=== PATIENT | female | born 1940 | race Caucasian/White ===

== ENCOUNTER 2019-03-01 06:26 | Day surgery (SDC) | payer OTHER ==
[2019-02-28 16:42] LABS: Protime INR 0.98
[2019-03-01] MEDS ORDERED: LIDOCAINE 1% MPF 30 ML VIAL ONE (06:53)
[2019-03-01] MEDS ORDERED: HEPA 1000U/500MLS 1,000 UNIT/500 ML BAG IV ONE (06:53)
[2019-03-01] MEDS ORDERED: NA CHLORIDE 0.9% 500 ML ONE (07:01)
[2019-03-01] MEDS ORDERED: NA CHLORIDE 0.9% 0 ML ONE (07:48)
[2019-03-01] MEDS ORDERED: MIDAZOLAM HCL 2 MG/2 ML INJ ONE (07:48)
[2019-03-01] MEDS ORDERED: FENTANYL CITR 100 MCG/2 ML ONE (07:48)
[2019-03-01] MEDS ORDERED: ATROPINE SULF 1 MG/10 ML SYR IV ONE (07:48)
[2019-03-01 10:33] VITALS: BP 127/46; TEMP 97.6; O2SAT 97
--- NOTE | 2019-03-01 18:41 | OP ---
Date of Procedure: 03/01/2019 Surgeon: Phu Webb MD Manager Of Operations: Gorge Salmon. Indication For The Procedure: Unstable angina. Procedures: Left heart catheterization with selective coronary arteriogram. History Of Present Illness: Ms. Tovar is 79, has multiple cardiac risk factors including hypertensi on, diabetes, dyslipidemia, continued to have chest pain, had a negative stress test in the recent [place], but because of her continued symptoms, Dr. Tobin and I decided it may be best to define her coron hazel anatomy for sure. Description Of Procedure: She was brought to the [facility] today as an outpatient on 03/01/2019, prep ped and draped in the routine sterile fashion. Given Versed for sedation. Six-Czech sheath introdu megha in the right common femoral artery. StarClose was used to close the case. Angiography there was normal. Casimiro catheter 6-Czech left and right were used to cannulate the left main and the right main respectively. She had normal coronaries. She was right dominant. Blood vessels were tortuous , but no focal stenosis. There were no complications. Blood Loss: 5 cc. Postoperative Diagnoses: Chest pain. Normal coronaries. Plan: To continue medical therapy. Anesthesia: Total conscious sedation was 30 minutes. The patient will be going home in 2 hours and I will see her in the office in 2 weeks. DALILA/SYDNEY Voice ID: [id number] Report ID: [id number]
== END 2019-03-01 10:32 | disposition home health service (06) ==
LOC: CCL 06:26
PROC: B201YZZ Plain Radiography of Multiple Coronary Arteries using Other Contrast (ICD-10-PCS; principal; 2019-03-01)
DX: I20.0 Unstable angina (principal); E11.9 Type 2 diabetes mellitus without complications; I10 Essential (primary) hypertension; E78.5 Hyperlipidemia, unspecified; I35.1 Nonrheumatic aortic (valve) insufficiency; I65.21 Occlusion and stenosis of right carotid artery; Z82.49 Family history of ischemic heart disease and other diseases of the circulatory system; Z87.891 Personal history of nicotine dependence
CPT/HCPCS: 36415; 85610; 82947 ×2; 85730; 93454; C1893; J2250; J3010; J7040; J0583

== ENCOUNTER 2021-04-04 06:18 | Day surgery (SDC) | payer OTHER ==
[2021-04-04] MEDS ORDERED: NA CHLORIDE 0.9% 1,000 ML ONE (06:44)
[2021-04-04] MEDS ORDERED: propofoL 200 MG/20 ML VIAL IV ONE (06:53)
[2021-04-04] MEDS ORDERED: LIDOCAINE 2% MPF 5 ML VIAL ONE (06:53)
[2021-04-04] MEDS ORDERED: FENTANYL CITR 100 MCG/2 ML ONE (06:53)
--- NOTE | 2021-04-04 06:53 | RAD REPORT ---
EXAM DESCRIPTION: RAD - Chest Pa And Lat (2 Views) - 04/04/2021 6:46 am CLINICAL HISTORY: PRE-OP COMPARISON: Chest Pa And Lat (2 Views) dated 04/01/2021; Chest Pa And Lat (2 Views) dated 02/25/2021; Chest Pa And Lat (2 Views) dated 02/24/2019; CHEST PA AND LAT 2 VIEW dated 10/13/2014 FINDINGS: Lines: None. Lungs: No evidence of edema or pneumonia. Pleural: No significant pleural effusions or pneumothorax. Cardiac: The heart size is within normal limits. Bones: No acute fractures. Other: IMPRESSION: No acute cardiopulmonary disease.
[2021-04-04 06:56] LABS: Absolute Lymphocytes (CBC) 1.3 K/uL (0.7-4.9); Hematocrit 33.3 % (36.0-45.0); Lymphocytes % 18.4 % (15.3-44.8); MPV 6.8 fL (7.6-11.3); RBC Red Blood Cell Count 3.68 M/uL (3.86-4.86)
[2021-04-04 07:10] LABS: Potassium 3.9 mmol/L (3.5-5.1)
[2021-04-04] MEDS ORDERED: ACETAMINOPHEN 500 MG TAB ONE (07:36)
[2021-04-04] MEDS: BUPIVACAINE 0.5% Inj,MDV 50 mL VIAL ONE ×2 (08:27→08:41)
[2021-04-04] MEDS ORDERED: ONDANSETRON 4 MG/2 ML VIAL ONE (08:47)
[2021-04-04] MEDS ORDERED: Mastisol Adhesive Liq ONE (09:13)
[2021-04-04] MEDS: HYDROMORPHONE HCL 1 MG/ML INJ ONE ×2 (09:40→09:58)
[2021-04-04 09:55] VITALS: TEMP 97.5
[2021-04-04] MEDS ORDERED: HYDROCODONE/APAP 7.5/325 MG TAB ONE (10:42)
[2021-04-04 11:52] VITALS: BP 123/47; O2SAT 95
--- NOTE | 2021-04-04 12:10 | OP ---
Date of Procedure: 04/04/2021 Surgeon: Sanjeev Arce MD Mds Manager: Edi Lennon, surgical services asst certified. Preoperative Diagnosis: Right groin lymphadenopathy and history of bladder cancer. Postoperative Diagnosis: Right groin lymphadenopathy and history of bladder cancer. Procedure: Excision of right groin lymph node with frozen section. Estimated Blood Loss: Minimal. Specimen: Right groin lymph node. 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 Anesthesia: General. Complications: None. Disposition: The patient tolerated the procedure in stable condition and taken to Recovery in good g eneral condition. Procedure In Detail: The patient was brought to the OR, placed in supine position. General anesthes ia begun. The patient was prepped and draped in usual sterile fashion. Marcaine 0.5% was infiltrate d locally. A 15-blade was used to make a 2 cm incision in the right groin where a palpable enlarged mass. Subcutaneous tissue was divided. Camacho fascia identified and divided and then deep to the te nsor fascia, a matted area of enlarged lymph nodes was identified and one of the lymph nodes approxim ately 2.5 cm in diameter was excised and 3-0 silk sutures tied and vascular clips were used to contro l the vascular bundle and then the lymph node was removed and sent to Pathology. Frozen section reve aled lymphatic tissue as well as metastatic carcinoma. Wound irrigated. Bleeding controlled with ca utery. A 3-0 chromic used to approximate the subcutaneous tissue and 4-0 Monocryl used to close the skin. Sterile dressing applied. The patient awakened and taken to Recovery in good general conditio n. Discharge Note: The patient will go to Day Surgery and home when stable. Disposition: Home. Condition: Stable. Discharge Instructions: Resume home medications and diet. Activity as tolerated. No heavy lifting. Keep dressing clean and dry. Follow up in my office in a week. Call for appointment. Ultracet 1 tablet p.o. q.4 p.r.n. pain. /MODL Voice ID: [id number] Report ID: [id number]
== END 2021-04-04 11:10 | disposition home or self-care (01) ==
LOC: OR 06:18
PROVIDERS: ATTEND Surgery
PROC: 07BH0ZX Excision of Right Inguinal Lymphatic, Open Approach, Diagnostic (ICD-10-PCS; principal; 2021-04-04 08:30)
DX: C77.4 Secondary and unspecified malignant neoplasm of inguinal and lower limb lymph nodes (principal); Z85.51 Personal history of malignant neoplasm of bladder; Z20.822 Contact with and (suspected) exposure to COVID-19
CPT/HCPCS: 49203; 93005; 85025; 80048; 36415; 82947; 88305; 88333; 71046; U0003; J2704; J3010; J1170; J7030; J2405

== ENCOUNTER 2022-01-01 09:48 | Emergency (ER) | payer OTHER ==
--- OUTSIDE RECORDS SUMMARY | 2022-01-01 10:02 | XMS REPORT | Clinical Summary ---
:1940 Author Organization [facility] MD [facility] Address [address] [place] [address] Care Team Providers Name Role Phone Mayi Gómez MD Unavailable Cheri Mcintyre MD Primary Care Provider Mayi Gómez MD Unavailable Libby Shukla MD Primary Care Provider Allergies Active Allergy Reactions Severity Noted Date Comments Codeine GI Intolerance 04/11/2021 Medications Medication Sig Dispensed Refills Start Date End Date Status gabapentin Take 100 mg by 0 03/05/2021 Act bisi (NEURONTIN) 100 mg mouth 3 (three) capsule times a day. Peripheral Neuropathy. simvastatin (ZOCOR) Take 40 mg by mouth 0 03/12/2021 Active 40 mg tablet at bedtime. Cholesterol. CRANBERRY ORAL Take 2 capsules by 0 01/07/2021 Active mouth twice daily. Supplement. sodium Swish and spit 10 0 05/14/2021 A ctive chloride-sodium mL 4 (four) times a bicarbonate (SALT AND day. Mouth Care. SODA) Use 2 teaspoonfuls mouthwashIndications: and dissolve in 1 Secondary malignant quart (960 mL) of neoplasm of lymph warm water. Take nodes of multiple hospital supply sites, Secondary home with each malignant neoplasm of admission. bone, Neoplasm, malignant of bladder, NOS ondansetron Dissolve 1 tablet 30 tablet 3 05/14/2021 Active (ZOFRAN-ODT) 8 mg (8 mg) on the disintegrating tongue every 8 tabletIndications: (eight) hours as Secondary malignant needed for nausea neoplasm of lymph or vomiting. nodes of multiple sites, Secondary malignant neoplasm of bone, Neoplasm, malignant of bladder, NOS simethicone (MYLICON) Chew 80 mg every 6 0 Active 80 mg chewable tablet (six) hours as needed for flatulence. Bloating/Gas. Available over the counter. polyethylene glycol Take 17 g by mouth 0 05/15/2021 Active (MIRALAX) 17 g daily. packetIndications: Constipation. Transitional cell Available over the carcinoma, NOS of counter. Hold for overlapping lesion of diarrhea/loose bladder, Secondary stools. malignant neoplasm of lymph nodes of multiple sites, Secondary malignant neoplasm of bone pen needle, diabetic 1 each by 120 each 11 05/15/2021 Active 32 gauge x " miscellaneous route ndleIndications: Type 4 (four) times a 2 diabetes mellitus day. with hyperglycemia topiramate (TOPAMAX) Take 50 mg by mouth 0 Active 50 mg tablet twice daily. Peripheral Neuropathy. naloxone (Narcan) 4 Use 1 dose into one 2 each 0 10/11/2021 Active mg/actuation nasal nostril as needed sprayIndications: for opioid Pain due to overdose. Do not neoplastic disease prime or test the inhaler prior to adminstration. Give another dose into the other nostril after 2 to 3 minutes if the patient does not respond or responds and then relapses into respiratory depression. Additional Information Patient not taking. Reason: Not available, Reported on 10/30/2021 metoprolol succinate (TOPROL Take 1 tablet (25 mg) 90 tablet 0 10/17/2021 Active XL) 25 mg 24 hr by mouth daily. Blood tabletIndications: Transitional Pressure. Check blood cell carcinoma, NOS of pressure PRIOR to each overlapping lesion of bladder dose and record in log. Hold for systolic blood pressure (top number) less than 110 or HR less than 60. melatonin 5 mg tab Take 1 tablet (5 mg) 0 11/08/2021 Active tabletIndications: Transitional by mouth nightly as cell carcinoma, NOS of needed (Insomnia). overlapping lesion of bladder, Available over the Papillary transitional cell counter. carcinoma of trigone of bladder Additional Information Patient not taking. Reason: Not available, Reported on 12/04/2021 vit C/E/Zn/coppr/lutein/zeaxan Take 1 tablet by 0 Active (PRESERVISION AREDS-2 ORAL) mouth twice daily. Vitamin Supplement. sulfamethoxazole-trimethoprim Take 1 tablet by 15 tablet 1 10/18 Active (BACTRIM DS) 800 mg-160 mg per mouth 3 (three) 04/17 0 tabletIndications: Transitional times a week 22 cell carcinoma, NOS of Thursday, Thursday overlapping lesion of bladder, and Thursday. PCP Papillary transitional cell prophylaxis. carcinoma of trigone of Ensure 1 glass of bladder, Other spinal cord water with each compression dose. Take for 1 month after completion of steroids (12/29/21). insulin aspart U-100 (NovoLOG Inject 2-20 Units 45 mL 3 Active Flexpen U-100 Insulin) 100 under the skin 3 11/05 unit/mL (3 mL) insulin (three) times a penIndications: Type 2 diabetes day before meals. mellitus with hyperglycemia insulin glargine,hum.rec.anlog Inject 5 Units 15 mL 3 10/18 Active (Lantus Solostar U-100 Insulin) under the skin 10/18 0 100 unit/mL (3 mL) every morning. 22 inpnIndications: Type 2 diabetes mellitus with hyperglycemia NIFEdipine (PROCARDIA XL) 30 mg Take 1 tablet (30 90 tablet 0 10/18 Active 24 hr tabletIndications: mg) by mouth 11/05 Transitional cell carcinoma, daily. For blood 22 NOS of overlapping lesion of pressure. Check bladder, Transitional cell blood pressure carcinoma, NOS of bladder, NOS PRIOR to each dose and record in log. Hold for systolic blood pressure (top number) less than 110. LORazepam (Ativan) 0.5 mg Take 1 tablet 5 tablet 0 11/17 Active tabletIndications: Anxiety, not (0.5 mg) by mouth otherwise specified as needed for 22 anxiety (Take one tablet by mouth once a day. Take it 30 minutes before each daily radiation treatment) for up to 5 doses. pantoprazole (PROTONIX) 40 mg Take 1 tablet (40 30 tablet 3 Active EC tabletIndications: mg) by mouth 06/05 Transitional cell carcinoma, daily. Acid 22 NOS of overlapping lesion of Reflux/GERD. 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 dexamethasone (DECADRON) 2 mg Take 1 tablet (2 11 tablet 0 11/ 0 12/17 Active tabletIndications: Transitional mg) by mouth 11/05 08/05 cell carcinoma, NOS of twice daily for 4 22 22 overlapping lesion of bladder days, THEN 1 tablet (2 mg) daily for 3 days. prochlorperazine (Compazine) 10 Take 1 tablet (10 30 tablet 1 11/0 Active mg tabletIndications: mg) by mouth 11/05 Transitional cell carcinoma, every 8 (eight) 22 NOS of overlapping lesion of hours as needed bladder, Nausea for nausea. lactulose (CHRONULAC) 10 Take 15 mL (10 g) 480 mL 0 11/0 Active gram/15 mL solutionIndications: by mouth every 8 Transitional cell carcinoma, (eight) hours as 22 NOS of overlapping lesion of needed for bladder, Slow transit constipation. constipation HYDROcodone-acetaminophen Take 1 tablet by 120 tablet 0 12/17 Active (NORCO) 10 mg-325 mg per mouth every 04/07 tabletIndications: Neoplasm (six) hours as 22 related pain (acute) (chronic) needed for moderate pain or severe pain. morphine (MS CONTIN) 15 mg ER Take 1 tablet (15 90 tablet 0 01/16 Active tabletIndications: Neoplasm mg) by mouth 04/07 05/05 related pain (acute) (chronic) every 8 (eight) 22 22 hours for 30 days. HYDROcodone-acetaminophen Take 1 tablet by 0 03/19 04/0 Discontinued (XODOL) 5-300 mg per tablet mouth every 6 08/05 03/07 (Stop Taking at (six) hours as 22 Disch arge) needed for severe pain. Take temperature PRIOR to each dose. Maximum daily dose = 4 grams/24 hours. losartan (COZAAR) 50 mg tablet Take 50 mg by 0 02/17 03/2 Discontinued mouth daily. 08/05 11/05 (Stop T aking at Blood Pressure. Disc harge) Check blood pressure PRIOR to each dose and record in log. Hold for systolic blood pressure (top number) less than 110. methocarbamol (ROBAXIN) 500 mg Take 500 mg by 0 02/0 05/1 Discontinued tablet mouth 3 (three) 08/05 04/07 (Reo rder) times a day as 22 22 needed for muscle spasms. metoprolol succinate (TOPROL Take 25 mg by 0 02/2 04/2 Discontinued XL) 25 mg 24 hr tablet mouth daily. 03/07 11/05 (Reorder) Blood Pressure. 22 22 Check blood pressure PRIOR to each dose and record in log. Hold for systolic blood pressure (top number) less than 110 or HR less than 60. docusate sodium (COLACE ORAL) Take 1 tablet by 0 04/0 Discontinued mouth twice 03/07 (Stop Ta sharon at daily. Stool 22 Dischar ge) Softener. Available over the counter. Hold for diarrhea/loose stools. magnesium oxide 400 mg Take 400 mg by 0 09 /2 Discontinued magnesium tab mouth twice 06/05 (Sto p Taking at daily. Magnesium 22 Dis charge) Supplement. Take with meals. Hold for diarrhea/loose stools. Lactobacillus acidophilus Take by mouth 0 03/2 Discontinued (PROBIOTIC ORAL) daily. 11/05 22 insulin NPH human isophane Inject 10 Units 0 04/0 Discontinued (NOVOLIN N NPH U-100 INSULIN under the skin at 03/07 (Stop Taking at SUBCUTANEOUS) bedtime. On Disc harge) sliding scale insulin regular, human (NOVOLIN Inject as 0 04/0 Discontinued R REGULAR U-100 INSULN directed. Inject 03/07 (Stop Taking at INJECTION) 20 units in the 22 Dis charge) AM and 10 units in the PM 30 minutes before meals. traMADol (ULTRAM) 50 mg Take 50 mg by 0 04 /0 Discontinued tabletIndications: pain mouth every 8 20 (eight) hours as 22 needed for moderate pain. acetaminophen (TYLENOL) 500 mg Take 500 mg by 0 04/0 Discontinued tablet mouth every 6 20 (six) hours as 22 needed for mild pain. Take temperature PRIOR to each dose. Maximum ACETAMINOPHEN daily dose = 4 grams from all sources /24 hours. ondansetron (Zofran) 8 mg Take 1 tablet (8 15 tablet 6 03/2 04/0 Discontinued tabletIndications: Transitional mg) by mouth 2 8/2 0 03/07 (Stop Taking at cell carcinoma, NOS of (two) times a day Discharge) overlapping lesion of bladder as needed for nausea or vomiting. senna-docusate (SENOKOT-S) 8.6 Take 2 tablets by 0 0 04/18 10/18 Discontinued mg-50 mg tabletIndications: mouth twice 06/05 (Stop Taking at Secondary malignant neoplasm of daily. Discharge) lymph nodes of multiple sites, Constipation. Secondary malignant neoplasm of Available over bone, Neoplasm, malignant of the counter. Hold bladder, NOS for diarrhea/loose stools. dexamethasone (DECADRON) 4 mg Take 1 tablet (4 6 tablet 4 05/17 Discontinued tabletIndications: Secondary mg) by mouth 11/05 05/05 (Reorder) malignant neoplasm of lymph twice daily. nodes of multiple sites, Delayed Secondary malignant neoplasm of Nausea/Vomiting. bone, Neoplasm, malignant of Take for 3 days bladder, NOS scheduled after EACH cycle of chemotherapy. Take with meals. HYDROcodone-acetaminophen Take 1 tablet by 30 tablet 0 04/17 05/17 Discontinued (NORCO) 5 mg-325 mg per mouth every 6 11/05 (Reorder) tabletIndications: Transitional (six) hours as cell carcinoma, NOS of needed for severe overlapping lesion of bladder pain. Take temperature PRIOR to each dose. Maximum daily dose of 4 grams of Acetaminophen(fro m all sources) per 24 hours. hyoscyamine sulfate (ANASPAZ) Place 1 tablet 30 tablet 1 04/18 04/18 Discontinued 0.125 mg disintegrating (0.125 mg) on the (Stop Taking at tabletIndications: Transitional tongue every 6 Discharge) cell carcinoma, NOS of (six) hours as overlapping lesion of bladder, needed (Bladder Secondary malignant neoplasm of Spasms.). lymph nodes of multiple sites, Secondary malignant neoplasm of bone, Neoplasm, malignant of bladder, NOS insulin glargine (Lantus Inject 8 to 10 15 mL 11 04/18 10/18 Discontinued Solostar U-100 Insulin) 100 Units under the 11/05 (Reorder) unit/mL (3 mL) insulin skin every penIndications: Type 2 diabetes morning. Hold if mellitus with hyperglycemia blood glucose less than 120 mg/dl. Follow directions provided at discharge for different doses on the days that you take steroids versus the days you do not. insulin aspart U-100 (NovoLOG Inject 2 to 20 15 mL 11 /10/18 Discontinued Flexpen U-100 Insulin) 100 Units under the 11/05 (Reorder) unit/mL (3 mL) insulin skin 3 (three) penIndications: Type 2 diabetes times a day mellitus with hyperglycemia before meals. HYDROcodone-acetaminophen Take 1 tablet by 60 tablet 0 /05/17 Discontinued (NORCO) 5 mg-325 mg per mouth every 6 03/07 (Stop Taking at tabletIndications: Transitional (six) hours as Discharge) cell carcinoma, NOS of needed for severe overlapping lesion of bladder pain. dexamethasone (DECADRON) 4 mg Take 1 tablet (4 6 tablet 0 05/18 Discontinued tabletIndications: Secondary mg) by mouth 05/05 11/05 (Reorder) malignant neoplasm of lymph twice daily. 22 22 nodes of multiple sites, Delayed Secondary malignant neoplasm of Nausea/Vomiting. bone, Neoplasm, malignant of Take for 3 days bladder, NOS scheduled after EACH cycle of chemotherapy. Take with meals. oxyCODONE (ROXICODONE) 10 mg Take half a 30 tablet 0 05/17 05/18 Discontinued immediate release tablet (5 mg) by 06/05 11/05 (Stop Taking at tabletIndications: Cancer mouth every 4 Discharge) associated pain (four) hours as needed for severe pain for up to 10 days. HYDROcodone-acetaminophen Take 1 tablet by 0 /2 Discontinued (NORCO) 5 mg-325 mg per tablet mouth every 6 11/05 (Reorder) (six) hours as 22 needed. Mild pain dexamethasone (DECADRON) 4 mg Take 1 tablet (4 4 tablet 2 / 2 06/16 Discontinued tabletIndications: Secondary mg) by mouth 11/05 04/07 (Reorder) malignant neoplasm of lymph twice daily. 22 22 nodes of multiple sites, Delayed Secondary malignant neoplasm of Nausea/Vomiting. bone, Neoplasm, malignant of Take for 3 days bladder, NOS scheduled after EACH cycle of chemotherapy. Take with meals. metoprolol succinate (TOPROL Take 2 tablets 60 tablet 0 /2 09 Discontinued XL) 25 mg 24 hr (50 mg) by mouth 11/05 03/07 tabletIndications: Transitional daily. Blood 22 22 cell carcinoma, NOS of Pressure. Check overlapping lesion of bladder blood pressure PRIOR to each dose and record in log. Hold for systolic blood pressure (top number) less than 110 or HR less than 60. NIFEdipine (PROCARDIA XL) 30 mg Take 1 tablet (30 30 tablet 0 04/3 / Discontinued 24 hr tabletIndications: mg) by mouth (Reorder) Transitional cell carcinoma, daily. Hold for 22 22 NOS of overlapping lesion of SYSTOLIC BLOOD bladder PRESSURE less than 110. HYDROcodone-acetaminophen Take 1 tablet by 30 tablet 0 04/2 05/0 Discontinued (NORCO) 5 mg-325 mg per mouth every 6 11/05 (Reorder) tabletIndications: Transitional (six) hours as 22 22 cell carcinoma, NOS of needed for overlapping lesion of bladder moderate pain or severe pain. furosemide (Lasix) 20 mg Take 0.5 tablets 5 tablet 0 05/0 05/0 Discontinued tabletIndications: Neoplasm, (10 mg) by mouth 06/05 06/05 (Reorder) malignant of overlapping lesion daily as needed 22 22 of bladder for edema. furosemide (Lasix) 20 mg Take 1 tablet (20 10 tablet 0 05/0 /3 Discontinued tabletIndications: Neoplasm, mg) by mouth 06/05 03/07 malignant of overlapping lesion daily as needed 22 22 of bladder for edema for up to 10 doses. HYDROcodone-acetaminophen Take 1 tablet by 60 tablet 0 05/0 06/0 Discontinued (NORCO) 5 mg-325 mg per mouth every 11/05 (Reorder) tabletIndications: Transitional (six) hours as 22 22 cell carcinoma, NOS of needed for overlapping lesion of bladder moderate pain or severe pain. dexamethasone (DECADRON) 4 mg Take 1 tablet (4 4 tablet 2 06/16 06/0 Discontinued tabletIndications: Secondary mg) by mouth 04/07 05/05 (Reorder) malignant neoplasm of lymph twice daily. 22 22 nodes of multiple sites, Delayed Secondary malignant neoplasm of Nausea/Vomiting. bone, Neoplasm, malignant of Take for 3 days bladder, NOS scheduled after EACH cycle of chemotherapy. Take with meals. methocarbamol (ROBAXIN) 500 mg Take 1 tablet 30 tablet 0 05/1 10/17 Discontinued tabletIndications: Transitional (500 mg) by mouth 04/07 11/05 (Reorder) cell carcinoma, NOS of 3 (three) times a 22 22 overlapping lesion of bladder day as needed for muscle spasms. NIFEdipine (PROCARDIA XL) 30 mg Take 1 tablet (30 30 tablet 0 05/1 06/0 Discontinued 24 hr tabletIndications: mg) by mouth 04/07 (Reorder) Transitional cell carcinoma, daily. Hold for 22 NOS of overlapping lesion of SYSTOLIC BLOOD bladder PRESSURE less than 110. ciprofloxacin HCl (Cipro) 500 Take 1 tablet 14 tablet 0 /02 20/2 Discontinued mg tabletIndications: (500 mg) by mouth 04/07 05/05 Transitional cell carcinoma, twice daily. 22 22 NOS of overlapping lesion of bladder dexamethasone (DECADRON) 4 mg Take 1 tablet (4 6 tablet 0 / 0 07/17 Discontinued tabletIndications: Secondary mg) by mouth 05/05 11/05 (Reorder) malignant neoplasm of lymph twice daily. 22 22 nodes of multiple sites, Delayed Secondary malignant neoplasm of Nausea/Vomiting. bone, Neoplasm, malignant of Take for 3 days bladder, NOS scheduled after EACH cycle of chemotherapy. Take with meals. HYDROcodone-acetaminophen Take 1 tablet by 60 tablet 0 /0 07/18 Discontinued (NORCO) 5 mg-325 mg per mouth every 6 05/05 (Reorder) tabletIndications: Transitional (six) hours as cell carcinoma, NOS of needed for overlapping lesion of bladder moderate pain or severe pain. NIFEdipine (PROCARDIA XL) 30 mg Take 1 tablet (30 30 tablet 1 06/0 08/0 Discontinued 24 hr tabletIndications: mg) by mouth 08/05 (Reorder) Transitional cell carcinoma, daily. Hold for NOS of overlapping lesion of SYSTOLIC BLOOD bladder PRESSURE less than 110. traMADol (ULTRAM) 50 mg tablet 0 /2 07/17 Discontinued 05/05 11/05 (Stop Taki ng at Discharge) furosemide (Lasix) 40 mg Take 1 tablet (40 2 tablet 0 07/17 07/18 Discontinued tabletIndications: Localized mg) by mouth 11/05 06/05 edema daily. Take for 2 days after completion of chemotherapy to help remove extra fluids. potassium chloride (KLOR-CON) Take 1 tablet (10 2 tablet 0 /2 10 mEq CR tabletIndications: mEq) by mouth 11/05 03/07 Hypokalemia daily for 2 days. 22 22 Take along with lasix dexamethasone (DECADRON) 4 mg Take 1 tablet (4 6 tablet 0 06/ 1 /2 Discontinued tabletIndications: Secondary mg) by mouth 11/05 (Therapy malignant neoplasm of lymph twice daily. completed) nodes of multiple sites, Delayed Secondary malignant neoplasm of Nausea/Vomiting. bone, Neoplasm, malignant of Take for 3 days bladder, NOS scheduled after EACH cycle of chemotherapy. Take with meals. HYDROcodone-acetaminophen Take 1 tablet by 60 tablet 0 06/2 08/0 Discontinued (NORCO) 5 mg-325 mg per mouth every 6 05/05 (Reorder) tabletIndications: Transitional (six) hours as cell carcinoma, NOS of needed for overlapping lesion of bladder moderate pain or severe pain. traMADol-acetaminophen Take 1 tablet by 0 07/0 09/16 Discontinued (ULTRACET) 37.5-325 mg per mouth as needed. 11/05 05/05 (Stop Taking at tablet Discharge) pantoprazole (Protonix) 20 mg Take 1 tablet (20 90 tablet 3 10/18 Discontinued EC tabletIndications: Upper mg) by mouth 09/04 06/05 (Stop Taking at abdominal pain, unspecified daily. Discharge) NIFEdipine (PROCARDIA XL) 30 mg Take 1 tablet (30 30 tablet 1 /0 10/18 Discontinued 24 hr tabletIndications: mg) by mouth 05/05 (Reorder) Transitional cell carcinoma, daily. Hold for NOS of overlapping lesion of SYSTOLIC BLOOD bladder, Transitional cell PRESSURE less carcinoma, NOS of bladder, NOS than 110. HYDROcodone-acetaminophen Take 1 tablet by 60 tablet 0 08/0 09/16 Discontinued (NORCO) 5 mg-325 mg per mouth every 6 07/05 (Stop Taking at tabletIndications: Transitional (six) hours as Discharge) cell carcinoma, NOS of needed for overlapping lesion of bladder moderate pain or severe pain. HYDROcodone-acetaminophen Take 1 tablet by 60 tablet 0 08/1 2 Discontinued (NORCO) 7.5 mg-325 mg per mouth every 4 05/05 05/05 (Reorder) tabletIndications: Pain due to (four) hours as neoplastic disease needed for moderate pain or severe pain. HYDROcodone-acetaminophen Take 1 tablet by 90 tablet 0 /2 2 Discontinued (NORCO) 7.5 mg-325 mg per mouth every 4 05/05 08/05 tabletIndications: Pain due to (four) hours as neoplastic disease needed for moderate pain or severe pain. HYDROcodone-acetaminophen Take 1.5 tablets 90 tablet 0 / Discontinued (NORCO) 7.5 mg-325 mg per by mouth every 4 08/05 07/05 (Reorder) tabletIndications: Pain due to (four) hours as neoplastic disease needed for moderate pain or severe pain. HYDROcodone-acetaminophen Take 1 to one and 90 tablet 0 10/17 Discontinued (NORCO) 7.5 mg-325 mg per a half tablets by 07/05 06/05 (Reorder) tabletIndications: Pain due to mouth every 4 neoplastic disease (four) hours as needed for moderate pain or severe pain. dexamethasone (DECADRON) 4 mg Take 1 tablet (4 10 tablet 0 10/18 Discontinued tabletIndications: Secondary mg) by mouth 2 09/04 06/05 (Stop Taking at malignant neoplasm of bone (two) times a day Discharge) with meals. HYDROcodone-acetaminophen Take 1 to 1 120 tablet 0 10/17 10/17 Discontinued (NORCO) 7.5 mg-325 mg per tablets by mouth 06/05 11/05 (Reorder) tabletIndications: Pain due to every 4 (four) neoplastic disease hours as needed for moderate pain or severe pain. docusate sodium (COLACE) 100 mg Take 100 mg by 0 10/18 Discontinued capsule mouth. 06/05 (Stop Taki ng at 22 Discharge) morphine (MS CONTIN) 15 mg ER Take 1 tablet (15 60 tablet 0 11/16 Discontinued tabletIndications: Pain due to mg) by mouth 11/05 10/05 neoplastic disease every 12 (twelve) hours for 30 days. senna-docusate (SENOKOT-S) 8.6 Take 3 tablets by 180 tablet 0 10/17 11/17 mg-50 mg tabletIndications: mouth twice daily 11/05 03/07 Slow transit constipation for 30 days. 22 2 2 methocarbamol (ROBAXIN) 500 mg Take 1 tablet 30 tablet 0 10/17 11/16 Discontinued tabletIndications: Transitional (500 mg) by mouth 11/05 10/05 (Therapy cell carcinoma, NOS of 3 (three) times a completed) overlapping lesion of bladder day as needed for muscle spasms. HYDROcodone-acetaminophen Take 1 tablet by 120 tablet 0 10/17 11/16 Discontinued (NORCO) 7.5 mg-325 mg per mouth every 4 11/05 03/07 (Reorder) tabletIndications: Pain due to (four) hours as neoplastic disease needed for moderate pain or severe pain. pantoprazole (PROTONIX) 40 mg Take 1 tablet (40 30 tablet 3 11/17 Discontinued EC tabletIndications: mg) by mouth 05/05 06/05 (Reorder) Transitional cell carcinoma, daily. Acid NOS of overlapping lesion of Reflux/GERD. 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 Papillary transitional cell Hyponatremia. carcinoma of trigone of bladder Hold for serum sodium greater than 150. dexamethasone (DECADRON) 4 mg Take 1 tablet (4 37 tablet 0 11/16 tabletIndications: mg) by mouth 05/05 06/05 Hyponatremia, Transitional cell every 6 (six) carcinoma, NOS of overlapping hours for 1 day, lesion of bladder, Papillary THEN 1 tablet (4 transitional cell carcinoma of mg) 3 (three) trigone of bladder, Other times a day for 5 spinal cord compression days, THEN 1 tablet (4 mg) twice daily for 5 days, THEN HALF a tablet (2 mg) twice daily for 5 days, THEN HALF a tablet (2 mg) daily with breakfast for 5 days. Steroid Taper Plan. Take with meals.. HYDROcodone-acetaminophen Take 1 tablet by 30 tablet 0 11/16 11/16 Discontinued (NORCO) 7.5 mg-325 mg per mouth every 4 03/07 10/05 (Therapy tabletIndications: Pain due to (four) hours as completed) neoplastic disease needed for moderate pain or severe pain. morphine (MS CONTIN) 15 mg ER Take 1 tablet (15 90 tablet 0 12/17 Discontinued tabletIndications: Neoplasm mg) by mouth 10/05 04/07 (Reorder) related pain (acute) (chronic) every 8 (eight) 22 22 hours for 30 days. HYDROcodone-acetaminophen Take 1 tablet by 100 tablet 0 11/16 12/17 Discontinued (NORCO) 10 mg-325 mg per mouth every 6 10/05 (Reorder) tabletIndications: Neoplasm (six) hours as 22 22 related pain (acute) (chronic) needed for moderate pain or severe pain. furosemide (Lasix) 40 mg Take 1 tablet (40 3 tablet 0 tabletIndications: Transitional mg) by mouth 04/07 07/05 cell carcinoma, NOS of daily for 3 days. overlapping lesion of bladder Active Problems Problem Noted Date Hypercalcemia 12/25/2021 Severe protein-calorie malnutrition 11/01/2021 Hyponatremia 10/31/2021 Back pain 09/28/2021 Constipation 09/28/2021 Renal insufficiency 06/10/2021 Dependence on supplemental oxygen 05/28/2021 Secondary malignant neoplasm of bilateral lungs 2021 Pleural effusion 05/17/2021 Current use of insulin 05/14/2021 [facility] current use of systemic steroid 05/14/2021 Adverse effect of glucocorticoids and synthetic analog ues 05/14/2021 Transitional cell carcinoma, NOS of overlapping lesion of bladder 05/06/2021 Type 2 diabetes mellitus with hyperglycemia 04/25/2021 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 04/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 04/11/2021 Neoplasm related pain (acute) (chronic) 04/11/2021 Bladder cancer 12/28/2020 Neuropathy 02/16/2019 Arthritis 02/16/2017 Hyperlipidemia 02/16/2017 Hypertension 02/16/2017 Resolved Problems Problem Noted Date Resolved Date Encounter for antineoplastic chemotherapy 06/24/2021 12/20/2021 Hyperkalemia 06/10/2021 08/01/2021 Encounters Date Type Specialty Care Team Description 12/31/2021 Orders Only Infusion Services Adenike Rosales RN 12/30/2021 Orders Only Genitourinary Venecia Valenzuela Secondary carlota gnant neoplasm of bone (Primary Dx); Oncology MATTI Knox Transitional c ell carcinoma, NOS of overlapping lesion of bladder; Pain in right a rm 12/28/2021 Nurse Lynne Bradford RN 12/25/2021 Infusion Infusion Services Kemp, 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 (Primary Dx); [place]alee, 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 COUNSEL Secondary ma lignant neoplasm of bone; Secondary malig nant neoplasm of bilateral lungs; Transitional ce ll carcinoma, NOS of overlapping lesion of bladder; Hypercalcemia 12/25/2021 Office Visit Genitourinary Libby Shukla MD Transitional cell carcinoma, NOS of over lapping lesion of bladder (Primary Dx); Oncology Adriazola, Bridgette, Nausea; GENERAL ACCOUNTANT Slow transit co nstipation; Secondary malig nant neoplasm of bilateral lungs; Secondary malig nant neoplasm of bone; 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; Neuropathy, not otherwise specified; Neoplasm relate d pain (acute) (chronic); Radiculopathy o f cervicothoracic region; Hypercalcemia; 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; Other fatigue 12/25/2021 Hospital Encounter Lab Justo, Victoriaio nal cell [place]e, 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 COUNSEL carcinoma, N OS of overlapping les ion of bladder 12/25/2021 Orders Only Genitourinary Sarita Mcintyre, Secondary carlota gnant neoplasm of bilateral lungs (Primary Dx); Oncology PharmD Secondary malig nant neoplasm of bone; 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; Transitional ce ll carcinoma, NOS of overlapping lesion of bladder; Hypercalcemia 12/25/2021 Travel 12/23/2021 Orders Only Genitourinary German Drew, Oncology 12/19/2021 Anesthesia Event Radiology Natacha Cano CRNA 12/19/2021 Telephone Orthopaedics Raghavendra Naidu 12/18/2021 Anesthesia Event Anesthesiology Estrella Edge APN 12/18/2021 Anesthesia Event Anesthesiology Linda Vaughan RN 12/18/2021 POEM Appointments Anesthesiology Libby Shukla MD 12/18/2021 Hospital Encounter Infusion Services Adriazola, Bridgette, S econdary malignant neoplasm of lymph nodes of multiple sites; GENERAL ACCOUNTANT Secondary malignant neoplasm of bone; AlimJamiaria Secondary m alignant neoplasm of bilateral lungs; Pooja, script manager ce ll carcinoma, NOS of overlapping lesion of bladder 12/18/2021 Hospital Encounter Lab Adriazola, Bridgette, Papill hazel GENERAL ACCOUNTANT transitional ce ll carcinoma of bl adder, NOS 12/18/2021 Office Visit Genitourinary Libby Shukla MD Transition al cell carcinoma, NOS of overlapping lesion of bladder (Primary Dx); Oncology Secondary malig nant neoplasm of bilateral lungs; Secondary malig nant neoplasm of bone; 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; Neuropathy, not otherwise specified; Neoplasm relate d pain (acute) (chronic); Radiculopathy o f cervicothoracic region; Other fatigue; Serum creatinin e raised; Pressure ulcer of unspecified part of back, stage 1 12/18/2021 Ancillary Procedure Radiology Mehring, Secondar y malignant Christopher neoplasm of bon e 12/18/2021 Hospital Encounter Lab Adriazola, Bridgette, Transi tional cell GENERAL ACCOUNTANT carcinoma, NOS of overlapping les ion of bladder 12/18/2021 Travel 12/18/2021 Orders Only Genitourinary Adriazola, Bridgette, Papillary Oncology GENERAL ACCOUNTANT transitional ce ll carcinoma of bl adder, NOS (Primary Dx ) 12/17/2021 Hospital Encounter Radiation Oncology Libby Shukla MD 12/17/2021 Clinical Support Sarita Boyd, Suspected COVID-19 (Primary Dx); GENERAL ACCOUNTANT Secondary malignant neoplasm of bone Josh Fernandez RN 12/17/2021 Hospital Encounter Radiation Oncology Nargis Oviedo MD Lud[place], Aashish Lopez MD 12/17/2021 Documentation Radiation Oncology Mohit Oviedo MD 12/17/2021 Travel 12/16/2021 Hospital Encounter Radiation Oncology Libby Shukla MD 12/16/2021 Hospital Encounter Lab Leticia Diaz, GENERAL ACCOUNTANT Kartik hernandez malignant neoplasm of bon e 12/16/2021 Travel 12/13/2021 Hospital Encounter Radiation Oncology Libby Shukla MD 12/13/2021 Travel 12/12/2021 POEM Appointments Anesthesiology Libby Shukla MD 12/12/2021 Hospital Encounter Radiation Oncology Libby Shukla MD 12/12/2021 Orders Only Neuro-Oncology Sarita Rodriguez, Secondary m alignant GENERAL ACCOUNTANT neoplasm of bon e (Primary Dx) 12/12/2021 Travel 12/12/2021 Documentation Radiation Oncology Mohit Oviedo MD 12/12/2021 Orders Only Orthopaedics Mehring, Secondary malig nant Christopher neoplasm of bon e (Primary Dx) 12/11/2021 Hospital Encounter Radiation Oncology Libby Shukla MD 12/11/2021 Travel 12/09/2021 Hospital Encounter Radiation Oncology Libby Shukla MD 12/09/2021 Orders Only Genitourinary Adriazola, Bridgette, Transitiona l cell carcinoma, NOS of overlapping lesion of bladder; Oncology GENERAL ACCOUNTANT 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 Orders Only Radiation Oncology Leticia Diaz NP Secon dary malignant neoplasm of bon e (Primary Dx) 12/05/2021 Hospital Encounter Radiation Oncology Mohit Oviedo MD 12/05/2021 Documentation Radiation Oncology Mohit Oviedo MD 12/05/2021 Documentation Radiation Oncology Mohit Oviedo MD 12/05/2021 Orders Only Radiation Oncology Mohit Oviedo MD Secon dary malignant neoplasm of bone (Primary Dx); Anxiety, not ot herwise specified 12/05/2021 Travel 12/04/2021 Hospital Encounter Radiation Oncology Leticia Diaz NP Secondary malignant Mohit Oviedo MD neoplasm of bone 12/04/2021 Hospital Encounter Lab Sarita Rodriguez, Reynaa ry malignant GENERAL ACCOUNTANT neoplasm of bon e 12/04/2021 Office Visit Neuro-Oncology Roslyn Escalante Secondary malignant MD Frank neoplasm of bon e 12/04/2021 Orders Only Radiation Oncology [place], Secondary malignant Jarad Alonso, neoplasm of bone (Primary Dx) 12/04/2021 Orders Only Radiation Oncology Leticia Diaz NP Secon dary malignant neoplasm of bon e (Primary Dx) 12/04/2021 Travel 12/02/2021 Orders Only Neuro-Oncology Sarita Rodriguez, Secondary m alignant GENERAL ACCOUNTANT neoplasm of bon e (Primary Dx) 11/27/2021 Documentation Genitourinary Yadiel Santoro, receptionist telephone operator 11/21/2021 Telemedicine Endocrinology Lisa Field Type 2 diab etes mellitus with hyperglycemia (Primary Dx); J, GENERAL ACCOUNTANT Mixed hyperlipidemia; Donna Espinoza Current use of insulin; M, GENERAL ACCOUNTANT Hypertension; Adverse effect of glucocorticoids and synthetic analogues, subsequent encounter; fringe maker curre nt use of systemic steroid 11/20/2021 Infusion Infusion Services Winter Mcintyre MD Secondary malignant neoplasm of lymph no georges of multiple sites (Primary Dx); Pagara, Helen S, Secondary ma lignant neoplasm of bone; RN Secondary malig nant neoplasm of bilateral lungs; Transitional ce ll carcinoma, NOS of overlapping lesion of bladder 11/20/2021 Office Visit Genitourinary Libby Shukla MD Transition al cell carcinoma, NOS of overlapping lesion of bladder (Primary Dx); Oncology Secondary malig nant neoplasm of bilateral lungs; Secondary malig nant neoplasm of bone; 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 11/20/2021 Hospital Encounter Lab Venecia Valenzuela Secondary malignant neoplasm of bilateral lungs; MATTI Knox Secondary carlota gnant neoplasm of bone; 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; Transitional ce ll carcinoma, NOS of overlapping lesion of bladder 11/20/2021 Telephone Endocrinology Roxie Negron, CARROLL 11/20/2021 Orders Only Genitourinary Sarita Mcintyre, Oncology PharmD 11/20/2021 Orders Only Genitourinary Libby Shukla MD Oncology 11/20/2021 Travel 11/19/2021 Hospital Encounter Radiation Oncology Mohit Oviedo MD Secondary malignant neoplasm of bon e 11/19/2021 Orders Only Genitourinary Adriazola, Bridgette, Secondary m alignant neoplasm of bilateral lungs (Primary Dx); Oncology GENERAL ACCOUNTANT Secondary malig nant neoplasm of bone; 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; Transitional ce ll carcinoma, NOS of overlapping lesion of bladder 11/14/2021 Telemedicine Endocrinology Elina Bueno, Type 2 diabet es mellitus with hyperglycemia (Primary Dx); MEDICARE SALES REPRESENTATIVE Mixed hyperlipidemia; Donna Espinoza Current use of insulin; M, GENERAL ACCOUNTANT Hypertension 11/14/2021 Orders Only Genitourinary Deborah Ham, Transitional cell carcinoma, NOS of overlapping lesion of bladder; bus person AGPCNP Transitional ce ll carcinoma, NOS of bladder, NOS 11/12/2021 Telemedicine Neuro-Oncology Roslyn Escalante Secondary malignant Frank MD neoplasm of bon e 11/12/2021 Orders Only Radiology Ailyn Palmer MD 11/10/2021 Orders Only Genitourinary Valenzuela, Venecia Transitional c ell carcinoma, NOS of overlapping lesion of bladder (Primary Dx); Oncology MATTI Knox Secondary carlota gnant neoplasm of bilateral lungs; Secondary malig nant neoplasm of bone; 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 11/08/2021 Orders Only Genitourinary German Drew Oncology 11/04/2021 Anesthesia Event Radiology Gabriele Tyson MD Potylchansky, Yury, MD 11/01/2021 Anesthesia Event Radiology Lavon Ibanez MD 11/01/2021 Orders Only Genitourinary Kishore Arellano Oncology 11/01/2021 Orders Only Genitourinary Kishore Arellano, Oncology 11/01/2021 Orders Only Radiation Oncology [place], Secondary malignant Jarad Alonso, neoplasm of bone (Primary Dx) 10/31/2021 Travel 10/31/2021 Orders Only Orthopaedics Timmy, Secondary malig shahlat MATTI Piña neoplasm of gamal ne (Primary Dx) 10/30/2021 Hospital Encounter GIM/Phase 1 Ladonna, Transitio nal cell carcinoma, NOS of overlapping lesion of bladder (Primary Dx); - MD Gisele Hyponatremia; 11/09/2021 Kishore Arellano, Chronic abdo hilton pain; Secondary malignant neoplasm of bilatera l lungs; Winter Mcintyre MD Secondary malignant neoplasm of lymph no georges of multiple sites; German Drew, Secondary ma lignant neoplasm of bone; Dependence on s upplemental oxygen; 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; Slow transit co nstipation; Severe protein- calorie malnutrition, not otherwise specified; Radiculopathy o f cervicothoracic region; Encounter for a ntineoplastic chemotherapy; Renal insuffici ency; Pleural effusio n; Adverse effect of glucocorticoids and synthetic analogues, initial encounter; Current use of insulin; Type 2 diabetes mellitus with hyperglycemia; Neoplasm relate d pain (acute) (chronic); Neuropathy, not otherwise specified; Hypertension; Mixed hyperlipi demia; Polyosteoarthri tis, not otherwise specified; 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; Other spinal co rd compression 10/30/2021 Hospital Encounter Radiation Oncology Libby Shukla MD 10/30/2021 Hospital Encounter Lab Valenzuela, Venecia Transitio nal cell carcinoma, NOS of bladder, NOS; MATTI Knox Hyposmolality and/or hyponatremia; Hypochloremia 10/30/2021 Office Visit Genitourinary Libby Shukla MD Hyposmolal ity and/or hyponatremia (Primary Dx); Oncology Transitional ce ll carcinoma, NOS of bladder, NOS; Hypochloremia 10/30/2021 Hospital Encounter Lab Deborah Ham, Victoria ional cell RN AGPCNP carcinoma, NOS of bladder, NOS 10/30/2021 Documentation Radiation Oncology Mohit Oviedo MD 10/30/2021 Travel 10/29/2021 Hospital Encounter Radiation Oncology Libby Shukla MD 10/29/2021 Consult Neuro-Oncology Roslyn Escalante MD neoplasm of bon e 10/29/2021 Hospital Encounter Radiation Oncology Mohit Oviedo MD 10/29/2021 Orders Only Radiation Oncology Leticia Diaz NP Secon dary malignant neoplasm of bon e (Primary Dx) 10/29/2021 Orders Only Radiology Ailyn Palmer MD 10/29/2021 Travel 10/28/2021 Hospital Encounter Radiation Oncology Libby Shukla MD 10/28/2021 Travel 10/25/2021 Hospital Encounter Radiation Oncology Libby Shukla MD 10/25/2021 Travel 10/24/2021 Hospital Encounter Radiation Oncology Libby Shukla MD 10/24/2021 Travel 10/24/2021 Documentation Radiation Oncology Mohit Oviedo MD 10/23/2021 Hospital Encounter Radiation Oncology Mohit Oviedo MD 10/23/2021 Hospital Encounter Radiation Oncology Deborah Ham, T ransitional cell RN AGPCNP carcinoma, NOS of Mohit Ovieod MD bladder, NO S 10/23/2021 Clinical Support Libby Reyes M D Suspected COVID-19 Josh Fernandez, (Primary Dx) CARROLL 10/23/2021 Documentation Radiation Oncology Mohit Oviedo MD 10/23/2021 Documentation Radiation Oncology Mohit Oviedo MD 10/23/2021 Orders Only Radiation Oncology Ashley Boucher malignant R, GENERAL ACCOUNTANT neoplasm of bon e (Primary Dx) 10/23/2021 Orders Only Radiation Oncology Mohit Oviedo MD Secon dary malignant neoplasm of bon e (Primary Dx) 10/23/2021 Orders Only Radiation Oncology Jarad Ibrahim MD 10/23/2021 Travel 10/21/2021 Hospital Encounter Radiation Oncology Libby Shukla MD 10/21/2021 Nurse Triage Kevin Vargas V, CARROLL MSN 10/17/2021 Telephone Radiation Oncology Ashley Boucher R, GENERAL ACCOUNTANT 10/17/2021 Telephone Radiation Oncology Ashley Boucher R, GENERAL ACCOUNTANT 10/17/2021 Refill Genitourinary Chantelle, Transitional c ell Oncology Linda, MEDICARE SALES REPRESENTATIVE carcinoma, NOS of overlapping les ion of bladder 10/16/2021 Infusion Infusion Services Deborah Ham, Transiti onal cell carcinoma, NOS of bladder, NOS (Primary Dx); RN ABRAHAM Radiculopathy of cervicothoracic region Pramod Sol III, CARROLL 10/16/2021 Office Visit Genitourinary Libby Shukla MD Transition al cell Oncology carcinoma, NOS of bladder, NOS (P rimary Dx) 10/16/2021 Hospital Encounter Lab Deborah Ham, Transit ional cell RN ABRAHAM carcinoma, NOS of bladder, NOS 10/16/2021 Orders Only Genitourinary Libby Shukla MD Oncology 10/16/2021 Orders Only Genitourinary Bree, Lilia Oncology K, [facility] 10/16/2021 Travel 10/09/2021 Orders Only Genitourinary Deborah Ham, Secondary ma lignant bus person ABRAHAM neoplasm of bon e (Primary Dx) 10/02/2021 Hospital Encounter Infusion Services Deborah Ham, Tr ansitional cell carcinoma, NOS of bladder, NOS (Primary Dx); RN ABRAHAM Papillary transitional cell carcinoma of bladder, NOS; Minerva De La Garza RN Bladder, NOS ca ncer 10/02/2021 Office Visit Genitourinary Deborah Ham, Transitional cell carcinoma, NOS of bladder, NOS (Primary Dx); bus person ABRAHAM 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; Secondary malig nant neoplasm of bone; Secondary malig nant neoplasm of bilateral lungs 10/02/2021 Hospital Encounter Lab Deborah Ham, Transit ional cell carcinoma, NOS of bladder, NOS; RN ABRAHAM Transitional ce ll carcinoma, NOS of overlapping lesion of bladder 10/02/2021 Travel 10/01/2021 Anesthesia Event Radiology Jessie Muñoz MD Bryant, Samantha, TALENT REP 10/01/2021 Hospital Encounter Radiology Deborah Ham, Transit ional cell carcinoma, NOS of overlapping lesion of bladder; RN ABRAHAM Transitional cell carcinoma, NOS of blad jayson, NOS Jessie Muñoz MD Bryant, Samantha, TALENT REP 10/01/2021 Travel 09/30/2021 Anesthesia Event Anesthesiology Ilya Hartley RN 09/30/2021 POEM Appointments Anesthesiology Libby Shukla MD No S how 09/27/2021 Emergency Clinical Decision Katharina Aparicio, Loretta perez (Primary Dx); - Back pain; 09/28/2021 Sami Lee 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 MD Mayco Berg Maria T, MD 09/27/2021 Travel 09/25/2021 Hospital Encounter Radiology Deborah Ham Cancele d (Physician RN AGPCNP Request) Nesha Rm MD Huynh, Lisa, CRNA 09/24/2021 Anesthesia Event Anesthesiology Brittany Altamirano RN 09/24/2021 POEM Appointments Anesthesiology Libby Shukla MD 09/24/2021 Anesthesia Event Radiology Fuentes Cortez MD 09/24/2021 Hospital Encounter Radiology Libby Shukla MD Transitional cell Ara, Luan, carcinoma, N OS of MD overlapping lesion of Fuentes Cortez MD bladder PelaezJuana, TALENT REP 09/24/2021 Travel 09/23/2021 Anesthesia Event Anesthesiology Meli Sy NP 09/23/2021 POEM Appointments Anesthesiology Cheryl Nava PA 09/23/2021 Hospital Encounter Lab Damari Castro PA 09/23/2021 Hospital Encounter Radiology Libby Shukla MD Encounter for other preprocedural examin ation (Primary Dx); Damari Castro, Right upper q uadrant pain; PA Claustrophobia; Bladder, NOS ca ncer; Secondary malig nant neoplasm of bone; Back pain, not otherwise specified 09/23/2021 Clinical Support Libby Reyes M D Suspected COVID-19 María Washington, (Primary Dx ) RN 09/23/2021 Orders Only Radiology Damari Castro PA 09/23/2021 Travel 09/20/2021 Orders Only Genitourinary Libby Shukla MD Transition al cell Oncology carcinoma, NOS of overlapping les ion of bladder 09/19/2021 Infusion Infusion Services Deborah Ham, Secondar y malignant neoplasm of lymph nodes of multiple sites (Primary Dx); RN ABRAHAM Secondary malig nant neoplasm of bone; Pleural effusio n; Encounter for a ntineoplastic chemotherapy; Neoplasm relate d pain (acute) (chronic); Type 2 diabetes mellitus with hyperglycemia; Current use of insulin; Hypertension; Dependence on s upplemental oxygen; Renal insuffici ency; Secondary malig nant neoplasm of bilateral lungs; Transitional ce ll carcinoma, NOS of overlapping lesion of bladder; Transitional ce ll carcinoma, NOS of bladder, NOS; Bladder, NOS ca ncer 09/19/2021 Travel 09/18/2021 Office Visit Genitourinary Libby Shukla MD Transition al cell carcinoma, NOS of overlapping lesion of bladder (Primary Dx); Oncology Transitional ce ll carcinoma, NOS of bladder, NOS 09/18/2021 Hospital Encounter Lab Libby Shukla MD Trans itional cell carcinoma, NOS of overlapping lesion of bladder; Macrocytic anem ia 09/18/2021 Orders Only Genitourinary Libby Shukla MD Oncology 09/18/2021 Travel 09/16/2021 Orders Only Genitourinary Deborah Ham, Secondary ma lignant neoplasm of bilateral lungs (Primary Dx); bus person ABRAHAM Pleural effusio n; Hypertension; Secondary malig nant neoplasm of bone; 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; Renal insuffici ency; Transitional ce ll carcinoma, NOS of overlapping lesion of bladder; Encounter for a ntineoplastic chemotherapy; Dependence on s upplemental oxygen; Current use of insulin; Type 2 diabetes mellitus with hyperglycemia; Neoplasm relate d pain (acute) (chronic); Transitional ce ll carcinoma, NOS of bladder, NOS 09/12/2021 Ancillary Procedure Radiology Libby Shukla MD Allison sitional cell carcinoma, NOS of overlapping les ion of bladder 09/12/2021 Orders Only Radiology Nava, Cheryl, PA 09/12/2021 Telephone Radiology Julianne Munroe I 09/12/2021 Orders Only Genitourinary Deborah Ham, bus person AGPCELOINA 09/12/2021 Travel 09/11/2021 Office Visit Genitourinary Libby Shukla MD Macrocytic anemia (Primary Dx); Oncology Transitional ce ll carcinoma, NOS of overlapping lesion of bladder; Upper abdominal pain, unspecified; Transitional ce ll carcinoma, NOS of bladder, NOS 09/11/2021 Travel 09/10/2021 Hospital Encounter Radiology Ady Roland Trans itional cell K, PA carcinoma, NOS of overlapping les ion of bladder 09/10/2021 Hospital Encounter Lab Ady Roland Trans itional cell K, PA carcinoma, NOS of overlapping les ion of bladder 09/10/2021 Travel 08/08/2021 Office Visit Oncology Ady Rolanda l cell K, PA carcinoma, NOS of overlapping les ion of bladder 08/08/2021 Office Visit Genitourinary Ady Roland Transition al cell Oncology K, PA carcinoma, NOS of Cheri Mcintyre, overlapping lesion of MD bladder (Primar y Dx) 08/08/2021 Travel 08/07/2021 Orders Only Oncology Yamileth Roland FNP 08/05/2021 Orders Only Genitourinary Ady Roland Oncology Brittni, PA 08/01/2021 Hospital Encounter /GI Med Winter Mcintyre MD Transitional cell carcinoma, NOS of over lapping lesion of bladder (Primary Dx); - Rachel, Localized e ronen; 08/04/2021 MD Travis Hypokalemia; 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; Secondary malig nant neoplasm of bone; Neoplasm, malig nant of bladder, NOS 08/01/2021 Office Visit Genitourinary Ady Roland Transition al cell Oncology K, PA carcinoma, NOS of overlapping les ion of bladder 08/01/2021 Travel 07/30/2021 Office Visit Genitourinary Ady Roland Transition al cell carcinoma, NOS of overlapping lesion of bladder (Primary Dx); Oncology K, PA Secondary malig nant neoplasm of bone; 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 07/30/2021 Travel 07/25/2021 Orders Only Genitourinary Castillo, Maria Eugenia T, GENERAL ACCOUNTANT Transition al cell Oncology carcinoma, NOS of overlapping les ion of bladder (Primar y Dx) 07/23/2021 Office Visit Genitourinary Cheri Mcintyre Transitiona l cell carcinoma, NOS of overlapping lesion of bladder (Primary Dx); Oncology MD Secondary malig nant neoplasm of bone; Other secondary thrombocytopenia; 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 07/23/2021 Travel 07/22/2021 Orders Only Genitourinary Luan, Saneese Transition al cell Oncology K, PA carcinoma, NOS of overlapping les ion of bladder 07/16/2021 Hospital Encounter /GI Med Cheri Mcintyre, Transi tional cell carcinoma, NOS of overlapping lesion of bladder (Primary Dx); - MD Encounter for antineoplastic chemotherap y; 07/19/2021 Sam Tabares MD Secondary malignant neoplasm of bilatera l lungs; Winter Mcintyre MD Secondary m alignant neoplasm of lymph nodes of multiple sites; Secondary malig nant neoplasm of bone; Neoplasm, malig nant of bladder, NOS 07/16/2021 Telemedicine Genitourinary Cheri Mcintyre Transitiona l cell Oncology MD carcinoma, NOS of overlapping les ion of bladder (Primar y Dx) 07/16/2021 Travel 07/16/2021 Orders Only Genitourinary Kaylee Cummins, Oncology H 07/16/2021 Orders Only Genitourinary Luan Saneese Transition al cell Oncology K, PA carcinoma, NOS of overlapping les ion of bladder (Primar y Dx) 07/08/2021 Hospital Encounter Lab Ady Roland Trans itional cell carcinoma, NOS of overlapping lesion of bladder; K, PA Other secondary thrombocytopenia 07/08/2021 Office Visit Genitourinary Cheri Mcintyre, Transitiona l cell carcinoma, NOS of overlapping lesion of bladder (Primary Dx); Oncology MD Other secondary thrombocytopenia 07/08/2021 Hospital Encounter Lab Ady Roland Trans itional cell K, PA carcinoma, NOS of overlapping les ion of bladder 07/08/2021 Travel 07/03/2021 Orders Only Oncology Ady Roland K PA 07/02/2021 Office Visit Genitourinary Cheri Mcintyre, Transitiona l cell carcinoma, NOS of overlapping lesion of bladder (Primary Dx); Oncology MD 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; Secondary malig nant neoplasm of bone; Secondary malig nant neoplasm of bilateral lungs 07/02/2021 Orders Only Genitourinary Ady Roland Transition al cell Oncology K, PA carcinoma, NOS of overlapping les ion of bladder (Primar y Dx) 07/02/2021 Travel 07/01/2021 Orders Only Genitourinary Ady Roland Oncology K, PA 06/27/2021 Orders Only Mixed Onc Chantelle, Neoplasm, malig nant Linda, MEDICARE SALES REPRESENTATIVE of overlapping lesion of bladder (Dolores petra Dx) 06/24/2021 Hospital Encounter Lymphoma Winter Mcintyre MD Transitional cell carcinoma, NOS of over lapping lesion of bladder (Primary Dx); - Cheri Mcintyre, Secondary ma lignant neoplasm of lymph nodes of multiple sites; 06/27/2021 MD Secondary malig nant neoplasm of bone; Neoplasm, malig nant of bladder, NOS 06/24/2021 Hospital Encounter Lab Ady Roland Trans itional cell K, PA carcinoma, NOS of overlapping les ion of bladder 06/24/2021 Office Visit Genitourinary Cheri Mcintyre, Transitiona l cell carcinoma, NOS of overlapping lesion of bladder (Primary Dx); Oncology MD 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; Secondary malig nant neoplasm of bone; Secondary malig nant neoplasm of bilateral lungs; Neoplasm relate d pain (acute) (chronic); Encounter for a ntineoplastic chemotherapy 06/24/2021 Orders Only Genitourinary Ady Roland Transition al cell Oncology K, PA carcinoma, NOS of overlapping les ion of bladder (Primar y Dx) 06/24/2021 Travel 06/24/2021 Telephone Endocrinology Corbin Baxter RN 06/22/2021 Hospital Encounter Lab Ady Roland Neopl asm, malignant K, PA of overlapping lesion of bladder 06/22/2021 Hospital Encounter Radiology Ady Roland Neopl asm, malignant K, PA of overlapping lesion of bladder 06/22/2021 Travel 06/21/2021 Ancillary Procedure Radiology 06/21/2021 Ancillary Procedure Radiology Transiti onal cell carcinoma, NOS of overlapping les ion of bladder 06/21/2021 Travel 06/19/2021 Telephone Genitourinary Ady Roland Oncology Brittni PA 06/19/2021 Orders Only Genitourinary Ady Roland Edema, not otherwise specified (Primary Dx); Oncology K PA Neoplasm, malig nant of overlapping lesion of bladder; Hypertension 06/19/2021 Telephone Genitourinary Ady Roland Oncology Brittni PA 06/18/2021 Office Visit Genitourinary Cheri Mcintyre, Neoplasm, m alignant of overlapping lesion of bladder (Primary Dx); Oncology MD 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; Secondary malig nant neoplasm of bone; Secondary malig nant neoplasm of bilateral lungs 06/18/2021 Travel 06/10/2021 Hospital Encounter /GI Med Cheri Mcintyre, Transi tional cell carcinoma, NOS of overlapping lesion of bladder (Primary Dx); - MD Secondary malignant neoplasm of lymph no [place] of multiple sites; 06/14/2021 Sam Tabares MD Secondary malignant neoplasm of bone; Mares, Bilal Neoplasm, ma lignant of bladder, NOS MD Francisco Javier Colon Jianbo, MD 06/10/2021 Office Visit Genitourinary Cheri Mcintyre Transitiona l cell carcinoma, NOS of overlapping lesion of bladder (Primary Dx); Oncology MD 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; Secondary malig nant neoplasm of bone; Secondary malig nant neoplasm of bilateral lungs 06/10/2021 Hospital Encounter Lab Ady Roland Trans itional cell Brittni, PA carcinoma, NOS of overlapping les ion of bladder 06/10/2021 Travel 06/04/2021 Office Visit Genitourinary Cheri Mcintyre, Neoplasm, m alignant of overlapping lesion of bladder (Primary Dx); Oncology MD Secondary malig nant neoplasm of bone; Secondary malig nant neoplasm of bilateral lungs; 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 06/04/2021 Orders Only Genitourinary Ady Roland Transition al cell Oncology K, PA carcinoma, NOS of overlapping les ion of bladder (Primar y Dx) 06/04/2021 Orders Only Genitourinary Ady Roland Transition al cell Oncology K, PA carcinoma, NOS of overlapping les ion of bladder (Primar y Dx) 06/04/2021 Travel 05/29/2021 Orders Only Genitourinary Ady Roland Oncology K, PA 05/27/2021 Hospital Encounter 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, NOS of overlapping lesion of bladder (Primary Dx); - MD Secondary malignant neoplasm of lymph no [place] of multiple sites; 05/30/2021 Winter Mcintyre MD Secondary malignant neoplasm of bone; Ivett-Damien, Neoplasm, ma lignant of bladder, NOS; MD Nupur Cancer associat ed pain 05/27/2021 Office Visit Genitourinary Cheri Mcintyre Transitiona l cell carcinoma, NOS of overlapping lesion of bladder (Primary Dx); Oncology Neoplasm, [place] of overlapping lesion of bladder 05/27/2021 Hospital Encounter Lab Ady Roland Trans itional cell Brittni, MATTI carcinoma, NOS of overlapping les ion of bladder 05/27/2021 Orders Only Genitourinary Cheri Mcintyre, Neoplasm, m alignant of overlapping lesion of bladder (Primary Dx); Oncology Secondary natalia shahlaaron neoplasm of bone 05/27/2021 Travel 05/22/2021 Telephone Genitourinary Ady Roland Oncology Brittni, PA 05/22/2021 Nurse Triage Jana Menchaca PA 05/21/2021 Hospital Encounter Radiology Cheri Mcintyre Transi tional cell carcinoma, NOS of Klein, overlapping les ion of MATTI Alonzo bladder (Primar y Dx) 05/21/2021 Orders Only Radiology Cheri Klein PA 05/20/2021 Ancillary Procedure Radiology Ady Roland Allison sitional cell carcinoma, NOS of overlapping lesion of bladder; K, PA Edema, not othe rwise specified 05/20/2021 Ancillary Procedure Radiology Ady Roland Allison sitional cell K, MATTI carcinoma, NOS of overlapping les ion of bladder 05/20/2021 Ancillary Procedure Radiology Ady Roland Allison sitional cell carcinoma, NOS of overlapping lesion of bladder; K, PA Neoplasm relate d pain (acute) (chronic) 05/20/2021 Office Visit Genitourinary Cheri Mcintyre Transitiona l cell carcinoma, NOS of overlapping lesion of bladder (Primary Dx); Oncology MD Edema, not otherwise specified; Ady Roland Neoplasm re lated pain (acute) (chronic); K, PA Secondary malig nant neoplasm of bilateral lungs; Secondary malig nant neoplasm of bone; 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 05/20/2021 Hospital Encounter Lab Ady Roland Trans itional cell K, PA carcinoma, NOS of overlapping les ion of bladder 05/20/2021 Documentation Corona Monroe, RN 05/20/2021 Case Management Arlen Moran, RN 05/20/2021 Orders Only Genitourinary Pelaez-Paningbat Physical d econditioning (Primary Dx); Oncology chris, Nupur, 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 COUNSEL Unilateral p rimary osteoarthritis of right knee 05/20/2021 Travel 05/13/2021 Hospital Encounter 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, NOS of overlapping lesion of bladder (Primary Dx); - Secondary malignant neoplasm of lymph no [place] of multiple sites; 05/17/2021 Winter Mcintyre MD Secondary malignant neoplasm of bone; Jd Hodgeit, Neoplasm, ma lignant of bladder, NOS; Type 2 diabetes mellitus with hyperglycemia; Pleural effusio n; Secondary malig nant neoplasm of bilateral lungs; Adverse effect of glucocorticoids and synthetic analogues, subsequent encounter; fringe maker curre nt use of systemic steroid; Current use of insulin; Neoplasm relate d pain (acute) (chronic); Drug-induced po lyneuropathy; Hypertension; Other hyperlipi demia; Polyosteoarthri tis, not otherwise specified 05/13/2021 Office Visit Genitourinary Cheri Mcintyre Transitiona l cell Oncology carcinoma, NOS of overlapping les ion of bladder (Primar y Dx) 05/13/2021 Hospital Encounter Lab Ady Roland Trans itional cell K, PA carcinoma, NOS of overlapping les ion of bladder 05/13/2021 Travel 05/06/2021 Orders Only Genitourinary Ady Roland Transition al cell Oncology K, PA carcinoma, NOS of overlapping les ion of bladder (Primar y Dx) 05/06/2021 Telephone Genitourinary Lamberto, Appointment Oncology Jossie, CARROLL 05/06/2021 Orders Only Genitourinary Cheri Mcintyre, Oncology 05/03/2021 Anesthesia Event Radiology Chris Nuñez MD 05/03/2021 Hospital Encounter Radiology Cheri Mcintyre Transi tional cell carcinoma, NOS of Chris Nuñez overlapping lesion of A, bladder Luan Diaz MD Nguyen, Nina, AINSLEY 05/03/2021 Travel 05/02/2021 Anesthesia Event Anesthesiology Ilya Hartley RN 05/02/2021 POEM Appointments Anesthesiology Leticia Le, PA 05/02/2021 Hospital Encounter Radiology Cheri Mcintyre Bladde r, NOS cancer (Primary Dx); Preprocedural examination done Qing Diaz PA 05/02/2021 Clinical Support Covid Cheri Mcintyre, Henrique d VALERIO-Rae PATIÑO (Primary Dx) Lexi Cameron RN 05/02/2021 Hospital Encounter Lab Jake Barnard PA 05/02/2021 Travel 04/30/2021 Hospital Encounter Miguelito Trevino MD Stephen, Saneese K PA 04/29/2021 Orders Only Radiology Leticia Le PA 04/29/2021 Orders Only Radiology Jake Barnard PA 04/25/2021 Office Visit Genitourinary Cheri Mcintyre Transitiona l cell Oncology carcinoma, NOS of overlapping les ion of bladder 04/25/2021 Lab Requisition Sohail Robertson MD Witson, Anne S., MD 04/25/2021 Travel 04/20/2021 Hospital Encounter Radiology Ady Roland Trans itional cell K, PA carcinoma, NOS of overlapping les ion of bladder 04/20/2021 Travel 04/17/2021 Ancillary Procedure Radiology Ady Roland PA 04/17/2021 Ancillary Procedure Radiology Ady Roland sitional cell carcinoma, NOS of overlapping lesion of bladder; K, PA Secondary malig nant neoplasm of bone 04/17/2021 Travel 04/11/2021 Ancillary Procedure Radiology Ady Roland sitional cell carcinoma, NOS of overlapping lesion of bladder; K, PA Secondary natalia galearon neoplasm of bone 04/11/2021 Ancillary Procedure Radiology Cheri Mcintyre Cance r MD 04/11/2021 Ancillary Procedure Radiology Cheri Mcintyre Cance r MD 04/11/2021 Office Visit Genitourinary Cheri Mcintyre Transitiona l cell carcinoma, NOS of overlapping lesion of bladder (Primary Dx); Oncology MD Secondary natalia galearon neoplasm of lymph nodes of multiple sites; Secondary malmima jann neoplasm of bone; Neoplasm relate d pain (acute) (chronic) 04/11/2021 NPR Patient Access Cheri Mcintyre Services MD 04/11/2021 Lab Requisition Sohail Robertson MD Nart, Armando, MD 04/11/2021 Orders Only Radiology Shani Jones MD 04/11/2021 Travel after 01/01/2021 Surgical History Surgery Date Site/Laterality Comments COLONOSCOPY 02/16/2005 - 02/15/2006 HYSTERECTOMY 02/16/1973 - 02/15/1974 CHOLECYSTECTOMY 1992 guess BLADDER SURGERY KNEE SURGERY Right CARPAL TUNNEL RELEASE Right Medical History Medical History Date Comments Hypertension 2018 Hyperlipidemia 2018 Neuropathy 2019 Hearing loss 2019 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 Dentures 2017 History of recurrent urinary tract infection 2018 Urinary incontinence 2020 Anemia 2020 Arthritis 2018 Bladder cancer 01/2021 Type 2 diabetes mellitus with hyperglycemia 1977 Diabetes mellitus Family History Medical History Relation Name Comments Emphysema Brother Heart failure Brother Emphysema Father Smoked cigarette s Diabetes Son 1 Hypertension Son 1 Stroke Son 1 Diabetes Son 2 Relation Name Status Comments Brother Father (Age 62) Mother (Age 103) Son 1 Alive Son 2 Alive Social History Tobacco Use Types Packs/Day Years Used Date Smoking Tobacco: Former Cigarettes 1 15 08/0 03/1964 - 01/17/1980 Smokeless Tobacco: Never Alcohol Use Standard Drinks/Week Comments Not Currently 2 (1 standard drink = 0.6 oz pure alcoho l) Sex Assigned at Date Recorded Female 04/08/2021 11:04 AM [employer] Job Start Date Occupation Industry Not on file Not on file Not on file COVID-19 Exposure Response Date Recorded In the last 10 days, have you been in contact with No / Unsu re 12/25/2021 8:45 AM [employer] someone who was confirmed or suspected to have Coronavirus/COVID-19? Obstetrics History Last Filed Vital Signs Vital Sign Reading Time Taken Comments Blood Pressure 148/66 12/25/2021 11:25 AM [employer] Pulse 91 12/25/2021 11:25 AM [employer] Temperature 36.7 C (98.1 F) 12/25/2021 11:25 AM [employer] Respiratory Rate 18 12/25/2021 11:25 AM [employer] Oxygen Saturation 95% 12/25/2021 11:25 AM [employer] Inhaled Oxygen Concentration - - Weight 60.9 kg (134 lb 4.2 oz) 12/25/2021 10:10 AM [employer] Height 154.9 cm (5' 0.98") 12/25/2021 8:49 AM [employer] Body Mass Index 25.38 12/25/2021 8:49 AM [employer] Plan of Treatment Date Type Specialty Care Team Description 01/01/2022 Appointment Lab Annalee Kemp APN [address], [place] [address] (Wo rk) 01/01/2022 Ancillary Procedure Radiology Venecia Valenzuela PA [address] [place] [address] (Wo rk) 01/01/2022 Ancillary Procedure Radiology Venecia Valenzuela PA [address] [place] [address] (Wo rk) 01/01/2022 Follow-Up Genitourinary Oncology Charles Shukla MD [address], [place] [address] (Wo rk) 01/01/2022 Infusion Infusion Services Annalee Kemp APN [address], [place] [address] (Wo rk) 01/02/2022 Follow-Up Orthopaedics Romel Redmond Jr., MD [address], [place] [address] (Wo rk) 01/08/2022 Office Visit Neuro-Oncology Roslyn Escalante MD [facility], [place] [address] (Wo rk) 01/08/2022 Appointment Lab Bridgette Pitts NP [facility], [place] [address] (Wo rk) 01/08/2022 Follow-Up Genitourinary Oncology Charles Shukla MD [address] [place] [address] (Wo rk) 01/08/2022 Infusion Infusion Services Bridgette Pitts NP [facility], [place] [address] (Wo rk) 01/14/2022 Appointment Audiology Annalee Kemp APN [address], [place] [address] (Wo rk) 01/15/2022 Infusion Infusion Services Bridgette Pitts NP [facility] [address] (Wo rk) 03/12/2022 Appointment Radiology Sarita Rodriguez, Magaly P [facility], [place] [address] (Wo rk) 03/13/2022 Appointment Lab Donna Espinoza NP [address] [place] [address] (Wo rk) 03/13/2022 Follow-Up Endocrinology Andrez Blankenship MD [facility], [place] [address] (Wo rk) Health Maintenance Due Date Last Done Comments COVID-19 Vaccination (3 - Moderna risk 05/20/2020 1, 03/25/2020 series) Medical Devices Implanted Type Area [employer]visor [employer] Device Shelf Model / Identifier Expiration Date Ser ial / Lot Katarzyna Bridges 6fr - [id number] [place] PERIPHE RAL 05/08/2022 [id number] / Implanted: Qty: 1 on 05/03/2021 at [facility] [id number] / [id number] Procedures Procedure Name Priority Date/Time Associated Diagnosis Comme nts FRACTIONATED BILIRUBIN Routine 12/25/2021 Transitional cell Results for 8:31 AM [employer] carcinoma, NOS of this proce dure overlapping lesion of are in the bladder results section. TOTAL PROTEIN Routine 12/25/2021 Transitional cell Results f or 8:31 AM [employer] carcinoma, NOS of this proce dure overlapping lesion of are in the bladder results section. ASPARTATE Routine 12/25/2021 Transitional cell Results fo r AMINOTRANSFERASE 8:31 AM [employer] carcinoma, NOS of this p rocedure overlapping lesion of are in the bladder results section. ALANINE AMINOTRANSFERASE Routine 12/25/2021 Transitional tyshawn l Results for 8:31 AM [employer] carcinoma, NOS of this proce dure overlapping lesion of are in the bladder results section. ALKALINE PHOSPHATASE Routine 12/25/2021 Transitional cell Re sults for 8:31 AM [employer] carcinoma, NOS of this proce dure overlapping lesion of are in the bladder results section. ALBUMIN LEVEL Routine 12/25/2021 Transitional cell Results f or 8:31 AM [employer] carcinoma, NOS of this proce dure overlapping lesion of are in the bladder results section. CALCIUM LEVEL TOTAL Routine 12/25/2021 Transitional cell Res ults for 8:31 AM [employer] carcinoma, NOS of this proce dure overlapping lesion of are in the bladder results section. .GLOMERULAR FILTRATION Routine 12/25/2021 Transitional cell Results for RATE 8:31 AM [employer] carcinoma, NOS of this proce dure overlapping lesion of are in the bladder results section. SERUM CREATININE Routine 12/25/2021 Transitional cell Result s for 8:31 AM [employer] carcinoma, NOS of this proce dure overlapping lesion of are in the bladder results section. ELECTROLYTE PANEL Routine 12/25/2021 Transitional cell Resul ts for 8:31 AM [employer] carcinoma, NOS of this proce dure overlapping lesion of are in the bladder results section. BLOOD UREA NITROGEN Routine 12/25/2021 Transitional cell Res ults for 8:31 AM [employer] carcinoma, NOS of this proce dure overlapping lesion of are in the bladder results section. GLUCOSE LEVEL Routine 12/25/2021 Transitional cell Results f or 8:31 AM [employer] carcinoma, NOS of this proce dure overlapping lesion of are in the bladder results section. FREE THYROXINE Routine 12/25/2021 Transitional cell Results for 8:31 AM [employer] carcinoma, NOS of this proce dure overlapping lesion of are in the bladder results section. THYROID STIMULATING Routine 12/25/2021 Transitional cell Res ults for HORMONE 8:31 AM [employer] carcinoma, NOS of this proce dure overlapping lesion of are in the bladder results section. PHOSPHORUS LEVEL Routine 12/25/2021 Transitional cell Result s for 8:31 AM [employer] carcinoma, NOS of this proce dure overlapping lesion of are in the bladder results section. MAGNESIUM LEVEL Routine 12/25/2021 Transitional cell Results for 8:31 AM [employer] carcinoma, NOS of this proce dure overlapping lesion of are in the bladder results section. LACTATE DEHYDROGENASE Routine 12/25/2021 Transitional cell R esults for 8:31 AM [employer] carcinoma, NOS of this proce dure overlapping lesion of are in the bladder results section. COMPREHENSIVE METABOLIC Routine 12/25/2021 Transitional cell PANEL 8:31 AM [employer] carcinoma, NOS of overlapping lesion of bladder MANUAL DIFFERENTIAL Routine 12/25/2021 Transitional cell Res ults for 8:28 AM [employer] carcinoma, NOS of this proce dure overlapping lesion of are in the bladder results section. Results CBC Routine 12/25/2021 Transitional cell Results fo r 8:28 AM [employer] carcinoma, NOS of this proce dure overlapping lesion of are in the bladder results section. COMPLETE BLOOD COUNT W/ Routine 12/25/2021 Transitional cell DIFFERENTIAL 8:28 AM [employer] carcinoma, NOS of overlapping lesion of bladder TRANSFUSE RED BLOOD Routine 12/18/2021 Transitional cell CELLS 6:40 PM CDT carcinoma, NOS of overlapping lesion of bladder TMP CROSSMATCH Routine 12/18/2021 Results for INTERPRETATION 11:58 AM CDT this procedur e are in the results section. TMP INTERPRETATION Routine 12/18/2021 Results f or ANTIBODY SCREEN NEGATIVE 11:58 AM CDT thi s procedure are in the results section. CLOT EXPIRATION DATE Routine 12/18/2021 Results for 11:58 AM CDT this procedure are in the results section. ANTIBODY SCREEN Routine 12/18/2021 Papillary Results for 11:58 AM CDT transitional cell this proce dure carcinoma of bladder, are in the NOS results section. ABORH Routine 12/18/2021 Papillary Results for 11:58 AM CDT transitional cell this proce dure carcinoma of bladder, are in the NOS results section. TYPE AND SCREEN Routine 12/18/2021 Papillary 11:58 AM CDT transitional cell carcinoma of bladder, NOS PRBC PRODUCT READY FOR Routine 12/18/2021 Resul ts for QC MANAGER 11:12 AM CDT this procedure are in the results section. PREPARE RBC Routine 12/18/2021 Transitional cell Results fo r 11:12 AM CDT carcinoma, NOS of this proce dure overlapping lesion of are in the bladder results section. XR FEMUR 2 VW BILATERAL Routine 12/18/2021 Secondary maligna nt Results for 10:19 AM CDT neoplasm of bone this proced ure are in the results section. SERUM CREATININE Routine 12/18/2021 Transitional cell Result s for 9:00 AM CDT carcinoma, NOS of this proce dure overlapping lesion of are in the bladder results section. FRACTIONATED BILIRUBIN Routine 12/18/2021 Transitional cell Results for 9:00 AM CDT carcinoma, NOS of this proce dure overlapping lesion of are in the bladder results section. TOTAL PROTEIN Routine 12/18/2021 Transitional cell Results f or 9:00 AM CDT carcinoma, NOS of this proce dure overlapping lesion of are in the bladder results section. ASPARTATE Routine 12/18/2021 Transitional cell Results fo r AMINOTRANSFERASE 9:00 AM CDT carcinoma, NOS of this p rocedure overlapping lesion of are in the bladder results section. ALANINE AMINOTRANSFERASE Routine 12/18/2021 Transitional tyshawn l Results for 9:00 AM CDT carcinoma, NOS of this proce dure overlapping lesion of are in the bladder results section. ALKALINE PHOSPHATASE Routine 12/18/2021 Transitional cell Re sults for 9:00 AM CDT carcinoma, NOS of this proce dure overlapping lesion of are in the bladder results section. ALBUMIN LEVEL Routine 12/18/2021 Transitional cell Results f or 9:00 AM CDT carcinoma, NOS of this proce dure overlapping lesion of are in the bladder results section. CALCIUM LEVEL TOTAL Routine 12/18/2021 Transitional cell Res ults for 9:00 AM CDT carcinoma, NOS of this proce dure overlapping lesion of are in the bladder results section. .GLOMERULAR FILTRATION Routine 12/18/2021 Transitional cell Results for RATE 9:00 AM CDT carcinoma, NOS of this proce dure overlapping lesion of are in the bladder results section. ELECTROLYTE PANEL Routine 12/18/2021 Transitional cell Resul ts for 9:00 AM CDT carcinoma, NOS of this proce dure overlapping lesion of are in the bladder results section. BLOOD UREA NITROGEN Routine 12/18/2021 Transitional cell Res ults for 9:00 AM CDT carcinoma, NOS of this proce dure overlapping lesion of are in the bladder results section. GLUCOSE LEVEL Routine 12/18/2021 Transitional cell Results f or 9:00 AM CDT carcinoma, NOS of this proce dure overlapping lesion of are in the bladder results section. MANUAL DIFFERENTIAL Routine 12/18/2021 Transitional cell Res ults for 9:00 AM CDT carcinoma, NOS of this proce dure overlapping lesion of are in the bladder results section. Results CBC Routine 12/18/2021 Transitional cell Results fo r 9:00 AM CDT carcinoma, NOS of this proce dure overlapping lesion of are in the bladder results section. PHOSPHORUS LEVEL Routine 12/18/2021 Transitional cell Result s for 9:00 AM CDT carcinoma, NOS of this proce dure overlapping lesion of are in the bladder results section. MAGNESIUM LEVEL Routine 12/18/2021 Transitional cell Results for 9:00 AM CDT carcinoma, NOS of this proce dure overlapping lesion of are in the bladder results section. LACTATE DEHYDROGENASE Routine 12/18/2021 Transitional cell R esults for 9:00 AM CDT carcinoma, NOS of this proce dure overlapping lesion of are in the bladder results section. COMPREHENSIVE METABOLIC Routine 12/18/2021 Transitional cell PANEL 9:00 AM CDT carcinoma, NOS of overlapping lesion of bladder COMPLETE BLOOD COUNT W/ Routine 12/18/2021 Transitional cell DIFFERENTIAL 9:00 AM CDT carcinoma, NOS of overlapping lesion of bladder COVID-19 (SARS-COV-2) Routine 12/17/2021 Suspected COVID-19 Results for PCR-ASYMPTOMATIC MC 10:54 AM CDT this pro cedure are in the results section. FRACTIONATED BILIRUBIN Routine 12/16/2021 Secondary malignan t Results for 4:27 PM CDT neoplasm of bone this proced ure are in the results section. TOTAL PROTEIN Routine 12/16/2021 Secondary malignant Results for 4:27 PM CDT neoplasm of bone this proced ure are in the results section. ASPARTATE Routine 12/16/2021 Secondary malignant Results for AMINOTRANSFERASE 4:27 PM CDT neoplasm of bone this pr ocedure are in the results section. ALANINE AMINOTRANSFERASE Routine 12/16/2021 Secondary malign ant Results for 4:27 PM CDT neoplasm of bone this proced ure are in the results section. ALKALINE PHOSPHATASE Routine 12/16/2021 Secondary malignant Results for 4:27 PM CDT neoplasm of bone this proced ure are in the results section. ALBUMIN LEVEL Routine 12/16/2021 Secondary malignant Results for 4:27 PM CDT neoplasm of bone this proced ure are in the results section. CALCIUM LEVEL TOTAL Routine 12/16/2021 Secondary malignant R esults for 4:27 PM CDT neoplasm of bone this proced ure are in the results section. .GLOMERULAR FILTRATION Routine 12/16/2021 Secondary malignan t Results for RATE 4:27 PM CDT neoplasm of bone this proced ure are in the results section. SERUM CREATININE Routine 12/16/2021 Secondary malignant Resu lts for 4:27 PM CDT neoplasm of bone this proced ure are in the results section. ELECTROLYTE PANEL Routine 12/16/2021 Secondary malignant Res ults for 4:27 PM CDT neoplasm of bone this proced ure are in the results section. BLOOD UREA NITROGEN Routine 12/16/2021 Secondary malignant R esults for 4:27 PM CDT neoplasm of bone this proced ure are in the results section. GLUCOSE LEVEL Routine 12/16/2021 Secondary malignant Results for 4:27 PM CDT neoplasm of bone this proced ure are in the results section. MANUAL DIFFERENTIAL Routine 12/16/2021 Secondary malignant R esults for 4:27 PM CDT neoplasm of bone this proced ure are in the results section. Results CBC Routine 12/16/2021 Secondary malignant Results for 4:27 PM CDT neoplasm of bone this proced ure are in the results section. MAGNESIUM LEVEL Routine 12/16/2021 Secondary malignant Resul ts for 4:27 PM CDT neoplasm of bone this proced ure are in the results section. LACTATE DEHYDROGENASE Routine 12/16/2021 Secondary malignant Results for 4:27 PM CDT neoplasm of bone this proced ure are in the results section. COMPREHENSIVE METABOLIC Routine 12/16/2021 Secondary maligna nt PANEL 4:27 PM CDT neoplasm of bone COMPLETE BLOOD COUNT W/ Routine 12/16/2021 Secondary maligna nt DIFFERENTIAL 4:27 PM CDT neoplasm of bone MANUAL DIFFERENTIAL Routine 12/04/2021 Secondary malignant R esults for 10:42 AM CDT neoplasm of bone this proced ure are in the results section. Results CBC Routine 12/04/2021 Secondary malignant Results for 10:42 AM CDT neoplasm of bone this proced ure are in the results section. FRACTIONATED BILIRUBIN Routine 12/04/2021 Secondary malignan t Results for 10:42 AM CDT neoplasm of bone this proced ure are in the results section. TOTAL PROTEIN Routine 12/04/2021 Secondary malignant Results for 10:42 AM CDT neoplasm of bone this proced ure are in the results section. ASPARTATE Routine 12/04/2021 Secondary malignant Results for AMINOTRANSFERASE 10:42 AM CDT neoplasm of bone this pr ocedure are in the results section. ALANINE AMINOTRANSFERASE Routine 12/04/2021 Secondary malign ant Results for 10:42 AM CDT neoplasm of bone this proced ure are in the results section. ALKALINE PHOSPHATASE Routine 12/04/2021 Secondary malignant Results for 10:42 AM CDT neoplasm of bone this proced ure are in the results section. ALBUMIN LEVEL Routine 12/04/2021 Secondary malignant Results for 10:42 AM CDT neoplasm of bone this proced ure are in the results section. CALCIUM LEVEL TOTAL Routine 12/04/2021 Secondary malignant R esults for 10:42 AM CDT neoplasm of bone this proced ure are in the results section. .GLOMERULAR FILTRATION Routine 12/04/2021 Secondary malignan t Results for RATE 10:42 AM CDT neoplasm of bone this proced ure are in the results section. SERUM CREATININE Routine 12/04/2021 Secondary malignant Resu lts for 10:42 AM CDT neoplasm of bone this proced ure are in the results section. ELECTROLYTE PANEL Routine 12/04/2021 Secondary malignant Res ults for 10:42 AM CDT neoplasm of bone this proced ure are in the results section. BLOOD UREA NITROGEN Routine 12/04/2021 Secondary malignant R esults for 10:42 AM CDT neoplasm of bone this proced ure are in the results section. GLUCOSE LEVEL Routine 12/04/2021 Secondary malignant Results for 10:42 AM CDT neoplasm of bone this proced ure are in the results section. COMPREHENSIVE METABOLIC Routine 12/04/2021 Secondary maligna nt PANEL 10:42 AM CDT neoplasm of bone COMPLETE BLOOD COUNT W/ Routine 12/04/2021 Secondary maligna nt DIFFERENTIAL 10:42 AM CDT neoplasm of bone FOLATE LEVEL Routine 12/04/2021 Secondary malignant Results for 10:42 AM CDT neoplasm of bone this proced ure are in the results section. HOMOCYSTEINE TOTAL Routine 12/04/2021 Secondary malignant Re sults for 10:42 AM CDT neoplasm of bone this proced ure are in the results section. METHYLMALONIC ACID Routine 12/04/2021 Secondary malignant Re sults for QUANTATIVE, SERUM 10:42 AM CDT neoplasm of bone this p rocedure are in the results section. VITAMIN D 25 HYDROXY Routine 12/04/2021 Secondary malignant Results for LEVEL 10:42 AM CDT neoplasm of bone this proced ure are in the results section. VITAMIN B12 LEVEL Routine 12/04/2021 Secondary malignant Res ults for 10:42 AM CDT neoplasm of bone this proced ure are in the results section. VITAMIN B6 (PLP AND PA) Routine 12/04/2021 Secondary maligna nt Results for PROFILE 10:42 AM CDT neoplasm of bone this proced ure are in the results section. VITAMIN B1 LEVEL, WHOLE Routine 12/04/2021 Secondary maligna nt Results for BLOOD 10:42 AM CDT neoplasm of bone this proced ure are in the results section. HEMOGLOBIN A1C Routine 12/04/2021 Secondary malignant Result s for 10:42 AM CDT neoplasm of bone this proced ure are in the results section. FREE THYROXINE Routine 12/04/2021 Secondary malignant Result s for 10:42 AM CDT neoplasm of bone this proced ure are in the results section. THYROID STIMULATING Routine 12/04/2021 Secondary malignant R esults for HORMONE 10:42 AM CDT neoplasm of bone this proced ure are in the results section. 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 CALCIUM IONIZED, VENOUS AM 11/09/2021 Resu lts for 4:02 AM CDT this procedure are in the results section. .GLOMERULAR FILTRATION AM 11/09/2021 Resul ts for RATE 4:02 AM CDT this procedure are in the results section. SERUM CREATININE AM 11/09/2021 Results for 4:02 AM CDT this procedure are in the results section. ELECTROLYTE PANEL AM 11/09/2021 Results fo r 4:02 AM CDT this procedure are in the results section. BLOOD UREA NITROGEN AM 11/09/2021 Results for 4:02 AM CDT this procedure are in the results section. GLUCOSE LEVEL AM 11/09/2021 Results for 4:02 AM CDT this procedure are in the results section. CALCIUM LEVEL TOTAL AM 11/09/2021 Results for 4:02 AM CDT this procedure are in the results section. BASIC METABOLIC PANEL, AM 11/09/2021 CALCIUM IONIZED 4:02 AM CDT PHOSPHORUS LEVEL AM 11/09/2021 Results for 4:02 AM CDT this procedure are in the results section. MAGNESIUM LEVEL AM 11/09/2021 Results for 4:02 AM CDT this procedure are in the results section. POC GLUCOSE SCREEN Routine 11/08/2021 Results f or 11:28 PM CDT this procedure are in the results section. POC GLUCOSE SCREEN Routine 11/08/2021 Results f or 8:51 PM CDT this procedure are in the results section. TRANSFUSE RED BLOOD Routine 11/08/2021 CELLS 7:45 PM CDT POC GLUCOSE SCREEN Routine 11/08/2021 Results f or 2:48 PM CDT this procedure are in the results section. POC GLUCOSE SCREEN Routine 11/08/2021 Results f or 1:20 PM CDT this procedure are in the results section. TMP CROSSMATCH STAT 11/08/2021 Results for INTERPRETATION 10:57 AM CDT this procedur e are in the results section. TMP INTERPRETATION STAT 11/08/2021 Results f or ANTIBODY SCREEN NEGATIVE 10:57 AM CDT thi s procedure are in the results section. CLOT EXPIRATION DATE STAT 11/08/2021 Results for 10:57 AM CDT this procedure are in the results section. ANTIBODY SCREEN STAT 11/08/2021 Results for 10:57 AM CDT this procedure are in the results section. ABORH STAT 11/08/2021 Results for 10:57 AM CDT this procedure are in the results section. TYPE AND SCREEN STAT 11/08/2021 10:57 AM CDT PRBC PRODUCT READY FOR Routine 11/08/2021 Resul ts for QC MANAGER 9:59 AM CDT this procedure are in the results section. PREPARE RBC Routine 11/08/2021 Results for 9:59 AM CDT this procedure are in the results section. POC GLUCOSE SCREEN Routine 11/08/2021 Results f or 7:15 AM CDT this procedure are in the results section. POC GLUCOSE SCREEN Routine 11/08/2021 Results f or 6:29 AM CDT this procedure are in the results section. CALCIUM IONIZED, VENOUS AM 11/08/2021 Resu lts for 3:42 AM CDT this procedure are in the results section. MANUAL DIFFERENTIAL AM 11/08/2021 Results for 3:42 AM CDT this procedure are in the results section. Results CBC AM 11/08/2021 Results for 3:42 AM CDT this procedure are in the results section. .GLOMERULAR FILTRATION AM 11/08/2021 Resul ts for RATE 3:42 AM CDT this procedure are in the results section. SERUM CREATININE AM 11/08/2021 Results for 3:42 AM CDT this procedure are in the results section. ELECTROLYTE PANEL AM 11/08/2021 Results fo r 3:42 AM CDT this procedure are in the results section. BLOOD UREA NITROGEN AM 11/08/2021 Results for 3:42 AM CDT this procedure are in the results section. GLUCOSE LEVEL AM 11/08/2021 Results for 3:42 AM CDT this procedure are in the results section. FRACTIONATED BILIRUBIN AM 11/08/2021 Resul ts for 3:42 AM CDT this procedure are in the results section. TOTAL PROTEIN AM 11/08/2021 Results for 3:42 AM CDT this procedure are in the results section. ASPARTATE AM 11/08/2021 Results for AMINOTRANSFERASE 3:42 AM CDT this proced ure are in the results section. ALANINE AMINOTRANSFERASE AM 11/08/2021 Res ults for 3:42 AM CDT this procedure are in the results section. ALKALINE PHOSPHATASE AM 11/08/2021 Results for 3:42 AM CDT this procedure are in the results section. ALBUMIN LEVEL AM 11/08/2021 Results for 3:42 AM CDT this procedure are in the results section. CALCIUM LEVEL TOTAL AM 11/08/2021 Results for 3:42 AM CDT this procedure are in the results section. BASIC METABOLIC PANEL, AM 11/08/2021 CALCIUM IONIZED 3:42 AM CDT COMPLETE BLOOD COUNT W/ AM 11/08/2021 DIFFERENTIAL 3:42 AM CDT HEPATIC FUNCTION PANEL AM 11/08/2021 3:42 AM CDT PHOSPHORUS LEVEL AM 11/08/2021 Results for 3:42 AM CDT this procedure are in the results section. MAGNESIUM LEVEL AM 11/08/2021 Results for 3:42 AM CDT this procedure are in the results section. POC GLUCOSE SCREEN Routine 11/07/2021 Results f or 6:06 PM CDT this procedure are in the results section. POC GLUCOSE SCREEN Routine 11/07/2021 Results f or 2:27 PM CDT this procedure are in the results section. POC GLUCOSE SCREEN Routine 11/07/2021 Results f or 8:23 AM CDT this procedure are in the results section. POC GLUCOSE SCREEN Routine 11/07/2021 Results f or 4:52 AM CDT this procedure are in the results section. CALCIUM IONIZED, VENOUS AM 11/07/2021 Resu lts for 4:25 AM CDT this procedure are in the results section. .GLOMERULAR FILTRATION AM 11/07/2021 Resul ts for RATE 4:25 AM CDT this procedure are in the results section. SERUM CREATININE AM 11/07/2021 Results for 4:25 AM CDT this procedure are in the results section. ELECTROLYTE PANEL AM 11/07/2021 Results fo r 4:25 AM CDT this procedure are in the results section. BLOOD UREA NITROGEN AM 11/07/2021 Results for 4:25 AM CDT this procedure are in the results section. GLUCOSE LEVEL AM 11/07/2021 Results for 4:25 AM CDT this procedure are in the results section. CALCIUM LEVEL TOTAL AM 11/07/2021 Results for 4:25 AM CDT this procedure are in the results section. BASIC METABOLIC PANEL, AM 11/07/2021 CALCIUM IONIZED 4:25 AM CDT PHOSPHORUS LEVEL AM 11/07/2021 Results for 4:25 AM CDT this procedure are in the results section. MAGNESIUM LEVEL AM 11/07/2021 Results for 4:25 AM CDT this procedure are in the results section. POC GLUCOSE SCREEN Routine 11/06/2021 Results f or 7:18 PM CDT this procedure are in the results section. GLUCOSE 6-PHOSPHATE Now 11/06/2021 Results for DEHYDRGENASE ENZYME 4:32 PM CDT this pro cedure ACTIVITY are in the results section. POC GLUCOSE SCREEN Routine 11/06/2021 Results f or 1:47 PM CDT this procedure are in the results section. POC GLUCOSE SCREEN Routine 11/06/2021 Results f or 8:03 AM CDT this procedure are in the results section. CALCIUM IONIZED, VENOUS AM 11/06/2021 Resu lts for 4:49 AM CDT this procedure are in the results section. MANUAL DIFFERENTIAL AM 11/06/2021 Results for 4:49 AM CDT this procedure are in the results section. Results CBC AM 11/06/2021 Results for 4:49 AM CDT this procedure are in the results section. .GLOMERULAR FILTRATION AM 11/06/2021 Resul ts for RATE 4:49 AM CDT this procedure are in the results section. SERUM CREATININE AM 11/06/2021 Results for 4:49 AM CDT this procedure are in the results section. ELECTROLYTE PANEL AM 11/06/2021 Results fo r 4:49 AM CDT this procedure are in the results section. BLOOD UREA NITROGEN AM 11/06/2021 Results for 4:49 AM CDT this procedure are in the results section. GLUCOSE LEVEL AM 11/06/2021 Results for 4:49 AM CDT this procedure are in the results section. FRACTIONATED BILIRUBIN AM 11/06/2021 Resul ts for 4:49 AM CDT this procedure are in the results section. TOTAL PROTEIN AM 11/06/2021 Results for 4:49 AM CDT this procedure are in the results section. ASPARTATE AM 11/06/2021 Results for AMINOTRANSFERASE 4:49 AM CDT this proced ure are in the results section. ALANINE AMINOTRANSFERASE AM 11/06/2021 Res ults for 4:49 AM CDT this procedure are in the results section. ALKALINE PHOSPHATASE AM 11/06/2021 Results for 4:49 AM CDT this procedure are in the results section. ALBUMIN LEVEL AM 11/06/2021 Results for 4:49 AM CDT this procedure are in the results section. PROTHROMBIN TIME Routine 11/06/2021 Results for 4:49 AM CDT this procedure are in the results section. CALCIUM LEVEL TOTAL AM 11/06/2021 Results for 4:49 AM CDT this procedure are in the results section. BASIC METABOLIC PANEL, AM 11/06/2021 CALCIUM IONIZED 4:49 AM CDT COMPLETE BLOOD COUNT W/ AM 11/06/2021 DIFFERENTIAL 4:49 AM CDT HEPATIC FUNCTION PANEL AM 11/06/2021 4:49 AM CDT PHOSPHORUS LEVEL AM 11/06/2021 Results for 4:49 AM CDT this procedure are in the results section. MAGNESIUM LEVEL AM 11/06/2021 Results for 4:49 AM CDT this procedure are in the results section. EKG, 12-LEAD (PORTABLE) STAT 11/06/2021 POC GLUCOSE SCREEN Routine 11/05/2021 Results f or 10:59 PM CDT this procedure are in the results section. POC GLUCOSE SCREEN Routine 11/05/2021 Results f or 7:18 PM CDT this procedure are in the results section. POC GLUCOSE SCREEN Routine 11/05/2021 Results f or 2:35 PM CDT this procedure are in the results section. MANUAL DIFFERENTIAL STAT 11/05/2021 Results for 11:19 AM CDT this procedure are in the results section. Results CBC STAT 11/05/2021 Results for 11:19 AM CDT this procedure are in the results section. COMPLETE BLOOD COUNT W/ STAT 11/05/2021 DIFFERENTIAL 11:19 AM CDT GENERAL LABORATORY ADD Now 11/05/2021 Resul ts for ON TEST 10:02 AM CDT this procedure are in the results section. POC GLUCOSE SCREEN Routine 11/05/2021 Results f or 7:27 AM CDT this procedure are in the results section. CALCIUM LEVEL TOTAL Routine 11/05/2021 Results for 4:27 AM CDT this procedure are in the results section. CALCIUM IONIZED, VENOUS Routine 11/05/2021 Resu lts for 4:27 AM CDT this procedure are in the results section. .GLOMERULAR FILTRATION Routine 11/05/2021 Resul ts for RATE 4:27 AM CDT this procedure are in the results section. SERUM CREATININE Routine 11/05/2021 Results for 4:27 AM CDT this procedure are in the results section. ELECTROLYTE PANEL Routine 11/05/2021 Results fo r 4:27 AM CDT this procedure are in the results section. BLOOD UREA NITROGEN Routine 11/05/2021 Results for 4:27 AM CDT this procedure are in the results section. GLUCOSE LEVEL Routine 11/05/2021 Results for 4:27 AM CDT this procedure are in the results section. SODIUM URINE Routine 11/05/2021 Results for 4:27 AM CDT this procedure are in the results section. OSMOLALITY URINE Routine 11/05/2021 Results for 4:27 AM CDT this procedure are in the results section. BASIC METABOLIC PANEL, Routine 11/05/2021 CALCIUM IONIZED 4:27 AM CDT PHOSPHORUS LEVEL AM 11/05/2021 Results for 4:27 AM CDT this procedure are in the results section. MAGNESIUM LEVEL AM 11/05/2021 Results for 4:27 AM CDT this procedure are in the results section. POC GLUCOSE SCREEN Routine 11/04/2021 Results f or 11:14 PM CDT this procedure are in the results section. POC GLUCOSE SCREEN Routine 11/04/2021 Results f or 7:51 PM CDT this procedure are in the results section. MRI CERVICAL THORACIC Routine 11/04/2021 Result s for LUMBAR SPINE W WO 5:25 PM CDT this proce dure CONTRAST are in the results section. POC GLUCOSE SCREEN Routine 11/04/2021 Results f or 11:59 AM CDT this procedure are in the results section. POC GLUCOSE SCREEN Routine 11/04/2021 Results f or 7:52 AM CDT this procedure are in the results section. CLOT EXPIRATION DATE Routine 11/04/2021 Results for 3:22 AM CDT this procedure are in the results section. TMP INTERPRETATION Routine 11/04/2021 Results f or ANTIBODY SCREEN NEGATIVE 3:22 AM CDT thi s procedure are in the results section. ANTIBODY SCREEN Now 11/04/2021 Results for 3:22 AM CDT this procedure are in the results section. ABORH Now 11/04/2021 Results for 3:22 AM CDT this procedure are in the results section. TYPE AND SCREEN Now 11/04/2021 3:22 AM CDT CALCIUM IONIZED, VENOUS Routine 11/04/2021 Resu lts for 3:22 AM CDT this procedure are in the results section. .GLOMERULAR FILTRATION Routine 11/04/2021 Resul ts for RATE 3:22 AM CDT this procedure are in the results section. SERUM CREATININE Routine 11/04/2021 Results for 3:22 AM CDT this procedure are in the results section. ELECTROLYTE PANEL Routine 11/04/2021 Results fo r 3:22 AM CDT this procedure are in the results section. BLOOD UREA NITROGEN Routine 11/04/2021 Results for 3:22 AM CDT this procedure are in the results section. GLUCOSE LEVEL Routine 11/04/2021 Results for 3:22 AM CDT this procedure are in the results section. MANUAL DIFFERENTIAL AM 11/04/2021 Results for 3:22 AM CDT this procedure are in the results section. Results CBC AM 11/04/2021 Results for 3:22 AM CDT this procedure are in the results section. FRACTIONATED BILIRUBIN AM 11/04/2021 Resul ts for 3:22 AM CDT this procedure are in the results section. TOTAL PROTEIN AM 11/04/2021 Results for 3:22 AM CDT this procedure are in the results section. ASPARTATE AM 11/04/2021 Results for AMINOTRANSFERASE 3:22 AM CDT this proced ure are in the results section. ALANINE AMINOTRANSFERASE AM 11/04/2021 Res ults for 3:22 AM CDT this procedure are in the results section. ALKALINE PHOSPHATASE AM 11/04/2021 Results for 3:22 AM CDT this procedure are in the results section. ALBUMIN LEVEL AM 11/04/2021 Results for 3:22 AM CDT this procedure are in the results section. BASIC METABOLIC PANEL, Routine 11/04/2021 CALCIUM IONIZED 3:22 AM CDT COMPLETE BLOOD COUNT W/ AM 11/04/2021 DIFFERENTIAL 3:22 AM CDT HEPATIC FUNCTION PANEL AM 11/04/2021 3:22 AM CDT PHOSPHORUS LEVEL AM 11/04/2021 Results for 3:22 AM CDT this procedure are in the results section. MAGNESIUM LEVEL AM 11/04/2021 Results for 3:22 AM CDT this procedure are in the results section. POC GLUCOSE SCREEN Routine 11/03/2021 Results f or 10:15 PM CDT this procedure are in the results section. CALCIUM IONIZED, VENOUS Routine 11/03/2021 Resu lts for 8:39 PM CDT this procedure are in the results section. .GLOMERULAR FILTRATION Routine 11/03/2021 Resul ts for RATE 8:39 PM CDT this procedure are in the results section. SERUM CREATININE Routine 11/03/2021 Results for 8:39 PM CDT this procedure are in the results section. ELECTROLYTE PANEL Routine 11/03/2021 Results fo r 8:39 PM CDT this procedure are in the results section. BLOOD UREA NITROGEN Routine 11/03/2021 Results for 8:39 PM CDT this procedure are in the results section. GLUCOSE LEVEL Routine 11/03/2021 Results for 8:39 PM CDT this procedure are in the results section. BASIC METABOLIC PANEL, Routine 11/03/2021 CALCIUM IONIZED 8:39 PM CDT POC GLUCOSE SCREEN Routine 11/03/2021 Results f or 8:01 PM CDT this procedure are in the results section. POC GLUCOSE SCREEN Routine 11/03/2021 Results f or 2:08 PM CDT this procedure are in the results section. CALCIUM IONIZED, VENOUS Routine 11/03/2021 Resu lts for 12:50 PM CDT this procedure are in the results section. .GLOMERULAR FILTRATION Routine 11/03/2021 Resul ts for RATE 12:50 PM CDT this procedure are in the results section. SERUM CREATININE Routine 11/03/2021 Results for 12:50 PM CDT this procedure are in the results section. ELECTROLYTE PANEL Routine 11/03/2021 Results fo r 12:50 PM CDT this procedure are in the results section. BLOOD UREA NITROGEN Routine 11/03/2021 Results for 12:50 PM CDT this procedure are in the results section. GLUCOSE LEVEL Routine 11/03/2021 Results for 12:50 PM CDT this procedure are in the results section. BASIC METABOLIC PANEL, Routine 11/03/2021 CALCIUM IONIZED 12:50 PM CDT SODIUM URINE Routine 11/03/2021 Results for 11:20 AM CDT this procedure are in the results section. OSMOLALITY URINE Routine 11/03/2021 Results for 11:20 AM CDT this procedure are in the results section. POC GLUCOSE SCREEN Routine 11/03/2021 Results f or 10:15 AM CDT this procedure are in the results section. CALCIUM IONIZED, VENOUS Routine 11/03/2021 Resu lts for 6:46 AM CDT this procedure are in the results section. .GLOMERULAR FILTRATION Routine 11/03/2021 Resul ts for RATE 6:46 AM CDT this procedure are in the results section. SERUM CREATININE Routine 11/03/2021 Results for 6:46 AM CDT this procedure are in the results section. ELECTROLYTE PANEL Routine 11/03/2021 Results fo r 6:46 AM CDT this procedure are in the results section. BLOOD UREA NITROGEN Routine 11/03/2021 Results for 6:46 AM CDT this procedure are in the results section. GLUCOSE LEVEL Routine 11/03/2021 Results for 6:46 AM CDT this procedure are in the results section. BASIC METABOLIC PANEL, Routine 11/03/2021 CALCIUM IONIZED 6:46 AM CDT SODIUM URINE Routine 11/03/2021 Results for 6:46 AM CDT this procedure are in the results section. OSMOLALITY URINE Routine 11/03/2021 Results for 6:46 AM CDT this procedure are in the results section. PHOSPHORUS LEVEL Routine 11/03/2021 Results for 1:21 AM CDT this procedure are in the results section. MAGNESIUM LEVEL Routine 11/03/2021 Results for 1:21 AM CDT this procedure are in the results section. MANUAL DIFFERENTIAL AM 11/03/2021 Results for 1:21 AM CDT this procedure are in the results section. Results CBC AM 11/03/2021 Results for 1:21 AM CDT this procedure are in the results section. CALCIUM IONIZED, VENOUS Routine 11/03/2021 Resu lts for 1:21 AM CDT this procedure are in the results section. .GLOMERULAR FILTRATION Routine 11/03/2021 Resul ts for RATE 1:21 AM CDT this procedure are in the results section. SERUM CREATININE Routine 11/03/2021 Results for 1:21 AM CDT this procedure are in the results section. ELECTROLYTE PANEL Routine 11/03/2021 Results fo r 1:21 AM CDT this procedure are in the results section. BLOOD UREA NITROGEN Routine 11/03/2021 Results for 1:21 AM CDT this procedure are in the results section. GLUCOSE LEVEL Routine 11/03/2021 Results for 1:21 AM CDT this procedure are in the results section. COMPLETE BLOOD COUNT W/ AM 11/03/2021 DIFFERENTIAL 1:21 AM CDT BASIC METABOLIC PANEL, Routine 11/03/2021 CALCIUM IONIZED 1:21 AM CDT POC GLUCOSE SCREEN Routine 11/02/2021 Results f or 11:54 PM CDT this procedure are in the results section. SODIUM URINE Routine 11/02/2021 Results for 11:16 PM CDT this procedure are in the results section. OSMOLALITY URINE Routine 11/02/2021 Results for 11:16 PM CDT this procedure are in the results section. CALCIUM IONIZED, VENOUS Routine 11/02/2021 Resu lts for 7:05 PM CDT this procedure are in the results section. .GLOMERULAR FILTRATION Routine 11/02/2021 Resul ts for RATE 7:05 PM CDT this procedure are in the results section. SERUM CREATININE Routine 11/02/2021 Results for 7:05 PM CDT this procedure are in the results section. ELECTROLYTE PANEL Routine 11/02/2021 Results fo r 7:05 PM CDT this procedure are in the results section. BLOOD UREA NITROGEN Routine 11/02/2021 Results for 7:05 PM CDT this procedure are in the results section. GLUCOSE LEVEL Routine 11/02/2021 Results for 7:05 PM CDT this procedure are in the results section. BASIC METABOLIC PANEL, Routine 11/02/2021 CALCIUM IONIZED 7:05 PM CDT POC GLUCOSE SCREEN Routine 11/02/2021 Results f or 6:48 PM CDT this procedure are in the results section. POC GLUCOSE SCREEN Routine 11/02/2021 Results f or 2:49 PM CDT this procedure are in the results section. SODIUM URINE Routine 11/02/2021 Results for 2:08 PM CDT this procedure are in the results section. OSMOLALITY URINE Routine 11/02/2021 Results for 2:08 PM CDT this procedure are in the results section. CALCIUM IONIZED, VENOUS Routine 11/02/2021 Resu lts for 1:25 PM CDT this procedure are in the results section. .GLOMERULAR FILTRATION Routine 11/02/2021 Resul ts for RATE 1:25 PM CDT this procedure are in the results section. SERUM CREATININE Routine 11/02/2021 Results for 1:25 PM CDT this procedure are in the results section. ELECTROLYTE PANEL Routine 11/02/2021 Results fo r 1:25 PM CDT this procedure are in the results section. BLOOD UREA NITROGEN Routine 11/02/2021 Results for 1:25 PM CDT this procedure are in the results section. GLUCOSE LEVEL Routine 11/02/2021 Results for 1:25 PM CDT this procedure are in the results section. BASIC METABOLIC PANEL, Routine 11/02/2021 CALCIUM IONIZED 1:25 PM CDT POC GLUCOSE SCREEN Routine 11/02/2021 Results f or 9:49 AM CDT this procedure are in the results section. PHOSPHORUS LEVEL Routine 11/02/2021 Results for 6:48 AM CDT this procedure are in the results section. MAGNESIUM LEVEL Routine 11/02/2021 Results for 6:48 AM CDT this procedure are in the results section. CALCIUM IONIZED, VENOUS Routine 11/02/2021 Resu lts for 6:48 AM CDT this procedure are in the results section. .GLOMERULAR FILTRATION Routine 11/02/2021 Resul ts for RATE 6:48 AM CDT this procedure are in the results section. SERUM CREATININE Routine 11/02/2021 Results for 6:48 AM CDT this procedure are in the results section. ELECTROLYTE PANEL Routine 11/02/2021 Results fo r 6:48 AM CDT this procedure are in the results section. BLOOD UREA NITROGEN Routine 11/02/2021 Results for 6:48 AM CDT this procedure are in the results section. GLUCOSE LEVEL Routine 11/02/2021 Results for 6:48 AM CDT this procedure are in the results section. MANUAL DIFFERENTIAL AM 11/02/2021 Results for 6:48 AM CDT this procedure are in the results section. Results CBC AM 11/02/2021 Results for 6:48 AM CDT this procedure are in the results section. BASIC METABOLIC PANEL, Routine 11/02/2021 CALCIUM IONIZED 6:48 AM CDT COMPLETE BLOOD COUNT W/ AM 11/02/2021 DIFFERENTIAL 6:48 AM CDT CALCIUM IONIZED, VENOUS Routine 11/02/2021 Resu lts for 12:34 AM CDT this procedure are in the results section. .GLOMERULAR FILTRATION Routine 11/02/2021 Resul ts for RATE 12:34 AM CDT this procedure are in the results section. SERUM CREATININE Routine 11/02/2021 Results for 12:34 AM CDT this procedure are in the results section. ELECTROLYTE PANEL Routine 11/02/2021 Results fo r 12:34 AM CDT this procedure are in the results section. BLOOD UREA NITROGEN Routine 11/02/2021 Results for 12:34 AM CDT this procedure are in the results section. GLUCOSE LEVEL Routine 11/02/2021 Results for 12:34 AM CDT this procedure are in the results section. BASIC METABOLIC PANEL, Routine 11/02/2021 CALCIUM IONIZED 12:34 AM CDT POC GLUCOSE SCREEN Routine 11/01/2021 Results f or 9:35 PM CDT this procedure are in the results section. SODIUM URINE Routine 11/01/2021 Results for 9:24 PM CDT this procedure are in the results section. OSMOLALITY URINE Routine 11/01/2021 Results for 9:24 PM CDT this procedure are in the results section. .GLOMERULAR FILTRATION Routine 11/01/2021 Resul ts for RATE 6:20 PM CDT this procedure are in the results section. SERUM CREATININE Routine 11/01/2021 Results for 6:20 PM CDT this procedure are in the results section. ELECTROLYTE PANEL Routine 11/01/2021 Results fo r 6:20 PM CDT this procedure are in the results section. BLOOD UREA NITROGEN Routine 11/01/2021 Results for 6:20 PM CDT this procedure are in the results section. GLUCOSE LEVEL Routine 11/01/2021 Results for 6:20 PM CDT this procedure are in the results section. BASIC METABOLIC PANEL, Routine 11/01/2021 CALCIUM IONIZED 6:20 PM CDT POC GLUCOSE SCREEN Routine 11/01/2021 Results f or 5:27 PM CDT this procedure are in the results section. CALCIUM IONIZED, VENOUS Routine 11/01/2021 Resu lts for 2:27 PM CDT this procedure are in the results section. BASIC METABOLIC PANEL, Routine 11/01/2021 CALCIUM IONIZED 2:27 PM CDT POC GLUCOSE SCREEN Routine 11/01/2021 Results f or 1:24 PM CDT this procedure are in the results section. BHCG, TUMOR MARKER Routine 11/01/2021 Results f or 12:49 PM CDT this procedure are in the results section. .GLOMERULAR FILTRATION Routine 11/01/2021 Resul ts for RATE 12:49 PM CDT this procedure are in the results section. SERUM CREATININE Routine 11/01/2021 Results for 12:49 PM CDT this procedure are in the results section. ELECTROLYTE PANEL Routine 11/01/2021 Results fo r 12:49 PM CDT this procedure are in the results section. BLOOD UREA NITROGEN Routine 11/01/2021 Results for 12:49 PM CDT this procedure are in the results section. GLUCOSE LEVEL Routine 11/01/2021 Results for 12:49 PM CDT this procedure are in the results section. GENERAL LABORATORY ADD Now 11/01/2021 Resul ts for ON TEST 11:31 AM CDT this procedure are in the results section. GENERAL LABORATORY ADD STAT 11/01/2021 Resul ts for ON TEST 9:45 AM CDT this procedure are in the results section. GENERAL LABORATORY ADD Now 11/01/2021 Resul ts for ON TEST 9:27 AM CDT this procedure are in the results section. POC GLUCOSE SCREEN Routine 11/01/2021 Results f or 8:04 AM CDT this procedure are in the results section. SODIUM URINE Routine 11/01/2021 Results for 3:33 AM CDT this procedure are in the results section. OSMOLALITY URINE Routine 11/01/2021 Results for 3:33 AM CDT this procedure are in the results section. LIPASE LEVEL Routine 11/01/2021 Results for 2:09 AM CDT this procedure are in the results section. AMYLASE LEVEL Routine 11/01/2021 Results for 2:09 AM CDT this procedure are in the results section. FRACTIONATED BILIRUBIN Routine 11/01/2021 Resul ts for 2:09 AM CDT this procedure are in the results section. TOTAL PROTEIN Routine 11/01/2021 Results for 2:09 AM CDT this procedure are in the results section. ASPARTATE Routine 11/01/2021 Results for AMINOTRANSFERASE 2:09 AM CDT this proced ure are in the results section. ALANINE AMINOTRANSFERASE Routine 11/01/2021 Res ults for 2:09 AM CDT this procedure are in the results section. ALKALINE PHOSPHATASE Routine 11/01/2021 Results for 2:09 AM CDT this procedure are in the results section. ALBUMIN LEVEL Routine 11/01/2021 Results for 2:09 AM CDT this procedure are in the results section. BLOOD UREA NITROGEN Routine 11/01/2021 Results for 2:09 AM CDT this procedure are in the results section. CALCIUM IONIZED, VENOUS Routine 11/01/2021 Resu lts for 2:09 AM CDT this procedure are in the results section. .GLOMERULAR FILTRATION Routine 11/01/2021 Resul ts for RATE 2:09 AM CDT this procedure are in the results section. SERUM CREATININE Routine 11/01/2021 Results for 2:09 AM CDT this procedure are in the results section. ELECTROLYTE PANEL Routine 11/01/2021 Results fo r 2:09 AM CDT this procedure are in the results section. GLUCOSE LEVEL Routine 11/01/2021 Results for 2:09 AM CDT this procedure are in the results section. BASIC METABOLIC PANEL, Routine 11/01/2021 CALCIUM IONIZED 2:09 AM CDT HEMOGLOBIN A1C AM 11/01/2021 Results for 1:14 AM CDT this procedure are in the results section. .GLOMERULAR FILTRATION Routine 11/01/2021 Resul ts for RATE 1:14 AM CDT this procedure are in the results section. SERUM CREATININE Routine 11/01/2021 Results for 1:14 AM CDT this procedure are in the results section. ELECTROLYTE PANEL Routine 11/01/2021 Results fo r 1:14 AM CDT this procedure are in the results section. BLOOD UREA NITROGEN Routine 11/01/2021 Results for 1:14 AM CDT this procedure are in the results section. GLUCOSE LEVEL Routine 11/01/2021 Results for 1:14 AM CDT this procedure are in the results section. MANUAL DIFFERENTIAL AM 11/01/2021 Results for 1:14 AM CDT this procedure are in the results section. Results CBC AM 11/01/2021 Results for 1:14 AM CDT this procedure are in the results section. BASIC METABOLIC PANEL, Routine 11/01/2021 CALCIUM IONIZED 1:14 AM CDT PHOSPHORUS LEVEL AM 11/01/2021 Results for 1:14 AM CDT this procedure are in the results section. MAGNESIUM LEVEL AM 11/01/2021 Results for 1:14 AM CDT this procedure are in the results section. COMPLETE BLOOD COUNT W/ AM 11/01/2021 DIFFERENTIAL 1:14 AM CDT POC GLUCOSE SCREEN Routine 10/31/2021 Results f or 10:05 PM CDT this procedure are in the results section. CALCIUM IONIZED, VENOUS Routine 10/31/2021 Resu lts for 8:22 PM CDT this procedure are in the results section. .GLOMERULAR FILTRATION Routine 10/31/2021 Resul ts for RATE 8:22 PM CDT this procedure are in the results section. SERUM CREATININE Routine 10/31/2021 Results for 8:22 PM CDT this procedure are in the results section. ELECTROLYTE PANEL Routine 10/31/2021 Results fo r 8:22 PM CDT this procedure are in the results section. BLOOD UREA NITROGEN Routine 10/31/2021 Results for 8:22 PM CDT this procedure are in the results section. GLUCOSE LEVEL Routine 10/31/2021 Results for 8:22 PM CDT this procedure are in the results section. BASIC METABOLIC PANEL, Routine 10/31/2021 CALCIUM IONIZED 8:22 PM CDT SODIUM URINE Routine 10/31/2021 Results for 8:15 PM CDT this procedure are in the results section. OSMOLALITY URINE Routine 10/31/2021 Results for 8:15 PM CDT this procedure are in the results section. POC GLUCOSE SCREEN Routine 10/31/2021 Results f or 5:05 PM CDT this procedure are in the results section. BLOOD UREA NITROGEN Routine 10/31/2021 Results for 2:41 PM CDT this procedure are in the results section. CALCIUM LEVEL TOTAL Routine 10/31/2021 Results for 2:41 PM CDT this procedure are in the results section. .GLOMERULAR FILTRATION Routine 10/31/2021 Resul ts for RATE 2:41 PM CDT this procedure are in the results section. SERUM CREATININE Routine 10/31/2021 Results for 2:41 PM CDT this procedure are in the results section. ELECTROLYTE PANEL Routine 10/31/2021 Results fo r 2:41 PM CDT this procedure are in the results section. GLUCOSE LEVEL Routine 10/31/2021 Results for 2:41 PM CDT this procedure are in the results section. SODIUM LEVEL Now 10/31/2021 Results for 2:41 PM CDT this procedure are in the results section. CORTISOL STAT 10/31/2021 Results for 2:41 PM CDT this procedure are in the results section. ADRENOCORTICOTROPIC STAT 10/31/2021 Results for HORMONE 2:41 PM CDT this procedure are in the results section. BASIC METABOLIC PANEL, Routine 10/31/2021 CALCIUM TOTAL 2:41 PM CDT XR FEMUR 2 VW BILATERAL STAT 10/31/2021 Resu lts for 2:25 PM CDT this procedure are in the results section. CHLORIDE LEVEL URINE Now 10/31/2021 Results for 1:39 PM CDT this procedure are in the results section. SODIUM URINE Routine 10/31/2021 Results for 1:39 PM CDT this procedure are in the results section. OSMOLALITY URINE Routine 10/31/2021 Results for 1:39 PM CDT this procedure are in the results section. POC GLUCOSE SCREEN Routine 10/31/2021 Results f or 11:30 AM CDT this procedure are in the results section. CT CHEST ABDOMEN PELVIS STAT 10/31/2021 Resu lts for WO CONTRAST 10:44 AM CDT this procedure are in the results section. BLOOD UREA NITROGEN Routine 10/31/2021 Results for 8:50 AM CDT this procedure are in the results section. CALCIUM LEVEL TOTAL Routine 10/31/2021 Results for 8:50 AM CDT this procedure are in the results section. .GLOMERULAR FILTRATION Routine 10/31/2021 Resul ts for RATE 8:50 AM CDT this procedure are in the results section. SERUM CREATININE Routine 10/31/2021 Results for 8:50 AM CDT this procedure are in the results section. ELECTROLYTE PANEL Routine 10/31/2021 Results fo r 8:50 AM CDT this procedure are in the results section. GLUCOSE LEVEL Routine 10/31/2021 Results for 8:50 AM CDT this procedure are in the results section. BASIC METABOLIC PANEL, Routine 10/31/2021 CALCIUM TOTAL 8:50 AM CDT POC GLUCOSE SCREEN Routine 10/31/2021 Results f or 7:42 AM CDT this procedure are in the results section. OSMOLALITY URINE Routine 10/31/2021 Results for 3:48 AM CDT this procedure are in the results section. CALCIUM LEVEL TOTAL Routine 10/31/2021 Results for 2:48 AM CDT this procedure are in the results section. .GLOMERULAR FILTRATION Routine 10/31/2021 Resul ts for RATE 2:48 AM CDT this procedure are in the results section. SERUM CREATININE Routine 10/31/2021 Results for 2:48 AM CDT this procedure are in the results section. ELECTROLYTE PANEL Routine 10/31/2021 Results fo r 2:48 AM CDT this procedure are in the results section. BLOOD UREA NITROGEN Routine 10/31/2021 Results for 2:48 AM CDT this procedure are in the results section. GLUCOSE LEVEL Routine 10/31/2021 Results for 2:48 AM CDT this procedure are in the results section. BASIC METABOLIC PANEL, Routine 10/31/2021 CALCIUM TOTAL 2:48 AM CDT COVID-19 (SARS-COV-2) Now 10/30/2021 Result s for ASYMPTOMATIC-LT 11:06 PM CDT this procedu re are in the results section. BLOOD UREA NITROGEN Routine 10/30/2021 Results for 11:05 PM CDT this procedure are in the results section. CALCIUM LEVEL TOTAL Routine 10/30/2021 Results for 11:05 PM CDT this procedure are in the results section. .GLOMERULAR FILTRATION Routine 10/30/2021 Resul ts for RATE 11:05 PM CDT this procedure are in the results section. SERUM CREATININE Routine 10/30/2021 Results for 11:05 PM CDT this procedure are in the results section. ELECTROLYTE PANEL Routine 10/30/2021 Results fo r 11:05 PM CDT this procedure are in the results section. GLUCOSE LEVEL Routine 10/30/2021 Results for 11:05 PM CDT this procedure are in the results section. BASIC METABOLIC PANEL, Routine 10/30/2021 CALCIUM TOTAL 11:05 PM CDT FREE THYROXINE Now 10/30/2021 Results for 8:15 PM CDT this procedure are in the results section. THYROID STIMULATING Now 10/30/2021 Results for HORMONE 8:15 PM CDT this procedure are in the results section. URIC ACID Routine 10/30/2021 Transitional cell Results fo r 1:38 PM CDT carcinoma, NOS of this proce dure bladder, NOS are in the Hyposmolality and/or results hyponatremia section. Hypochloremia OSMOLALITY Routine 10/30/2021 Transitional cell Results fo r 1:38 PM CDT carcinoma, NOS of this proce dure bladder, NOS are in the Hyposmolality and/or results hyponatremia section. Hypochloremia ELECTROLYTE PANEL Routine 10/30/2021 Transitional cell Resul ts for 1:38 PM CDT carcinoma, NOS of this proce dure bladder, NOS are in the Hyposmolality and/or results hyponatremia section. Hypochloremia SODIUM URINE Routine 10/30/2021 Transitional cell Results fo r 1:32 PM CDT carcinoma, NOS of this proce dure bladder, NOS are in the Hyposmolality and/or results hyponatremia section. Hypochloremia OSMOLALITY URINE Routine 10/30/2021 Transitional cell Result s for 1:32 PM CDT carcinoma, NOS of this proce dure bladder, NOS are in the Hyposmolality and/or results hyponatremia section. Hypochloremia FRACTIONATED BILIRUBIN Routine 10/30/2021 Transitional cell Results for 9:02 AM CDT carcinoma, NOS of this proce dure bladder, NOS are in the results section. TOTAL PROTEIN Routine 10/30/2021 Transitional cell Results f or 9:02 AM CDT carcinoma, NOS of this proce dure bladder, NOS are in the results section. ASPARTATE Routine 10/30/2021 Transitional cell Results fo r AMINOTRANSFERASE 9:02 AM CDT carcinoma, NOS of this p rocedure bladder, NOS are in the results section. ALANINE AMINOTRANSFERASE Routine 10/30/2021 Transitional tyshawn l Results for 9:02 AM CDT carcinoma, NOS of this proce dure bladder, NOS are in the results section. ALKALINE PHOSPHATASE Routine 10/30/2021 Transitional cell Re sults for 9:02 AM CDT carcinoma, NOS of this proce dure bladder, NOS are in the results section. ALBUMIN LEVEL Routine 10/30/2021 Transitional cell Results f or 9:02 AM CDT carcinoma, NOS of this proce dure bladder, NOS are in the results section. CALCIUM LEVEL TOTAL Routine 10/30/2021 Transitional cell Res ults for 9:02 AM CDT carcinoma, NOS of this proce dure bladder, NOS are in the results section. .GLOMERULAR FILTRATION Routine 10/30/2021 Transitional cell Results for RATE 9:02 AM CDT carcinoma, NOS of this proce dure bladder, NOS are in the results section. SERUM CREATININE Routine 10/30/2021 Transitional cell Result s for 9:02 AM CDT carcinoma, NOS of this proce dure bladder, NOS are in the results section. ELECTROLYTE PANEL Routine 10/30/2021 Transitional cell Resul ts for 9:02 AM CDT carcinoma, NOS of this proce dure bladder, NOS are in the results section. BLOOD UREA NITROGEN Routine 10/30/2021 Transitional cell Res ults for 9:02 AM CDT carcinoma, NOS of this proce dure bladder, NOS are in the results section. GLUCOSE LEVEL Routine 10/30/2021 Transitional cell Results f or 9:02 AM CDT carcinoma, NOS of this proce dure bladder, NOS are in the results section. MANUAL DIFFERENTIAL Routine 10/30/2021 Transitional cell Res ults for 9:02 AM CDT carcinoma, NOS of this proce dure bladder, NOS are in the results section. Results CBC Routine 10/30/2021 Transitional cell Results fo r 9:02 AM CDT carcinoma, NOS of this proce dure bladder, NOS are in the results section. COMPREHENSIVE METABOLIC Routine 10/30/2021 Transitional cell PANEL 9:02 AM CDT carcinoma, NOS of bladder, NOS LACTATE DEHYDROGENASE Routine 10/30/2021 Transitional cell R esults for 9:02 AM CDT carcinoma, NOS of this proce dure bladder, NOS are in the results section. COMPLETE BLOOD COUNT W/ Routine 10/30/2021 Transitional cell DIFFERENTIAL 9:02 AM CDT carcinoma, NOS of bladder, NOS COVID-19 (SARS-COV-2) Routine 10/23/2021 Suspected COVID- 19 Results for PCR ASYMPTOMATIC 9:24 AM CDT this proced ure are in the results section. FRACTIONATED BILIRUBIN Routine 10/16/2021 Transitional cell Results for 7:17 AM CDT carcinoma, NOS of this proce dure bladder, NOS are in the results section. TOTAL PROTEIN Routine 10/16/2021 Transitional cell Results f or 7:17 AM CDT carcinoma, NOS of this proce dure bladder, NOS are in the results section. ASPARTATE Routine 10/16/2021 Transitional cell Results fo r AMINOTRANSFERASE 7:17 AM CDT carcinoma, NOS of this p rocedure bladder, NOS are in the results section. ALANINE AMINOTRANSFERASE Routine 10/16/2021 Transitional tyshawn l Results for 7:17 AM CDT carcinoma, NOS of this proce dure bladder, NOS are in the results section. ALKALINE PHOSPHATASE Routine 10/16/2021 Transitional cell Re sults for 7:17 AM CDT carcinoma, NOS of this proce dure bladder, NOS are in the results section. ALBUMIN LEVEL Routine 10/16/2021 Transitional cell Results f or 7:17 AM CDT carcinoma, NOS of this proce dure bladder, NOS are in the results section. CALCIUM LEVEL TOTAL Routine 10/16/2021 Transitional cell Res ults for 7:17 AM CDT carcinoma, NOS of this proce dure bladder, NOS are in the results section. .GLOMERULAR FILTRATION Routine 10/16/2021 Transitional cell Results for RATE 7:17 AM CDT carcinoma, NOS of this proce dure bladder, NOS are in the results section. SERUM CREATININE Routine 10/16/2021 Transitional cell Result s for 7:17 AM CDT carcinoma, NOS of this proce dure bladder, NOS are in the results section. ELECTROLYTE PANEL Routine 10/16/2021 Transitional cell Resul ts for 7:17 AM CDT carcinoma, NOS of this proce dure bladder, NOS are in the results section. BLOOD UREA NITROGEN Routine 10/16/2021 Transitional cell Res ults for 7:17 AM CDT carcinoma, NOS of this proce dure bladder, NOS are in the results section. GLUCOSE LEVEL Routine 10/16/2021 Transitional cell Results f or 7:17 AM CDT carcinoma, NOS of this proce dure bladder, NOS are in the results section. MANUAL DIFFERENTIAL Routine 10/16/2021 Transitional cell Res ults for 7:17 AM CDT carcinoma, NOS of this proce dure bladder, NOS are in the results section. Results CBC Routine 10/16/2021 Transitional cell Results fo r 7:17 AM CDT carcinoma, NOS of this proce dure bladder, NOS are in the results section. COMPREHENSIVE METABOLIC Routine 10/16/2021 Transitional cell PANEL 7:17 AM CDT carcinoma, NOS of bladder, NOS FREE THYROXINE Routine 10/16/2021 Transitional cell Results for 7:17 AM CDT carcinoma, NOS of this proce dure bladder, NOS are in the results section. THYROID STIMULATING Routine 10/16/2021 Transitional cell Res ults for HORMONE 7:17 AM CDT carcinoma, NOS of this proce dure bladder, NOS are in the results section. LACTATE DEHYDROGENASE Routine 10/16/2021 Transitional cell R esults for 7:17 AM CDT carcinoma, NOS of this proce dure bladder, NOS are in the results section. COMPLETE BLOOD COUNT W/ Routine 10/16/2021 Transitional cell DIFFERENTIAL 7:17 AM CDT carcinoma, NOS of bladder, NOS URINALYSIS MICROSCOPIC Routine 10/02/2021 Resul ts for 8:41 AM CDT this procedure are in the results section. FRACTIONATED BILIRUBIN Routine 10/02/2021 Transitional cell Results for 8:41 AM CDT carcinoma, NOS of this proce dure bladder, NOS are in the results section. TOTAL PROTEIN Routine 10/02/2021 Transitional cell Results f or 8:41 AM CDT carcinoma, NOS of this proce dure bladder, NOS are in the results section. ASPARTATE Routine 10/02/2021 Transitional cell Results fo r AMINOTRANSFERASE 8:41 AM CDT carcinoma, NOS of this p rocedure bladder, NOS are in the results section. ALANINE AMINOTRANSFERASE Routine 10/02/2021 Transitional tyshawn l Results for 8:41 AM CDT carcinoma, NOS of this proce dure bladder, NOS are in the results section. ALKALINE PHOSPHATASE Routine 10/02/2021 Transitional cell Re sults for 8:41 AM CDT carcinoma, NOS of this proce dure bladder, NOS are in the results section. ALBUMIN LEVEL Routine 10/02/2021 Transitional cell Results f or 8:41 AM CDT carcinoma, NOS of this proce dure bladder, NOS are in the results section. CALCIUM LEVEL TOTAL Routine 10/02/2021 Transitional cell Res ults for 8:41 AM CDT carcinoma, NOS of this proce dure bladder, NOS are in the results section. .GLOMERULAR FILTRATION Routine 10/02/2021 Transitional cell Results for RATE 8:41 AM CDT carcinoma, NOS of this proce dure bladder, NOS are in the results section. SERUM CREATININE Routine 10/02/2021 Transitional cell Result s for 8:41 AM CDT carcinoma, NOS of this proce dure bladder, NOS are in the results section. ELECTROLYTE PANEL Routine 10/02/2021 Transitional cell Resul ts for 8:41 AM CDT carcinoma, NOS of this proce dure bladder, NOS are in the results section. BLOOD UREA NITROGEN Routine 10/02/2021 Transitional cell Res ults for 8:41 AM CDT carcinoma, NOS of this proce dure bladder, NOS are in the results section. GLUCOSE LEVEL Routine 10/02/2021 Transitional cell Results f or 8:41 AM CDT carcinoma, NOS of this proce dure bladder, NOS are in the results section. MANUAL DIFFERENTIAL Routine 10/02/2021 Transitional cell Res ults for 8:41 AM CDT carcinoma, NOS of this proce dure bladder, NOS are in the results section. Results CBC Routine 10/02/2021 Transitional cell Results fo r 8:41 AM CDT carcinoma, NOS of this proce dure bladder, NOS are in the results section. FREE THYROXINE Routine 10/02/2021 Transitional cell Results for 8:41 AM CDT carcinoma, NOS of this proce dure overlapping lesion of are in the bladder results Transitional cell section. carcinoma, NOS of bladder, NOS THYROID STIMULATING Routine 10/02/2021 Transitional cell Res ults for HORMONE 8:41 AM CDT carcinoma, NOS of this proce dure overlapping lesion of are in the bladder results Transitional cell section. carcinoma, NOS of bladder, NOS URINALYSIS WITH Routine 10/02/2021 Transitional cell Results for MICROSCOPIC IF INDICATED 8:41 AM CDT carcinoma, NOS o f this procedure overlapping lesion of are in the bladder results Transitional cell section. carcinoma, NOS of bladder, NOS LIPASE LEVEL Routine 10/02/2021 Transitional cell Results fo r 8:41 AM CDT carcinoma, NOS of this proce dure overlapping lesion of are in the bladder results Transitional cell section. carcinoma, NOS of bladder, NOS AMYLASE LEVEL Routine 10/02/2021 Transitional cell Results f or 8:41 AM CDT carcinoma, NOS of this proce dure overlapping lesion of are in the bladder results Transitional cell section. carcinoma, NOS of bladder, NOS COMPREHENSIVE METABOLIC Routine 10/02/2021 Transitional cell PANEL 8:41 AM CDT carcinoma, NOS of bladder, NOS LACTATE DEHYDROGENASE Routine 10/02/2021 Transitional cell R esults for 8:41 AM CDT carcinoma, NOS of this proce dure bladder, NOS are in the results section. COMPLETE BLOOD COUNT W/ Routine 10/02/2021 Transitional cell DIFFERENTIAL 8:41 AM CDT carcinoma, NOS of bladder, NOS POC GLUCOSE SCREEN Routine 10/01/2021 Results f or 1:35 PM CDT this procedure are in the results section. 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 carcinoma, NOS of bladder, NOS POC GLUCOSE SCREEN Routine 10/01/2021 Results f or 11:07 AM CDT this procedure are in the results section. COVID-19 (SARS-COV-2) Now 09/28/2021 Result s for ASYMPTOMATIC-LT 5:05 PM CDT this procedu re are in the results section. POC GLUCOSE SCREEN Routine 09/28/2021 Results f or 4:30 PM CDT this procedure are in the results section. POC GLUCOSE SCREEN Routine 09/28/2021 Results f or 1:46 PM CDT this procedure are in the results section. TRANSFUSE RED BLOOD Routine 09/28/2021 CELLS 1:23 PM CDT POC GLUCOSE SCREEN Routine 09/28/2021 Results f or 8:40 AM CDT this procedure are in the results section. TMP CROSSMATCH STAT 09/28/2021 Results for INTERPRETATION 7:44 AM CDT this procedur e are in the results section. TMP INTERPRETATION STAT 09/28/2021 Results f or ANTIBODY SCREEN NEGATIVE 7:44 AM CDT thi s procedure are in the results section. CLOT EXPIRATION DATE STAT 09/28/2021 Results for 7:44 AM CDT this procedure are in the results section. ANTIBODY SCREEN STAT 09/28/2021 Results for 7:44 AM CDT this procedure are in the results section. ABORH STAT 09/28/2021 Results for 7:44 AM CDT this procedure are in the results section. TYPE AND SCREEN STAT 09/28/2021 7:44 AM CDT PRBC PRODUCT READY FOR Routine 09/28/2021 Resul ts for QC MANAGER 6:28 AM CDT this procedure are in the results section. PREPARE RBC Routine 09/28/2021 Results for 6:28 AM CDT this procedure are in the results section. MANUAL DIFFERENTIAL Routine 09/28/2021 Results for 5:20 AM CDT this procedure are in the results section. Results CBC Routine 09/28/2021 Results for 5:20 AM CDT this procedure are in the results section. CALCIUM LEVEL TOTAL Routine 09/28/2021 Results for 5:20 AM CDT this procedure are in the results section. .GLOMERULAR FILTRATION Routine 09/28/2021 Resul ts for RATE 5:20 AM CDT this procedure are in the results section. SERUM CREATININE Routine 09/28/2021 Results for 5:20 AM CDT this procedure are in the results section. ELECTROLYTE PANEL Routine 09/28/2021 Results fo r 5:20 AM CDT this procedure are in the results section. BLOOD UREA NITROGEN Routine 09/28/2021 Results for 5:20 AM CDT this procedure are in the results section. GLUCOSE LEVEL Routine 09/28/2021 Results for 5:20 AM CDT this procedure are in the results section. COMPLETE BLOOD COUNT W/ Routine 09/28/2021 DIFFERENTIAL 5:20 AM CDT BASIC METABOLIC PANEL, Routine 09/28/2021 CALCIUM TOTAL 5:20 AM CDT POC GLUCOSE SCREEN Routine 09/28/2021 Results f or 2:13 AM CDT this procedure are in the results section. POC GLUCOSE SCREEN Routine 09/27/2021 Results f or 9:58 PM CDT this procedure are in the results section. POC GLUCOSE SCREEN Routine 09/27/2021 Results f or 5:09 PM CDT this procedure are in the results section. POC GLUCOSE SCREEN Routine 09/27/2021 Results f or 12:16 PM CDT this procedure are in the results section. URINALYSIS MICROSCOPIC Routine 09/27/2021 Resul ts for 11:40 AM CDT this procedure are in the results section. URINALYSIS WITH Now 09/27/2021 Results for MICROSCOPIC IF INDICATED 11:40 AM CDT thi s procedure are in the results section. URINE CULTURE Now 09/27/2021 Results for 11:40 AM CDT this procedure are in the results section. POC GLUCOSE SCREEN Routine 09/27/2021 Results f or 9:05 AM CDT this procedure are in the results section. XR ABDOMEN 2 VW AP W STAT 09/27/2021 Results for UPRIGHT AND OR DECUBITUS 8:34 AM CDT thi s procedure are in the results section. FRACTIONATED BILIRUBIN Now 09/27/2021 Resul ts for 7:30 AM CDT this procedure are in the results section. TOTAL PROTEIN Now 09/27/2021 Results for 7:30 AM CDT this procedure are in the results section. ASPARTATE Now 09/27/2021 Results for AMINOTRANSFERASE 7:30 AM CDT this proced ure are in the results section. ALANINE AMINOTRANSFERASE Now 09/27/2021 Res ults for 7:30 AM CDT this procedure are in the results section. ALKALINE PHOSPHATASE Now 09/27/2021 Results for 7:30 AM CDT this procedure are in the results section. ALBUMIN LEVEL Now 09/27/2021 Results for 7:30 AM CDT this procedure are in the results section. CALCIUM LEVEL TOTAL Now 09/27/2021 Results for 7:30 AM CDT this procedure are in the results section. .GLOMERULAR FILTRATION Now 09/27/2021 Resul ts for RATE 7:30 AM CDT this procedure are in the results section. SERUM CREATININE Now 09/27/2021 Results for 7:30 AM CDT this procedure are in the results section. ELECTROLYTE PANEL Now 09/27/2021 Results fo r 7:30 AM CDT this procedure are in the results section. BLOOD UREA NITROGEN Now 09/27/2021 Results for 7:30 AM CDT this procedure are in the results section. GLUCOSE LEVEL Now 09/27/2021 Results for 7:30 AM CDT this procedure are in the results section. MANUAL DIFFERENTIAL STAT 09/27/2021 Results for 7:30 AM CDT this procedure are in the results section. Results CBC STAT 09/27/2021 Results for 7:30 AM CDT this procedure are in the results section. LIPASE LEVEL Now 09/27/2021 Results for 7:30 AM CDT this procedure are in the results section. AMYLASE LEVEL Now 09/27/2021 Results for 7:30 AM CDT this procedure are in the results section. LACTATE DEHYDROGENASE Now 09/27/2021 Result s for 7:30 AM CDT this procedure are in the results section. PHOSPHORUS LEVEL Now 09/27/2021 Results for 7:30 AM CDT this procedure are in the results section. MAGNESIUM LEVEL Now 09/27/2021 Results for 7:30 AM CDT this procedure are in the results section. COMPREHENSIVE METABOLIC Now 09/27/2021 PANEL 7:30 AM CDT COMPLETE BLOOD COUNT W/ Now 09/27/2021 DIFFERENTIAL 7:30 AM CDT COVID-19 (SARS-COV-2) Now 09/27/2021 Result s for ASYMPTOMATIC-LT 7:30 AM CDT this procedu re are in the results section. POC GLUCOSE SCREEN Routine 09/24/2021 Results f or 9:03 AM CDT this procedure are in the results section. IR CT GUIDED BIOPSY BONE Routine 09/24/2021 Transitional tyshawn l Results for DEEP PELVIC 8:57 AM CDT carcinoma, NOS of this proce dure overlapping lesion of are in the bladder results section. PATHOLOGY BIOPSY Routine 09/24/2021 Transitional cell Result s for INTERPRETATION 8:28 AM CDT carcinoma, NOS of this pro cedure overlapping lesion of are in the bladder results section. POC GLUCOSE SCREEN Routine 09/24/2021 Results f or 7:38 AM CDT this procedure are in the results section. CLOT EXPIRATION DATE Routine 09/23/2021 Results for 11:45 AM CDT this procedure are in the results section. TMP INTERPRETATION Routine 09/23/2021 Results f or ANTIBODY SCREEN NEGATIVE 11:45 AM CDT thi s procedure are in the results section. ANTIBODY SCREEN Routine 09/23/2021 Results for 11:45 AM CDT this procedure are in the results section. ABORH Routine 09/23/2021 Results for 11:45 AM CDT this procedure are in the results section. TYPE AND SCREEN Routine 09/23/2021 11:45 AM CDT PROTHROMBIN TIME Routine 09/23/2021 Results for 11:37 AM CDT this procedure are in the results section. COVID-19 (SARS-COV-2) Routine 09/23/2021 Result s for PCR-ASYMPTOMATIC MC 9:42 AM CDT this pro cedure are in the results section. TMP INTERPRETATION Routine 09/18/2021 Results f or ANTIBODY SCREEN NEGATIVE 1:06 PM CDT thi s procedure are in the results section. CLOT EXPIRATION DATE Routine 09/18/2021 Results for 1:06 PM CDT this procedure are in the results section. ANTIBODY SCREEN Routine 09/18/2021 Results for 1:06 PM CDT this procedure are in the results section. ABORH Routine 09/18/2021 Results for 1:06 PM CDT this procedure are in the results section. FRACTIONATED BILIRUBIN Routine 09/18/2021 Transitional cell Results for 1:06 PM CDT carcinoma, NOS of this proce dure overlapping lesion of are in the bladder results section. TOTAL PROTEIN Routine 09/18/2021 Transitional cell Results f or 1:06 PM CDT carcinoma, NOS of this proce dure overlapping lesion of are in the bladder results section. ASPARTATE Routine 09/18/2021 Transitional cell Results fo r AMINOTRANSFERASE 1:06 PM CDT carcinoma, NOS of this p rocedure overlapping lesion of are in the bladder results section. ALANINE AMINOTRANSFERASE Routine 09/18/2021 Transitional tyshawn l Results for 1:06 PM CDT carcinoma, NOS of this proce dure overlapping lesion of are in the bladder results section. ALKALINE PHOSPHATASE Routine 09/18/2021 Transitional cell Re sults for 1:06 PM CDT carcinoma, NOS of this proce dure overlapping lesion of are in the bladder results section. ALBUMIN LEVEL Routine 09/18/2021 Transitional cell Results f or 1:06 PM CDT carcinoma, NOS of this proce dure overlapping lesion of are in the bladder results section. CALCIUM LEVEL TOTAL Routine 09/18/2021 Transitional cell Res ults for 1:06 PM CDT carcinoma, NOS of this proce dure overlapping lesion of are in the bladder results section. .GLOMERULAR FILTRATION Routine 09/18/2021 Transitional cell Results for RATE 1:06 PM CDT carcinoma, NOS of this proce dure overlapping lesion of are in the bladder results section. SERUM CREATININE Routine 09/18/2021 Transitional cell Result s for 1:06 PM CDT carcinoma, NOS of this proce dure overlapping lesion of are in the bladder results section. ELECTROLYTE PANEL Routine 09/18/2021 Transitional cell Resul ts for 1:06 PM CDT carcinoma, NOS of this proce dure overlapping lesion of are in the bladder results section. BLOOD UREA NITROGEN Routine 09/18/2021 Transitional cell Res ults for 1:06 PM CDT carcinoma, NOS of this proce dure overlapping lesion of are in the bladder results section. GLUCOSE LEVEL Routine 09/18/2021 Transitional cell Results f or 1:06 PM CDT carcinoma, NOS of this proce dure overlapping lesion of are in the bladder results section. MANUAL DIFFERENTIAL Routine 09/18/2021 Transitional cell Res ults for 1:06 PM CDT carcinoma, NOS of this proce dure overlapping lesion of are in the bladder results section. Results CBC Routine 09/18/2021 Transitional cell Results fo r 1:06 PM CDT carcinoma, NOS of this proce dure overlapping lesion of are in the bladder results section. TYPE AND SCREEN Routine 09/18/2021 1:06 PM CDT RETICULOCYTE COUNT Routine 09/18/2021 Transitional cell Resu lts for AUTOMATED 1:06 PM CDT carcinoma, NOS of this proce dure overlapping lesion of are in the bladder results section. LACTATE DEHYDROGENASE Routine 09/18/2021 Transitional cell R esults for 1:06 PM CDT carcinoma, NOS of this proce dure overlapping lesion of are in the bladder results section. BHCG, TUMOR MARKER Routine 09/18/2021 Transitional cell Resu lts for 1:06 PM CDT carcinoma, NOS of this proce dure overlapping lesion of are in the bladder results section. PHOSPHORUS LEVEL Routine 09/18/2021 Transitional cell Result s for 1:06 PM CDT carcinoma, NOS of this proce dure overlapping lesion of are in the bladder results section. MAGNESIUM LEVEL Routine 09/18/2021 Transitional cell Results for 1:06 PM CDT carcinoma, NOS of this proce dure overlapping lesion of are in the bladder results section. COMPREHENSIVE METABOLIC Routine 09/18/2021 Transitional cell PANEL 1:06 PM CDT carcinoma, NOS of overlapping lesion of bladder COMPLETE BLOOD COUNT W/ Routine 09/18/2021 Transitional cell DIFFERENTIAL 1:06 PM CDT carcinoma, NOS of overlapping lesion of bladder IRON LEVEL Routine 09/18/2021 Transitional cell Results fo r 1:06 PM CDT carcinoma, NOS of this proce dure overlapping lesion of are in the bladder results Macrocytic anemia section. TRANSFERRIN Routine 09/18/2021 Transitional cell Results fo r 1:06 PM CDT carcinoma, NOS of this proce dure overlapping lesion of are in the bladder results Macrocytic anemia section. FOLATE LEVEL Routine 09/18/2021 Transitional cell Results fo r 1:06 PM CDT carcinoma, NOS of this proce dure overlapping lesion of are in the bladder results Macrocytic anemia section. VITAMIN B12 LEVEL Routine 09/18/2021 Transitional cell Resul ts for 1:06 PM CDT carcinoma, NOS of this proce dure overlapping lesion of are in the bladder results Macrocytic anemia section. FERRITIN LVL Routine 09/18/2021 Transitional cell Results fo r 1:06 PM CDT carcinoma, NOS of this proce dure overlapping lesion of are in the bladder results Macrocytic anemia section. MRI BRAIN W WO CONTRAST Routine 09/12/2021 Transitional cell Results for 8:55 AM CDT carcinoma, NOS of this proce dure overlapping lesion of are in the bladder results section. CT CHEST ABDOMEN PELVIS Routine 09/10/2021 Transitional cell Results for W WO CONTRAST UROGRAM 9:08 PM CDT carcinoma, NOS of t his procedure overlapping lesion of are in the bladder results section. FRACTIONATED BILIRUBIN Routine 09/10/2021 Transitional cell Results for 3:58 PM CDT carcinoma, NOS of this proce dure overlapping lesion of are in the bladder results section. TOTAL PROTEIN Routine 09/10/2021 Transitional cell Results f or 3:58 PM CDT carcinoma, NOS of this proce dure overlapping lesion of are in the bladder results section. ASPARTATE Routine 09/10/2021 Transitional cell Results fo r AMINOTRANSFERASE 3:58 PM CDT carcinoma, NOS of this p rocedure overlapping lesion of are in the bladder results section. ALANINE AMINOTRANSFERASE Routine 09/10/2021 Transitional tyshawn l Results for 3:58 PM CDT carcinoma, NOS of this proce dure overlapping lesion of are in the bladder results section. ALKALINE PHOSPHATASE Routine 09/10/2021 Transitional cell Re sults for 3:58 PM CDT carcinoma, NOS of this proce dure overlapping lesion of are in the bladder results section. ALBUMIN LEVEL Routine 09/10/2021 Transitional cell Results f or 3:58 PM CDT carcinoma, NOS of this proce dure overlapping lesion of are in the bladder results section. CALCIUM LEVEL TOTAL Routine 09/10/2021 Transitional cell Res ults for 3:58 PM CDT carcinoma, NOS of this proce dure overlapping lesion of are in the bladder results section. .GLOMERULAR FILTRATION Routine 09/10/2021 Transitional cell Results for RATE 3:58 PM CDT carcinoma, NOS of this proce dure overlapping lesion of are in the bladder results section. SERUM CREATININE Routine 09/10/2021 Transitional cell Result s for 3:58 PM CDT carcinoma, NOS of this proce dure overlapping lesion of are in the bladder results section. ELECTROLYTE PANEL Routine 09/10/2021 Transitional cell Resul ts for 3:58 PM CDT carcinoma, NOS of this proce dure overlapping lesion of are in the bladder results section. BLOOD UREA NITROGEN Routine 09/10/2021 Transitional cell Res ults for 3:58 PM CDT carcinoma, NOS of this proce dure overlapping lesion of are in the bladder results section. GLUCOSE LEVEL Routine 09/10/2021 Transitional cell Results f or 3:58 PM CDT carcinoma, NOS of this proce dure overlapping lesion of are in the bladder results section. MANUAL DIFFERENTIAL Routine 09/10/2021 Transitional cell Res ults for 3:58 PM CDT carcinoma, NOS of this proce dure overlapping lesion of are in the bladder results section. Results CBC Routine 09/10/2021 Transitional cell Results fo r 3:58 PM CDT carcinoma, NOS of this proce dure overlapping lesion of are in the bladder results section. PHOSPHORUS LEVEL Routine 09/10/2021 Transitional cell Result s for 3:58 PM CDT carcinoma, NOS of this proce dure overlapping lesion of are in the bladder results section. MAGNESIUM LEVEL Routine 09/10/2021 Transitional cell Results for 3:58 PM CDT carcinoma, NOS of this proce dure overlapping lesion of are in the bladder results section. LACTATE DEHYDROGENASE Routine 09/10/2021 Transitional cell R esults for 3:58 PM CDT carcinoma, NOS of this proce dure overlapping lesion of are in the bladder results section. COMPREHENSIVE METABOLIC Routine 09/10/2021 Transitional cell PANEL 3:58 PM CDT carcinoma, NOS of overlapping lesion of bladder COMPLETE BLOOD COUNT W/ Routine 09/10/2021 Transitional cell DIFFERENTIAL 3:58 PM CDT carcinoma, NOS of overlapping lesion of bladder BHCG, TUMOR MARKER Routine 09/10/2021 Transitional cell Resu lts for 3:58 PM CDT carcinoma, NOS of this proce dure overlapping lesion of are in the bladder results section. FRACTIONATED BILIRUBIN Routine 08/08/2021 Transitional cell Results for 7:28 AM CDT carcinoma, NOS of this proce dure overlapping lesion of are in the bladder results section. TOTAL PROTEIN Routine 08/08/2021 Transitional cell Results f or 7:28 AM CDT carcinoma, NOS of this proce dure overlapping lesion of are in the bladder results section. ASPARTATE Routine 08/08/2021 Transitional cell Results fo r AMINOTRANSFERASE 7:28 AM CDT carcinoma, NOS of this p rocedure overlapping lesion of are in the bladder results section. ALANINE AMINOTRANSFERASE Routine 08/08/2021 Transitional tyshawn l Results for 7:28 AM CDT carcinoma, NOS of this proce dure overlapping lesion of are in the bladder results section. ALKALINE PHOSPHATASE Routine 08/08/2021 Transitional cell Re sults for 7:28 AM CDT carcinoma, NOS of this proce dure overlapping lesion of are in the bladder results section. ALBUMIN LEVEL Routine 08/08/2021 Transitional cell Results f or 7:28 AM CDT carcinoma, NOS of this proce dure overlapping lesion of are in the bladder results section. CALCIUM LEVEL TOTAL Routine 08/08/2021 Transitional cell Res ults for 7:28 AM CDT carcinoma, NOS of this proce dure overlapping lesion of are in the bladder results section. .GLOMERULAR FILTRATION Routine 08/08/2021 Transitional cell Results for RATE 7:28 AM CDT carcinoma, NOS of this proce dure overlapping lesion of are in the bladder results section. SERUM CREATININE Routine 08/08/2021 Transitional cell Result s for 7:28 AM CDT carcinoma, NOS of this proce dure overlapping lesion of are in the bladder results section. ELECTROLYTE PANEL Routine 08/08/2021 Transitional cell Resul ts for 7:28 AM CDT carcinoma, NOS of this proce dure overlapping lesion of are in the bladder results section. BLOOD UREA NITROGEN Routine 08/08/2021 Transitional cell Res ults for 7:28 AM CDT carcinoma, NOS of this proce dure overlapping lesion of are in the bladder results section. GLUCOSE LEVEL Routine 08/08/2021 Transitional cell Results f or 7:28 AM CDT carcinoma, NOS of this proce dure overlapping lesion of are in the bladder results section. MANUAL DIFFERENTIAL Routine 08/08/2021 Transitional cell Res ults for 7:28 AM CDT carcinoma, NOS of this proce dure overlapping lesion of are in the bladder results section. Results CBC Routine 08/08/2021 Transitional cell Results fo r 7:28 AM CDT carcinoma, NOS of this proce dure overlapping lesion of are in the bladder results section. MAGNESIUM LEVEL Routine 08/08/2021 Transitional cell Results for 7:28 AM CDT carcinoma, NOS of this proce dure overlapping lesion of are in the bladder results section. LACTATE DEHYDROGENASE Routine 08/08/2021 Transitional cell R esults for 7:28 AM CDT carcinoma, NOS of this proce dure overlapping lesion of are in the bladder results section. COMPREHENSIVE METABOLIC Routine 08/08/2021 Transitional cell PANEL 7:28 AM CDT carcinoma, NOS of overlapping lesion of bladder COMPLETE BLOOD COUNT W/ Routine 08/08/2021 Transitional cell DIFFERENTIAL 7:28 AM CDT carcinoma, NOS of overlapping lesion of bladder POC GLUCOSE SCREEN Routine 08/04/2021 Results f or 1:52 PM CDT this procedure are in the results section. GUA MICROSCOPIC Routine 08/04/2021 Results for 10:51 AM CDT this procedure are in the results section. GUA Now 08/04/2021 Results for 10:51 AM CDT this procedure are in the results section. POC GLUCOSE SCREEN Routine 08/04/2021 Results f or 9:51 AM CDT this procedure are in the results section. MANUAL DIFFERENTIAL AM 08/04/2021 Results for 4:31 AM CDT this procedure are in the results section. Results CBC AM 08/04/2021 Results for 4:31 AM CDT this procedure are in the results section. .GLOMERULAR FILTRATION AM 08/04/2021 Resul ts for RATE 4:31 AM CDT this procedure are in the results section. SERUM CREATININE AM 08/04/2021 Results for 4:31 AM CDT this procedure are in the results section. COMPLETE BLOOD COUNT W/ AM 08/04/2021 DIFFERENTIAL 4:31 AM CDT PHOSPHORUS LEVEL AM 08/04/2021 Results for 4:31 AM CDT this procedure are in the results section. MAGNESIUM LEVEL AM 08/04/2021 Results for 4:31 AM CDT this procedure are in the results section. GLUCOSE, RANDOM AM 08/04/2021 Results for 4:31 AM CDT this procedure are in the results section. SERUM CREATININE AM 08/04/2021 4:31 AM CDT BLOOD UREA NITROGEN AM 08/04/2021 Results for 4:31 AM CDT this procedure are in the results section. ELECTROLYTE PANEL AM 08/04/2021 Results fo r 4:31 AM CDT this procedure are in the results section. POC GLUCOSE SCREEN Routine 08/04/2021 Results f or 12:06 AM CDT this procedure are in the results section. POC GLUCOSE SCREEN Routine 08/03/2021 Results f or 5:46 PM CDT this procedure are in the results section. POC GLUCOSE SCREEN Routine 08/03/2021 Results f or 2:13 PM CDT this procedure are in the results section. POC GLUCOSE SCREEN Routine 08/03/2021 Results f or 9:23 AM CDT this procedure are in the results section. MANUAL DIFFERENTIAL AM 08/03/2021 Results for 7:18 AM CDT this procedure are in the results section. Results CBC AM 08/03/2021 Results for 7:18 AM CDT this procedure are in the results section. .GLOMERULAR FILTRATION AM 08/03/2021 Resul ts for RATE 7:18 AM CDT this procedure are in the results section. SERUM CREATININE AM 08/03/2021 Results for 7:18 AM CDT this procedure are in the results section. COMPLETE BLOOD COUNT W/ AM 08/03/2021 DIFFERENTIAL 7:18 AM CDT PHOSPHORUS LEVEL AM 08/03/2021 Results for 7:18 AM CDT this procedure are in the results section. MAGNESIUM LEVEL AM 08/03/2021 Results for 7:18 AM CDT this procedure are in the results section. GLUCOSE, RANDOM AM 08/03/2021 Results for 7:18 AM CDT this procedure are in the results section. SERUM CREATININE AM 08/03/2021 7:18 AM CDT BLOOD UREA NITROGEN AM 08/03/2021 Results for 7:18 AM CDT this procedure are in the results section. ELECTROLYTE PANEL AM 08/03/2021 Results fo r 7:18 AM CDT this procedure are in the results section. POC GLUCOSE SCREEN Routine 08/02/2021 Results f or 6:20 PM CDT this procedure are in the results section. POC GLUCOSE SCREEN Routine 08/02/2021 Results f or 1:25 PM CDT this procedure are in the results section. POC GLUCOSE SCREEN Routine 08/02/2021 Results f or 7:44 AM CDT this procedure are in the results section. MANUAL DIFFERENTIAL AM 08/02/2021 Results for 3:57 AM CDT this procedure are in the results section. Results CBC AM 08/02/2021 Results for 3:57 AM CDT this procedure are in the results section. .GLOMERULAR FILTRATION AM 08/02/2021 Resul ts for RATE 3:57 AM CDT this procedure are in the results section. SERUM CREATININE AM 08/02/2021 Results for 3:57 AM CDT this procedure are in the results section. COMPLETE BLOOD COUNT W/ AM 08/02/2021 DIFFERENTIAL 3:57 AM CDT PHOSPHORUS LEVEL AM 08/02/2021 Results for 3:57 AM CDT this procedure are in the results section. MAGNESIUM LEVEL AM 08/02/2021 Results for 3:57 AM CDT this procedure are in the results section. GLUCOSE, RANDOM AM 08/02/2021 Results for 3:57 AM CDT this procedure are in the results section. SERUM CREATININE AM 08/02/2021 3:57 AM CDT BLOOD UREA NITROGEN AM 08/02/2021 Results for 3:57 AM CDT this procedure are in the results section. ELECTROLYTE PANEL AM 08/02/2021 Results fo r 3:57 AM CDT this procedure are in the results section. POC GLUCOSE SCREEN Routine 08/02/2021 Results f or 12:09 AM CDT this procedure are in the results section. POC GLUCOSE SCREEN Routine 08/01/2021 Results f or 7:35 PM CDT this procedure are in the results section. COVID-19 (SARS-COV-2) Now 08/01/2021 Result s for ASYMPTOMATIC-LT 6:33 PM CDT this procedu re are in the results section. MANUAL DIFFERENTIAL Routine 08/01/2021 Transitional cell Res ults for 12:43 PM CDT carcinoma, NOS of this proce dure overlapping lesion of are in the bladder results section. Results CBC Routine 08/01/2021 Transitional cell Results fo r 12:43 PM CDT carcinoma, NOS of this proce dure overlapping lesion of are in the bladder results section. FRACTIONATED BILIRUBIN Routine 08/01/2021 Transitional cell Results for 12:43 PM CDT carcinoma, NOS of this proce dure overlapping lesion of are in the bladder results section. TOTAL PROTEIN Routine 08/01/2021 Transitional cell Results f or 12:43 PM CDT carcinoma, NOS of this proce dure overlapping lesion of are in the bladder results section. ASPARTATE Routine 08/01/2021 Transitional cell Results fo r AMINOTRANSFERASE 12:43 PM CDT carcinoma, NOS of this p rocedure overlapping lesion of are in the bladder results section. ALANINE AMINOTRANSFERASE Routine 08/01/2021 Transitional tyshawn l Results for 12:43 PM CDT carcinoma, NOS of this proce dure overlapping lesion of are in the bladder results section. ALKALINE PHOSPHATASE Routine 08/01/2021 Transitional cell Re sults for 12:43 PM CDT carcinoma, NOS of this proce dure overlapping lesion of are in the bladder results section. ALBUMIN LEVEL Routine 08/01/2021 Transitional cell Results f or 12:43 PM CDT carcinoma, NOS of this proce dure overlapping lesion of are in the bladder results section. CALCIUM LEVEL TOTAL Routine 08/01/2021 Transitional cell Res ults for 12:43 PM CDT carcinoma, NOS of this proce dure overlapping lesion of are in the bladder results section. .GLOMERULAR FILTRATION Routine 08/01/2021 Transitional cell Results for RATE 12:43 PM CDT carcinoma, NOS of this proce dure overlapping lesion of are in the bladder results section. SERUM CREATININE Routine 08/01/2021 Transitional cell Result s for 12:43 PM CDT carcinoma, NOS of this proce dure overlapping lesion of are in the bladder results section. ELECTROLYTE PANEL Routine 08/01/2021 Transitional cell Resul ts for 12:43 PM CDT carcinoma, NOS of this proce dure overlapping lesion of are in the bladder results section. BLOOD UREA NITROGEN Routine 08/01/2021 Transitional cell Res ults for 12:43 PM CDT carcinoma, NOS of this proce dure overlapping lesion of are in the bladder results section. GLUCOSE LEVEL Routine 08/01/2021 Transitional cell Results f or 12:43 PM CDT carcinoma, NOS of this proce dure overlapping lesion of are in the bladder results section. COMPLETE BLOOD COUNT W/ Routine 08/01/2021 Transitional cell DIFFERENTIAL 12:43 PM CDT carcinoma, NOS of overlapping lesion of bladder MAGNESIUM LEVEL Routine 08/01/2021 Transitional cell Results for 12:43 PM CDT carcinoma, NOS of this proce dure overlapping lesion of are in the bladder results section. 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 FRACTIONATED BILIRUBIN Routine 07/23/2021 Transitional cell Results for 12:26 PM CDT carcinoma, NOS of this proce dure overlapping lesion of are in the bladder results section. TOTAL PROTEIN Routine 07/23/2021 Transitional cell Results f or 12:26 PM CDT carcinoma, NOS of this proce dure overlapping lesion of are in the bladder results section. ASPARTATE Routine 07/23/2021 Transitional cell Results fo r AMINOTRANSFERASE 12:26 PM CDT carcinoma, NOS of this p rocedure overlapping lesion of are in the bladder results section. ALANINE AMINOTRANSFERASE Routine 07/23/2021 Transitional tyshawn l Results for 12:26 PM CDT carcinoma, NOS of this proce dure overlapping lesion of are in the bladder results section. ALKALINE PHOSPHATASE Routine 07/23/2021 Transitional cell Re sults for 12:26 PM CDT carcinoma, NOS of this proce dure overlapping lesion of are in the bladder results section. ALBUMIN LEVEL Routine 07/23/2021 Transitional cell Results f or 12:26 PM CDT carcinoma, NOS of this proce dure overlapping lesion of are in the bladder results section. CALCIUM LEVEL TOTAL Routine 07/23/2021 Transitional cell Res ults for 12:26 PM CDT carcinoma, NOS of this proce dure overlapping lesion of are in the bladder results section. .GLOMERULAR FILTRATION Routine 07/23/2021 Transitional cell Results for RATE 12:26 PM CDT carcinoma, NOS of this proce dure overlapping lesion of are in the bladder results section. SERUM CREATININE Routine 07/23/2021 Transitional cell Result s for 12:26 PM CDT carcinoma, NOS of this proce dure overlapping lesion of are in the bladder results section. ELECTROLYTE PANEL Routine 07/23/2021 Transitional cell Resul ts for 12:26 PM CDT carcinoma, NOS of this proce dure overlapping lesion of are in the bladder results section. BLOOD UREA NITROGEN Routine 07/23/2021 Transitional cell Res ults for 12:26 PM CDT carcinoma, NOS of this proce dure overlapping lesion of are in the bladder results section. GLUCOSE LEVEL Routine 07/23/2021 Transitional cell Results f or 12:26 PM CDT carcinoma, NOS of this proce dure overlapping lesion of are in the bladder results section. MANUAL DIFFERENTIAL Routine 07/23/2021 Transitional cell Res ults for 12:26 PM CDT carcinoma, NOS of this proce dure overlapping lesion of are in the bladder results section. Results CBC Routine 07/23/2021 Transitional cell Results fo r 12:26 PM CDT carcinoma, NOS of this proce dure overlapping lesion of are in the bladder results section. MAGNESIUM LEVEL Routine 07/23/2021 Transitional cell Results for 12:26 PM CDT carcinoma, NOS of this proce dure overlapping lesion of are in the bladder results section. LACTATE DEHYDROGENASE Routine 07/23/2021 Transitional cell R esults for 12:26 PM CDT carcinoma, NOS of this proce dure overlapping lesion of are in the bladder results section. COMPREHENSIVE METABOLIC Routine 07/23/2021 Transitional cell PANEL 12:26 PM CDT carcinoma, NOS of overlapping lesion of bladder COMPLETE BLOOD COUNT W/ Routine 07/23/2021 Transitional cell DIFFERENTIAL 12:26 PM CDT carcinoma, NOS of overlapping lesion of bladder POC GLUCOSE SCREEN Routine 07/19/2021 Results f or 12:26 PM CDT this procedure are in the results section. POC GLUCOSE SCREEN Routine 07/19/2021 Results f or 7:47 AM CDT this procedure are in the results section. MANUAL DIFFERENTIAL AM 07/19/2021 Results for 4:11 AM CDT this procedure are in the results section. Results CBC AM 07/19/2021 Results for 4:11 AM CDT this procedure are in the results section. .GLOMERULAR FILTRATION AM 07/19/2021 Resul ts for RATE 4:11 AM CDT this procedure are in the results section. SERUM CREATININE AM 07/19/2021 Results for 4:11 AM CDT this procedure are in the results section. COMPLETE BLOOD COUNT W/ AM 07/19/2021 DIFFERENTIAL 4:11 AM CDT PHOSPHORUS LEVEL AM 07/19/2021 Results for 4:11 AM CDT this procedure are in the results section. MAGNESIUM LEVEL AM 07/19/2021 Results for 4:11 AM CDT this procedure are in the results section. GLUCOSE, RANDOM AM 07/19/2021 Results for 4:11 AM CDT this procedure are in the results section. SERUM CREATININE AM 07/19/2021 4:11 AM CDT BLOOD UREA NITROGEN AM 07/19/2021 Results for 4:11 AM CDT this procedure are in the results section. ELECTROLYTE PANEL AM 07/19/2021 Results fo r 4:11 AM CDT this procedure are in the results section. POC GLUCOSE SCREEN Routine 07/19/2021 Results f or 12:22 AM CDT this procedure are in the results section. TRANSFUSE RED BLOOD Routine 07/18/2021 CELLS 9:35 PM CDT POC GLUCOSE SCREEN Routine 07/18/2021 Results f or 5:51 PM CDT this procedure are in the results section. POC GLUCOSE SCREEN Routine 07/18/2021 Results f or 1:24 PM CDT this procedure are in the results section. TMP CROSSMATCH Now 07/18/2021 Results for INTERPRETATION 11:55 AM CDT this procedur e are in the results section. CLOT EXPIRATION DATE Routine 07/18/2021 Results for 11:55 AM CDT this procedure are in the results section. TMP INTERPRETATION Routine 07/18/2021 Results f or ANTIBODY SCREEN NEGATIVE 11:55 AM CDT thi s procedure are in the results section. ANTIBODY SCREEN Now 07/18/2021 Results for 11:55 AM CDT this procedure are in the results section. ABORH Now 07/18/2021 Results for 11:55 AM CDT this procedure are in the results section. TYPE AND SCREEN Now 07/18/2021 11:55 AM CDT PRBC PRODUCT READY FOR Routine 07/18/2021 Resul ts for QC MANAGER 11:05 AM CDT this procedure are in the results section. PREPARE RBC Routine 07/18/2021 Results for 11:05 AM CDT this procedure are in the results section. POC GLUCOSE SCREEN Routine 07/18/2021 Results f or 7:50 AM CDT this procedure are in the results section. MANUAL DIFFERENTIAL AM 07/18/2021 Results for 4:08 AM CDT this procedure are in the results section. Results CBC AM 07/18/2021 Results for 4:08 AM CDT this procedure are in the results section. .GLOMERULAR FILTRATION AM 07/18/2021 Resul ts for RATE 4:08 AM CDT this procedure are in the results section. SERUM CREATININE AM 07/18/2021 Results for 4:08 AM CDT this procedure are in the results section. COMPLETE BLOOD COUNT W/ AM 07/18/2021 DIFFERENTIAL 4:08 AM CDT PHOSPHORUS LEVEL AM 07/18/2021 Results for 4:08 AM CDT this procedure are in the results section. MAGNESIUM LEVEL AM 07/18/2021 Results for 4:08 AM CDT this procedure are in the results section. GLUCOSE, RANDOM AM 07/18/2021 Results for 4:08 AM CDT this procedure are in the results section. SERUM CREATININE AM 07/18/2021 4:08 AM CDT BLOOD UREA NITROGEN AM 07/18/2021 Results for 4:08 AM CDT this procedure are in the results section. ELECTROLYTE PANEL AM 07/18/2021 Results fo r 4:08 AM CDT this procedure are in the results section. POC GLUCOSE SCREEN Routine 07/17/2021 Results f or 10:27 PM CDT this procedure are in the results section. POC GLUCOSE SCREEN Routine 07/17/2021 Results f or 6:39 PM CDT this procedure are in the results section. POC GLUCOSE SCREEN Routine 07/17/2021 Results f or 1:21 PM CDT this procedure are in the results section. POC GLUCOSE SCREEN Routine 07/17/2021 Results f or 9:48 AM CDT this procedure are in the results section. MANUAL DIFFERENTIAL AM 07/17/2021 Results for 3:22 AM CDT this procedure are in the results section. Results CBC AM 07/17/2021 Results for 3:22 AM CDT this procedure are in the results section. .GLOMERULAR FILTRATION AM 07/17/2021 Resul ts for RATE 3:22 AM CDT this procedure are in the results section. SERUM CREATININE AM 07/17/2021 Results for 3:22 AM CDT this procedure are in the results section. HEMOGLOBIN A1C Routine 07/17/2021 Results for 3:22 AM CDT this procedure are in the results section. COMPLETE BLOOD COUNT W/ AM 07/17/2021 DIFFERENTIAL 3:22 AM CDT PHOSPHORUS LEVEL AM 07/17/2021 Results for 3:22 AM CDT this procedure are in the results section. MAGNESIUM LEVEL AM 07/17/2021 Results for 3:22 AM CDT this procedure are in the results section. GLUCOSE, RANDOM AM 07/17/2021 Results for 3:22 AM CDT this procedure are in the results section. SERUM CREATININE AM 07/17/2021 3:22 AM CDT BLOOD UREA NITROGEN AM 07/17/2021 Results for 3:22 AM CDT this procedure are in the results section. ELECTROLYTE PANEL AM 07/17/2021 Results fo r 3:22 AM CDT this procedure are in the results section. EKG, 12-LEAD (PORTABLE) Routine 07/17/2021 COVID-19 (SARS-COV-2) Now 07/16/2021 Result s for ASYMPTOMATIC-LT 7:51 PM CDT this procedu re are in the results section. POC GLUCOSE SCREEN Routine 07/16/2021 Results f or 6:08 PM CDT this procedure are in the results section. MANUAL DIFFERENTIAL Routine 07/16/2021 Transitional cell Res ults for 9:44 AM CDT carcinoma, NOS of this proce dure overlapping lesion of are in the bladder results Other secondary section. thrombocytopenia Results CBC Routine 07/16/2021 Transitional cell Results fo r 9:44 AM CDT carcinoma, NOS of this proce dure overlapping lesion of are in the bladder results Other secondary section. thrombocytopenia FRACTIONATED BILIRUBIN Routine 07/16/2021 Transitional cell Results for 9:44 AM CDT carcinoma, NOS of this proce dure overlapping lesion of are in the bladder results section. TOTAL PROTEIN Routine 07/16/2021 Transitional cell Results f or 9:44 AM CDT carcinoma, NOS of this proce dure overlapping lesion of are in the bladder results section. ASPARTATE Routine 07/16/2021 Transitional cell Results fo r AMINOTRANSFERASE 9:44 AM CDT carcinoma, NOS of this p rocedure overlapping lesion of are in the bladder results section. ALANINE AMINOTRANSFERASE Routine 07/16/2021 Transitional tyshawn l Results for 9:44 AM CDT carcinoma, NOS of this proce dure overlapping lesion of are in the bladder results section. ALKALINE PHOSPHATASE Routine 07/16/2021 Transitional cell Re sults for 9:44 AM CDT carcinoma, NOS of this proce dure overlapping lesion of are in the bladder results section. ALBUMIN LEVEL Routine 07/16/2021 Transitional cell Results f or 9:44 AM CDT carcinoma, NOS of this proce dure overlapping lesion of are in the bladder results section. CALCIUM LEVEL TOTAL Routine 07/16/2021 Transitional cell Res ults for 9:44 AM CDT carcinoma, NOS of this proce dure overlapping lesion of are in the bladder results section. .GLOMERULAR FILTRATION Routine 07/16/2021 Transitional cell Results for RATE 9:44 AM CDT carcinoma, NOS of this proce dure overlapping lesion of are in the bladder results section. SERUM CREATININE Routine 07/16/2021 Transitional cell Result s for 9:44 AM CDT carcinoma, NOS of this proce dure overlapping lesion of are in the bladder results section. ELECTROLYTE PANEL Routine 07/16/2021 Transitional cell Resul ts for 9:44 AM CDT carcinoma, NOS of this proce dure overlapping lesion of are in the bladder results section. BLOOD UREA NITROGEN Routine 07/16/2021 Transitional cell Res ults for 9:44 AM CDT carcinoma, NOS of this proce dure overlapping lesion of are in the bladder results section. GLUCOSE LEVEL Routine 07/16/2021 Transitional cell Results f or 9:44 AM CDT carcinoma, NOS of this proce dure overlapping lesion of are in the bladder results section. COMPLETE BLOOD COUNT W/ Routine 07/16/2021 Transitional cell DIFFERENTIAL 9:44 AM CDT carcinoma, NOS of overlapping lesion of bladder Other secondary thrombocytopenia MAGNESIUM LEVEL Routine 07/16/2021 Transitional cell Results for 9:44 AM CDT carcinoma, NOS of this proce dure overlapping lesion of are in the bladder results section. LACTATE DEHYDROGENASE Routine 07/16/2021 Transitional cell R esults for 9:44 AM CDT carcinoma, NOS of this proce dure overlapping lesion of are in the bladder results section. COMPREHENSIVE METABOLIC Routine 07/16/2021 Transitional cell PANEL 9:44 AM CDT carcinoma, NOS of overlapping lesion of bladder PLATELET COUNT Routine 07/08/2021 Transitional cell Results for 11:38 AM CDT carcinoma, NOS of this proce dure overlapping lesion of are in the bladder results Other secondary section. thrombocytopenia FRACTIONATED BILIRUBIN Routine 07/08/2021 Transitional cell Results for 8:37 AM CDT carcinoma, NOS of this proce dure overlapping lesion of are in the bladder results section. TOTAL PROTEIN Routine 07/08/2021 Transitional cell Results f or 8:37 AM CDT carcinoma, NOS of this proce dure overlapping lesion of are in the bladder results section. ASPARTATE Routine 07/08/2021 Transitional cell Results fo r AMINOTRANSFERASE 8:37 AM CDT carcinoma, NOS of this p rocedure overlapping lesion of are in the bladder results section. ALANINE AMINOTRANSFERASE Routine 07/08/2021 Transitional tyshawn l Results for 8:37 AM CDT carcinoma, NOS of this proce dure overlapping lesion of are in the bladder results section. ALKALINE PHOSPHATASE Routine 07/08/2021 Transitional cell Re sults for 8:37 AM CDT carcinoma, NOS of this proce dure overlapping lesion of are in the bladder results section. ALBUMIN LEVEL Routine 07/08/2021 Transitional cell Results f or 8:37 AM CDT carcinoma, NOS of this proce dure overlapping lesion of are in the bladder results section. CALCIUM LEVEL TOTAL Routine 07/08/2021 Transitional cell Res ults for 8:37 AM CDT carcinoma, NOS of this proce dure overlapping lesion of are in the bladder results section. .GLOMERULAR FILTRATION Routine 07/08/2021 Transitional cell Results for RATE 8:37 AM CDT carcinoma, NOS of this proce dure overlapping lesion of are in the bladder results section. SERUM CREATININE Routine 07/08/2021 Transitional cell Result s for 8:37 AM CDT carcinoma, NOS of this proce dure overlapping lesion of are in the bladder results section. ELECTROLYTE PANEL Routine 07/08/2021 Transitional cell Resul ts for 8:37 AM CDT carcinoma, NOS of this proce dure overlapping lesion of are in the bladder results section. BLOOD UREA NITROGEN Routine 07/08/2021 Transitional cell Res ults for 8:37 AM CDT carcinoma, NOS of this proce dure overlapping lesion of are in the bladder results section. GLUCOSE LEVEL Routine 07/08/2021 Transitional cell Results f or 8:37 AM CDT carcinoma, NOS of this proce dure overlapping lesion of are in the bladder results section. MANUAL DIFFERENTIAL Routine 07/08/2021 Transitional cell Res ults for 8:37 AM CDT carcinoma, NOS of this proce dure overlapping lesion of are in the bladder results section. Results CBC Routine 07/08/2021 Transitional cell Results fo r 8:37 AM CDT carcinoma, NOS of this proce dure overlapping lesion of are in the bladder results section. PHOSPHORUS LEVEL Routine 07/08/2021 Transitional cell Result s for 8:37 AM CDT carcinoma, NOS of this proce dure overlapping lesion of are in the bladder results section. MAGNESIUM LEVEL Routine 07/08/2021 Transitional cell Results for 8:37 AM CDT carcinoma, NOS of this proce dure overlapping lesion of are in the bladder results section. LACTATE DEHYDROGENASE Routine 07/08/2021 Transitional cell R esults for 8:37 AM CDT carcinoma, NOS of this proce dure overlapping lesion of are in the bladder results section. COMPREHENSIVE METABOLIC Routine 07/08/2021 Transitional cell PANEL 8:37 AM CDT carcinoma, NOS of overlapping lesion of bladder COMPLETE BLOOD COUNT W/ Routine 07/08/2021 Transitional cell DIFFERENTIAL 8:37 AM CDT carcinoma, NOS of overlapping lesion of bladder BHCG, TUMOR MARKER Routine 07/08/2021 Transitional cell Resu lts for 8:37 AM CDT carcinoma, NOS of this proce dure overlapping lesion of are in the bladder results section. FRACTIONATED BILIRUBIN Routine 07/02/2021 Transitional cell Results for 9:40 AM CDT carcinoma, NOS of this proce dure overlapping lesion of are in the bladder results section. TOTAL PROTEIN Routine 07/02/2021 Transitional cell Results f or 9:40 AM CDT carcinoma, NOS of this proce dure overlapping lesion of are in the bladder results section. ASPARTATE Routine 07/02/2021 Transitional cell Results fo r AMINOTRANSFERASE 9:40 AM CDT carcinoma, NOS of this p rocedure overlapping lesion of are in the bladder results section. ALANINE AMINOTRANSFERASE Routine 07/02/2021 Transitional tyshawn l Results for 9:40 AM CDT carcinoma, NOS of this proce dure overlapping lesion of are in the bladder results section. ALKALINE PHOSPHATASE Routine 07/02/2021 Transitional cell Re sults for 9:40 AM CDT carcinoma, NOS of this proce dure overlapping lesion of are in the bladder results section. ALBUMIN LEVEL Routine 07/02/2021 Transitional cell Results f or 9:40 AM CDT carcinoma, NOS of this proce dure overlapping lesion of are in the bladder results section. CALCIUM LEVEL TOTAL Routine 07/02/2021 Transitional cell Res ults for 9:40 AM CDT carcinoma, NOS of this proce dure overlapping lesion of are in the bladder results section. .GLOMERULAR FILTRATION Routine 07/02/2021 Transitional cell Results for RATE 9:40 AM CDT carcinoma, NOS of this proce dure overlapping lesion of are in the bladder results section. SERUM CREATININE Routine 07/02/2021 Transitional cell Result s for 9:40 AM CDT carcinoma, NOS of this proce dure overlapping lesion of are in the bladder results section. ELECTROLYTE PANEL Routine 07/02/2021 Transitional cell Resul ts for 9:40 AM CDT carcinoma, NOS of this proce dure overlapping lesion of are in the bladder results section. BLOOD UREA NITROGEN Routine 07/02/2021 Transitional cell Res ults for 9:40 AM CDT carcinoma, NOS of this proce dure overlapping lesion of are in the bladder results section. GLUCOSE LEVEL Routine 07/02/2021 Transitional cell Results f or 9:40 AM CDT carcinoma, NOS of this proce dure overlapping lesion of are in the bladder results section. MANUAL DIFFERENTIAL Routine 07/02/2021 Transitional cell Res ults for 9:40 AM CDT carcinoma, NOS of this proce dure overlapping lesion of are in the bladder results section. Results CBC Routine 07/02/2021 Transitional cell Results fo r 9:40 AM CDT carcinoma, NOS of this proce dure overlapping lesion of are in the bladder results section. MAGNESIUM LEVEL Routine 07/02/2021 Transitional cell Results for 9:40 AM CDT carcinoma, NOS of this proce dure overlapping lesion of are in the bladder results section. LACTATE DEHYDROGENASE Routine 07/02/2021 Transitional cell R esults for 9:40 AM CDT carcinoma, NOS of this proce dure overlapping lesion of are in the bladder results section. COMPREHENSIVE METABOLIC Routine 07/02/2021 Transitional cell PANEL 9:40 AM CDT carcinoma, NOS of overlapping lesion of bladder COMPLETE BLOOD COUNT W/ Routine 07/02/2021 Transitional cell DIFFERENTIAL 9:40 AM CDT carcinoma, NOS of overlapping lesion of bladder POC GLUCOSE SCREEN Routine 06/27/2021 Results f or 9:48 AM CDT this procedure are in the results section. MANUAL DIFFERENTIAL AM 06/27/2021 Results for 5:22 AM CDT this procedure are in the results section. Results CBC AM 06/27/2021 Results for 5:22 AM CDT this procedure are in the results section. .GLOMERULAR FILTRATION AM 06/27/2021 Resul ts for RATE 5:22 AM CDT this procedure are in the results section. SERUM CREATININE AM 06/27/2021 Results for 5:22 AM CDT this procedure are in the results section. COMPLETE BLOOD COUNT W/ AM 06/27/2021 DIFFERENTIAL 5:22 AM CDT PHOSPHORUS LEVEL AM 06/27/2021 Results for 5:22 AM CDT this procedure are in the results section. MAGNESIUM LEVEL AM 06/27/2021 Results for 5:22 AM CDT this procedure are in the results section. GLUCOSE, RANDOM AM 06/27/2021 Results for 5:22 AM CDT this procedure are in the results section. SERUM CREATININE AM 06/27/2021 5:22 AM CDT BLOOD UREA NITROGEN AM 06/27/2021 Results for 5:22 AM CDT this procedure are in the results section. ELECTROLYTE PANEL AM 06/27/2021 Results fo r 5:22 AM CDT this procedure are in the results section. TRANSFUSE RED BLOOD Routine 06/26/2021 CELLS 11:16 PM CDT POC GLUCOSE SCREEN Routine 06/26/2021 Results f or 10:19 PM CDT this procedure are in the results section. POC GLUCOSE SCREEN Routine 06/26/2021 Results f or 7:26 PM CDT this procedure are in the results section. CALCIUM LEVEL TOTAL Routine 06/26/2021 Results for 5:36 PM CDT this procedure are in the results section. .GLOMERULAR FILTRATION Routine 06/26/2021 Resul ts for RATE 5:36 PM CDT this procedure are in the results section. SERUM CREATININE Routine 06/26/2021 Results for 5:36 PM CDT this procedure are in the results section. ELECTROLYTE PANEL Routine 06/26/2021 Results fo r 5:36 PM CDT this procedure are in the results section. BLOOD UREA NITROGEN Routine 06/26/2021 Results for 5:36 PM CDT this procedure are in the results section. GLUCOSE LEVEL Routine 06/26/2021 Results for 5:36 PM CDT this procedure are in the results section. BASIC METABOLIC PANEL, Routine 06/26/2021 CALCIUM TOTAL 5:36 PM CDT POC GLUCOSE SCREEN Routine 06/26/2021 Results f or 2:07 PM CDT this procedure are in the results section. POC GLUCOSE SCREEN Routine 06/26/2021 Results f or 9:17 AM CDT this procedure are in the results section. PRBC PRODUCT READY FOR Routine 06/26/2021 Resul ts for QC MANAGER 7:54 AM CDT this procedure are in the results section. PREPARE RBC Routine 06/26/2021 Results for 7:54 AM CDT this procedure are in the results section. TMP CROSSMATCH Now 06/26/2021 Results for INTERPRETATION 5:27 AM CDT this procedur e are in the results section. CLOT EXPIRATION DATE Routine 06/26/2021 Results for 5:27 AM CDT this procedure are in the results section. TMP INTERPRETATION Routine 06/26/2021 Results f or ANTIBODY SCREEN NEGATIVE 5:27 AM CDT thi s procedure are in the results section. ANTIBODY SCREEN Now 06/26/2021 Results for 5:27 AM CDT this procedure are in the results section. ABORH Now 06/26/2021 Results for 5:27 AM CDT this procedure are in the results section. MANUAL DIFFERENTIAL Now 06/26/2021 Results for 5:27 AM CDT this procedure are in the results section. Results CBC Now 06/26/2021 Results for 5:27 AM CDT this procedure are in the results section. TYPE AND SCREEN Now 06/26/2021 5:27 AM CDT COMPLETE BLOOD COUNT W/ Now 06/26/2021 DIFFERENTIAL 5:27 AM CDT MANUAL DIFFERENTIAL AM 06/26/2021 Results for 4:10 AM CDT this procedure are in the results section. Results CBC AM 06/26/2021 Results for 4:10 AM CDT this procedure are in the results section. .GLOMERULAR FILTRATION AM 06/26/2021 Resul ts for RATE 4:10 AM CDT this procedure are in the results section. SERUM CREATININE AM 06/26/2021 Results for 4:10 AM CDT this procedure are in the results section. COMPLETE BLOOD COUNT W/ AM 06/26/2021 DIFFERENTIAL 4:10 AM CDT PHOSPHORUS LEVEL AM 06/26/2021 Results for 4:10 AM CDT this procedure are in the results section. MAGNESIUM LEVEL AM 06/26/2021 Results for 4:10 AM CDT this procedure are in the results section. GLUCOSE, RANDOM AM 06/26/2021 Results for 4:10 AM CDT this procedure are in the results section. SERUM CREATININE AM 06/26/2021 4:10 AM CDT BLOOD UREA NITROGEN AM 06/26/2021 Results for 4:10 AM CDT this procedure are in the results section. ELECTROLYTE PANEL AM 06/26/2021 Results fo r 4:10 AM CDT this procedure are in the results section. POC GLUCOSE SCREEN Routine 06/25/2021 Results f or 9:33 PM CDT this procedure are in the results section. POC GLUCOSE SCREEN Routine 06/25/2021 Results f or 7:23 PM CDT this procedure are in the results section. POC GLUCOSE SCREEN Routine 06/25/2021 Results f or 12:10 PM CDT this procedure are in the results section. URINE CULTURE Now 06/25/2021 Results for 11:54 AM CDT this procedure are in the results section. POTASSIUM LEVEL Routine 06/25/2021 Results for 9:02 AM CDT this procedure are in the results section. POC GLUCOSE SCREEN Routine 06/25/2021 Results f or 8:24 AM CDT this procedure are in the results section. MANUAL DIFFERENTIAL AM 06/25/2021 Results for 3:34 AM CDT this procedure are in the results section. Results CBC AM 06/25/2021 Results for 3:34 AM CDT this procedure are in the results section. .GLOMERULAR FILTRATION AM 06/25/2021 Resul ts for RATE 3:34 AM CDT this procedure are in the results section. SERUM CREATININE AM 06/25/2021 Results for 3:34 AM CDT this procedure are in the results section. COMPLETE BLOOD COUNT W/ AM 06/25/2021 DIFFERENTIAL 3:34 AM CDT PHOSPHORUS LEVEL AM 06/25/2021 Results for 3:34 AM CDT this procedure are in the results section. MAGNESIUM LEVEL AM 06/25/2021 Results for 3:34 AM CDT this procedure are in the results section. GLUCOSE, RANDOM AM 06/25/2021 Results for 3:34 AM CDT this procedure are in the results section. SERUM CREATININE AM 06/25/2021 3:34 AM CDT BLOOD UREA NITROGEN AM 06/25/2021 Results for 3:34 AM CDT this procedure are in the results section. ELECTROLYTE PANEL AM 06/25/2021 Results fo r 3:34 AM CDT this procedure are in the results section. POC GLUCOSE SCREEN Routine 06/24/2021 Results f or 10:57 PM CDT this procedure are in the results section. URINALYSIS MICROSCOPIC Routine 06/24/2021 Resul ts for 6:59 PM CDT this procedure are in the results section. URINALYSIS WITH Now 06/24/2021 Results for MICROSCOPIC IF INDICATED 6:59 PM CDT thi s procedure are in the results section. POC GLUCOSE SCREEN Routine 06/24/2021 Results f or 5:22 PM CDT this procedure are in the results section. COVID-19 (SARS-COV-2) Now 06/24/2021 Result s for ASYMPTOMATIC-LT 3:44 PM CDT this procedu re are in the results section. MANUAL DIFFERENTIAL STAT 06/24/2021 Transitional cell Res ults for 1:26 PM CDT carcinoma, NOS of this proce dure overlapping lesion of are in the bladder results section. Results CBC STAT 06/24/2021 Transitional cell Results fo r 1:26 PM CDT carcinoma, NOS of this proce dure overlapping lesion of are in the bladder results section. COMPLETE BLOOD COUNT W/ STAT 06/24/2021 Transitional cell DIFFERENTIAL 1:26 PM CDT carcinoma, NOS of overlapping lesion of bladder MANUAL DIFFERENTIAL Routine 06/22/2021 Neoplasm, malignant R esults for 10:24 AM CDT of overlapping lesion this p rocedure of bladder are in the results section. Results CBC Routine 06/22/2021 Neoplasm, malignant Results for 10:24 AM CDT of overlapping lesion this p rocedure of bladder are in the results section. FRACTIONATED BILIRUBIN Routine 06/22/2021 Neoplasm, malignan t Results for 10:24 AM CDT of overlapping lesion this p rocedure of bladder are in the results section. TOTAL PROTEIN Routine 06/22/2021 Neoplasm, malignant Results for 10:24 AM CDT of overlapping lesion this p rocedure of bladder are in the results section. ASPARTATE Routine 06/22/2021 Neoplasm, malignant Results for AMINOTRANSFERASE 10:24 AM CDT of overlapping lesion th is procedure of bladder are in the results section. ALANINE AMINOTRANSFERASE Routine 06/22/2021 Neoplasm, malign ant Results for 10:24 AM CDT of overlapping lesion this p rocedure of bladder are in the results section. ALKALINE PHOSPHATASE Routine 06/22/2021 Neoplasm, malignant Results for 10:24 AM CDT of overlapping lesion this p rocedure of bladder are in the results section. ALBUMIN LEVEL Routine 06/22/2021 Neoplasm, malignant Results for 10:24 AM CDT of overlapping lesion this p rocedure of bladder are in the results section. CALCIUM LEVEL TOTAL Routine 06/22/2021 Neoplasm, malignant R esults for 10:24 AM CDT of overlapping lesion this p rocedure of bladder are in the results section. .GLOMERULAR FILTRATION Routine 06/22/2021 Neoplasm, malignan t Results for RATE 10:24 AM CDT of overlapping lesion this p rocedure of bladder are in the results section. SERUM CREATININE Routine 06/22/2021 Neoplasm, malignant Resu lts for 10:24 AM CDT of overlapping lesion this p rocedure of bladder are in the results section. ELECTROLYTE PANEL Routine 06/22/2021 Neoplasm, malignant Res ults for 10:24 AM CDT of overlapping lesion this p rocedure of bladder are in the results section. BLOOD UREA NITROGEN Routine 06/22/2021 Neoplasm, malignant R esults for 10:24 AM CDT of overlapping lesion this p rocedure of bladder are in the results section. GLUCOSE LEVEL Routine 06/22/2021 Neoplasm, malignant Results for 10:24 AM CDT of overlapping lesion this p rocedure of bladder are in the results section. MAGNESIUM LEVEL Routine 06/22/2021 Neoplasm, malignant Resul ts for 10:24 AM CDT of overlapping lesion this p rocedure of bladder are in the results section. PHOSPHORUS LEVEL Routine 06/22/2021 Neoplasm, malignant Resu lts for 10:24 AM CDT of overlapping lesion this p rocedure of bladder are in the results section. LACTATE DEHYDROGENASE Routine 06/22/2021 Neoplasm, malignant Results for 10:24 AM CDT of overlapping lesion this p rocedure of bladder are in the results section. COMPLETE BLOOD COUNT W/ Routine 06/22/2021 Neoplasm, maligna nt DIFFERENTIAL 10:24 AM CDT of overlapping lesion of bladder COMPREHENSIVE METABOLIC Routine 06/22/2021 Neoplasm, maligna nt PANEL 10:24 AM CDT of overlapping lesion of bladder BHCG, TUMOR MARKER Routine 06/22/2021 Neoplasm, malignant Re sults for 10:24 AM CDT of overlapping lesion this p rocedure of bladder are in the results section. CT CHEST ABDOMEN PELVIS Routine 06/22/2021 Neoplasm, maligna nt Results for W WO CONTRAST UROGRAM 9:39 AM CDT of overlapping lesi on this procedure of bladder are in the results section. NM BONE SCAN WHOLE BODY Routine 06/21/2021 Transitional cell Results for 10:14 AM CDT carcinoma, NOS of this proce dure overlapping lesion of are in the bladder results section. FRACTIONATED BILIRUBIN Routine 06/18/2021 Neoplasm, malignan t Results for 7:45 AM CDT of overlapping lesion this p rocedure of bladder are in the results section. TOTAL PROTEIN Routine 06/18/2021 Neoplasm, malignant Results for 7:45 AM CDT of overlapping lesion this p rocedure of bladder are in the results section. ASPARTATE Routine 06/18/2021 Neoplasm, malignant Results for AMINOTRANSFERASE 7:45 AM CDT of overlapping lesion th is procedure of bladder are in the results section. ALANINE AMINOTRANSFERASE Routine 06/18/2021 Neoplasm, malign ant Results for 7:45 AM CDT of overlapping lesion this p rocedure of bladder are in the results section. ALKALINE PHOSPHATASE Routine 06/18/2021 Neoplasm, malignant Results for 7:45 AM CDT of overlapping lesion this p rocedure of bladder are in the results section. ALBUMIN LEVEL Routine 06/18/2021 Neoplasm, malignant Results for 7:45 AM CDT of overlapping lesion this p rocedure of bladder are in the results section. CALCIUM LEVEL TOTAL Routine 06/18/2021 Neoplasm, malignant R esults for 7:45 AM CDT of overlapping lesion this p rocedure of bladder are in the results section. .GLOMERULAR FILTRATION Routine 06/18/2021 Neoplasm, malignan t Results for RATE 7:45 AM CDT of overlapping lesion this p rocedure of bladder are in the results section. SERUM CREATININE Routine 06/18/2021 Neoplasm, malignant Resu lts for 7:45 AM CDT of overlapping lesion this p rocedure of bladder are in the results section. ELECTROLYTE PANEL Routine 06/18/2021 Neoplasm, malignant Res ults for 7:45 AM CDT of overlapping lesion this p rocedure of bladder are in the results section. BLOOD UREA NITROGEN Routine 06/18/2021 Neoplasm, malignant R esults for 7:45 AM CDT of overlapping lesion this p rocedure of bladder are in the results section. GLUCOSE LEVEL Routine 06/18/2021 Neoplasm, malignant Results for 7:45 AM CDT of overlapping lesion this p rocedure of bladder are in the results section. MANUAL DIFFERENTIAL Routine 06/18/2021 Neoplasm, malignant R esults for 7:45 AM CDT of overlapping lesion this p rocedure of bladder are in the results section. Results CBC Routine 06/18/2021 Neoplasm, malignant Results for 7:45 AM CDT of overlapping lesion this p rocedure of bladder are in the results section. MAGNESIUM LEVEL Routine 06/18/2021 Neoplasm, malignant Resul ts for 7:45 AM CDT of overlapping lesion this p rocedure of bladder are in the results section. PHOSPHORUS LEVEL Routine 06/18/2021 Neoplasm, malignant Resu lts for 7:45 AM CDT of overlapping lesion this p rocedure of bladder are in the results section. LACTATE DEHYDROGENASE Routine 06/18/2021 Neoplasm, malignant Results for 7:45 AM CDT of overlapping lesion this p rocedure of bladder are in the results section. COMPREHENSIVE METABOLIC Routine 06/18/2021 Neoplasm, maligna nt PANEL 7:45 AM CDT of overlapping lesion of bladder COMPLETE BLOOD COUNT W/ Routine 06/18/2021 Neoplasm, maligna nt DIFFERENTIAL 7:45 AM CDT of overlapping lesion of bladder POC GLUCOSE SCREEN Routine 06/14/2021 Results f or 12:25 PM CDT this procedure are in the results section. POC GLUCOSE SCREEN Routine 06/14/2021 Results f or 7:26 AM CDT this procedure are in the results section. MANUAL DIFFERENTIAL AM 06/14/2021 Results for 3:20 AM CDT this procedure are in the results section. Results CBC AM 06/14/2021 Results for 3:20 AM CDT this procedure are in the results section. .GLOMERULAR FILTRATION AM 06/14/2021 Resul ts for RATE 3:20 AM CDT this procedure are in the results section. SERUM CREATININE AM 06/14/2021 Results for 3:20 AM CDT this procedure are in the results section. COMPLETE BLOOD COUNT W/ AM 06/14/2021 DIFFERENTIAL 3:20 AM CDT PHOSPHORUS LEVEL AM 06/14/2021 Results for 3:20 AM CDT this procedure are in the results section. MAGNESIUM LEVEL AM 06/14/2021 Results for 3:20 AM CDT this procedure are in the results section. GLUCOSE, RANDOM AM 06/14/2021 Results for 3:20 AM CDT this procedure are in the results section. SERUM CREATININE AM 06/14/2021 3:20 AM CDT BLOOD UREA NITROGEN AM 06/14/2021 Results for 3:20 AM CDT this procedure are in the results section. ELECTROLYTE PANEL AM 06/14/2021 Results fo r 3:20 AM CDT this procedure are in the results section. POC GLUCOSE SCREEN Routine 06/13/2021 Results f or 7:25 PM CDT this procedure are in the results section. POC GLUCOSE SCREEN Routine 06/13/2021 Results f or 1:43 PM CDT this procedure are in the results section. POC GLUCOSE SCREEN Routine 06/13/2021 Results f or 7:15 AM CDT this procedure are in the results section. MANUAL DIFFERENTIAL AM 06/13/2021 Results for 5:40 AM CDT this procedure are in the results section. Results CBC AM 06/13/2021 Results for 5:40 AM CDT this procedure are in the results section. .GLOMERULAR FILTRATION AM 06/13/2021 Resul ts for RATE 5:40 AM CDT this procedure are in the results section. SERUM CREATININE AM 06/13/2021 Results for 5:40 AM CDT this procedure are in the results section. COMPLETE BLOOD COUNT W/ AM 06/13/2021 DIFFERENTIAL 5:40 AM CDT PHOSPHORUS LEVEL AM 06/13/2021 Results for 5:40 AM CDT this procedure are in the results section. MAGNESIUM LEVEL AM 06/13/2021 Results for 5:40 AM CDT this procedure are in the results section. GLUCOSE, RANDOM AM 06/13/2021 Results for 5:40 AM CDT this procedure are in the results section. SERUM CREATININE AM 06/13/2021 5:40 AM CDT BLOOD UREA NITROGEN AM 06/13/2021 Results for 5:40 AM CDT this procedure are in the results section. ELECTROLYTE PANEL AM 06/13/2021 Results fo r 5:40 AM CDT this procedure are in the results section. EKG, 12-LEAD (PORTABLE) STAT 06/13/2021 TRANSFUSE RED BLOOD Routine 06/12/2021 CELLS 11:45 PM CDT POC GLUCOSE SCREEN Routine 06/12/2021 Results f or 9:28 PM CDT this procedure are in the results section. POC GLUCOSE SCREEN Routine 06/12/2021 Results f or 1:58 PM CDT this procedure are in the results section. PREPARE RBC Routine 06/12/2021 Results for 11:27 AM CDT this procedure are in the results section. MANUAL DIFFERENTIAL Routine 06/12/2021 Results for 10:23 AM CDT this procedure are in the results section. Results CBC Routine 06/12/2021 Results for 10:23 AM CDT this procedure are in the results section. COMPLETE BLOOD COUNT W/ Routine 06/12/2021 DIFFERENTIAL 10:23 AM CDT POC GLUCOSE SCREEN Routine 06/12/2021 Results f or 8:39 AM CDT this procedure are in the results section. TMP CROSSMATCH STAT 06/12/2021 Results for INTERPRETATION 8:02 AM CDT this procedur e are in the results section. CLOT EXPIRATION DATE STAT 06/12/2021 Results for 8:02 AM CDT this procedure are in the results section. TMP INTERPRETATION STAT 06/12/2021 Results f or ANTIBODY SCREEN NEGATIVE 8:02 AM CDT thi s procedure are in the results section. ANTIBODY SCREEN STAT 06/12/2021 Results for 8:02 AM CDT this procedure are in the results section. ABORH STAT 06/12/2021 Results for 8:02 AM CDT this procedure are in the results section. TYPE AND SCREEN STAT 06/12/2021 8:02 AM CDT PREPARE RBC Routine 06/12/2021 Results for 7:31 AM CDT this procedure are in the results section. MANUAL DIFFERENTIAL AM 06/12/2021 Results for 3:42 AM CDT this procedure are in the results section. Results CBC AM 06/12/2021 Results for 3:42 AM CDT this procedure are in the results section. .GLOMERULAR FILTRATION AM 06/12/2021 Resul ts for RATE 3:42 AM CDT this procedure are in the results section. SERUM CREATININE AM 06/12/2021 Results for 3:42 AM CDT this procedure are in the results section. COMPLETE BLOOD COUNT W/ AM 06/12/2021 DIFFERENTIAL 3:42 AM CDT PHOSPHORUS LEVEL AM 06/12/2021 Results for 3:42 AM CDT this procedure are in the results section. MAGNESIUM LEVEL AM 06/12/2021 Results for 3:42 AM CDT this procedure are in the results section. GLUCOSE, RANDOM AM 06/12/2021 Results for 3:42 AM CDT this procedure are in the results section. SERUM CREATININE AM 06/12/2021 3:42 AM CDT BLOOD UREA NITROGEN AM 06/12/2021 Results for 3:42 AM CDT this procedure are in the results section. ELECTROLYTE PANEL AM 06/12/2021 Results fo r 3:42 AM CDT this procedure are in the results section. BLOOD UREA NITROGEN Now 06/11/2021 Results for 8:57 PM CDT this procedure are in the results section. CALCIUM LEVEL TOTAL Now 06/11/2021 Results for 8:57 PM CDT this procedure are in the results section. .GLOMERULAR FILTRATION Now 06/11/2021 Resul ts for RATE 8:57 PM CDT this procedure are in the results section. SERUM CREATININE Now 06/11/2021 Results for 8:57 PM CDT this procedure are in the results section. ELECTROLYTE PANEL Now 06/11/2021 Results fo r 8:57 PM CDT this procedure are in the results section. GLUCOSE LEVEL Now 06/11/2021 Results for 8:57 PM CDT this procedure are in the results section. CALCIUM IONIZED, VENOUS Now 06/11/2021 Resu lts for 8:57 PM CDT this procedure are in the results section. PHOSPHORUS LEVEL Now 06/11/2021 Results for 8:57 PM CDT this procedure are in the results section. MAGNESIUM LEVEL Now 06/11/2021 Results for 8:57 PM CDT this procedure are in the results section. BASIC METABOLIC PANEL, Now 06/11/2021 CALCIUM TOTAL 8:57 PM CDT POTASSIUM LEVEL Routine 06/11/2021 Results for 8:57 PM CDT this procedure are in the results section. POC GLUCOSE SCREEN Routine 06/11/2021 Results f or 7:37 PM CDT this procedure are in the results section. POC GLUCOSE SCREEN Routine 06/11/2021 Results f or 1:25 PM CDT this procedure are in the results section. POC GLUCOSE SCREEN Routine 06/11/2021 Results f or 8:19 AM CDT this procedure are in the results section. MANUAL DIFFERENTIAL AM 06/11/2021 Results for 3:28 AM CDT this procedure are in the results section. Results CBC AM 06/11/2021 Results for 3:28 AM CDT this procedure are in the results section. .GLOMERULAR FILTRATION AM 06/11/2021 Resul ts for RATE 3:28 AM CDT this procedure are in the results section. SERUM CREATININE AM 06/11/2021 Results for 3:28 AM CDT this procedure are in the results section. POTASSIUM VENOUS STAT 06/11/2021 Results for 3:28 AM CDT this procedure are in the results section. COMPLETE BLOOD COUNT W/ AM 06/11/2021 DIFFERENTIAL 3:28 AM CDT PHOSPHORUS LEVEL AM 06/11/2021 Results for 3:28 AM CDT this procedure are in the results section. MAGNESIUM LEVEL AM 06/11/2021 Results for 3:28 AM CDT this procedure are in the results section. GLUCOSE, RANDOM AM 06/11/2021 Results for 3:28 AM CDT this procedure are in the results section. SERUM CREATININE AM 06/11/2021 3:28 AM CDT BLOOD UREA NITROGEN AM 06/11/2021 Results for 3:28 AM CDT this procedure are in the results section. ELECTROLYTE PANEL AM 06/11/2021 Results fo r 3:28 AM CDT this procedure are in the results section. POTASSIUM LEVEL Timed Study 06/10/2021 Results for 10:28 PM CDT this procedure are in the results section. COVID-19 (SARS-COV-2) Now 06/10/2021 Result s for ASYMPTOMATIC-LT 8:05 PM CDT this procedu re are in the results section. POC GLUCOSE SCREEN Routine 06/10/2021 Results f or 8:04 PM CDT this procedure are in the results section. 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 FRACTIONATED BILIRUBIN Routine 06/10/2021 Transitional cell Results for 11:50 AM CDT carcinoma, NOS of this proce dure overlapping lesion of are in the bladder results section. TOTAL PROTEIN Routine 06/10/2021 Transitional cell Results f or 11:50 AM CDT carcinoma, NOS of this proce dure overlapping lesion of are in the bladder results section. ASPARTATE Routine 06/10/2021 Transitional cell Results fo r AMINOTRANSFERASE 11:50 AM CDT carcinoma, NOS of this p rocedure overlapping lesion of are in the bladder results section. ALANINE AMINOTRANSFERASE Routine 06/10/2021 Transitional tyshawn l Results for 11:50 AM CDT carcinoma, NOS of this proce dure overlapping lesion of are in the bladder results section. ALKALINE PHOSPHATASE Routine 06/10/2021 Transitional cell Re sults for 11:50 AM CDT carcinoma, NOS of this proce dure overlapping lesion of are in the bladder results section. ALBUMIN LEVEL Routine 06/10/2021 Transitional cell Results f or 11:50 AM CDT carcinoma, NOS of this proce dure overlapping lesion of are in the bladder results section. CALCIUM LEVEL TOTAL Routine 06/10/2021 Transitional cell Res ults for 11:50 AM CDT carcinoma, NOS of this proce dure overlapping lesion of are in the bladder results section. .GLOMERULAR FILTRATION Routine 06/10/2021 Transitional cell Results for RATE 11:50 AM CDT carcinoma, NOS of this proce dure overlapping lesion of are in the bladder results section. SERUM CREATININE Routine 06/10/2021 Transitional cell Result s for 11:50 AM CDT carcinoma, NOS of this proce dure overlapping lesion of are in the bladder results section. ELECTROLYTE PANEL Routine 06/10/2021 Transitional cell Resul ts for 11:50 AM CDT carcinoma, NOS of this proce dure overlapping lesion of are in the bladder results section. BLOOD UREA NITROGEN Routine 06/10/2021 Transitional cell Res ults for 11:50 AM CDT carcinoma, NOS of this proce dure overlapping lesion of are in the bladder results section. GLUCOSE LEVEL Routine 06/10/2021 Transitional cell Results f or 11:50 AM CDT carcinoma, NOS of this proce dure overlapping lesion of are in the bladder results section. MANUAL DIFFERENTIAL Routine 06/10/2021 Transitional cell Res ults for 11:50 AM CDT carcinoma, NOS of this proce dure overlapping lesion of are in the bladder results section. Results CBC Routine 06/10/2021 Transitional cell Results fo r 11:50 AM CDT carcinoma, NOS of this proce dure overlapping lesion of are in the bladder results section. PHOSPHORUS LEVEL Routine 06/10/2021 Transitional cell Result s for 11:50 AM CDT carcinoma, NOS of this proce dure overlapping lesion of are in the bladder results section. MAGNESIUM LEVEL Routine 06/10/2021 Transitional cell Results for 11:50 AM CDT carcinoma, NOS of this proce dure overlapping lesion of are in the bladder results section. LACTATE DEHYDROGENASE Routine 06/10/2021 Transitional cell R esults for 11:50 AM CDT carcinoma, NOS of this proce dure overlapping lesion of are in the bladder results section. COMPREHENSIVE METABOLIC Routine 06/10/2021 Transitional cell PANEL 11:50 AM CDT carcinoma, NOS of overlapping lesion of bladder COMPLETE BLOOD COUNT W/ Routine 06/10/2021 Transitional cell DIFFERENTIAL 11:50 AM CDT carcinoma, NOS of overlapping lesion of bladder BHCG, TUMOR MARKER Routine 06/10/2021 Transitional cell Resu lts for 11:50 AM CDT carcinoma, NOS of this proce dure overlapping lesion of are in the bladder results section. FRACTIONATED BILIRUBIN Routine 06/04/2021 Neoplasm, malignan t Results for 8:12 AM CDT of overlapping lesion this p rocedure of bladder are in the Secondary malignant results neoplasm of bone section. TOTAL PROTEIN Routine 06/04/2021 Neoplasm, malignant Results for 8:12 AM CDT of overlapping lesion this p rocedure of bladder are in the Secondary malignant results neoplasm of bone section. ASPARTATE Routine 06/04/2021 Neoplasm, malignant Results for AMINOTRANSFERASE 8:12 AM CDT of overlapping lesion th is procedure of bladder are in the Secondary malignant results neoplasm of bone section. ALANINE AMINOTRANSFERASE Routine 06/04/2021 Neoplasm, malign ant Results for 8:12 AM CDT of overlapping lesion this p rocedure of bladder are in the Secondary malignant results neoplasm of bone section. ALKALINE PHOSPHATASE Routine 06/04/2021 Neoplasm, malignant Results for 8:12 AM CDT of overlapping lesion this p rocedure of bladder are in the Secondary malignant results neoplasm of bone section. ALBUMIN LEVEL Routine 06/04/2021 Neoplasm, malignant Results for 8:12 AM CDT of overlapping lesion this p rocedure of bladder are in the Secondary malignant results neoplasm of bone section. CALCIUM LEVEL TOTAL Routine 06/04/2021 Neoplasm, malignant R esults for 8:12 AM CDT of overlapping lesion this p rocedure of bladder are in the Secondary malignant results neoplasm of bone section. .GLOMERULAR FILTRATION Routine 06/04/2021 Neoplasm, malignan t Results for RATE 8:12 AM CDT of overlapping lesion this p rocedure of bladder are in the Secondary malignant results neoplasm of bone section. SERUM CREATININE Routine 06/04/2021 Neoplasm, malignant Resu lts for 8:12 AM CDT of overlapping lesion this p rocedure of bladder are in the Secondary malignant results neoplasm of bone section. ELECTROLYTE PANEL Routine 06/04/2021 Neoplasm, malignant Res ults for 8:12 AM CDT of overlapping lesion this p rocedure of bladder are in the Secondary malignant results neoplasm of bone section. BLOOD UREA NITROGEN Routine 06/04/2021 Neoplasm, malignant R esults for 8:12 AM CDT of overlapping lesion this p rocedure of bladder are in the Secondary malignant results neoplasm of bone section. GLUCOSE LEVEL Routine 06/04/2021 Neoplasm, malignant Results for 8:12 AM CDT of overlapping lesion this p rocedure of bladder are in the Secondary malignant results neoplasm of bone section. MANUAL DIFFERENTIAL Routine 06/04/2021 Neoplasm, malignant R esults for 8:12 AM CDT of overlapping lesion this p rocedure of bladder are in the Secondary malignant results neoplasm of bone section. Results CBC Routine 06/04/2021 Neoplasm, malignant Results for 8:12 AM CDT of overlapping lesion this p rocedure of bladder are in the Secondary malignant results neoplasm of bone section. MAGNESIUM LEVEL Routine 06/04/2021 Neoplasm, malignant Resul ts for 8:12 AM CDT of overlapping lesion this p rocedure of bladder are in the Secondary malignant results neoplasm of bone section. COMPREHENSIVE METABOLIC Routine 06/04/2021 Neoplasm, maligna nt PANEL 8:12 AM CDT of overlapping lesion of bladder Secondary malignant neoplasm of bone COMPLETE BLOOD COUNT W/ Routine 06/04/2021 Neoplasm, maligna nt DIFFERENTIAL 8:12 AM CDT of overlapping lesion of bladder Secondary malignant neoplasm of bone POC GLUCOSE SCREEN Routine 05/30/2021 Results f or 3:05 PM CDT this procedure are in the results section. POC GLUCOSE SCREEN Routine 05/30/2021 Results f or 8:50 AM CDT this procedure are in the results section. MANUAL DIFFERENTIAL AM 05/30/2021 Results for 3:43 AM CDT this procedure are in the results section. Results CBC AM 05/30/2021 Results for 3:43 AM CDT this procedure are in the results section. .GLOMERULAR FILTRATION AM 05/30/2021 Resul ts for RATE 3:43 AM CDT this procedure are in the results section. SERUM CREATININE AM 05/30/2021 Results for 3:43 AM CDT this procedure are in the results section. COMPLETE BLOOD COUNT W/ AM 05/30/2021 DIFFERENTIAL 3:43 AM CDT PHOSPHORUS LEVEL AM 05/30/2021 Results for 3:43 AM CDT this procedure are in the results section. MAGNESIUM LEVEL AM 05/30/2021 Results for 3:43 AM CDT this procedure are in the results section. GLUCOSE, RANDOM AM 05/30/2021 Results for 3:43 AM CDT this procedure are in the results section. SERUM CREATININE AM 05/30/2021 3:43 AM CDT BLOOD UREA NITROGEN AM 05/30/2021 Results for 3:43 AM CDT this procedure are in the results section. ELECTROLYTE PANEL AM 05/30/2021 Results fo r 3:43 AM CDT this procedure are in the results section. POC GLUCOSE SCREEN Routine 05/29/2021 Results f or 11:46 PM CDT this procedure are in the results section. POC GLUCOSE SCREEN Routine 05/29/2021 Results f or 3:58 PM CDT this procedure are in the results section. POC GLUCOSE SCREEN Routine 05/29/2021 Results f or 9:40 AM CDT this procedure are in the results section. MANUAL DIFFERENTIAL AM 05/29/2021 Results for 3:52 AM CDT this procedure are in the results section. Results CBC AM 05/29/2021 Results for 3:52 AM CDT this procedure are in the results section. .GLOMERULAR FILTRATION AM 05/29/2021 Resul ts for RATE 3:52 AM CDT this procedure are in the results section. SERUM CREATININE AM 05/29/2021 Results for 3:52 AM CDT this procedure are in the results section. COMPLETE BLOOD COUNT W/ AM 05/29/2021 DIFFERENTIAL 3:52 AM CDT PHOSPHORUS LEVEL AM 05/29/2021 Results for 3:52 AM CDT this procedure are in the results section. MAGNESIUM LEVEL AM 05/29/2021 Results for 3:52 AM CDT this procedure are in the results section. GLUCOSE, RANDOM AM 05/29/2021 Results for 3:52 AM CDT this procedure are in the results section. SERUM CREATININE AM 05/29/2021 3:52 AM CDT BLOOD UREA NITROGEN AM 05/29/2021 Results for 3:52 AM CDT this procedure are in the results section. ELECTROLYTE PANEL AM 05/29/2021 Results fo r 3:52 AM CDT this procedure are in the results section. POC GLUCOSE SCREEN Routine 05/28/2021 Results f or 10:02 PM CDT this procedure are in the results section. TRANSFUSE RED BLOOD Routine 05/28/2021 CELLS 9:48 PM CDT POC GLUCOSE SCREEN Routine 05/28/2021 Results f or 6:37 PM CDT this procedure are in the results section. TMP CROSSMATCH Now 05/28/2021 Results for INTERPRETATION 6:09 PM CDT this procedur e are in the results section. TMP INTERPRETATION Routine 05/28/2021 Results f or ANTIBODY SCREEN NEGATIVE 6:09 PM CDT thi s procedure are in the results section. CLOT EXPIRATION DATE Routine 05/28/2021 Results for 6:09 PM CDT this procedure are in the results section. ANTIBODY SCREEN Now 05/28/2021 Results for 6:09 PM CDT this procedure are in the results section. ABORH Now 05/28/2021 Results for 6:09 PM CDT this procedure are in the results section. TYPE AND SCREEN Now 05/28/2021 6:09 PM CDT PRBC PRODUCT READY FOR Routine 05/28/2021 Resul ts for QC MANAGER 3:45 PM CDT this procedure are in the results section. PREPARE RBC Routine 05/28/2021 Results for 3:45 PM CDT this procedure are in the results section. POC GLUCOSE SCREEN Routine 05/28/2021 Results f or 1:59 PM CDT this procedure are in the results section. POC GLUCOSE SCREEN Routine 05/28/2021 Results f or 8:54 AM CDT this procedure are in the results section. MANUAL DIFFERENTIAL AM 05/28/2021 Results for 3:46 AM CDT this procedure are in the results section. Results CBC AM 05/28/2021 Results for 3:46 AM CDT this procedure are in the results section. .GLOMERULAR FILTRATION AM 05/28/2021 Resul ts for RATE 3:46 AM CDT this procedure are in the results section. SERUM CREATININE AM 05/28/2021 Results for 3:46 AM CDT this procedure are in the results section. COMPLETE BLOOD COUNT W/ AM 05/28/2021 DIFFERENTIAL 3:46 AM CDT PHOSPHORUS LEVEL AM 05/28/2021 Results for 3:46 AM CDT this procedure are in the results section. MAGNESIUM LEVEL AM 05/28/2021 Results for 3:46 AM CDT this procedure are in the results section. GLUCOSE, RANDOM AM 05/28/2021 Results for 3:46 AM CDT this procedure are in the results section. SERUM CREATININE AM 05/28/2021 3:46 AM CDT BLOOD UREA NITROGEN AM 05/28/2021 Results for 3:46 AM CDT this procedure are in the results section. ELECTROLYTE PANEL AM 05/28/2021 Results fo r 3:46 AM CDT this procedure are in the results section. POC GLUCOSE SCREEN Routine 05/27/2021 Results f or 10:54 PM CDT this procedure are in the results section. POC GLUCOSE SCREEN Routine 05/27/2021 Results f or 6:29 PM CDT this procedure are in the results section. COVID-19 (SARS-COV-2) Now 05/27/2021 Result s for ASYMPTOMATIC-LT 4:28 PM CDT this procedu re are in the results section. FRACTIONATED BILIRUBIN Routine 05/27/2021 Transitional cell Results for 8:57 AM CDT carcinoma, NOS of this proce dure overlapping lesion of are in the bladder results section. TOTAL PROTEIN Routine 05/27/2021 Transitional cell Results f or 8:57 AM CDT carcinoma, NOS of this proce dure overlapping lesion of are in the bladder results section. ASPARTATE Routine 05/27/2021 Transitional cell Results fo r AMINOTRANSFERASE 8:57 AM CDT carcinoma, NOS of this p rocedure overlapping lesion of are in the bladder results section. ALANINE AMINOTRANSFERASE Routine 05/27/2021 Transitional tyshawn l Results for 8:57 AM CDT carcinoma, NOS of this proce dure overlapping lesion of are in the bladder results section. ALKALINE PHOSPHATASE Routine 05/27/2021 Transitional cell Re sults for 8:57 AM CDT carcinoma, NOS of this proce dure overlapping lesion of are in the bladder results section. ALBUMIN LEVEL Routine 05/27/2021 Transitional cell Results f or 8:57 AM CDT carcinoma, NOS of this proce dure overlapping lesion of are in the bladder results section. CALCIUM LEVEL TOTAL Routine 05/27/2021 Transitional cell Res ults for 8:57 AM CDT carcinoma, NOS of this proce dure overlapping lesion of are in the bladder results section. .GLOMERULAR FILTRATION Routine 05/27/2021 Transitional cell Results for RATE 8:57 AM CDT carcinoma, NOS of this proce dure overlapping lesion of are in the bladder results section. SERUM CREATININE Routine 05/27/2021 Transitional cell Result s for 8:57 AM CDT carcinoma, NOS of this proce dure overlapping lesion of are in the bladder results section. ELECTROLYTE PANEL Routine 05/27/2021 Transitional cell Resul ts for 8:57 AM CDT carcinoma, NOS of this proce dure overlapping lesion of are in the bladder results section. BLOOD UREA NITROGEN Routine 05/27/2021 Transitional cell Res ults for 8:57 AM CDT carcinoma, NOS of this proce dure overlapping lesion of are in the bladder results section. GLUCOSE LEVEL Routine 05/27/2021 Transitional cell Results f or 8:57 AM CDT carcinoma, NOS of this proce dure overlapping lesion of are in the bladder results section. MANUAL DIFFERENTIAL Routine 05/27/2021 Transitional cell Res ults for 8:57 AM CDT carcinoma, NOS of this proce dure overlapping lesion of are in the bladder results section. Results CBC Routine 05/27/2021 Transitional cell Results fo r 8:57 AM CDT carcinoma, NOS of this proce dure overlapping lesion of are in the bladder results section. THYROID STIMULATING Routine 05/27/2021 Transitional cell Res ults for HORMONE 8:57 AM CDT carcinoma, NOS of this proce dure overlapping lesion of are in the bladder results section. MAGNESIUM LEVEL Routine 05/27/2021 Transitional cell Results for 8:57 AM CDT carcinoma, NOS of this proce dure overlapping lesion of are in the bladder results section. LACTATE DEHYDROGENASE Routine 05/27/2021 Transitional cell R esults for 8:57 AM CDT carcinoma, NOS of this proce dure overlapping lesion of are in the bladder results section. COMPREHENSIVE METABOLIC Routine 05/27/2021 Transitional cell PANEL 8:57 AM CDT carcinoma, NOS of overlapping lesion of bladder COMPLETE BLOOD COUNT W/ Routine 05/27/2021 Transitional cell DIFFERENTIAL 8:57 AM CDT carcinoma, NOS of overlapping lesion of bladder BHCG, TUMOR MARKER Routine 05/27/2021 Transitional cell Resu lts for 8:57 AM CDT carcinoma, NOS of this proce dure overlapping lesion of are in the bladder results section. 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 US LEG VENOUS DOPPLER STAT 05/20/2021 Transitional cell R esults for BILATERAL 3:34 PM CDT carcinoma, NOS of this proce dure overlapping lesion of are in the bladder results Edema, not otherwise section . specified FRACTIONATED BILIRUBIN Routine 05/20/2021 Transitional cell Results for 11:56 AM CDT carcinoma, NOS of this proce dure overlapping lesion of are in the bladder results section. TOTAL PROTEIN Routine 05/20/2021 Transitional cell Results f or 11:56 AM CDT carcinoma, NOS of this proce dure overlapping lesion of are in the bladder results section. ASPARTATE Routine 05/20/2021 Transitional cell Results fo r AMINOTRANSFERASE 11:56 AM CDT carcinoma, NOS of this p rocedure overlapping lesion of are in the bladder results section. ALANINE AMINOTRANSFERASE Routine 05/20/2021 Transitional tyshawn l Results for 11:56 AM CDT carcinoma, NOS of this proce dure overlapping lesion of are in the bladder results section. ALKALINE PHOSPHATASE Routine 05/20/2021 Transitional cell Re sults for 11:56 AM CDT carcinoma, NOS of this proce dure overlapping lesion of are in the bladder results section. ALBUMIN LEVEL Routine 05/20/2021 Transitional cell Results f or 11:56 AM CDT carcinoma, NOS of this proce dure overlapping lesion of are in the bladder results section. CALCIUM LEVEL TOTAL Routine 05/20/2021 Transitional cell Res ults for 11:56 AM CDT carcinoma, NOS of this proce dure overlapping lesion of are in the bladder results section. .GLOMERULAR FILTRATION Routine 05/20/2021 Transitional cell Results for RATE 11:56 AM CDT carcinoma, NOS of this proce dure overlapping lesion of are in the bladder results section. SERUM CREATININE Routine 05/20/2021 Transitional cell Result s for 11:56 AM CDT carcinoma, NOS of this proce dure overlapping lesion of are in the bladder results section. ELECTROLYTE PANEL Routine 05/20/2021 Transitional cell Resul ts for 11:56 AM CDT carcinoma, NOS of this proce dure overlapping lesion of are in the bladder results section. BLOOD UREA NITROGEN Routine 05/20/2021 Transitional cell Res ults for 11:56 AM CDT carcinoma, NOS of this proce dure overlapping lesion of are in the bladder results section. GLUCOSE LEVEL Routine 05/20/2021 Transitional cell Results f or 11:56 AM CDT carcinoma, NOS of this proce dure overlapping lesion of are in the bladder results section. MANUAL DIFFERENTIAL Routine 05/20/2021 Transitional cell Res ults for 11:56 AM CDT carcinoma, NOS of this proce dure overlapping lesion of are in the bladder results section. Results CBC Routine 05/20/2021 Transitional cell Results fo r 11:56 AM CDT carcinoma, NOS of this proce dure overlapping lesion of are in the bladder results section. THYROID STIMULATING Routine 05/20/2021 Transitional cell Res ults for HORMONE 11:56 AM CDT carcinoma, NOS of this proce dure overlapping lesion of are in the bladder results section. MAGNESIUM LEVEL Routine 05/20/2021 Transitional cell Results for 11:56 AM CDT carcinoma, NOS of this proce dure overlapping lesion of are in the bladder results section. LACTATE DEHYDROGENASE Routine 05/20/2021 Transitional cell R esults for 11:56 AM CDT carcinoma, NOS of this proce dure overlapping lesion of are in the bladder results section. COMPREHENSIVE METABOLIC Routine 05/20/2021 Transitional cell PANEL 11:56 AM CDT carcinoma, NOS of overlapping lesion of bladder COMPLETE BLOOD COUNT W/ Routine 05/20/2021 Transitional cell DIFFERENTIAL 11:56 AM CDT carcinoma, NOS of overlapping lesion of bladder BHCG, TUMOR MARKER Routine 05/20/2021 Transitional cell Resu lts for 11:56 AM CDT carcinoma, NOS of this proce dure overlapping lesion of are in the bladder results section. POC GLUCOSE SCREEN Routine 05/17/2021 Results f or 1:38 PM CDT this procedure are in the results section. POC GLUCOSE SCREEN Routine 05/17/2021 Results f or 9:18 AM CDT this procedure are in the results section. .GLOMERULAR FILTRATION AM 05/17/2021 Resul ts for RATE 3:24 AM CDT this procedure are in the results section. SERUM CREATININE AM 05/17/2021 Results for 3:24 AM CDT this procedure are in the results section. PHOSPHORUS LEVEL AM 05/17/2021 Results for 3:24 AM CDT this procedure are in the results section. MAGNESIUM LEVEL AM 05/17/2021 Results for 3:24 AM CDT this procedure are in the results section. GLUCOSE, RANDOM AM 05/17/2021 Results for 3:24 AM CDT this procedure are in the results section. SERUM CREATININE AM 05/17/2021 3:24 AM CDT BLOOD UREA NITROGEN AM 05/17/2021 Results for 3:24 AM CDT this procedure are in the results section. ELECTROLYTE PANEL AM 05/17/2021 Results fo r 3:24 AM CDT this procedure are in the results section. POC GLUCOSE SCREEN Routine 05/16/2021 Results f or 10:02 PM CDT this procedure are in the results section. POC GLUCOSE SCREEN Routine 05/16/2021 Results f or 7:15 PM CDT this procedure are in the results section. POC GLUCOSE SCREEN Routine 05/16/2021 Results f or 1:46 PM CDT this procedure are in the results section. XR KNEE 1 OR 2 VW RIGHT Routine 05/16/2021 Resu lts for 1:43 PM CDT this procedure are in the results section. XR CHEST 2 VW Routine 05/16/2021 Results for 1:42 PM CDT this procedure are in the results section. BLOOD UREA NITROGEN STAT 05/16/2021 Results for 12:23 PM CDT this procedure are in the results section. CALCIUM LEVEL TOTAL STAT 05/16/2021 Results for 12:23 PM CDT this procedure are in the results section. .GLOMERULAR FILTRATION STAT 05/16/2021 Resul ts for RATE 12:23 PM CDT this procedure are in the results section. SERUM CREATININE STAT 05/16/2021 Results for 12:23 PM CDT this procedure are in the results section. ELECTROLYTE PANEL STAT 05/16/2021 Results fo r 12:23 PM CDT this procedure are in the results section. GLUCOSE LEVEL STAT 05/16/2021 Results for 12:23 PM CDT this procedure are in the results section. BASIC METABOLIC PANEL, STAT 05/16/2021 CALCIUM TOTAL 12:23 PM CDT URINE CULTURE Now 05/16/2021 Results for 9:21 AM CDT this procedure are in the results section. POC GLUCOSE SCREEN Routine 05/16/2021 Results f or 9:14 AM CDT this procedure are in the results section. GENERAL LABORATORY ADD STAT 05/16/2021 Resul ts for ON TEST 7:37 AM CDT this procedure are in the results section. GENERAL LABORATORY ADD Now 05/16/2021 Resul ts for ON TEST 6:22 AM CDT this procedure are in the results section. CALCIUM LEVEL TOTAL AM 05/16/2021 Results for 3:01 AM CDT this procedure are in the results section. FRACTIONATED BILIRUBIN AM 05/16/2021 Resul ts for 3:01 AM CDT this procedure are in the results section. TOTAL PROTEIN AM 05/16/2021 Results for 3:01 AM CDT this procedure are in the results section. ASPARTATE AM 05/16/2021 Results for AMINOTRANSFERASE 3:01 AM CDT this proced ure are in the results section. ALANINE AMINOTRANSFERASE AM 05/16/2021 Res ults for 3:01 AM CDT this procedure are in the results section. ALKALINE PHOSPHATASE AM 05/16/2021 Results for 3:01 AM CDT this procedure are in the results section. ALBUMIN LEVEL AM 05/16/2021 Results for 3:01 AM CDT this procedure are in the results section. MANUAL DIFFERENTIAL AM 05/16/2021 Results for 3:01 AM CDT this procedure are in the results section. Results CBC AM 05/16/2021 Results for 3:01 AM CDT this procedure are in the results section. .GLOMERULAR FILTRATION AM 05/16/2021 Resul ts for RATE 3:01 AM CDT this procedure are in the results section. SERUM CREATININE AM 05/16/2021 Results for 3:01 AM CDT this procedure are in the results section. COMPLETE BLOOD COUNT W/ AM 05/16/2021 DIFFERENTIAL 3:01 AM CDT PHOSPHORUS LEVEL AM 05/16/2021 Results for 3:01 AM CDT this procedure are in the results section. MAGNESIUM LEVEL AM 05/16/2021 Results for 3:01 AM CDT this procedure are in the results section. GLUCOSE, RANDOM AM 05/16/2021 Results for 3:01 AM CDT this procedure are in the results section. SERUM CREATININE AM 05/16/2021 3:01 AM CDT BLOOD UREA NITROGEN AM 05/16/2021 Results for 3:01 AM CDT this procedure are in the results section. ELECTROLYTE PANEL AM 05/16/2021 Results fo r 3:01 AM CDT this procedure are in the results section. URINALYSIS WITH Now 05/15/2021 Results for MICROSCOPIC IF INDICATED 10:33 PM CDT thi s procedure are in the results section. POC GLUCOSE SCREEN Routine 05/15/2021 Results f or 9:16 PM CDT this procedure are in the results section. BLOODCULTURE Now 05/15/2021 Results for 9:05 PM CDT this procedure are in the results section. BLOODCULTURE Now 05/15/2021 Results for 9:00 PM CDT this procedure are in the results section. POC GLUCOSE SCREEN Routine 05/15/2021 Results f or 4:59 PM CDT this procedure are in the results section. POC GLUCOSE SCREEN Routine 05/15/2021 Results f or 1:45 PM CDT this procedure are in the results section. POC GLUCOSE SCREEN Routine 05/15/2021 Results f or 9:32 AM CDT this procedure are in the results section. MANUAL DIFFERENTIAL AM 05/15/2021 Results for 3:37 AM CDT this procedure are in the results section. Results CBC AM 05/15/2021 Results for 3:37 AM CDT this procedure are in the results section. .GLOMERULAR FILTRATION AM 05/15/2021 Resul ts for RATE 3:37 AM CDT this procedure are in the results section. SERUM CREATININE AM 05/15/2021 Results for 3:37 AM CDT this procedure are in the results section. COMPLETE BLOOD COUNT W/ AM 05/15/2021 DIFFERENTIAL 3:37 AM CDT PHOSPHORUS LEVEL AM 05/15/2021 Results for 3:37 AM CDT this procedure are in the results section. MAGNESIUM LEVEL AM 05/15/2021 Results for 3:37 AM CDT this procedure are in the results section. GLUCOSE, RANDOM AM 05/15/2021 Results for 3:37 AM CDT this procedure are in the results section. SERUM CREATININE AM 05/15/2021 3:37 AM CDT BLOOD UREA NITROGEN AM 05/15/2021 Results for 3:37 AM CDT this procedure are in the results section. ELECTROLYTE PANEL AM 05/15/2021 Results fo r 3:37 AM CDT this procedure are in the results section. POC GLUCOSE SCREEN Routine 05/14/2021 Results f or 9:02 PM CDT this procedure are in the results section. POC GLUCOSE SCREEN Routine 05/14/2021 Results f or 7:53 PM CDT this procedure are in the results section. POC GLUCOSE SCREEN Routine 05/14/2021 Results f or 2:09 PM CDT this procedure are in the results section. POC GLUCOSE SCREEN Routine 05/14/2021 Results f or 8:55 AM CDT this procedure are in the results section. MANUAL DIFFERENTIAL AM 05/14/2021 Results for 3:41 AM CDT this procedure are in the results section. Results CBC AM 05/14/2021 Results for 3:41 AM CDT this procedure are in the results section. .GLOMERULAR FILTRATION AM 05/14/2021 Resul ts for RATE 3:41 AM CDT this procedure are in the results section. SERUM CREATININE AM 05/14/2021 Results for 3:41 AM CDT this procedure are in the results section. HEMOGLOBIN A1C Now 05/14/2021 Results for 3:41 AM CDT this procedure are in the results section. COMPLETE BLOOD COUNT W/ AM 05/14/2021 DIFFERENTIAL 3:41 AM CDT PHOSPHORUS LEVEL AM 05/14/2021 Results for 3:41 AM CDT this procedure are in the results section. MAGNESIUM LEVEL AM 05/14/2021 Results for 3:41 AM CDT this procedure are in the results section. GLUCOSE, RANDOM AM 05/14/2021 Results for 3:41 AM CDT this procedure are in the results section. SERUM CREATININE AM 05/14/2021 3:41 AM CDT BLOOD UREA NITROGEN AM 05/14/2021 Results for 3:41 AM CDT this procedure are in the results section. ELECTROLYTE PANEL AM 05/14/2021 Results fo r 3:41 AM CDT this procedure are in the results section. POC GLUCOSE SCREEN Routine 05/13/2021 Results f or 10:13 PM CDT this procedure are in the results section. POC GLUCOSE SCREEN Routine 05/13/2021 Results f or 7:45 PM CDT this procedure are in the results section. COVID-19 (SARS-COV-2) Now 05/13/2021 Result s for ASYMPTOMATIC-LT 6:46 PM CDT this procedu re are in the results section. 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 TOTAL PROTEIN Routine 05/13/2021 Transitional cell Results f or 7:44 AM CDT carcinoma, NOS of this proce dure overlapping lesion of are in the bladder results section. ASPARTATE Routine 05/13/2021 Transitional cell Results fo r AMINOTRANSFERASE 7:44 AM CDT carcinoma, NOS of this p rocedure overlapping lesion of are in the bladder results section. ALANINE AMINOTRANSFERASE Routine 05/13/2021 Transitional tyshawn l Results for 7:44 AM CDT carcinoma, NOS of this proce dure overlapping lesion of are in the bladder results section. ALKALINE PHOSPHATASE Routine 05/13/2021 Transitional cell Re sults for 7:44 AM CDT carcinoma, NOS of this proce dure overlapping lesion of are in the bladder results section. ALBUMIN LEVEL Routine 05/13/2021 Transitional cell Results f or 7:44 AM CDT carcinoma, NOS of this proce dure overlapping lesion of are in the bladder results section. CALCIUM LEVEL TOTAL Routine 05/13/2021 Transitional cell Res ults for 7:44 AM CDT carcinoma, NOS of this proce dure overlapping lesion of are in the bladder results section. .GLOMERULAR FILTRATION Routine 05/13/2021 Transitional cell Results for RATE 7:44 AM CDT carcinoma, NOS of this proce dure overlapping lesion of are in the bladder results section. SERUM CREATININE Routine 05/13/2021 Transitional cell Result s for 7:44 AM CDT carcinoma, NOS of this proce dure overlapping lesion of are in the bladder results section. ELECTROLYTE PANEL Routine 05/13/2021 Transitional cell Resul ts for 7:44 AM CDT carcinoma, NOS of this proce dure overlapping lesion of are in the bladder results section. BLOOD UREA NITROGEN Routine 05/13/2021 Transitional cell Res ults for 7:44 AM CDT carcinoma, NOS of this proce dure overlapping lesion of are in the bladder results section. GLUCOSE LEVEL Routine 05/13/2021 Transitional cell Results f or 7:44 AM CDT carcinoma, NOS of this proce dure overlapping lesion of are in the bladder results section. MANUAL DIFFERENTIAL Routine 05/13/2021 Transitional cell Res ults for 7:44 AM CDT carcinoma, NOS of this proce dure overlapping lesion of are in the bladder results section. Results CBC Routine 05/13/2021 Transitional cell Results fo r 7:44 AM CDT carcinoma, NOS of this proce dure overlapping lesion of are in the bladder results section. BHCG, TUMOR MARKER Routine 05/13/2021 Transitional cell Resu lts for 7:44 AM CDT carcinoma, NOS of this proce dure overlapping lesion of are in the bladder results section. MAGNESIUM LEVEL Routine 05/13/2021 Transitional cell Results for 7:44 AM CDT carcinoma, NOS of this proce dure overlapping lesion of are in the bladder results section. LACTATE DEHYDROGENASE Routine 05/13/2021 Transitional cell R esults for 7:44 AM CDT carcinoma, NOS of this proce dure overlapping lesion of are in the bladder results section. COMPREHENSIVE METABOLIC Routine 05/13/2021 Transitional cell PANEL 7:44 AM CDT carcinoma, NOS of overlapping lesion of bladder COMPLETE BLOOD COUNT W/ Routine 05/13/2021 Transitional cell DIFFERENTIAL 7:44 AM CDT carcinoma, NOS of overlapping lesion of bladder POC GLUCOSE SCREEN Routine 05/03/2021 Results f or 1:41 PM CDT this procedure are in the results section. IR FL PORT PLACEMENT Routine 05/03/2021 Transitional cell Re sults for 12:28 PM CDT carcinoma, NOS of this proce dure overlapping lesion of are in the bladder results section. POC GLUCOSE SCREEN Routine 05/03/2021 Results f or 10:55 AM CDT this procedure are in the results section. EKG, 12-LEAD (PORTABLE) Routine 05/03/2021 COVID-19 (SARS-COV-2) Routine 05/02/2021 Suspected COVID-19 Results for PCR-ASYMPTOMATIC MC 10:24 AM CDT this pro cedure are in the results section. CLOT EXPIRATION DATE Routine 05/02/2021 Results for 10:02 AM CDT this procedure are in the results section. TMP INTERPRETATION Routine 05/02/2021 Results f or ANTIBODY SCREEN NEGATIVE 10:02 AM CDT thi s procedure are in the results section. ANION GAP Routine 05/02/2021 Results for 10:02 AM CDT this procedure are in the results section. ANTIBODY SCREEN Routine 05/02/2021 Results for 10:02 AM CDT this procedure are in the results section. ABORH Routine 05/02/2021 Results for 10:02 AM CDT this procedure are in the results section. .GLOMERULAR FILTRATION Routine 05/02/2021 Resul ts for RATE 10:02 AM CDT this procedure are in the results section. SERUM CREATININE Routine 05/02/2021 Results for 10:02 AM CDT this procedure are in the results section. MANUAL DIFFERENTIAL Routine 05/02/2021 Results for 10:02 AM CDT this procedure are in the results section. Results CBC Routine 05/02/2021 Results for 10:02 AM CDT this procedure are in the results section. TYPE AND SCREEN Routine 05/02/2021 10:02 AM CDT GLUCOSE, RANDOM Routine 05/02/2021 Results for 10:02 AM CDT this procedure are in the results section. PROTHROMBIN TIME Routine 05/02/2021 Results for 10:02 AM CDT this procedure are in the results section. BLOOD UREA NITROGEN Routine 05/02/2021 Results for 10:02 AM CDT this procedure are in the results section. SERUM CREATININE Routine 05/02/2021 10:02 AM CDT POTASSIUM LEVEL Routine 05/02/2021 Results for 10:02 AM CDT this procedure are in the results section. SODIUM LEVEL Routine 05/02/2021 Results for 10:02 AM CDT this procedure are in the results section. CHLORIDE LEVEL Routine 05/02/2021 Results for 10:02 AM CDT this procedure are in the results section. CARBON DIOXIDE LEVEL Routine 05/02/2021 Results for 10:02 AM CDT this procedure are in the results section. COMPLETE BLOOD COUNT W/ Routine 05/02/2021 DIFFERENTIAL 10:02 AM CDT CONFIRM ABORH TYPE Routine 05/02/2021 Results f or 9:58 AM CDT this procedure are in the results section. HP SOLID TUMOR Routine 04/30/2021 GENOMIC ASSAY FUSIONS 2:47 PM CDT 2018 INTERPRETATION AND REPORT HP SOLID TUMOR Routine 04/30/2021 GENOMIC ASSAY DNA 2018 2:47 PM CDT INTPRETATION AND REPORT FRACTIONATED BILIRUBIN Routine 04/25/2021 Transitional cell Results for 12:45 PM [employer] carcinoma, NOS of this proce dure overlapping lesion of are in the bladder results section. TOTAL PROTEIN Routine 04/25/2021 Transitional cell Results f or 12:45 PM [employer] carcinoma, NOS of this proce dure overlapping lesion of are in the bladder results section. ASPARTATE Routine 04/25/2021 Transitional cell Results fo r AMINOTRANSFERASE 12:45 PM [employer] carcinoma, NOS of this p rocedure overlapping lesion of are in the bladder results section. ALANINE AMINOTRANSFERASE Routine 04/25/2021 Transitional tyshawn l Results for 12:45 PM [employer] carcinoma, NOS of this proce dure overlapping lesion of are in the bladder results section. ALKALINE PHOSPHATASE Routine 04/25/2021 Transitional cell Re sults for 12:45 PM [employer] carcinoma, NOS of this proce dure overlapping lesion of are in the bladder results section. ALBUMIN LEVEL Routine 04/25/2021 Transitional cell Results f or 12:45 PM [employer] carcinoma, NOS of this proce dure overlapping lesion of are in the bladder results section. CALCIUM LEVEL TOTAL Routine 04/25/2021 Transitional cell Res ults for 12:45 PM [employer] carcinoma, NOS of this proce dure overlapping lesion of are in the bladder results section. .GLOMERULAR FILTRATION Routine 04/25/2021 Transitional cell Results for RATE 12:45 PM [employer] carcinoma, NOS of this proce dure overlapping lesion of are in the bladder results section. SERUM CREATININE Routine 04/25/2021 Transitional cell Result s for 12:45 PM [employer] carcinoma, NOS of this proce dure overlapping lesion of are in the bladder results section. ELECTROLYTE PANEL Routine 04/25/2021 Transitional cell Resul ts for 12:45 PM [employer] carcinoma, NOS of this proce dure overlapping lesion of are in the bladder results section. BLOOD UREA NITROGEN Routine 04/25/2021 Transitional cell Res ults for 12:45 PM [employer] carcinoma, NOS of this proce dure overlapping lesion of are in the bladder results section. GLUCOSE LEVEL Routine 04/25/2021 Transitional cell Results f or 12:45 PM [employer] carcinoma, NOS of this proce dure overlapping lesion of are in the bladder results section. MANUAL DIFFERENTIAL Routine 04/25/2021 Transitional cell Res ults for 12:45 PM [employer] carcinoma, NOS of this proce dure overlapping lesion of are in the bladder results section. Results CBC Routine 04/25/2021 Transitional cell Results fo r 12:45 PM [employer] carcinoma, NOS of this proce dure overlapping lesion of are in the bladder results section. MAGNESIUM LEVEL Routine 04/25/2021 Transitional cell Results for 12:45 PM [employer] carcinoma, NOS of this proce dure overlapping lesion of are in the bladder results section. COMPREHENSIVE METABOLIC Routine 04/25/2021 Transitional cell PANEL 12:45 PM [employer] carcinoma, NOS of overlapping lesion of bladder COMPLETE BLOOD COUNT W/ Routine 04/25/2021 Transitional cell DIFFERENTIAL 12:45 PM [employer] carcinoma, NOS of overlapping lesion of bladder CT CHEST ABDOMEN PELVIS Routine 04/20/2021 Transitional cell Results for W WO CONTRAST UROGRAM 2:31 PM [employer] carcinoma, NOS of t his procedure overlapping lesion of are in the bladder results section. POC CREATININE Routine 04/20/2021 Results for 12:42 PM [employer] this procedure are in the results section. NM BONE SCAN WHOLE BODY Routine 04/17/2021 Transitional cell Results for 10:27 AM [employer] carcinoma, NOS of this proce dure overlapping lesion of are in the bladder results Secondary malignant section. neoplasm of bone TMP HCVAB INTERP Routine 04/11/2021 Results for 10:45 AM [employer] this procedure are in the results section. FRACTIONATED BILIRUBIN Routine 04/11/2021 Transitional cell Results for 10:45 AM [employer] carcinoma, NOS of this proce dure overlapping lesion of are in the bladder results section. TOTAL PROTEIN Routine 04/11/2021 Transitional cell Results f or 10:45 AM [employer] carcinoma, NOS of this proce dure overlapping lesion of are in the bladder results section. ASPARTATE Routine 04/11/2021 Transitional cell Results fo r AMINOTRANSFERASE 10:45 AM [employer] carcinoma, NOS of this p rocedure overlapping lesion of are in the bladder results section. ALANINE AMINOTRANSFERASE Routine 04/11/2021 Transitional tyshawn l Results for 10:45 AM [employer] carcinoma, NOS of this proce dure overlapping lesion of are in the bladder results section. ALKALINE PHOSPHATASE Routine 04/11/2021 Transitional cell Re sults for 10:45 AM [employer] carcinoma, NOS of this proce dure overlapping lesion of are in the bladder results section. ALBUMIN LEVEL Routine 04/11/2021 Transitional cell Results f or 10:45 AM [employer] carcinoma, NOS of this proce dure overlapping lesion of are in the bladder results section. CALCIUM LEVEL TOTAL Routine 04/11/2021 Transitional cell Res ults for 10:45 AM [employer] carcinoma, NOS of this proce dure overlapping lesion of are in the bladder results section. .GLOMERULAR FILTRATION Routine 04/11/2021 Transitional cell Results for RATE 10:45 AM [employer] carcinoma, NOS of this proce dure overlapping lesion of are in the bladder results section. SERUM CREATININE Routine 04/11/2021 Transitional cell Result s for 10:45 AM [employer] carcinoma, NOS of this proce dure overlapping lesion of are in the bladder results section. ELECTROLYTE PANEL Routine 04/11/2021 Transitional cell Resul ts for 10:45 AM [employer] carcinoma, NOS of this proce dure overlapping lesion of are in the bladder results section. BLOOD UREA NITROGEN Routine 04/11/2021 Transitional cell Res ults for 10:45 AM [employer] carcinoma, NOS of this proce dure overlapping lesion of are in the bladder results section. GLUCOSE LEVEL Routine 04/11/2021 Transitional cell Results f or 10:45 AM [employer] carcinoma, NOS of this proce dure overlapping lesion of are in the bladder results section. MANUAL DIFFERENTIAL Routine 04/11/2021 Transitional cell Res ults for 10:45 AM [employer] carcinoma, NOS of this proce dure overlapping lesion of are in the bladder results section. Results CBC Routine 04/11/2021 Transitional cell Results fo r 10:45 AM [employer] carcinoma, NOS of this proce dure overlapping lesion of are in the bladder results section. NGS BLOOD CONTROL Routine 04/11/2021 Transitional cell Re sults for 10:45 AM [employer] carcinoma, NOS of this proce dure overlapping lesion of are in the bladder results section. CARCINOEMBRYONIC ANTIGEN Routine 04/11/2021 Transitional tyshawn l Results for 10:45 AM [employer] carcinoma, NOS of this proce dure overlapping lesion of are in the bladder results section. BHCG, TUMOR MARKER Routine 04/11/2021 Transitional cell Resu lts for 10:45 AM [employer] carcinoma, NOS of this proce dure overlapping lesion of are in the bladder results section. PHOSPHORUS LEVEL Routine 04/11/2021 Transitional cell Result s for 10:45 AM [employer] carcinoma, NOS of this proce dure overlapping lesion of are in the bladder results section. MAGNESIUM LEVEL Routine 04/11/2021 Transitional cell Results for 10:45 AM [employer] carcinoma, NOS of this proce dure overlapping lesion of are in the bladder results section. LACTATE DEHYDROGENASE Routine 04/11/2021 Transitional cell R esults for 10:45 AM [employer] carcinoma, NOS of this proce dure overlapping lesion of are in the bladder results section. COMPREHENSIVE METABOLIC Routine 04/11/2021 Transitional cell PANEL 10:45 AM [employer] carcinoma, NOS of overlapping lesion of bladder COMPLETE BLOOD COUNT W/ Routine 04/11/2021 Transitional cell DIFFERENTIAL 10:45 AM [employer] carcinoma, NOS of overlapping lesion of bladder HEPATITIS C VIRUS Routine 04/11/2021 Transitional cell Resul ts for ANTIBODY 10:45 AM [employer] carcinoma, NOS of this proce dure overlapping lesion of are in the bladder results section. AP IHC PD-L1 MATERIAL Routine 04/11/2021 Transitional cell REQUEST 10:28 AM [employer] carcinoma, NOS of overlapping lesion of bladder AP IHC MSI (MLH1, MSH2, Routine 04/11/2021 Transitional cell MSH6, PMS2) MATERIAL 10:28 AM [employer] carcinoma, NOS of REQUEST overlapping lesion of bladder AP IHC HER2/EDWARD MATERIAL Routine 04/11/2021 Transitional tyshawn l REQUEST 10:19 AM [employer] carcinoma, NOS of overlapping lesion of bladder SALLIE PATIÑO FGFR3 FUSION Routine 04/11/2021 Transitional cell Resu lts for ANALYSIS MATERIAL 10:19 AM [employer] carcinoma, NOS of this procedure REQUEST overlapping lesion of are in the bladder results section. SALLIE PATIÑO FGFR2 FUSION Routine 04/11/2021 Transitional cell Resu lts for ANALYSIS MATERIAL 10:19 AM [employer] carcinoma, NOS of this procedure REQUEST overlapping lesion of are in the bladder results section. SALLIE PATIÑO PIK3CA MATERIAL Routine 04/11/2021 Transitional cell R esults for REQUEST 10:19 AM [employer] carcinoma, NOS of this proce dure overlapping lesion of are in the bladder results section. SALLIE PATIÑO PTEN MUTATION Routine 04/11/2021 Transitional cell Res ults for MATERIAL REQUEST 10:19 AM [employer] carcinoma, NOS of this p rocedure overlapping lesion of are in the bladder results section. SALLIE PATIÑO RB1 MATERIAL Routine 04/11/2021 Transitional cell Resu lts for REQUEST 10:19 AM [employer] carcinoma, NOS of this proce dure overlapping lesion of are in the bladder results section. SALLIE PATIÑO TP53 MUTATION Routine 04/11/2021 Transitional cell Res ults for MATERIAL REQUEST 10:19 AM [employer] carcinoma, NOS of this p rocedure overlapping lesion of are in the bladder results section. AP IHC MTAP MATERIAL Routine 04/11/2021 Transitional cell REQUEST 10:19 AM [employer] carcinoma, NOS of overlapping lesion of bladder PATHOLOGY OUTSIDE Routine 04/04/2021 Results fo r INTERPRETATION this procedur e are in the results section. OSI US PELVIC Routine 04/02/2021 Cancer Results for 8:07 PM [employer] this procedure are in the results section. OSI MRI SPINE THORACIC Routine 03/27/2021 Transitional cell Results for 12:29 PM [employer] carcinoma, NOS of this proce dure overlapping lesion of are in the bladder results Secondary malignant section. neoplasm of bone PATHOLOGY OUTSIDE Routine 01/23/2021 Results fo r INTERPRETATION this procedur e are in the results section. after 01/01/2021 Results .Serum Creatinine (12/25/2021 8:31 AM [employer])Only the most recent of75 results within the time period is included. athologist Signature Creatinine 0.93 0.51 - 0.95 [facility] mg/dL Comment: Testing Performed at [facility], [address], [id number], [place] [address] Specimen Anatomical Collection Method Collection Time Receive d Time (Source) Location / / Volume Laterality Blood 12/25/2021 8:31 AM 8:40 [employer] AM [employer] Annalee Kemp 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 COUNSEL LAB BLOOD ORDERABLES Performing Organization Address City/State/ZIP Code Phon e Number [facility] [facility] [address] [facility] [place] [address] [address] Glomerular Filtration Rate (12/25/2021 8:31 AM CONTRACTS PARALEGAL)Only the most recent of75 resultswithin the time period is included. athologist Signature eGFR 62 >=60 [facility] mL/min/1.73 sq. m Comment: The eGFRcr is calculated with the 2020 KD-EPI creatinine equation using creatinine, patient's age, and sex for adults 18 years of age and older. Other factors, especially muscle mass, may affect accuracy and need to be considered. According to the Kidney Disease: Improvi ng Global Outcomes (KDIGO) CKD Work Group 2012 Clinical Practice Guideline, chronic kidney disease (CKD) is defined as the abnormalities of kidney structure or function, present for more than 3 months, with implications for health. CKD should be c lassified by cause, GFR category, and albuminuria category. KDIGO guidelines provide the following GFR categories Stage Description GFR mL/min/1.73 m2 G1* Normal or high >= 90 G2* Mildly decreased 60-89 G3a Mildly to moderately decreased 45-59 G3b Moderately to severely decreased 30- 44 G4 Severely decreased 15-29 G5 Kidney failure <15 *In the absence of evidence of kidney da mage, neither G1 nor G2 fulfill criteria for CKD. Testing Performed at [facility], [address] [place] [address], [address], [place] [address] Specimen Anatomical Collection Method Collection Time Receive d Time (Source) Location / / Volume Laterality Blood 12/25/2021 8:31 AM 8:40 CONTRACTS PARALEGAL AM CONTRACTS PARALEGAL Annalee Kemp 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 COUNSEL LAB BLOOD ORDERABLES Performing Organization Address City/State/ZIP Code Phon e Number [address] [place] [address] [address] Fractionated Bilirubin (12/25/2021 8:31 AM CONTRACTS PARALEGAL)Only the most recent of32 results within the time period is included. athologist Signature Bili Total 0.4 <=1.2 mg/dL [facility] Comment: Indocyanine Green (ICG) may cause falsel y elevated bilirubin results. Total and direct bilirubin must not be measured from samples containing indocyanine green. False elevation of total bilirubin can b e seen in patients with IgG concentrations above 28 g/L. Testing Performed at [facility], [facility], [address], [place] [address] Bili Direct 0.2 <=0.3 mg/dL [facility] Comment: Indocyanine Green (ICG) may cause falsel y elevated bilirubin results. Total and direct bilirubin must not be measured from samples containing indocyanine green. Testing Performed at [facility], [address] [facility], [address], [place] [address] Bili Indirect 0.2 0.0 - 0.9 mg/dL [facility] Comment: Testing Performed at [facility], [facility], [address], [place] [address] Specimen Anatomical Collection Method Collection Time Receive d Time (Source) Location / / Volume Laterality Blood 12/25/2021 8:31 AM 2 8:40 CONTRACTS PARALEGAL AM CONTRACTS PARALEGAL Annalee Kemp 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 COUNSEL LAB BLOOD ORDERABLES Performing Organization Address City/[facility]/ZIP Code Phon e Number [facility] [address] [place] [address] [address] (ABNORMAL) BUN (12/25/2021 8:31 AM CONTRACTS PARALEGAL)Only the most recent of75 resultswithin the time period is included. P athologist Signature BUN 33 (H) 6 - 23 mg/dL [facility] Comment: Testing Performed at [facility], [address] [facility], [address], [place] [address] Specimen Anatomical Collection Method Collection Time Receive d Time (Source) Location / / Volume Laterality Blood 12/25/2021 8:31 AM 2 8:40 CONTRACTS PARALEGAL AM CONTRACTS PARALEGAL Annalee Kemp 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 COUNSEL LAB BLOOD ORDERABLES Performing Organization Address City/[facility] Code Phon e Number [facility] [address] [place] [address] [address] ALT (12/25/2021 8:31 AM CONTRACTS PARALEGAL)Only the most recent of32 resultswithin the time period is included. P athologist Signature ALT 8 <=33 U/L [facility] Comment: Testing Performed at [facility], [address] [facility], [address], [place] [address] Specimen Anatomical Collection Method Collection Time Receive d Time (Source) Location / / Volume Laterality Blood 12/25/2021 8:31 AM 2 8:40 CONTRACTS PARALEGAL AM CONTRACTS PARALEGAL Annalee Kemp 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 COUNSEL LAB BLOOD ORDERABLES Performing Organization Address City/[facility]/ZIP [facility] Phon e Number [facility] [address] [place] [address] [address] Aspartate Aminotransferase (12/25/2021 8:31 AM CONTRACTS PARALEGAL)Only the most recent of32 resultswithin the time period is included. P athologist Signature AST 21 <=32 U/L [facility] Comment: Testing Performed at [facility] Am [facility]g, [address] [facility], [address], [place] [address] Specimen Anatomical Collection Method Collection Time Receive d Time (Source) Location / / Volume Laterality Blood 12/25/2021 8:31 AM 2 8:40 CONTRACTS PARALEGAL AM CONTRACTS PARALEGAL Annalee Kemp 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 COUNSEL LAB BLOOD ORDERABLES Performing Organization Address City/[facility]/ZIP Code Phon e Number [facility] [address] [place] [address] [address] TSH (12/25/2021 8:31 AM CONTRACTS PARALEGAL)Only the most recent of7 resultswithin the time period is included. P athologist Signature TSH 1.42 0.27 - 4.20 [facility] mcunit/mL Comment: Note: New Methodology and Reference Ra nge change effective 06/04/2017 at 1400 Testing Performed at [facility] Lab Teacher Of The Deaf/Hard Of Hearing [facility], [address] [facility], [address], [place] [address] Specimen Anatomical Collection Method Collection Time Receive d Time (Source) Location / / Volume Laterality Blood 12/25/2021 8:31 AM 2 8:40 CONTRACTS PARALEGAL AM CONTRACTS PARALEGAL Annalee Kepm 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 COUNSEL LAB BLOOD ORDERABLES Performing Organization Address City/[facility]/ZIP Code Phon e Number [facility] [address] [facility] [place] [address] [address] Free T4 (12/25/2021 8:31 AM CONTRACTS PARALEGAL)Only the most recent of5 resultswithin the time period is included. P athologist Signature T4 Free 1.10 0.93 - 1.70 [facility] ng/dL Comment: Testing Performed at [facility] Lab Am [facility]g, [address], [address], [place] [address] Specimen Anatomical Collection Method Collection Time Receive d Time (Source) Location / / Volume Laterality Blood 12/25/2021 8:31 AM 2 8:40 CONTRACTS PARALEGAL AM CONTRACTS PARALEGAL Annalee Kemp 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 COUNSEL LAB BLOOD ORDERABLES Performing Organization Address City/[facility]/ZIP Code Phon e Number [facility] [address] [place] [address] [address] Total Protein (12/25/2021 8:31 AM CONTRACTS PARALEGAL)Only the most recent of32 resultswithin the time period is included. P athologist Signature Total Protein 6.7 6.4 - 8.3 [facility] g/dL Comment: Testing Performed at [facility] Lab Am [facility], [address] [facility], [address], [place] [address] Specimen Anatomical Collection Method Collection Time Receive d Time (Source) Location / / Volume Laterality Blood 12/25/2021 8:31 AM 2 8:40 CONTRACTS PARALEGAL AM CONTRACTS PARALEGAL Annalee Kemp 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 COUNSEL LAB BLOOD ORDERABLES Performing Organization Address City/State/ZIP Code Phon e Number [facility] [address] [place] [address] [address] Phosphorus Level (12/25/2021 8:31 AM CONTRACTS PARALEGAL)Only the most recent of42 resultswithin the time period is included. P athologist Signature Phosphorus 3.4 2.5 - 4.5 [facility] mg/dL Comment: Testing Performed at [facility] Lab [facility], [address] [facility] [address] [facility], [address], [place] [address] Specimen Anatomical Collection Method Collection Time Receive d Time (Source) Location / / Volume Laterality Blood 12/25/2021 8:31 AM 2 8:40 CONTRACTS PARALEGAL AM CONTRACTS PARALEGAL Annalee Kemp 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 COUNSEL LAB BLOOD ORDERABLES Performing Organization Address City/[facility]/ZIP Code Phon e Number [facility] [address] [place] [address] [address] (ABNORMAL) Alkaline Phosphatase (12/25/2021 8:31 AM CONTRACTS PARALEGAL)Only the most recent of 32 resultswithin the time period is included. P athologist Signature Alk Phos 411 (H) 35 - 104 [facility] U/L Comment: Testing Performed at [facility] Lab Am [facility] Care [facility], [address] [facility] [address] [facility], [address], [place] [address] Specimen Anatomical Collection Method Collection Time Receive d Time (Source) Location / / Volume Laterality Blood 12/25/2021 8:31 AM 2 8:40 CONTRACTS PARALEGAL AM CONTRACTS PARALEGAL Annalee Kemp 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 COUNSEL LAB BLOOD ORDERABLES Performing Organization Address City/[facility]/ZIP [facility] Phon e Number [facility] [address] [place] [address] [address] Magnesium Level (12/25/2021 8:31 AM CONTRACTS PARALEGAL)Only the most recent of53 resultswithin the time period is included. athologist Signature Magnesium 1.9 1.6 - 2.6 [facility] mg/dL Comment: Testing Performed at [facility] Lab bulatory Care [facility], [address] [place] [address], [address], [place] [address] Specimen Anatomical Collection Method Collection Time Receive d Time (Source) Location / / Volume Laterality Blood 12/25/2021 8:31 AM 8:40 CONTRACTS PARALEGAL AM CONTRACTS PARALEGAL Annalee Kemp 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 COUNSEL LAB BLOOD ORDERABLES Performing Organization Address [facility] Phon e Number [facility] [address] [place] [address] [address] (ABNORMAL) LDH (12/25/2021 8:31 AM CONTRACTS PARALEGAL)Only the most recent of22 resultswithin the time period is included. athologist Signature LDH 410 (H) 135 - 214 [facility] U/L Comment: Results greater than 1651 U/L may not be reliable due to matrix effect with extended dilution as it exceeds the embedded processor s recommended limit. Caution should be exercised when interpreting such flora ues and done in conjunction with clinica l context. Testing Performed at [facility] Care [facility], [address] [place] [address], [address], [place] [address] Specimen Anatomical Collection Method Collection Time Receive d Time (Source) Location / / Volume Laterality Blood 12/25/2021 8:31 AM 2 8:42 CONTRACTS PARALEGAL AM CONTRACTS PARALEGAL Annalee Kemp 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 COUNSEL LAB BLOOD ORDERABLES Performing Organization Address [facility] Phon e Number [facility] [address] [place] [address]. [place] [address] [address] (ABNORMAL) Glucose Level (12/25/2021 8:31 AM CONTRACTS PARALEGAL)Only the most recent of54 resultswithin the time period is included. P athologist Signature Glucose Level 164 (H) 70 - 99 [facility] mg/dL Comment: Effective 09/12/15, the glucose reference intervals have been updated based on [place] [employer] guidelines (Standards of Medical Care in Diabetes 2016. Diabetes Care 2016; 39: S13-S22). Fasting blood glucose: Normal: 70-99 mg/dL Impaired fasting glucose (increased risk for diabetes or pre-diabetes): 100- 125 mg/dL Diabetes mellitus: >/=126 mg/dL Random blood glucose: Normal: 70-199 mg/dL Note: Random glucose >100 mg/dL is assoc iated with increased risk for diabetes Testing Performed at [facility] Teacher Of The Deaf/Hard Of Hearing [facility], [address] [place] [address], [address], [place] [address] Specimen Anatomical Collection Method Collection Time Receive d Time (Source) Location / / Volume Laterality Blood 12/25/2021 8:31 AM 8:40 CONTRACTS PARALEGAL AM CONTRACTS PARALEGAL Annalee Kemp 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 COUNSEL LAB BLOOD ORDERABLES Performing Organization Address City/[facility] Phon e Number [facility] [address] [place] [address] [address] (ABNORMAL) Calcium Level (12/25/2021 8:31 AM CONTRACTS PARALEGAL)Only the most recent of41 resultswithin the time period is included. P athologist Signature Calcium Lvl 11.6 (H) 8.4 - 10.2 [facility] mg/dL Comment: Testing Performed at [facility] Lab [facility], [address] [facility], [address], [place] [address] Specimen Anatomical Collection Method Collection Time Receive d Time (Source) Location / / Volume Laterality Blood 12/25/2021 8:31 AM 8:40 CONTRACTS PARALEGAL AM CONTRACTS PARALEGAL Annalee Kemp 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 COUNSEL LAB BLOOD ORDERABLES Performing Organization Address City/[facility] Phon e Number [facility] [address] [place] [address] [address] Albumin Level (12/25/2021 8:31 AM CONTRACTS PARALEGAL)Only the most recent of32 resultswithin the time period is included. P athologist Signature Albumin Lvl 3.6 3.5 - 5.2 [facility] gm/dL Comment: Testing Performed at [facility] Lab [facility], [address], [address], [place] [address] Specimen Anatomical Collection Method Collection Time Receive d Time (Source) Location / / Volume Laterality Blood 12/25/2021 8:31 AM 2 8:40 CONTRACTS PARALEGAL AM CONTRACTS PARALEGAL Annalee Kemp APN LAB BLOOD ORDERABLES Performing Organization Address City/[facility] Phon e Number [facility] [address] [place] [address] [address] (ABNORMAL) Electrolyte Panel (12/25/2021 8:31 AM CONTRACTS PARALEGAL)Only the most recent of75 resultswithin the time period is included. P athologist Signature Sodium Lvl 139 136 - 145 [facility] mEq/L Comment: Testing Performed at [facility] Lab Am [facility], [address] [facility], [address], [place] [address] Potassium Lvl 4.5 3.5 - 5.1 mEq/L [facility] Comment: Testing Performed at [facility] Lab Am [facility], [address], [address], [place] [address] Chloride 94 (L) 98 - 107 mEq/L [facility] Comment: Testing Performed at [facility] Lab Am [facility], [address], [address], [place] [address] CO2 34 (H) 22 - 29 mEq/L [facility] Comment: Testing Performed at [facility] Lab Am [facility], [address] [facility], [address], [place] [address] Anion Gap 11 4 - 14 mEq/L [facility] Comment: Testing Performed at [facility] Lab Am [facility], [address] [facility], [address], [place] [address] Specimen Anatomical Collection Method Collection Time Receive d Time (Source) Location / / Volume Laterality Blood 12/25/2021 8:31 AM 2 8:40 CONTRACTS PARALEGAL AM CONTRACTS PARALEGAL Annalee Kemp APN LAB BLOOD ORDERABLES Performing Organization Address City/State/ZIP [facility] Phon e Number [facility] [address] [place] [address] [address] (ABNORMAL) .CBC (12/25/2021 8:28 AM CONTRACTS PARALEGAL)Only the most recent of58 resultswithin the time period is included. P athologist Signature WBC 8.5 4.0 - 11.0 [facility] K/uL RBC 2.92 (L) 4.00 - 5.50 [facility] M/uL Hgb 8.7 (L) 12.0 - 16.0 [facility] gm/dL Comment: As part of CBC or as an individ ual orderable testing performed at [facility], [address] [place] [address] , [address], [place] [id number] Hct 29.3 (L) 37.0 - 47.0 % [facility] Comment: As part of CBC or as an individ ual orderable testing performed at [facility], [address] [place] [address] , [address], [place] [address] MCV 100 (H) 82 - 98 fL [facility] MCH 29.8 27.0 - 31.0 pg [facility] MCHC 29.7 (L) 31.0 - 36.0 gm/dL [facility] RDW-SD 59.8 (H) 35.1 - 46.3 fL [facility] RDW-CV 16.4 (H) 12.0 - 15.5 % [facility] Platelet count 159 140 - 440 K/uL [facility] Comment: As part of CBC or as an individ ual orderable testing performed at [facility], [address] [place] [address] , [address], [place] [address] MPV 8.9 4.0 - 10.4 fL [facility] INRBC 0.0 <=0.0 % [facility] Comment: The INRBC (instrument NRBC) value reflec ts the enumeration of nucleated red blood cells contained i n a 200uL sample of whole blood analyzed by the instrumen t. This value may differ from the NRBC value reported in a manual differential, which is based on a 100 cell differentia l. As part of CBC testing performed at [address], [address], [place] [address] Specimen Anatomical Collection Method Collection Time Receive d Time (Source) Location / / Volume Laterality Blood 12/25/2021 8:28 AM 8:32 CONTRACTS PARALEGAL AM CONTRACTS PARALEGAL Annalee Kemp 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 COUNSEL LAB BLOOD ORDERABLES Performing Organization Address City/State/ZIP Code Phon e Number [facility] [address] [place] [address]. [place] [address] [address] (ABNORMAL) Differential (12/25/2021 8:28 AM CONTRACTS PARALEGAL)Only the most recent of58 resultswithin the time period is included. P athologist Signature Neutrophil % 84.4 (H) 42.0 - [facility] 66.0 % Comment: As part of Differential perform ed at [facility] Teacher Of The Deaf/Hard Of Hearing [facility], [address] [facility], [address], [place] [address] Lymphocyte % 2.8 (L) 24.0 - 44.0 % [facility] Monocyte % 10.6 (H) 2.0 - 7.0 % [facility] Eosinophil % 0.1 (L) 1.0 - 4.0 % [facility] Basophil % 0.1 0.0 - 1.0 % [facility] IGRE % 2.0 (H) 0.0 - 0.4 % [facility] Comment: IGRE % count includes Metamyelocytes, My elocytes, and Promyelocytes. As part of Differential performed at [facility], [facility]0 [facility], [address], [place] [address] Neutrophil Abs 7.15 1.70 - 7.30 K/uL [facility] Lymphocyte Abs 0.24 (L) 1.00 - 4.80 K/uL [facility] Monocyte Abs 0.90 (H) 0.08 - 0.70 K/uL [facility] Eosinophil Abs 0.01 (L) 0.04 - 0.40 K/uL [facility] Basophil Abs 0.01 0.00 - 0.10 K/uL [facility] IG Abs 0.17 (H) 0.00 - 0.04 K/uL [facility] Specimen Anatomical Collection Method Collection Time Receive d Time (Source) Location / / Volume Laterality Blood 12/25/2021 8:28 AM 8:32 CONTRACTS PARALEGAL AM CONTRACTS PARALEGAL Annalee Kemp 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 COUNSEL LAB BLOOD ORDERABLES Performing Organization Address City/[facility]/ZIP Code Phon e Number [address] [place] [address] [address] Transfuse RBC:Transfusion Date: 12/18/2021 (12/18/2021 9:25 PM CDT)Only the most recent of7 resultswithin the time period is included. Bridgette Anisaazola GENERAL ACCOUNTANT BLOOD TRANSFUSION ORDERABLES Clot Expiration Date (12/18/2021 11:58 AM CDT)Only the most recent of11 results within the time period is included. [facility] Signature T & S 12/21/[address] [facility] Specimen Anatomical Collection Method Collection Time Receive d Time (Source) Location / / Volume Laterality Blood 12/18/2021 11:58 12/18/2021 1:20 AM CDT PM CDT Bridgette Maea GENERAL ACCOUNTANT BLOOD BANK TEST ORDERABLES Performing Organization Address City/State/[facility] Phon e Number [facility] CANCER Unless otherwise noted, [place] [address] CENTER all lab tests performed by: Division of Pathology and Laboratory Medicine [address] [place] [address] TMP Interpretation Antibody Screen Negative (12/18/2021 11:58 AM CDT)Only the most recent of11 resultswithin the time period is included. [facility] TMP Auto Neg At [facility] CENTER patient plasma shows no evidence of RBC alloantibodi es. Comment: MD Hernan GUZMAN [id number] Dictated by: MD Hernan GUZMAN 1200 [id number] Dictated Date/Time: 12.18.2021 15:42 PM CDT Transcribed Date/Time: 12.18.2021 15:42 PM CDT Electronically Signed By: MD Hernan COLLINS [id number] on 12.18.2021 15:42 PM Specimen Anatomical Collection Method Collection Time Receive d Time (Source) Location / / Volume Laterality Blood 12/18/2021 11:58 12/18/2021 1:20 AM CDT PM CDT Bridgette Pitts GENERAL ACCOUNTANT BLOOD BANK TEST ORDERABLES Performing Organization Address City/State/ZIP Code Phon e Number [facility]ER Unless otherwise noted, [address] all lab tests performed by: Division of Pathology and Laboratory Medicine [address] [place] [address] TMP Interpretation Crossmatch (12/18/2021 11:58 AM CDT)Only the most recent of7 resultswithin the time period is included. [facility] gist Method Time Signature TMP XM Interp RBC units AL crossmatched for [facility] CANCER [facility] acceptable. Comment: ALIZE GILLIAM MD - [id number] Dictated by: ALIZE GILLIAM MD - 1200 [id number] Dictated Date/Time: 12.19.2021 8:28 AM C DT Transcribed Date/Time: 12.19.2021 8:28 AM CDT Electronically Signed By: MD Hernan COLLINS [id number] on 12.19.2021 8:28 AM C Specimen Anatomical Collection Method Collection Time Receive d Time (Source) Location / / Volume Laterality Blood 12/18/2021 11:58 12/18/2021 1:20 AM CDT PM CDT Bridgette Pitts NP BLOOD BANK TEST ORDERABLES Performing Organization Address City/State/ZIP Code Phon e Number [facility] CANCER Unless otherwise noted, [address] all lab tests performed by: Division of Pathology and Laboratory Medicine [address] [place] [address] ABORh (12/18/2021 11:58 AM CDT)Only the most recent of11 resultswithin the time period is included. P athologist Signature ABORh. A POS [facility] Specimen Anatomical Collection Method Collection Time Receive d Time (Source) Location / / Volume Laterality Blood 12/18/2021 11:58 12/18/2021 1:20 AM CDT PM CDT Bridgette Pitts GENERAL ACCOUNTANT BLOOD BANK TEST ORDERABLES Performing Organization Address City/[facility]/ZIP Code Phon e Number [facility] CANCER Unless otherwise noted, [address] all lab tests performed by: Division of Pathology and Laboratory Medicine [address] [place] [address] Antibody Screen (12/18/2021 11:58 AM CDT)Only the most recent of11 resultswithin the time period is included. P athologist Signature ABSC. Negative ABSC [facility] Specimen Anatomical Collection Method Collection Time Receive d Time (Source) Location / / Volume Laterality Blood 12/18/2021 11:58 12/18/2021 1:20 AM CDT PM CDT Bridgette Pitts NP BLOOD BANK TEST ORDERABLES Performing Organization Address City/State/ZIP [facility] Phon e Number [facility] CANCER Unless otherwise noted, [address] all lab tests performed by: Division of Pathology and Laboratory Medicine [address] [place] [address] RBC Product Ready for Pretzel Twisting Machine Operator (12/18/2021 11:12 AM CDT)Only the most recent of6 resultswithin the time period is included. Analysis Performed At Patho logist [facility] PRBC Product B2 Blood [facility] Ready for Pick Bank [facility] Comment: Product is ready for pickling machine operator on December 18, 2021 15:57:53 CDT. Specimen Anatomical Collection Method Collection Time Receive d Time (Source) Location / / Volume Laterality Blood 12/18/2021 11:12 12/18/2021 AM CDT 11:13 AM CDT Bridgette Pitts NP BLOOD BANK PRODUCT ORDERABLE S Performing Organization Address City/[facility] Phon e Number [facility] Unless otherwise noted, [address] all lab tests performed by: Division of Pathology and Laboratory Medicine [address] [place] [address] Prepare RBC:ATC, 1 Units (12/18/2021 11:12 AM CDT)Only the most recent of8 resultswithin the time period is included. athologist [facility] PRBC Product 1 [facility] Comment: Red Blood Cells Available - Ord er Form 03 when ready for product issue. Unit Number [id number] [facility] Product Code [id number] [facility] Unit Expiration [facility] Unit Blood Type 6200 [facility] Product Code Text RBCIRLR CPD AS1 500mL [facility] Crossmatch Expiration Date [id number] [facility] Unit Irradiated IRRADIATED AL MD [place] Mckenzie [facility] Dispense Status ISSUED [facility] Unit Blood Type A Positive AL MD [place] Mckenzie [facility] Product Pretzel Twisting Machine Operator Location .BPAM [facility] Comment: Specimen Anatomical Collection Method Collection Time Receive d Time (Source) Location / / Volume Laterality Blood 12/18/2021 11:12 12/18/2021 AM CDT 11:13 AM CDT Bridgette Anisaazola GENERAL ACCOUNTANT BLOOD BANK PRODUCT ORDERABLE S Performing Organization Address City/State/ZIP Code Phon e Number [facility] CANCER Unless otherwise noted, [place], [place] [id number] [place] [address] all lab tests performed by: Division of Pathology and Laboratory Medicine [address] [place] [address] XR Femur 2 Views Bilateral (12/18/2021 10:19 AM CDT)Only the most recent of2 resultswithin the time period is included. Anatomical Region Laterality Modality Thigh, Extremity Digital Radiography Specimen (Source) Anatomical Collection Method Collection Time Re ceived Time Location / / Volume Laterality 12/18/2021 10:32 AM CDT Impressions 12/18/2021 10:58 AM CDT 1. Sclerosis has developed at the lesion in the right greater trochanter. 2. Additional sites of sclerosis are pre sent in the proximal right femur and right ischium, possibly indicating a positive response to radiation therapy. 3. Lytic lesion in the left proximal fem oral diaphysis, unchanged. 4. The left proximal femoral diaphyseal lesion places the patient at some elevated risk of fracture. 5. Metastasis adjacent to the left lesse r trochanter is not well seen. 5. A lytic area in the left acetabulum i s better seen than on the prior examination. It may be new. 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 The patient was placed on enfortumab vedotin as of November 01, 2021 Indication: Evaluate disease Comparison: October 31, 2021 Technique: AP and lateral views of the l eft and right femur on four images each Findings: Right femur findings: A lytic metastasis at the lateral margin of the right greater trochanter is again evident, but it now contains areas of sclerosis suggesting healing. There are now also oval areas of sclerosis evident in the intertrochan teric right femur, the right ischium, and the proximal right femoral diaphysis adjacent to the lateral cortex. Particularly if other indications also suggests lew t the patient is responding well to rush tment, I believe these areas of sclerosis may reasonably be considereda indicators of healing. Please note that although there were no evident lytic lesions in th noel additional areas on the prior conven tional radiographs, when correlation is made with CT of October 31, 2021, small lytic lesions are on that examination visible in the ischium, so at least of tho se foci of sclerosis probably due to cor relate with previous lytic disease. According to notes, the patient had radiation to the right pelvis on October 24, 2021. If this included the right hip area, then this apparent treatment r esponse may relate to radiation therapy. Left femur findings: The lytic lesion pr eviously evident in the proximal left femoral diaphysis is again identified. It is more visually obvious on the current examination than on the prior study, but I believe that is due to differences in t echnique and not due to any difference in size. On the CT, a lytic lesion anteriorly at the level of the lesser trochanter was noted. It is barely visible on this examination, and due to differences in technique, I am not certain if it is changed between the current study and the prior study. There is some lucency along the medial w all of the left acetabulum. Please see arrow. This is not seen on the prior examination, and it is not clearly evident on CT. It may be a new lytic lesion. There are mild degenerative changes of b oth knees. Procedure Note Avis Umana MD - 12/18/2021Formatti ng of this note might be different from the original. 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 The patient was placed on enfortumab vedotin as of November 01, 2021 Indication: Evaluate disease Comparison: October 31, 2021 Technique: AP and lateral views of the l eft and right femur on four images each Findings: Right femur findings: A lytic metastasis at the lateral margin of the right greater trochanter is again evident, but it now contains areas of sclerosis suggesting healing. There are now also oval areas of sclerosis evident in the intertrochanteric right f emur, the right ischium, and the proximal right femoral diaphysis adjacent to the lateral cortex. Particularly if other indications also suggests that the patient is responding well to treatment, I believe these areas of sclerosis may reasonably be considereda indicators of healing. Please note that although there were no evident lytic lesions in these additional areas on the prior conventional radiographs, when correlati on is made with CT of October 31, 2021, small lytic lesions are on that examination visible in the ischium, so at least of those foci of sclerosis probably due to correlate with previous lytic disease. According t o notes, the patient had radiation to the right pelvis on October 24, 2021. If this included the right hip area, then this apparent treatment r esponse may relate to radiation therapy. Left femur findings: The lytic lesion pr eviously evident in the proximal left femoral diaphysis is again identified. It is more visually obvious on the current examination than on the prior study, but I believe that is due to differences in technique and not due to any difference in size. On the CT, a lytic lesion anteriorly at the level of the lesser trochanter was noted. It is barely visible on this examination, and due to differences in technique, I am not certain if it is changed between the current study and the prior study. There is some lucency along the medial w all of the left acetabulum. Please see arrow. This is not seen on the prior examination, and it is not clearly evident on CT. It may be a new lytic lesion. There are mild degenerative changes of b oth knees. IMPRESSION: 1. Sclerosis has developed at the lesion in the right greater trochanter. 2. Additional sites of sclerosis are pre sent in the proximal right femur and right ischium, possibly indicating a positive response to radiation therapy. 3. Lytic lesion in the left proximal fem oral diaphysis, unchanged. 4. The left proximal femoral diaphyseal lesion places the patient at some elevated risk of fracture. 5. Metastasis adjacent to the left lesse r trochanter is not well seen. 5. A lytic area in the left acetabulum i s better seen than on the prior examination. It may be new. Raghavendra Naidu [facility] DIAGNOSTIC IMAGING ORDER RICH COVID-19 (SARS-CoV-2) PCR-Asymptomatic (12/17/2021 10:54 AM CDT)Only the most recent of3 resultswithin the time period is included. [facility] Method Time Signature COVID19 (SARS Not Detected Not Detected [facility] CoV-2) [facility] Comment: This test is a qualitative reverse-trans criptase polymerase chain reaction (RT- PCR) developed for the [employer] system and intended for qualitative detection of SARS CoV-2 RNA in nasopharyngeal a nd oropharyngeal swab specimens collecte d from any individuals, including those suspected o f COVID-19 by their healthcare provider, and those without symptoms or other reasons to suspect COVID-19. A fact sheet for patients provided by the embedded processor ( [employer]) can be rev iewed at: https://www.fda.gov/media/553763/downloa d. A fact sheet for Health Care providers is provided by the embedded processor ([employer]) and can be reviewed at: https://www.fda.gov/media/341949/download Results must be interpreted within the c ontext of all relevant clinical and laboratory findings and should not form the sole basis for a diagnosis or treatment decision. Positive results do not rule out bacterial infection or co- infection with other viruses. Negative results do not rule ou t SARS-CoV-2 and must be combined with clinical observations, patient history, and/or epidemiological information. "Presumptive Positive" results are due t o partial amplification of SARS-CoV-2 targets and indicates low amounts of virus present in the specimen at or near the limit of detection. Regardless, individuals with "Presumptive Positive" results should be managed per institutional guidelines as individuals positive for SARS-CoV-2 virus, including use of appropriate infection control protocols. Internal controls are included to assess for possible amplification inhibitors. If inhibition is detected, testing is repeated and if inhibition is confirmed the specimen is resulted as "Invalid". When an "Invalid" result occurs, it is recomm ended to wait 3 days before submitting a new spec imen for testing if clinically indicated. This assay has been approved by the FDA for use only under Emergency Use Authorization (EUA) in laboratories that have been CLIA-certified to perform moderate-complexity and high-complexity tests. The performance characteristics of this assay were verified by the Microbiology Laboratory at [facility], CLIA Accreditation #: [id number] and CAP Accreditation #: [id number]. COVID19 SARS Source GENERAL ACCOUNTANT Swab AL MD [facility] COVID19 SARS Indication Pre-Out of OR Procedure [facility] Specimen (Source) Anatomical Collection Method Collection Time Re ceived Time Location / / Volume Laterality Nasopharyngeal Swab 12/17/2021 10:54 11/0 02/2021 AM CDT 12:14 PM CDT Sarita Rodriguez NP MICROBIOLOGY - GENERAL ORDER RICH Performing Organization Address City/[facility] Phon e Number [facility] CANCER Unless otherwise noted, [place] [address] [place] all lab tests performed by: Division of Pathology and Laboratory Medicine [address] [place] [address] Methylmalonic Acid Quant, Serum (12/04/2021 10:42 AM CDT) athologist Signature MMA Quant-[place] 0.34 <=0.40 [facility] nmol/mL [facility] Comment: ADDITIONAL INFORMATIO N This test was developed and its performa nce characteristics determined by [facility] in a manner co nsistent with CLIA requirements. This test has not been rebecca ared or approved by the U.S. Food and Drug Administration. Test Performed by: [facility] [place] [address] Target Developer: Mark Young M.D. Ph. D.; CLIA# [id number] Specimen Anatomical Collection Method Collection Time Receive d Time (Source) Location / / Volume Laterality Blood 12/04/2021 10:42 12/04/2021 AM CDT 11:59 AM CDT Sarita Rodriguez NP LAB BLOOD ORDERABLES Performing Organization Address City/[facility] Phon e Number [facility] CANCER Unless otherwise noted, [address] all lab tests performed by: Division of Pathology and Laboratory Medicine [facility]5 [place] (ABNORMAL) Vitamin D 25OH (12/04/2021 10:42 AM CDT) athologist Signature Vitamin D 25 24 (L) 30 - 100 [facility] [place] ng/mL [facility]ER [place] Comment: Reference Range: Deficiency: <10 ng/mL Insufficiency: 10-29 ng/mL Sufficiency: 30-100 ng/mL Potential toxicity: >100 ng/mL Specimen Anatomical Collection Method Collection Time Receive d Time (Source) Location / / Volume Laterality Blood 12/04/2021 10:42 12/04/2021 AM CDT 11:22 AM CDT Sarita Rodriguez NP LAB BLOOD ORDERABLES Performing Organization Address City/[facility] Phon e Number [facility] Unless otherwise noted, [address] all lab tests performed by: Division of Pathology and Laboratory Medicine [facility]5 [place] (ABNORMAL) Vitamin B1 (12/04/2021 10:42 AM CDT) athologist Signature Thiamin(Wh 69 (L) 70 - 180 [facility] Bld)-[place] nmol/L [facility] Comment: ADDITIONAL INFORMATIO N This test was developed and its performa nce characteristics determined by [facility] in a manner co nsistent with CLIA requirements. This test has not been rebecca ared or approved by the U.S. Food and Drug Administration. Test Performed by: [place] [id number] Target Developer: Mark Young M.D. Ph. D.; CLIA# [id number] Specimen Anatomical Collection Method Collection Time Receive d Time (Source) Location / / Volume Laterality Blood 12/04/2021 10:42 12/04/2021 AM CDT 12:05 PM CDT Sarita Rodriguez NP LAB BLOOD ORDERABLES Performing Organization Address City/[facility]/ZIP Code Phon e Number [facility] Unless otherwise noted, [address] all lab tests performed by: Division of Pathology and Laboratory Medicine [address] [place] [place] (ABNORMAL) Vitamin B6 Level (12/04/2021 10:42 AM CDT) athologist Signature PALP-[place] <2 (L) 5 - 50 [facility] Comment: ADDITIONAL INFORMATIO N This test was developed and its performa nce characteristics determined by [facility] in a manner co nsistent with CLIA requirements. This test has not been rebecca ared or approved by the U.S. Food and Drug Administration. Pyridoxic Acid (PA)-[place] 17 3 - 30 mcg/L [facility] Comment: ADDITIONAL INFORMATIO N This test was developed and its performa nce characteristics determined by [facility] in a manner co nsistent with CLIA requirements. This test has not been rebecca ared or approved by the U.S. Food and Drug Administration. Test Performed by: [facility] [place] [id number] Target Developer: Mark Young M.D. Ph. D.; CLIA# [id number] Specimen Anatomical Collection Method Collection Time Receive d Time (Source) Location / / Volume Laterality Blood 12/04/2021 10:42 12/04/2021 AM CDT 12:37 PM CDT Sarita Rodriguez NP LAB BLOOD ORDERABLES Performing Organization Address City/State/ZIP Code Phon e Number [facility] CANCER Unless otherwise noted, [address] all lab tests performed by: Division of Pathology and Laboratory Medicine [address] [place] Homocysteine (12/04/2021 10:42 AM CDT) athologist Signature Homocysteine 13.5 <=15.0 [facility] [place] Specimen Anatomical Collection Method Collection Time Receive d Time (Source) Location / / Volume Laterality Blood 12/04/2021 10:42 12/04/2021 AM CDT 11:26 AM CDT Narrative [facility] - 11:26 AM CDT This lab cannot be scheduled at the following locations due to collection/proccessing restrictions: [place] - REGLC DIAG LAB CTR [place] - REGSL DIAG LAB CTR [place] - REGWL DIAG LAB CTR [facility] REG DAIG LAB CTR DI [facility] DI DIAG LAB CTR [place] - CABI DIAG LAB CTR Sarita Michael DUVALL LAB BLOOD ORDERABLES Performing Organization Address City/[facility] Phon e Number [facility] Unless otherwise noted, [address] all lab tests performed by: Division of Pathology and Laboratory Medicine [facility]5 [place] (ABNORMAL) Hemoglobin A1c (12/04/2021 10:42 AM CDT)Only the most recent of4 resultswithin the time period is included. athologist Signature A1C 5.7 (H) 4.3 - 5.6 % [facility] Comment: HbA1c values >=6.5% are diagnostic of di abetes mellitus. Diagnosis should be confirmed by repeat testing. Therapeutic Action suggested: >8.0% HbA1 c; Goal of therapy: <7.0% HbA1c Specimen Anatomical Collection Method Collection Time Receive d Time (Source) Location / / Volume Laterality Blood 12/04/2021 10:42 12/04/2021 AM CDT 11:23 AM CDT Sarita Rodriguez NP LAB BLOOD ORDERABLES Performing Organization Address City/[facility] Phon e Number [facility] CANCER Unless otherwise noted, [address] all lab tests performed by: Division of Pathology and Laboratory Medicine [address] Folate Level (12/04/2021 10:42 AM CDT)Only the most recent of2 resultswithin the time period is included. athologist Signature Folate Lvl 6.0 4.8 - 24.2 [facility] ng/mL [facility] Comment: Hemolyzed specimens with Hemoly sis Index >30.0 (30 mg/dL or visible hemolysis) may cause interference and gi ve falsely high results. Specimen Anatomical Collection Method Collection Time Receive d Time (Source) Location / / Volume Laterality Blood 12/04/2021 10:42 12/04/2021 AM CDT 11:25 AM CDT Narrative [facility] - 11:57 AM CDT This lab cannot be scheduled at the following locations due to collection/proccessing restrictions: [facility] - [facility] DIAG LAB CTR [place] - CAB DIAG LAB CTR Sarita Rodriguez NP LAB BLOOD ORDERABLES Performing Organization Address City/[facility] Phon e Number [facility] Unless otherwise noted, [address] all lab tests performed by: Division of Pathology and Laboratory Medicine [address] [place] [address] Vitamin B12 Level (12/04/2021 10:42 AM CDT)Only the most recent of2 results within the time period is included. athologist Signature Vitamin B12 Lvl 704 211 - 946 [facility] pg/mL [facility] Specimen Anatomical Collection Method Collection Time Receive d Time (Source) Location / / Volume Laterality Blood 12/04/2021 10:42 12/04/2021 AM CDT 11:25 AM CDT Sarita Rodriguez NP LAB BLOOD ORDERABLES Performing Organization Address [facility] Phon e Number [facility] Unless otherwise noted, [address] all lab tests performed by: Division of Pathology and Laboratory Medicine [address] [place] [address] [place] (ABNORMAL) POC Glucose Screen (11/09/2021 7:13 AM CDT)Only the most recent of124 resultswithin the time period is included. athologist Signature POC Glucose 140 (H) 70 - 99 [facility] mg/dL Comment: Capillary blood samples, e.g. obtained b y fingerstick, may have inaccurate results in patients with decreased peripheral blood flow. Method description: All results are salomón ured using Electrochemistry test methodology. The glucose in the sample mixes with the reagents on the test strip. The reaction produces an electric current. The amount of current produced is proportion al to the glucose concentration in the blood. PO Sample Type Capillary POC [facility] Performing Lab [facility] POC [facility] R Comment: [facility] Clinical Lab, [facility]5 [facility], [place] [address]; Lab Direct or: Jessica Peña MD Specimen Anatomical Collection Method Collection Time Receive d Time (Source) Location / / Volume Laterality Blood 11/09/2021 7:13 AM 2 7:13 CDT AM CDT German Drew MD POCT ORDERABLES - DEVICE Performing Organization Address City/State/ZIP Code Phon e Number POC [facility] Calcium Ionized, Venous (11/09/2021 4:02 AM CDT)Only the most recent of18 resultswithin the time period is included. athologist Signature V Ion Ca 1.23 1.15 - 1.29 [facility] mmol/L [facility] Specimen Anatomical Collection Method Collection Time Receive d Time (Source) Location / / Volume Laterality Blood 11/09/2021 4:02 AM 2 4:09 CDT AM CDT Margie Jesus APN LAB BLOOD ORDERABLES Performing Organization Address City/State/ZIP Code Phon e Number [facility] CANCER Unless otherwise noted, [place] [address] CENTER all lab tests performed by: Division of Pathology and Laboratory Medicine [address] [place] [address] Glucose 6-Phosphate Dehydrogenase Enzyme Activity (11/06/2021 4:32 PM CDT) athologist Signature G6PD Enzyme 10.3 8.0 - 11.9 [facility] Activity, B unit/gm Hb [facility] Comment: Phssgwi-8-Olzkgebgj Dehydrogenase (G6PD) deficiency is classified according to WHO criteria bas ed on enzyme activity level but accurate classificati on requires correlation with clinical and possibly g enetic data. Enzyme levels less than 10% of mean norm al (less than 1.0 U/g Hb) are found in WHO class I (ch ronic) and class II (episodic) variants. Levels between 10 a nd 60% (1.0 to 6.0 U/g Hb) can be seen in class III (ep isodic) variants or female carrier states and genotyping can be useful in this range. Levels greater than 60% (gre ater than 6.0 U/g Hb) are considered sufficient an d are seen in normal persons, female carrier states, o r G6PD variants with subclinical effect (WHO class IV). Note: G6PD deficiency can be masked in t he setting of reticulocytosis, markedly elevated WBCs or recent transfusion. If any of these are present in the setting of , chronic or episodic jaundice/a nemia, genotyping is recommended. If desired, please order G6PDB (G6PD Full Gene Sequencing). ADDITIONAL INFORMATIO N This test was developed and its performa nce characteristics determined by [facility] in a manner co nsistent with CLIA requirements. This test has not bee n cleared or approved by the U.S. Food and Drug Admin istration. Test Performed by: [place] [address] Target Developer: Mark Young M.D. Ph. D.; CLIA# [id number] Specimen Anatomical Collection Method Collection Time Receive d Time (Source) Location / / Volume Laterality Blood 11/06/2021 4:32 PM 2 5:49 CDT PM CDT Winter Mcintyre MD LAB BLOOD ORDERABLES Performing Organization Address City/State/[facility] Code Phon e Number [facility] Unless otherwise noted, [address] all lab tests performed by: Division of Pathology and Laboratory Medicine [facility]5 [facility] (ABNORMAL) Prothrombin Time with INR (11/06/2021 4:49 AM CDT)Only the most recent of3 resultswithin the time period is included. P athologist Signature PT 15.1 (H) 11.9 - 14.1 [facility] INR 1.25 (H) 0.89 - 1.10 [facility] Specimen Anatomical Collection Method Collection Time Receive d Time (Source) Location / / Volume Laterality Blood 11/06/2021 4:49 AM 2 4:59 CDT AM CDT Margie Jesus APN LAB BLOOD ORDERABLES Performing Organization Address City/[facility]/ZIP Code Phon e Number [facility] CANCER Unless otherwise noted, [address] all lab tests performed by: Division of Pathology and Laboratory Medicine [address] EKG, 12-Lead (Portable) (11/06/2021)Only the most recent of4 resultswithin the time period is included. Specimen (Source) Anatomical Location Collection Method / Collectio n Time Received Time / Laterality Volume Narrative This result has an attachment that is no t available. Caitlin Valentin 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 COUNSEL ECG ORDERABLES Performing Organization Address City/[facility]/ZIP Code Phon e Number [facility] Add-On Test (11/05/2021 10:02 AM CDT)Only the most recent of7 resultswithin the time period is included. Analysis Performed At Patho logist Time Signature Ordered Test Added [facility] Test Needed [facility] Specimen Anatomical Collection Method Collection Time Receive d Time (Source) Location / / Volume Laterality Existing 11/05/2021 10:02 11/05/2021 AM CDT 10:02 AM CDT Winter Mcintyre MD LAB BLOOD ORDERABLES Performing Organization Address City/[facility]/ZIP [facility] Phon e Number [facility] CANCER Unless otherwise noted, [address] all lab tests performed by: Division of Pathology and Laboratory Medicine [address] Sodium Level, Urine (11/05/2021 4:27 AM CDT)Only the most recent of10 results within the time period is included. P athologist Signature U Sodium 135 mEq/L [facility] Comment: Normal range not available for collections less than 24 hours in duration. Specimen Anatomical Collection Method Collection Time Receive d Time (Source) Location / / Volume Laterality Urine 11/05/2021 4:27 AM 6:27 CDT AM CDT Nupur Daugherty APN URINE ORDERABLES Performing Organization Address City/[facility]/ZIP [facility] Phon e Number [facility] CANCER Unless otherwise noted, [address] all lab tests performed by: Division of Pathology and Laboratory Medicine [address] Osmolality Urine (11/05/2021 4:27 AM CDT)Only the most recent of11 resultswithin the time period is included. P athologist Signature U Osmolality 679 50 - 1,400 [place] [facility] [place] mOsm/kg H2O [facility] Comment: Urinary osmolality may vary widely, depe nding on the state of hydration. Random urine osmolality can range from 50 to 1400 mOsm/kg H2O depending on fluid intake. In individuals on average fluid intake, urine osmolality is typically 300-900 mO sm/kg H2O. Units of measure: mOsm per Kg of water. Specimen Anatomical Collection Method Collection Time Receive d Time (Source) Location / / Volume Laterality Urine 11/05/2021 4:27 AM 5:00 CDT AM CDT Nupur Daugherty APN URINE ORDERABLES Performing Organization Address City/State/ZIP Code Phon e Number [facility] CANCER Unless otherwise noted, [place] [address] [place] all lab tests performed by: Division of Pathology and Laboratory Medicine [address] [place] [address] MRI CERVICAL THORACIC LUMBAR SPINE W WO CONTRAST (11/04/2021 5:25 PM CDT)Only the most recent of2 resultswithin the time period is included. Anatomical Region Laterality Modality Spine, C-spine, T-spine, L-spine Magneti c Resonance Specimen (Source) Anatomical Collection Method Collection Time Re ceived Time Location / / Volume Laterality 11/04/2021 6:08 PM CDT Impressions 11/04/2021 7:30 PM CDT 1. Significant progression of osseous metastasis in the thoracic and lumbar spine, as described above. There is new epidural tumor extending from C6/7 through T12/L1, and these findings are most promi nent from T5 through T9 with cord compre ssion noted at T6-T8 with cord deformity and without cord signal abnormality. These findings are communicated to the clinical service at 1915 hours. 2. Multilevel neural foraminal involve ment is noted at the mid thoracic levels, as described above. 3. There is new epidural tumor also no reyna at S1 and S2, with narrowing of the distal thecal sac. 4. There is questionable subtle enhanc ement along the cauda equina which may be vascular or may represent early leptomeningeal disease, to be correlated with CSF analysis. 5. Progressive involvement at the cran iocervical junction and progressive soft tissue metastases at the right prevertebral soft tissues C1. Narrative 11/04/2021 7:30 PM CDT FULL RESULT: Examination: MRI CERVICAL THORACIC LUMBA R SPINE W WO CONTRAST, 11/04/2021 5:25 PM. Clinical History: Hyponatremia Indication: Evaluate for LMD Comparison: 10/01/2021 Technique: Multiplanar, multisequence magnetic resonance imaging of the cervical, thoracic and lumbosacral spine was performed without and with intravenous contrast. Findings: Cervical spine: Vertebral bodies are nor mal in height and alignment. There are new enhancing metastases noted and C2 and at C6, with progressive metastases at C7. There is new dorsal epidural tumor exte nding inferiorly from C6/7 level. There is moderate to severe spondylosis at C5/6 and C6/7 with cord indentation and without cord signal abnormality that is stable. There is no malignant spinal canal stenosis. There is progressive osseous metastasis at the right clivus and occipital condyle and involving the right anterior arch of C1 with extension to the prevertebral soft tissues and anterior displacement of the right internal carotid artery. Thoracic spine: Metastatic involvement i s noted at all levels of the thoracic spine and has progressed. Most significant osseous metastatic involvement is noted from T6 through T11 also involving the po sterior elements, and there is extensive dorsal epidural tumor that extends from C6/7 through T12/L1 with effacement of the subarachnoid space from T5 through T9. Mass effect from epidural tumor results in cord deformity at T6 and at T8, with out cord signal abnormality. More subtle cord deformity is noted at T7. Extensive right-sided neural foraminal tumor involvement is noted at T7/8 and T8/9, and to a lesser extent at T6/7 and T5/6 and T9/10. There is metastasis to the left posterio r third rib, right posterior sixth rib, right eighth rib head. There is no definite abnormal intrathecal enhancement. Lumbosacral spine: There is new mild com pression deformity of the superior endplate of L1 with progressive metastatic involvement. No epidural tumor. There is 10% vertebral body height loss centrally wi thout retropulsion. Metastatic involveme nt of the anterior and superior aspect of L2 has slightly progressed. Metastatic involvement at L3 and L4 has progressed. There is new metastases to the anterior aspect of L5. Metastatic involvement at S1 and S2 has progressed, and there is new epidural tumor at these levels. The conus terminates at the L2 level and is normal in location and morphology. Procedure Note Aly Colon MD - 11/04/2021Formattin g of this note might be different from the original. FULL RESULT: Examination: MRI CERVICAL THORACIC LUMBA R SPINE W WO CONTRAST, 11/04/2021 5:25 PM. Clinical History: Hyponatremia Indication: Evaluate for LMD Comparison: 10/01/2021 Technique: Multiplanar, multisequence ma gnetic resonance imaging of the cervical, thoracic and lumbosacral spine was performed without and with intravenous contrast. Findings: Cervical spine: Vertebral bodies are nor mal in height and alignment. There are new enhancing metastases noted and C2 and at C6, with progressive metastases at C7. There is new dorsal epidural tumor extending inferiorly from C6/7 level. There is moderate to se ethel spondylosis at C5/6 and C6/7 with cord indentation and without cord signal abnormality that is stable. There is no malignant spinal canal stenosis. There is progressive osseous metastasis at the right clivus and occipital condyle and involving the right anterior arch of C1 with extension to the prevertebral soft tissues and anterior displacement of the right internal carotid artery. Thoracic spine: Metastatic involvement i s noted at all levels of the thoracic spine and has progressed. Most significant osseous metastatic involvement is noted from T6 through T11 also involving the posterior elements, and there is extensive dorsal epidural tumor that extends from C6/7 through T12/L1 with effacement of the subarachnoid space from T5 through T9. Mass effect from epidural tumor results in cord deformity at T6 and at T8, without cord signal abnorm ality. More subtle cord deformity is noted at T7. Extensive right-sided neural foraminal tumor involvement is noted at T7/8 and T8/9, and to a lesser extent at T6/7 and T5/6 and T9/10. There is metastasis to the left posterio r third rib, right posterior sixth rib, right eighth rib head. There is no definite abnormal intrathecal enhancement. Lumbosacral spine: There is new mild com pression deformity of the superior endplate of L1 with progressive metastatic involvement. No epidural tumor. There is 10% vertebral body height loss centrally without retropulsion. Metastatic involvement of the anterior a nd superior aspect of L2 has slightly progressed. Metastatic involvement at L3 and L4 has progressed. There is new metastases to the anterior aspect of L5. Metastatic involvement at S1 and S2 has progressed, and there is new epidural tumor at these levels. The conus terminates at the L2 level and is normal in location and morphology. IMPRESSION: 1. Significant progression of osseous me tastasis in the thoracic and lumbar spine, as described above. There is new epidural tumor extending from C6/7 through T12/L1, and these findings are most prominent from T5 through T9 with cord compression noted a t T6-T8 with cord deformity and without cord signal abnormality. These findings are communicated to the clinical service at 1915 hours. 2. Multilevel neural foraminal involveme nt is noted at the mid thoracic levels, as described above. 3. There is new epidural tumor also note d at S1 and S2, with narrowing of the distal thecal sac. 4. There is questionable subtle enhancem ent along the cauda equina which may be vascular or may represent early leptomeningeal disease, to be correlated with CSF analysis. 5. Progressive involvement at the cranio cervical junction and progressive soft tissue metastases at the right prevertebral soft tissues C1. Nupur Daugherty APN IMG MRI ORDERABLES (ABNORMAL) BHCG, Tumor Marker (11/01/2021 12:49 PM CDT)Only the most recent of11 resultswithin the time period is included. P athologist Signature Beta HCG, 67.6 (H) <=0.9 [place] Tumor Marker mIU/mL [facility] Comment: Tumor Markers [facility] Reference Range: Negative: <1.0 mIU/mL Non- pre-menopausal women: </= 1 .0 mIU/mL Post-menopausal women: </= 7.0 mIU/mL Men: < 2.0 mIU/mL Specimen Anatomical Collection Method Collection Time Receive d Time (Source) Location / / Volume Laterality Blood 11/01/2021 12:49 11/01/2021 1:33 PM CDT PM CDT Narrative [facility] CANCER [place] - 2 2:05 PM CDT Please draw today, can be done with next sodium lab Nupur Daugherty APN LAB BLOOD ORDERABLES Performing Organization Address City/State/ZIP Code Phon e Number [facility] CANCER Unless otherwise noted, [address] all lab tests performed by: Division of Pathology and Laboratory Medicine [address] [place] [address] [place] (ABNORMAL) Lipase Level (11/01/2021 2:09 AM CDT)Only the most recent of3 results within the time period is included. athologist Signature Lipase Lvl 11 (L) 13 - 60 U/L [facility] Specimen Anatomical Collection Method Collection Time Receive d Time (Source) Location / / Volume Laterality Blood 11/01/2021 2:09 AM 2 2:43 CDT AM CDT Willis Serna MD LAB BLOOD ORDERABLES Performing Organization Address City/[facility]/ZIP [facility] Phon e Number [facility] CANCER Unless otherwise noted, [address] all lab tests performed by: Division of Pathology and Laboratory Medicine [address] [place] [address] (ABNORMAL) Amylase Level (11/01/2021 2:09 AM CDT)Only the most recent of3 resultswithin the time period is included. athologist Signature Amylase Lvl 18 (L) 28 - 100 [facility] U/L [facility] Specimen Anatomical Collection Method Collection Time Receive d Time (Source) Location / / Volume Laterality Blood 11/01/2021 2:09 AM 2 2:43 CDT AM CDT Willis Serna MD LAB BLOOD ORDERABLES Performing Organization Address City/[facility] Phon e Number [facility] CANCER Unless otherwise noted, [address] all lab tests performed by: Division of Pathology and Laboratory Medicine [address] [place] [address] ACTH (10/31/2021 2:41 PM CDT) athologist Signature ACTH 11 7 - 63 [facility] pg/mL [facility] C[facility] Comment: Results greater than 1826 pg/mL may not be reliable due to matrix effect with extended dilution as it exceeds the embedded processor's recommended limit. ACTH reference intervals are established for the morni ng hours from 7-10 am. Due to the circad danny rhythm of ACTH levels in plasma, the sample col lection time must be noted. Caution should be exercised when interpreting such values and done in conjunction with clinical context. Specimen Anatomical Collection Method Collection Time Receive d Time (Source) Location / / Volume Laterality Blood 10/31/2021 2:41 PM 2 8:20 CDT PM CDT Narrative [facility] - 2 8:42 PM CDT Please draw before we start steroids Dex amethasone soon! Nupur Daugherty APN LAB BLOOD ORDERABLES Performing Organization Address City/State/ZIP Code Phon e Number [facility] CANCER Unless otherwise noted, [address] all lab tests performed by: Division of Pathology and Laboratory Medicine [address] [place] [address] (ABNORMAL) Sodium (10/31/2021 2:41 PM CDT)Only the most recent of2 resultswithin the time period is included. athologist [facility] Sodium Lvl 127 (L) 136 - 145 [facility] mEq/L [facility] Specimen Anatomical Collection Method Collection Time Receive d Time (Source) Location / / Volume Laterality Blood 10/31/2021 2:41 PM 2 3:07 CDT PM CDT Kishore Arellano MD LAB BLOOD ORDERABLES Performing Organization Address City/[facility]/ZIP [facility] Phon e Number [facility] Unless otherwise noted, [address] all lab tests performed by: Division of Pathology and Laboratory Medicine [address] [place] [address] (ABNORMAL) Cortisol, Total (10/31/2021 2:41 PM CDT) athologist [facility] Cortisol 20.30 (H) 4.80 - [facility] 19.50 [facility] mcg/dL Comment: Cortisol reference intervals are establi shed for the morning hours from 6-10 am and afternoon hours 4-8 pm. Due to circadian rhythm of cortisol levels in serum and plasma, the sample collection time must be noted. Caution should be exercised when interpreting such values and done in con junction with clinical context. Serum Cortisol Reference Ranges: Morning (6-10am) (4.8 - 19.5) Afternoon (4-8pm) (2.5 - 11.9) Specimen Anatomical Collection Method Collection Time Receive d Time (Source) Location / / Volume Laterality Blood 10/31/2021 2:41 PM 2 3:06 CDT PM CDT Narrative [facility] - 2 4:18 PM CDT Please draw before we start steroids Dex amethasone soon! Nupur Daugherty APN LAB BLOOD ORDERABLES Performing Organization Address City/State/ZIP Code Phon e Number [facility] CANCER Unless otherwise noted, [address] all lab tests performed by: Division of Pathology and Laboratory Medicine [facility] Chloride Urine (10/31/2021 1:39 PM CDT) athologist Signature U Chloride <20 mEq/L [facility] Comment: Normal range not available for collections less than 24 hours in duration. Specimen Anatomical Collection Method Collection Time Receive d Time (Source) Location / / Volume Laterality Urine 10/31/2021 1:39 PM 2 2:30 CDT PM CDT Gisele Dougherty MD URINE ORDERABLES Performing Organization Address City/[facility]/ZIP Code Phon e Number [facility] CANCER Unless otherwise noted, [address] all lab tests performed by: Division of Pathology and Laboratory Medicine [address] Chest Abdomen Pelvis without Contrast (10/31/2021 10:44 AM CDT) Anatomical Region Laterality Modality Abdomen, Pelvis, Chest Computed Tomograp hy Specimen (Source) Anatomical Collection Method Collection Time Re ceived Time Location / / Volume Laterality 10/31/2021 11:11 AM CDT Impressions 10/31/2021 12:31 PM CDT 1. Epidural disease is suspected at T8. Epidural disease is not excluded at several other levels in the thoracic and lumbar spine. MR would better evaluate these areas, as clinically appropriate. 2. Both femurs are at fracture risk due to bony metastatic disease. 3. Extensive widespread lytic bone metas tases are worse. 4. Small retroperitoneal lymph node is s lightly increased and is indeterminant. 5. Wall thickening along the bladder bas e is not much changed and could be stable or treated disease. Narrative 10/31/2021 12:31 PM CDT Examination: CT CHEST ABDOMEN PELVIS WO CONTRAST, 10/31/2021 10:44 AM Clinical History: Hyponatremia Indication: Negative COVID-19 Test Resul t, Hyponatremia, abdominal pain, restaging, Metastatic urothelial carcinoma Comparison: 09/10/2021 Technique: CT of the chest, abdomen, and pelvis was performed without intravenous contrast. Findings: Lack of intravenous contrast can lower l esion detection and characterization. EKG leads and wires create artifact degrading some images. There are no enlarged thoracic lymph nod es. Tiny right pleural effusion is noted. Right central venous catheter tip is at the atriocaval junction. Coronary artery calcification is [id number]. Subcentimeter pulmonary and/or pleural n odules and/or nodular densities are not significantly changed. Example in the right lower lobe on image 82 of series 5 measures 0.4 cm. Calcified granulomata are noted. Some linear and patchy opacities could be atelectasis. Bleb is noted on the right. Faint groundglass opacity in the left lower lobe is stable and can be followed. Degenerative bony changes are noted. Han e of the sclerotic bony metastases are not much changed. Other sclerotic lesions are more lytic in appearance with areas of increase and stability. Other widespre ad lytic bony lesions consistent with me tastases are new or increased. Several areas in the thoracic spine erode the posterior cortical margin. Epidural extension of disease is suspected at T8. This is better evaluated by MRI, as clinically a ppropriate. Epidural extension of disease is not excluded at the T7 and L4 levels. Both femurs have lytic involvement of the cortices, placing the femurs at fract ure risk. Large example areas are along the right femoral neck on image 149 of series 11 and along the left anterior intertrochanteric region on image 160 of series 11. Thickening in the subcutaneous fa t lateral to the right femur is not much changed, allowing for partial imaging on the prior study. Several subcentimeter hepatic hypodensit ies are too small to characterize and not much changed, possibly cysts. Extrahepatic biliary ductal dilatation is likely related to cholecystectomy. Spleen is not enlarged. Spleen, pancreas and left kidney show no gross focal lesions. The adrenals are prominent, nonspecific and stable. Hypodense right renal lesion is incompletely evaluated but not m uch changed, likely a cyst. Another subc entimeter right renal hypodensity is too small to characterize. The stomach is underdistended and not we ll evaluated. Subcentimeter interaortocaval lymph node is increased in size at 1 x 0.7 cm, previously 0.8 x 0.5 cm. This could be metastatic or reactive. There ar e no enlarged pelvic lymph nodes. Clips are noted in the right inguinal region. The fluid collection in the right inguinal region is overall decreased at 2.3 x 1.2 cm, previously 4.4 x 2.4 cm. It does n ot contain air and could be any type of postoperative collection, such as seroma. Some prominent right inguinal lymph nodes are not much changed. Slight wall thickening along the inferio r and right aspects of the bladder are not much changed allowing for differences in distention. This could be stable or treated disease. Clips are noted along the cecal tip some minimal haziness in the omentum is nonspecific and could be edema, inflammation or tumor infiltration. It is not much changed. No measurable peritoneal disease is identified. Procedure Note Elva Hardy MD - 10/31/2021Format ting of this note might be different from the original. Examination: CT CHEST ABDOMEN PELVIS WO CONTRAST, 10/31/2021 10:44 AM Clinical History: Hyponatremia Indication: Negative COVID-19 Test Resul t, Hyponatremia, abdominal pain, restaging, Metastatic urothelial carcinoma Comparison: 09/10/2021 Technique: CT of the chest, abdomen, and pelvis was performed without intravenous contrast. Findings: Lack of intravenous contrast can lower l esion detection and characterization. EKG leads and wires create artifact degrading some images. There are no enlarged thoracic lymph nod es. Tiny right pleural effusion is noted. Right central venous catheter tip is at the atriocaval junction. Coronary artery calcification is [id number]. Subcentimeter pulmonary and/or pleural n odules and/or nodular densities are not significantly changed. Example in the right lower lobe on image 82 of series 5 measures 0.4 cm. Calcified granulomata are noted. Some linear and patchy opacities could be atelectasi s. Bleb is noted on the right. Faint groundglass opacity in the left lower lobe is stable and can be followed. Degenerative bony changes are noted. Han e of the sclerotic bony metastases are not much changed. Other sclerotic lesions are more lytic in appearance with areas of increase and stability. Other widespread lytic bony lesions consistent with metastases are new or in creased. Several areas in the thoracic spine erode the posterior cortical margin. Epidural extension of disease is suspected at T8. This is better evaluated by MRI, as clinically appropriate. Epidural extension of disea se is not excluded at the T7 and L4 levels. Both femurs have lytic involvement of the cortices, placing the femurs at fracture risk. Large example areas are along the right femoral neck on image 149 of series 11 and along the left anterior intertrochanteric region on image 160 of series 11. Thickening in the subcutaneous fat lateral to the right femur is not much changed, allowing for partial imaging on the prior study. Several subcentimeter hepatic hypodensit ies are too small to characterize and not much changed, possibly cysts. Extrahepatic biliary ductal dilatation is likely related to cholecystectomy. Spleen is not enlarged. Spleen, pancreas and left kidney show no gross focal lesions. The adrenals are prominent, nonspecific and stable. Hypodense right renal lesion is incompletely evaluated but not much changed, likely a cyst. Another subcenti meter right renal hypodensity is too small to characterize. The stomach is underdistended and not we ll evaluated. Subcentimeter interaortocaval lymph node is increased in size at 1 x 0.7 cm, previously 0.8 x 0.5 cm. This could be metastatic or reactive. There are no enlarged pelvic lymph nodes. Clips are noted in t he right inguinal region. The fluid collection in the right inguinal region is overall decreased at 2.3 x 1.2 cm, previously 4.4 x 2.4 cm. It does not contain air and could be any type of postoperative collection, ibanez ch as seroma. Some prominent right inguinal lymph nodes are not much changed. Slight wall thickening along the inferio r and right aspects of the bladder are not much changed allowing for differences in distention. This could be stable or treated disease. Clips are noted along the cecal tip some minimal haziness in the omentum is nonsp ecific and could be edema, inflammation or tumor infiltration. It is not much changed. No measurable peritoneal disease is identified. IMPRESSION: 1. Epidural disease is suspected at T8. Epidural disease is not excluded at several other levels in the thoracic and lumbar spine. MR would better evaluate these areas, as clinically appropriate. 2. Both femurs are at fracture risk due to bony metastatic disease. 3. Extensive widespread lytic bone metas tases are worse. 4. Small retroperitoneal lymph node is s lightly increased and is indeterminant. 5. Wall thickening along the bladder bas e is not much changed and could be stable or treated disease. Nupur Daugherty 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 COUNSEL IMG CT ORDERABLES COVID-19 (SARS-CoV-2)Asymptomatic-LT (10/30/2021 11:06 PM CDT)Only the most recent of9 resultswithin the time period is included. [facility] Method Time Signature COVID19 Not Detected Not Detected HELDER PATIÑO (SARS-CoV-2) [facility] COVID19 SARS Inpatient AL MD Indication Admission [facility] Covid 19 See Note UT Comment [facility] Comment: The ean SARS-CoV-2 nucleic acid test f or use on the ean Jannette System is a real-time RT-PCR assay intended for the qualitative detection of SARS-CoV-2 (COVID-19) viral RNA in nasopharyngeal swabs from either individuals suspected of COVID-1 9 by their healthcare provider or from any individu al, including individuals without symptoms or other reasons to suspect COVID-19. A fact sheet for patients provided by the embedded processor ([employer]) can be reviewed at: https://www.fda.gov/media/003217/downloa d. A fact sheet for Health Care providers is provided by the embedded processor ([employer]) and can be reviewed at: https://www.fda.gov/media/901917/download Results must be interpreted within the c ontext of all relevant clinical and laboratory findings and should not form the sole basis for a diagnosis or treatment decision. Positive results do not rule out bacterial infection or co- infection with other viruses. Negative results do not preclud e SARS-CoV-2 infection and must be combined with clinical observations, patient history, and/or epidemiological information. This assay has been authorized by the A for use only under Emergency Use Authorization (EUA) in laboratories that have been CLIA-certified to perform moderate-complexity and high-complexity tests. The Microbiology Laboratory at [facility], CLIA Accreditation #[id number] a [facility] Accreditation #[id number], verified the performance characteristics of this assay. Internal controls are used to monitor all stages of the test process. Specimen (Source) Anatomical Collection Method Collection Time Re ceived Time Location / / Volume Laterality Nasopharyngeal Swab 10/30/2021 11:06 0905/2021 PM CDT 11:15 PM CDT Gisele Dougherty MD MICROBIOLOGY - GENERAL ORDER RICH Performing Organization Address City/[facility]/ZIP Code Phon e Number AL [facility] Unless otherwise noted, [address] all lab tests performed by: Division of Pathology and Laboratory Medicine Claire Miller (ABNORMAL) Uric Acid (10/30/2021 1:38 PM CDT) athologist [facility] Uric Acid 6.5 (H) 2.4 - 5.7 [facility] mg/dL Comment: Testing Performed at [facility] [address], [address], [address], [place] [address] Specimen Anatomical Collection Method Collection Time Receive d Time (Source) Location / / Volume Laterality Blood 10/30/2021 1:38 PM 2 1:50 CDT PM CDT Venecia CHINO LAB BLOOD ORDERABLES Performing Organization Address City/[facility]/ZIP Code Phon e Number [facility] [address] [place] [address] [address] Osmolality (10/30/2021 1:38 PM CDT) athologist [facility] Osmolality [phone] [place] mOsm/kg H2O [facility] Comment: Units in mOsm per kg of water. Specimen Anatomical Collection Method Collection Time Receive d Time (Source) Location / / Volume Laterality Blood 10/30/2021 1:38 PM 2 2:48 CDT PM CDT Venecia CHINO LAB BLOOD ORDERABLES Performing Organization Address City/[facility]/ZIP Code Phon e Number [facility] Unless otherwise noted, [address] all lab tests performed by: Division of Pathology and Laboratory Medicine Claire Miller MD COVID-19 (MARVIN-CoV-2) PCR Asymptomatic (10/23/2021 9:24 AM CDT) Component Value Ref Range Test Analysis Performed Pathologis t Method Time At [facility] COVID19 SARS Pre-Radiation HELDER PATIÑO Indication Therapy [facility] COVID19 SARS Not Detected Not AL Result Detected [facility] COVID19 SARS SARS-CoV-2 NOT Detected. AL [facility] Reference Range: Not Detected [facility] [place] Methodology: The Gutierrez Real Time SARS-CoV-2 assay is a qualitative real-time reverse executive secretary polymerase chain reaction (car head liner installer-PCR) test to detect RNA from SARS-CoV-2 in nasal, nasopharyngeal and oropharyngeal swabs from patients with signs and symptoms of infection who ar e suspected of COVID-19 by their health care provider. The Gutierrez RealTime SARS-CoV-2 performed on the [employer] Armor000 System is a dual target assay with primers and probes for the RdRp and N genes. Results must be interpreted within the context of all relevant clinical and laboratory findings, and epidemiological risk factors. Positive results are indicative of the presence of SARS-CoV-2 RNA; clinical correlation with patient history and other diagnostic information is ne cessary to determine patient infection status. Positive results do not rule out bacterial infection or co-infection with other viruses. Negative results do not preclude SARS- CoV-2 infection and should not be used as the sole basis for patient management decisions. The Gutierrez RealTime SARS-CoV -2 assay is for in vitro diagnostic use under FDA Emergency Use Authorization only. Testing is limited to laboratories certified under the Clinical Laboratory Improvement Vani ndments of 1988 (CLIA), 42U.S.C. 263a, to perform high complexity tests. The T est was performed by the CLIA-certified, high- complexity Molecular Diagnostics Laboratory (MDL) at [facility] under the Food and Drug Administration (FDA) s Emergency Use Authorization. Factsheet for patients: https://www.[facility].org/AbbottFac tSheetPatients Factsheet for healthcare pro viders: https://www.[facility].org/AbbottFactSheetHCP Test performed by: [facility] Molecular Diagnostic Lab [address] [place] [address] Specimen (Source) Anatomical Collection Method Collection Time Re ceived Time Location / / Volume Laterality Nasopharyngeal Swab 10/23/2021 9:24 10/23 AM CDT 10:30 AM CDT Mohit Oviedo MD MICROBIOLOGY - GENERAL ORDER RICH Performing Organization Address City/State/ZIP Code Phon e Number [facility]ER Unless otherwise noted, [address] all lab tests performed by: Division of Pathology and Laboratory Medicine [address] Miller (ABNORMAL) Urinalysis with Microscopic (10/02/2021 8:41 AM CDT)Only the most recent of3 resultswithin the time period is included. P athologist Signature UA WBC 55 (H) 0 - 2 /HPF [facility] UA RBC 3 (H) 0 - 2 /HPF [facility] UA Mucous NOT SEEN Not [facility] Seen-Trace [facility] /HPF UA Bacteria NOT SEEN NOT SEEN [facility] /RUST UA Squam Epi OCC None-Occas [facility] ional /[facility] Specimen Anatomical Collection Method Collection Time Receive d Time (Source) Location / / Volume Laterality Urine 10/02/2021 8:41 AM 2 9:12 CDT AM CDT Narrative [facility] - 2 9:33 AM CDT Some reporting parameters within the Urinalysis test have changed due to the implementation of new in strumentation in the [facility], allowi ng greater sensitivity of measurement. Urinalysis results reported by the [facility] using existing instrumentation, as well as Urinalysis t esting performed manually or by backup methodology at the [facility] will remain relatively unchanged. New reporting parameters and units will now be reported for all campuses. Deborah Ham RN AGPCNP URINE ORDERABLES Performing Organization Address City/State/ZIP Code Phon e Number [facility] Unless otherwise noted, [address] all lab tests performed by: Division of Pathology and Laboratory Medicine [address] [place] [address] (ABNORMAL) Urinalysis w/Microscopic if Indicated (10/02/2021 8:41 AM CDT)Only the most recent of4 resultswithin the time period is included. Patholo gist Method Time Signature UA Color Straw Straw-Yel [facility] UA Appear Clear Clear [facility] UA Glucose NEG NEG mg/dL [facility] UA Bili NEG NEG [facility] UA Ketones NEG NEG mg/dL [facility] UA Spec Grav 1.016 1.003 - [facility] 1.035 [facility] UA Blood NEG NEG [facility] UA pH 6.0 5.0 - 9.0 [facility] UA Protein 20 (A) NEG mg/dL [facility] UA Urobilinogen NEG NEG [facility] UA Nitrite NEG NEG [facility] UA Leuk Est Large (A) NEG [facility] Specimen Anatomical Collection Method Collection Time Receive d Time (Source) Location / / Volume Laterality Urine 10/02/2021 8:41 AM 2 9:12 CDT AM CDT Deborah Ham RN AGPCNP URINE ORDERABLES Performing Organization Address City/[facility]/ZIP Code Phon e Number [facility] Unless otherwise noted, [address] all lab tests performed by: Division of Pathology and Laboratory Medicine [facility]5 [place] (ABNORMAL) Urine Culture (09/27/2021 11:40 AM CDT)Only the most recent of3 resultswithin the time period is included. Component Value Ref Test Analysis Performed At [facility] gist Range Method Time Signature Final Report 10 - 50,000 cfu/ml Normal site karl present. HELDER PATIÑO Generally of low significance. LAUREL Correlate with clinical data and culture history. [facility] Path Review - The results have been review ed and electronically signed by Pathologist: AL Urine JACK BOBO MD #[id number] A SHEKHAR (A) [facility] Specimen Anatomical Collection Method Collection Time Receive d Time (Source) Location / / Volume Laterality Urine 09/27/2021 11:40 09/27/2021 AM CDT 12:48 PM CDT Katharina Aparicoi MD MICROBIOLOGY - GENERAL ORDER RICH Performing Organization Address City/[facility]/ZIP Code Phon e Number [facility]ER Unless otherwise noted, [address] all lab tests performed by: Division of Pathology and Laboratory Medicine [facility] Avinash [place] X-ray Abdomen 2 View (09/27/2021 8:34 AM CDT) Anatomical Region Laterality Modality Abdomen Digital Radiography Specimen (Source) Anatomical Collection Method Collection Time Re ceived Time Location / / Volume Laterality 09/27/2021 9:33 AM CDT Impressions 09/27/2021 9:58 AM CDT Nonobstructive bowel gas pattern. Narrative 09/27/2021 9:58 AM CDT Examination: XR Abdomen, 1 View Portable , 09/27/2021 8:34 AM Clinical History: Bladder cancer. Indication: Abdominal pain. Comparison: None. Technique: Portable AP abdomen, 2. Findings: Several nondistended air-filled small an d large bowel loops are scattered in the abdomen. Small amount of stool is seen in the colon. Degenerative changes and levoscoliosis of lumbar spine are seen. Cho lecystectomy clips are present in the ri ght upper abdomen. Surgical clips are also noted in the right groin. Generalized osteoporosis is seen. The visualized lower lungs are clear. Procedure Note Trey Pandey MD - 09/27/2021Formatti ng of this note might be different from the original. Examination: XR Abdomen, 1 View Portable , 09/27/2021 8:34 AM Clinical History: Bladder cancer. Indication: Abdominal pain. Comparison: None. Technique: Portable AP abdomen, 2. Findings: Several nondistended air-filled small an d large bowel loops are scattered in the abdomen. Small amount of stool is seen in the colon. Degenerative changes and levoscoliosis of lumbar spine are seen. Cholecystectomy clips are present in the right upper abdomen. Surgical clips are also noted in the right groin. Generalized osteoporosis is seen. The visualized lower lungs are clear. IMPRESSION: Nonobstructive bowel gas pattern. Katharina Aparicio MD IMG DIAGNOSTIC IMAGING ORDER RICH IR CT GUIDED BIOPSY BONE DEEP PELVIC (09/24/2021 8:57 AM CDT) Anatomical Region Laterality Modality Bone Computed Tomography Specimen (Source) Anatomical Location Collection Method / Collectio n Time Received Time / Laterality Volume Addenda Addendum by Luan Bullock MD on 2021 8:46 AM CDT Addendum: The specific pelvic bone bio psied was the Left Iliac Bone. Narrative 09/24/2021 9:26 AM CDT Date of Procedure: 09/24/21 Attending Physician: Luan Bullock MD System Consultant: Jessie Zhu Pre Procedure Diagnosis: Transitional cell carcinoma, NOS of overlapping lesion of bladder Post Procedure Diagnosis: Unchanged Indication: New mass / nodule for tiss ue diagnosis Protocol Number: N/A Title of Procedure: Percutaneous Computed Tomography-Guided Biopsy Operative Findings: Percutaneous image-guided biopsy of le ft pelvic bone lesion. Consent: The procedure, risks, indicat ions and alternatives were explained. All questions were answered a nd informed consent was obtained. I have reviewed the history and physical dictated by the mid-level practitioner / fellow. Sedation/Anesthesia: Anesthesia provid ed by Anesthesia Department. Procedure in Detail: A time out was performed prior to the st art of the procedure and the correct patient, procedure, presence of consent, site, and side were confirmed with all members of the team. With the patient in the right lateral de cubitus position, the skin overlying the area of interest was prepp ed and draped in the usual sterile fashion. Lidocaine 1% was used for loc al anesthesia. Using a posterior approach under Compute d Tomography image-guidance, a 13 gauge needle was advanced down to the le ft pelvic bone lesion. An image was obtained and placed into the medical record. Samples were obtained for evaluation. Sampling: Core Biopsy: A 14 gauge needle used to obtain samples for surgical pathology evaluation. Total number of samples: 3 Specimens Disposition: Diagnostic Biopsy: The biopsy sampl es were submitted to pathology. Additional Comments: None Estimated Blood Loss: Minimal Immediate Complications: None Disposition: PACU Plan: 1. No follow-up with Interventional Radi ology required. I certify my physical presence at the [facility] of the procedure. I personally reviewed the image(s) and the GALO's inte rpretation and agree with the written report. 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 (SEE COMMENT ) 11:43 AM signed by CDT Raysa Donnelly MD on KS/FVN 09/26/2021 at 11:42 AM Comment Immunohistochemical stains s how that neoplastic cells are immunoreactive for cytokeratin cocktail, RAJESH-3, and Pin Dual (CK903/[id number] cocktail). These results support the above diagnosis. 09/26/2021 [facility] 11:43 AM CDT Gross A: 09/26/2021 [facility] Description Bone, l pelvic bone bx: Cons ists of three reynolds-brown bony cores aggregating to 1.5 x 0.3 x 0.2 cm, entirely submitted in A1 for decalcification. MF 11:43 AM CDT Biomarker Metastatic tumor 09/26/2021 [facility] Block(s) block: A1 (scant 11:43 AM tumor) CDT Disclaimer "Some tests reported 09/26/2021 [facility] here may have been 11:43 AM developed and CDT performance characteristics determined by [facility] Pathology and Laboratory Medicine. These tests have not been specifically cleared or approved by the U.S. Food and Drug Administration. If applicable, controls were reviewed and showed appropriate reactivity." Specimen Anatomical Collection Method Collection Time Receive d Time (Source) Location / / Volume Laterality Tissue (Bone) 09/24/2021 8:28 AM 09/25/19 22 CDT 10:06 AM CDT Libby Shukla MD LAB PATHOLOGY ORDERABLES Performing Organization Address City/[facility]/ZIP Code Phon e Number [facility] [place] [address] [address] [facility] Reticulocyte Count, Auto (09/18/2021 1:06 PM CDT) athologist Signature Retic Cnt Auto 1.3 0.5 - 1.5 % [facility] RETHE 26.5 23.2 - 37.5 [facility] pg IRF 11.2 2.6 - 16.7 [facility] % Specimen Anatomical Collection Method Collection Time Receive d Time (Source) Location / / Volume Laterality Blood 09/18/2021 1:06 PM 2 1:12 CDT PM CDT Libby Shukla MD LAB BLOOD ORDERABLES Performing Organization Address City/[facility]/ZIP Code Phon e Number [facility] [address] [place] [address] [address] (ABNORMAL) Transferrin with TIBC (09/18/2021 1:06 PM CDT) P athologist Signature Transferrin 165 (L) 200 - 360 [facility] mg/dL [facility] TIBC 231 (L) 250 - 450 [facility] mcg/dL [facility] Specimen Anatomical Collection Method Collection Time Receive d Time (Source) Location / / Volume Laterality Blood 09/18/2021 1:06 PM 2 2:02 CDT PM CDT Libby Shukla MD LAB BLOOD ORDERABLES Performing Organization Address City/State/ZIP Code Phon e Number [facility]CER Unless otherwise noted, [address] all lab tests performed by: Division of Pathology and Laboratory Medicine [facility] [place] (ABNORMAL) Iron Level (09/18/2021 1:06 PM CDT) athologist Signature Iron 17 (L) 37 - 145 [facility] mcg/dL [facility] Specimen Anatomical Collection Method Collection Time Receive d Time (Source) Location / / Volume Laterality Blood 09/18/2021 1:06 PM 2 2:02 CDT PM CDT Libby Shukla MD LAB BLOOD ORDERABLES Performing Organization Address City/State/ZIP Code Phon e Number [facility]ER Unless otherwise noted, [address] all lab tests performed by: Division of Pathology and Laboratory Medicine [facility] [place] (ABNORMAL) Ferritin Level (09/18/2021 1:06 PM CDT) athologist Signature Ferritin Lvl 427 (H) 13 - 150 [facility] ng/mL [facility] Specimen Anatomical Collection Method Collection Time Receive d Time (Source) Location / / Volume Laterality Blood 09/18/2021 1:06 PM 2 2:03 CDT PM CDT Libby Shukla MD LAB BLOOD ORDERABLES Performing Organization Address City/State/ZIP Code Phon e Number [facility]ER Unless otherwise noted, [address] all lab tests performed by: Division of Pathology and Laboratory Medicine [address] [place] [address] MRI Brain with and without Contrast (09/12/2021 8:55 AM CDT) Anatomical Region Laterality Modality Head Magnetic Resonance Specimen (Source) Anatomical Collection Method Collection Time Re ceived Time Location / / Volume Laterality 09/13/2021 2:29 PM CDT Impressions 09/13/2021 2:44 PM CDT No evidence of intracranial metastases. Narrative 09/13/2021 2:44 PM CDT FULL RESULT: EXAMINATION: MRI BRAIN W WO CONTRAST on 09/12/2021 8:55 AM HISTORY: Transitional cell carcinoma, NO S of overlapping lesion of bladder INDICATION: Cancer staging or restaging COMPARISON: None TECHNIQUE: Multi-sequence MRI of the bra in with and without intravenous contrast as per standard departmental protocol. FINDINGS: The ventricles are normal in size and wi thin the midline. No restricted diffusion or foci of T2 susceptibility. Intracranial vascular flow voids are maintained. No abnormal leptomeningeal or parenchymal enhancement. A focus of high T1 signal intensity in t he posterior aspect of the left sphenoid sinus may represent inspissated secretions. The remainder of the paranasal sinuses are clear. No suspicious orbital lesions. Motion sensitive sequences were utilized , reducing the sensitivity for detection of osseous metastases. No clear focal osseous metastases are identified within the skull base. A T1 hyperintense lesion i n the left frontal calvarium marked on s eries 11, image 19 may represent a hemangioma. Procedure Note Corina Aiken MD - 09/13/2021 FULL RESULT: EXAMINATION: MRI BRAIN W WO CONTRAST on 09/12/2021 8:55 AM HISTORY: Transitional cell carcinoma, NO S of overlapping lesion of bladder INDICATION: Cancer staging or restaging COMPARISON: None TECHNIQUE: Multi-sequence MRI of the bra in with and without intravenous contrast as per standard departmental protocol. FINDINGS: The ventricles are normal in size and wi thin the midline. No restricted diffusion or foci of T2 susceptibility. Intracranial vascular flow voids are maintained. No abnormal leptomeningeal or parenchymal enhancement. A focus of high T1 signal intensity in t he posterior aspect of the left sphenoid sinus may represent inspissated secretions. The remainder of the paranasal sinuses are clear. No suspicious orbital lesions. Motion sensitive sequences were utilized , reducing the sensitivity for detection of osseous metastases. No clear focal osseous metastases are identified within the skull base. A T1 hyperintense lesion in the left frontal calvarium marked on series 11, i mage 19 may represent a hemangioma. IMPRESSION: No evidence of intracranial metastases. Libby Shukla MD IMG MRI ORDERABLES CT Chest Abdomen Pelvis with and without Contrast Urogram (09/10/2021 9:08 PM CDT)Only the most recent of3 resultswithin the time period is included. Anatomical Region Laterality Modality Chest, Abdomen, Pelvis Computed Tomograp hy Specimen (Source) Anatomical Collection Method Collection Time Re ceived Time Location / / Volume Laterality 09/11/2021 6:44 AM CDT Addenda Addendum by Benita Lambert MD on 10:31 AM CDT Technique: CT of the chest, abdomen and pelvis was performed with intravenous contrast, preceded by CT of the abdomen and pelvis without intravenous contrast. Impressions 09/11/2021 8:47 AM CDT 1. The previously noted urinary bladder wall thickening is less conspicuous in the current examination. 2. Morphologically unchanged osseous met astatic disease. Metabolic activity is better evaluated by bone scan. Narrative 09/11/2021 8:47 AM CDT Examination: CT CHEST ABDOMEN PELVIS W W O CONTRAST UROGRAM, 09/10/2021 9:08 PM Clinical History: Transitional cell carc inoma, NOS of overlapping lesion of bladder Indication: restaging, eval extent of di sease after 6 cycles Comparison: CT dated 06/22/2021. Technique: CT of the abdomen and pelvis was performed with intravenous contrast, preceded by CT of the abdomen and pelvis without intravenous contrast. Findings: Chest: No definite evidence of significantly en larged axillary, hilar, or mediastinal lymph nodes by size criteria. Small axillary and mediastinal lymph nodes are again noted. Coronary and aortic atherosclerotic ossi fications are noted. Bilateral areas of atelectasis/scarring are noted. Stable small bilateral calcified and non calcified pulmonary nodules, likely relate to old granulomas. Abdomen and pelvis: Stable subcentimeter too small to charac terize hypoattenuating liver lesions. The spleen is prominent. No pancreatic m asses noted. Stable bilateral renal cortical simple c ysts and subcentimeter too small to characterize hypoattenuating lesions. Stable bilateral adrenal diffuse nonspec ific thickening, more on the left. No definite evidence of significantly en larged lymph nodes in the abdomen and pelvis. Stable well-circumscribed fluid collecti on noted in the right inguinal region, adjacent to surgical clips, likely relate to seroma. The previously noted right lateral urina ry bladder wall thickening is less conspicuous in the current examination. Bone windows demonstrate morphologically unchanged osseous metastatic disease. Metabolic activity is better evaluated by bone scan. Procedure Note Benita Lambert MD - 09/11/2021Forma tting of this note might be different from the original. Examination: CT CHEST ABDOMEN PELVIS W W O CONTRAST UROGRAM, 09/10/2021 9:08 PM Clinical History: Transitional cell carc inoma, NOS of overlapping lesion of bladder Indication: restaging, eval extent of di sease after 6 cycles Comparison: CT dated 06/22/2021. Technique: CT of the abdomen and pelvis was performed with intravenous contrast, preceded by CT of the abdomen and pelvis without intravenous contrast. Findings: Chest: No definite evidence of significantly en larged axillary, hilar, or mediastinal lymph nodes by size criteria. Small axillary and mediastinal lymph nodes are again noted. Coronary and aortic atherosclerotic ossi fications are noted. Bilateral areas of atelectasis/scarring are noted. Stable small bilateral calcified and non calcified pulmonary nodules, likely relate to old granulomas. Abdomen and pelvis: Stable subcentimeter too small to charac terize hypoattenuating liver lesions. The spleen is prominent. No pancreatic m asses noted. Stable bilateral renal cortical simple c ysts and subcentimeter too small to characterize hypoattenuating lesions. Stable bilateral adrenal diffuse nonspec ific thickening, more on the left. No definite evidence of significantly en larged lymph nodes in the abdomen and pelvis. Stable well-circumscribed fluid collecti on noted in the right inguinal region, adjacent to surgical clips, likely relate to seroma. The previously noted right lateral urina ry bladder wall thickening is less conspicuous in the current examination. Bone windows demonstrate morphologically unchanged osseous metastatic disease. Metabolic activity is better evaluated by bone scan. IMPRESSION: 1. The previously noted urinary bladder wall thickening is less conspicuous in the current examination. 2. Morphologically unchanged osseous met astatic disease. Metabolic activity is better evaluated by bone scan. Ady CHINO IMG CT ORDERABLES GUA Microscopic (08/04/2021 10:51 AM CDT) athologist Signature UA RBC 1 0 - 2 /HPF [facility] UA WBC 2 0 - 2 /HPF [facility] UA Mucous NOT SEEN Not [facility] Seen-Trace [facility] /HPF UA Bacteria NOT SEEN NOT SEEN [facility] UA Squam Epi NOT SEEN None-Occas [facility] ional /[facility] [place] Specimen Anatomical Collection Method Collection Time Receive d Time (Source) Location / / Volume Laterality Urine 08/04/2021 10:51 08/04/2021 AM CDT 11:30 AM CDT Narrative [facility] - 11:39 AM CDT Some reporting parameters within the Urinalysis test have changed due to the implementation of new in strumentation in the [facility], allowi ng greater sensitivity of measurement. Urinalysis results reported by the [facility] using existing instrumentation, as well as Urinalysis t esting performed manually or by backup methodology at the [facility] will remain relatively unchanged. New reporting parameters and units will now be reported for all campuses. Lanre Hutson APN LAB BLOOD ORDERABLES Performing Organization Address City/[facility]/ZIP Code Phon e Number [facility] Unless otherwise noted, [address] all lab tests performed by: Division of Pathology and Laboratory Medicine [address] (ABNORMAL) G Urinalysis (08/04/2021 10:51 AM CDT) Patholo gist Method Time Signature UA Color Colorless (A) Straw-Yel [facility] UA Appear Clear Clear [facility] UA Glucose NEG NEG mg/dL [facility] UA Bili NEG NEG [facility] UA Ketones NEG NEG mg/dL [facility] UA Spec Grav 1.015 1.003 - [facility] 1.035 [facility] UA Blood NEG NEG [facility] UA pH 7.0 5.0 - 9.0 [facility] UA Protein 20 (A) NEG mg/dL [facility] UA Urobilinogen NEG NEG [facility] UA Nitrite NEG NEG [facility] UA Leuk Est NEG NEG [facility] Specimen Anatomical Collection Method Collection Time Receive d Time (Source) Location / / Volume Laterality Urine 08/04/2021 10:51 08/04/2021 AM CDT 11:30 AM CDT Lanre Hutson APN URINE ORDERABLES Performing Organization Address City/State/ZIP Code Phon e Number [facility] Unless otherwise noted, [address] all lab tests performed by: Division of Pathology and Laboratory Medicine [address] Glucose, Random (08/04/2021 4:31 AM CDT)Only the most recent of21 resultswithin the time period is included. P athologist Signature Glucose Random 103 70 - 199 [facility] mg/dL [facility] [place] Comment: Effective 09/12/15, the glucose reference intervals have been updated based on [place] [employer] guidelines (Standards of Medical Care in Diabetes 2016. Diabetes Care 2016; 39: S13-S22). Fasting blood glucose: Normal: 70-99 mg/dL Impaired fasting glucose (increased risk for diabetes or pre-diabetes): 100- 125 mg/dL Diabetes mellitus: >/=126 mg/dL Random blood glucose: Normal: 70-199 mg/dL Note: Random glucose >100 mg/dL is assoc iated with increased risk for diabetes Specimen Anatomical Collection Method Collection Time Receive d Time (Source) Location / / Volume Laterality Blood 08/04/2021 4:31 AM 5:39 CDT AM CDT German Drew MD LAB BLOOD ORDERABLES Performing Organization Address City/State/ZIP [facility] Phon e Number [facility] CANCER Unless otherwise noted, [place] [address] CENTER all lab tests performed by: Division of Pathology and Laboratory Medicine [address] [facility] [address] (ABNORMAL) Platelet count (07/08/2021 11:38 AM CDT) athologist Signature Platelet count 60 (L) 140 - 440 [facility] K/uL Comment: As part of CBC or as an individ ual orderable testing performed at [facility] Lab Teacher Of The Deaf/Hard Of Hearing [facility], [address] , [address], [place] [address] MPV 10.2 4.0 - 10.4 fL [facility] Specimen Anatomical Collection Method Collection Time Receive d Time (Source) Location / / Volume Laterality Blood 07/08/2021 11:38 07/08/2021 AM CDT 12:07 PM CDT Ady CHINO LAB BLOOD ORDERABLES Performing Organization Address City/[facility] Phon e Number [facility] [address] [place] [address] [address] (ABNORMAL) Potassium Level (06/25/2021 9:02 AM CDT)Only the most recent of4 resultswithin the time period is included. athologist Signature Potassium Lvl 5.6 (H) 3.5 - 5.1 [facility] mEq/L [facility] Specimen Anatomical Collection Method Collection Time Receive d Time (Source) Location / / Volume Laterality Blood 06/25/2021 9:02 AM 9:14 CDT AM CDT Linda Lockhart MEDICARE SALES REPRESENTATIVE LAB BLOOD ORDERABLES Performing Organization Address City/State/ZIP Code Phon e Number [facility] CANCER Unless otherwise noted, [place], [place] [id number] [place] [address] all lab tests performed by: Division of Pathology and Laboratory Medicine [address] [facility] Bone Scan Whole Body (06/21/2021 10:14 AM CDT)Only the most recent of2 resultswithin the time period is included. Anatomical Region Laterality Modality Whole Body Nuclear Medicine Specimen (Source) Anatomical Collection Method Collection Time Re ceived Time Location / / Volume Laterality 06/21/2021 10:14 AM CDT Impressions 06/21/2021 11:28 AM CDT Slightly more prominent diffuse osseous metastatic disease of the axial and appendicular skeleton may be related to flare phenomenon. Follow-up is recommended. I personally reviewed these image(s) reha ng with the resident's/fellow's interpretations, certify that if a procedure was performed I was physically present, and agree with the final report. Narrative 06/21/2021 11:28 AM CDT FULL RESULT: Examination: Whole-Body Bone Scan, 10:14 AM Clinical History: 81-year-old female wit h transitional cell carcinoma; last chemotherapy 06/13/2021. Indication: Restaging. Comparison: Bone scan 04/17/2021. Technique: Following the intravenous adm inistration of 22 mCi of technetium-99m MDP, anterior and posterior delayed whole body planar images were acquired. Findings: Redemonstration of multifocal osseous metastatic disease of the axial and appendicular skeleton involving the bilateral ribs, humeri, scapulae, femora, right proximal diaphyseal tibia, bilater al pelvis, multilevel vertebrae, sacrum, and skull base. These lesions are slightly more prominent in terms of their radiotracer uptake since the prior exam. No definite new abnormal radiotracer uptake identified. Physiologic excretion of radiotracer is seen in the kidneys and bladder. Procedure Note Herrera Wells MD - 06/21/2021Format ting of this note might be different from the original. FULL RESULT: Examination: Whole-Body Bone Scan, 10:14 AM Clinical History: 81-year-old female wit h transitional cell carcinoma; last chemotherapy 06/13/2021. Indication: Restaging. Comparison: Bone scan 04/17/2021. Technique: Following the intravenous adm inistration of 22 mCi of technetium-99m MDP, anterior and posterior delayed whole body planar images were acquired. 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 These lesions are slightly more prominent in terms of their radiotracer uptake since the prior exam. No definite new abnormal radiotracer uptake identified. Physiologic excretion of radiotracer is seen in the kidneys and bladder. IMPRESSION: Slightly more prominent diffuse osseous metastatic disease of the axial and appendicular skeleton may be related to flare phenomenon. Follow-up is recommended. I personally reviewed these image(s) rhea ng with the resident's/fellow's interpretations, certify that if a procedure was performed I was physically present, and agree with the final report. Ady CHINO IM NM ORDERABLES (ABNORMAL) Potassium Venous (06/11/2021 3:28 AM CDT) athologist Signature V K 5.1 (H) 3.4 - 4.5 [facility] mEq/L [facility] Specimen Anatomical Collection Method Collection Time Receive d Time (Source) Location / / Volume Laterality Blood 06/11/2021 3:28 AM 3:34 CDT AM CDT Cheri Mcintyre MD LAB BLOOD ORDERABLES Performing Organization Address City/State/ZIP Code Phon e Number [facility] CANCER Unless otherwise noted, [place] [address] CENTER all lab tests performed by: Division of Pathology and Laboratory Medicine [address] (ABNORMAL) GGT (06/10/2021 11:50 AM CDT) athologist Signature GGT 56 (H) 5 - 36 U/L [facility] Specimen Anatomical Collection Method Collection Time Receive d Time (Source) Location / / Volume Laterality Blood 06/10/2021 11:50 06/10/2021 AM CDT 12:32 PM CDT Ady CHINO LAB BLOOD ORDERABLES Performing Organization Address City/State/ZIP Code Phon e Number [facility] CANCER Unless otherwise noted, [place] [address] CENTER all lab tests performed by: Division of Pathology and Laboratory Medicine [address] XR Hip 2 or 3 Views w Pelvis Right (05/20/2021 4:18 PM CDT) Anatomical Region Laterality Modality Hip, Extremity Digital Radiography Specimen (Source) Anatomical Collection Method Collection Time Re ceived Time Location / / Volume Laterality 05/20/2021 4:50 PM CDT Impressions 05/20/2021 4:56 PM CDT 1. Subtle lytic metastatic disease detected in the right iliac anterior superior iliac spine and at the base of the right greater trochanter laterally. These lesions are not considered at immediate risk of fracture. However, orthopedic consul tation for the femoral metastasis is suggested. 2. The radionuclide bone scan indicates more metastatic disease in the right hemipelvis. The radiographs underestimate the number and location of the metastases. 3. Surgical clips in right groin. Narrative 05/20/2021 4:56 PM CDT FULL RESULT: Examination: XR HIP 2 OR 3 VW W PELVIS R IGHT, 05/20/2021 4:18 PM. Clinical History: 81-year-old woman with transitional cell carcinoma, NOS of overlapping lesion of bladder Neoplasm related pain (acute) (chronic) Indication: pain Comparison: Radionuclide bone scan April 17, 2021 Technique: XR HIP 2 OR 3 VW W PELVIS RIG HT Findings: 1. Subtle lytic metastatic disease detec reyna in the right iliac anterior superior iliac spine and at the base of the right greater trochanter laterally. These lesions are not considered at immediate risk of fracture. However, orthopedic consul tation for the femoral metastasis is suggested. 2. The radionuclide bone scan indicates more metastatic disease in the right hemipelvis. The radiographs underestimate the number and location of the metastases. 3. Surgical clips in right groin. Procedure Note Mark Olmedo Jr., MD - 05/20/2021F ormatting of this note might be different from the original. FULL RESULT: Examination: XR HIP 2 OR 3 VW W PELVIS R IGHT, 05/20/2021 4:18 PM. Clinical History: 81-year-old woman with transitional cell carcinoma, NOS of overlapping lesion of bladder Neoplasm related pain (acute) (chronic) Indication: pain Comparison: Radionuclide bone scan April 17, 2021 Technique: XR HIP 2 OR 3 VW W PELVIS RIG HT Findings: 1. Subtle lytic metastatic disease detec reyna in the right iliac anterior superior iliac spine and at the base of the right greater trochanter laterally. These lesions are not considered at immediate risk of fracture. However, orthopedic consultation for the femoral metastasis is suggested. 2. The radionuclide bone scan indicates more metastatic disease in the right hemipelvis. The radiographs underestimate the number and location of the metastases. 3. Surgical clips in right groin. IMPRESSION: 1. Subtle lytic metastatic disease detec ryena in the right iliac anterior superior iliac spine and at the base of the right greater trochanter laterally. These lesions are not considered at immediate risk of fracture. However, orthopedic consultation for the femoral metastasis is suggested. 2. The radionuclide bone scan indicates more metastatic disease in the right hemipelvis. The radiographs underestimate the number and location of the metastases. 3. Surgical clips in right groin. Ady CHINO Nak[facility] DIAGNOSTIC IMAGING ORDER RICH US Abdomen Limited (05/20/2021 3:35 PM CDT) Anatomical Region Laterality Modality Abdomen Ultrasound Specimen (Source) Anatomical Collection Method Collection Time Re ceived Time Location / / Volume Laterality 05/20/2021 3:37 PM CDT Impressions 05/20/2021 3:57 PM CDT Postoperative seroma within the right in guinal region correlating with area of clinical concern on recent CT findings, measures slightly smaller than the prior CT. Narrative 05/20/2021 3:57 PM CDT FULL RESULT: Examination: US ABDOMEN LIMITED, 3:35 PM. Clinical History: Transitional cell carc inoma, NOS of overlapping lesion of bladder. Indication: Other:, Abd pain and swellin g in R lower abdomen, since LN biopsy. . Comparison: CT 04/20/2021. Technique: US ABDOMEN LIMITED. Real-ti me grayscale and color Doppler imaging of the right lower abdominal wall at the site of clinical concern was performed. Findings: A fluid collection with right inguinal r egion measures 3.2 x 2.6 x 6.9 cm and correlates with the recent CT findings of postoperative seroma. Allowing for differences in technique the fluid collection measures slightly smaller. Procedure Note Christian Barragan MD - 05/20/2021For matting of this note might be different from the original. FULL RESULT: Examination: US ABDOMEN LIMITED, 3:35 PM. Clinical History: Transitional cell carc inoma, NOS of overlapping lesion of bladder. Indication: Other:, Abd pain and swellin g in R lower abdomen, since LN biopsy. . Comparison: CT 04/20/2021. Technique: US ABDOMEN LIMITED. Real-time grayscale and color Doppler imaging of the right lower abdominal wall at the site of clinical concern was performed. Findings: A fluid collection with right inguinal r egion measures 3.2 x 2.6 x 6.9 cm and correlates with the recent CT findings of postoperative seroma. Allowing for differences in technique the fluid collection measures slightly smaller. IMPRESSION: Postoperative seroma within the right in guinal region correlating with area of clinical concern on recent CT findings, measures slightly smaller than the prior CT. Ady RUCKER US ORDERABLES US Leg Venous Doppler Bilateral (05/20/2021 3:34 PM CDT) Anatomical Region Laterality Modality Leg, Extremity Ultrasound Specimen (Source) Anatomical Collection Method Collection Time Re ceived Time Location / / Volume Laterality 05/20/2021 3:49 PM CDT Impressions 05/20/2021 3:49 PM CDT Negative for deep venous thrombosis in t he bilateral lower extremities. Narrative 05/20/2021 3:49 PM CDT Examination: US LEG VENOUS DOPPLER BILAT ERAL, 05/20/2021 3:34 PM Clinical History: Transitional cell carc inoma, NOS of overlapping lesion of bladder Edema, not otherwise specified Indication: Edema, BL leg swelling Comparison: None available. Technique: Grayscale and color/spectral Doppler ultrasound of the bilateral lower extremity veins was performed. Findings: The bilateral common femoral, femoral, a nd popliteal veins demonstrate color flow, compressibility, and response to augmentation. The visualized posterior tibial, peroneal and anterior tibial veins are patent and compressible. Procedure Note Christian Barragan MD - 05/20/2021For matting of this note might be different from the original. Examination: US LEG VENOUS DOPPLER BILAT ERAL, 05/20/2021 3:34 PM Clinical History: Transitional cell carc inoma, NOS of overlapping lesion of bladder Edema, not otherwise specified Indication: Edema, BL leg swelling Comparison: None available. Technique: Grayscale and color/spectral Doppler ultrasound of the bilateral lower extremity veins was performed. Findings: The bilateral common femoral, femoral, a nd popliteal veins demonstrate color flow, compressibility, and response to augmentation. The visualized posterior tibial, peroneal and anterior tibial veins are patent and compressible. IMPRESSION: Negative for deep venous thrombosis in t he bilateral lower extremities. Ady CHINO IMG US ORDERABLES X-ray Knee 1 Or 2 Views Right (05/16/2021 1:43 PM CDT) Anatomical Region Laterality Modality Knee, Extremity Digital Radiography Specimen (Source) Anatomical Collection Method Collection Time Re ceived Time Location / / Volume Laterality 05/16/2021 1:44 PM CDT Impressions 05/16/2021 1:45 PM CDT Moderate degenerative change of the medi al joint compartment of the right knee. Narrative 05/16/2021 1:45 PM CDT FULL RESULT: Examination: XR KNEE 1 OR 2 VW RIGHT, 1:43 PM. Clinical History: Bladder cancer Indication: right knee pain Comparison: None Technique: Right knee: 2 views Findings: No lytic or blastic osseous le sions worrisome for metastases are detected. No fractures, joint dislocations or subluxations. Moderate degenerative narrowing of the m edial joint compartment with moderate periarticular osteophyte formation and hypertrophy of the tibial spines. Procedure Note Madison Villatoro MD - 05/16/2021Forma tting of this note might be different from the original. FULL RESULT: Examination: XR KNEE 1 OR 2 VW RIGHT, 1:43 PM. Clinical History: Bladder cancer Indication: right knee pain Comparison: None Technique: Right knee: 2 views Findings: No lytic or blastic osseous le sions worrisome for metastases are detected. No fractures, joint dislocations or subluxations. Moderate degenerative narrowing of the m edial joint compartment with moderate periarticular osteophyte formation and hypertrophy of the tibial spines. IMPRESSION: Moderate degenerative change of the medi al joint compartment of the right knee. Nupur Daugherty APN IMNakia DIAGNOSTIC IMAGING O RDERABLES X-ray Chest 2 Views (05/16/2021 1:42 PM CDT) Anatomical Region Laterality Modality Chest Digital Radiography Specimen (Source) Anatomical Collection Method Collection Time Re ceived Time Location / / Volume Laterality 05/16/2021 1:52 PM CDT Impressions 05/16/2021 1:53 PM CDT Small bilateral pleural effusions but no other suggestion of pneumonia. Narrative 05/16/2021 1:53 PM CDT FULL RESULT: Examination: XR CHEST 2 VW, 05/16/2021 1: 42 PM Clinical History: Bladder cancer Indication: Shortness of Breath, Negativ e COVID-19 Test Result Comparison: None Technique: Posteroanterior, lateral and dual-energy radiographs of the chest. Findings: Mild blunting of both costophrenic sulci . Heart size is normal. No mediastinal adenopathy. No focal pulmonary nodule or consolidation. Right internal jugular port catheter tip is about 3 to 4 cm below t he azygos arch probably in superior vena cava. No pneumothorax. Procedure Note Kashif Solis MD - 05/16/2021Formatt ing of this note might be different from the original. FULL RESULT: Examination: XR CHEST 2 VW, 05/16/2021 1: 42 PM Clinical History: Bladder cancer Indication: Shortness of Breath, Negativ e COVID-19 Test Result Comparison: None Technique: Posteroanterior, lateral and dual-energy radiographs of the chest. Findings: Mild blunting of both costophrenic sulci . Heart size is normal. No mediastinal adenopathy. No focal pulmonary nodule or consolidation. Right internal jugular port catheter tip is about 3 to 4 cm below the azygos arch probably in superior vena cava. No pneumothorax. IMPRESSION: Small bilateral pleural effusions but no other suggestion of pneumonia. Nupur Daugherty 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 COUNSEL IM DIAGNOSTIC IMAGING O RDERABLES Blood Culture (05/15/2021 9:05 PM CDT)Only the most recent of2 resultswithin the time period is included. Component Value Ref Test Analysis Performed At [facility] gist Range Method Time Signature Final Report No growth [facility] Path Review - Culture yield may be affecte d by sample quality, prior treatment, and transportation conditions. HELDER PATIÑO Bottle/Isolat ... LAUREL or The results have been reviewed and electronically signed b y Pathologist: CANCER Kosta De La Torre MD, PhD #[id number] C ENTER Specimen Anatomical Collection Method Collection Time Receive d Time (Source) Location / / Volume Laterality Blood 05/15/2021 9:05 PM 2 (Port-a-Cath) CDT 10:18 PM CDT Cheri Mcintyre MD MICROBIOLOGY - GENERAL ORDER RICH Performing Organization Address City/State/ZIP Code Phon e Number [facility] CANCER Unless otherwise noted, [place] [address] CENTER all lab tests performed by: Division of Pathology and Laboratory Medicine [facility] PORT PLACEMENT (05/03/2021 12:28 PM CDT) Anatomical Region Laterality Modality X-Ray Angiography, U ltrasound Specimen (Source) Anatomical Location Collection Method / Collectio n Time Received Time / Laterality Volume Narrative 05/03/2021 3:10 PM CDT Date of Procedure: 05/03/21 Attending Physician: Luan Diaz MD System Consultant: Roseanna Charles and Cheri hernandez Pre-procedure Diagnosis: Bladder Cancer Post-procedure Diagnosis: Unchanged Indication: Chemotherapy administration Title of Procedure: Right IJ power-injectable chest port chencho cement. Port: Bard PowerPort Clearvue SLIM Implantable Port Catheter size: 6F Operative Findings: Successful percutaneous image-guided pow er-injectable chest port placement in the right internal jugular vein. Consent: The procedure, risks, indicatio ns and alternatives were explained. All questions were answered and informed consent was obtained. I have reviewed the history and physical dictated by the mid-level practitioner / fellow. Sedation/Anesthesia: Moderate sedation for pain control and a nxiety was administered by a dedicated nurse under my supervision. There was continuous monitoring of oxygen saturation, heart rate and interm ittent monitoring of blood pressure during the procedure. Medicat ion given was midazolam and fentanyl. I was present for the admin istration of the medications indicated above. Procedure Events Event Event Time Insertion site prepped with: Chlorhexadi ne gluconate Procedure in Detail: A time out was performed prior to the st art of the procedure and the correct patient, procedure, presence of consent, site, and side were confirmed with all members of the team. Insertion site was prepped and cleaned with aseptic technique. Sterile devices and equipment were used. Doors were closed and traffic kept to a minimum during the procedure. Skin prep agent was allowed to dry prior to p rocedure. Maximum sterile barriers were used including sterile gloves, gown , cap, mask and head to toe sterile cover. Hand hygiene was performe d prior to insertion by all persons performing/assisting with proced ure. Ultrasound evaluation of the access site demonstrated a patent and compressible vein. Lidocaine 1% was us ed for local anesthesia. Under ultrasound imaging guidance, a 21 gauge needle was advanced into the right internal jugular vein and the access sit e was scaled up to accept a micropuncture transitional dilator. An image was obtained and placed into the medical record. A wire was advanced into the inferior ve na cava under fluoroscopic guidance to secure access. An appropri ate site within the upper chest was determined and an incision was created. A subcutaneous pocket below the incision site was created. The subcuta neous tunnel was then created in the upper chest and the port catheter wa s advanced through the tunnel. The venous access site was scaled up to accept a peel-away sheath. The catheter was then advanced through the s kathi, with the tip of the catheter in a satisfactory position at t he SVC/atrial junction on fluoroscopy. The catheter was connected to the hub of the chest port. The chest port hub was placed within the sub cutaneous pocket. Venous access incision closed with Dermabond. The port pocket incision was closed as below. Port pocket closure: The incision was approximated with multi ple subdermal sutures. Dermabond was applied to the incision sites. Additional Comments: None Estimated Blood Loss: Minimal Specimens Removed: No Disposition: PACU Plan: Port Catheter positioning was confirm ed with a fluoroscopic image at the conclusion of the procedure. Tip of th e catheter lies at the SVC/RA junction. The port is now ready for im mediate use. Patient will be contacted in 1-2 week s for a post port placement incision check. I certify my physical presence at the [facility] of the procedure. I personally reviewed the image(s) and the GALO's inte rpretation and agree with the written report. Cheri Mcintyre MD IMG IR ORDERABLES Anion Gap (05/02/2021 10:02 AM CDT) athologist Signature Anion Gap 10 4 - 14 mEq/L [facility] Comment: Testing Performed at [facility] [address], [address], [place] [address] Specimen Anatomical Collection Method Collection Time Receive d Time (Source) Location / / Volume Laterality Blood 05/02/2021 10:02 05/02/2021 AM CDT 10:08 AM CDT Leticia CHINO LAB BLOOD ORDERABLES Performing Organization Address [facility] e Number [facility] [address] [place] [address] [address] Chloride Level (05/02/2021 10:02 AM CDT) P athologist Signature Chloride 99 98 - 107 [facility] mEq/L Comment: Testing Performed at [facility] Lab Am [facility], [address], [address], [place] [address] Specimen Anatomical Collection Method Collection Time Receive d Time (Source) Location / / Volume Laterality Blood 05/02/2021 10:02 05/02/2021 AM CDT 10:08 AM CDT Leticia CHINO LAB BLOOD ORDERABLES Performing Organization Address [facility] [address] [place] [address]. [place] [address] [address] Carbon Dioxide Level (05/02/2021 10:02 AM CDT) P athologist Signature CO2 29 22 - 29 [facility] mEq/L Comment: Testing Performed at [facility], [address] [place] [address], [address], [place] [address] Specimen Anatomical Collection Method Collection Time Receive d Time (Source) Location / / Volume Laterality Blood 05/02/2021 10:02 05/02/2021 AM CDT 10:08 AM CDT Leticia CHINO LAB BLOOD ORDERABLES Performing Organization Address [facility]/ZIP [facility] e Number [facility] [address] [place] [address] [address] Confirm ABORh (05/02/2021 9:58 AM CDT) P athologist Signature ABORh Confirm. A POS [facility] CANCER [place] Specimen Anatomical Collection Method Collection Time Receive d Time (Source) Location / / Volume Laterality Blood 05/02/2021 9:58 AM CDT 10:27 AM CDT Jake CHINO BLOOD BANK TEST ORDERABLES Performing Organization Address City/[facility]/ZIP [facility] e Number [facility] CANCER Unless otherwise noted, [place] [address] CENTER all lab tests performed by: Division of Pathology and Laboratory Medicine [address] Solid Tumor Genomic Assay Fusions 2018 Interpretation and Report (04/30/2021 2:47 PM CDT) Specimen (Source) Anatomical Collection Method Collection Time Re ceived Time Location / / Volume Laterality 04/30/2021 2:47 PM CDT Narrative This result has an attachment that is no t available. Ady [facility] (GINA PATIÑO) Solid Tumor Genomic Assay DNA 2018 Interpretation and Report (04/30/2021 2:47 PM CDT) Specimen (Source) Anatomical Collection Method Collection Time Re ceived Time Location / / Volume Laterality 04/30/2021 2:47 PM CDT Narrative This result has an attachment that is no t available. Ady [facility] (GINA PATIÑO) (ABNORMAL) POC Creatinine (04/20/2021 12:42 PM [employer]) P athologist Signature POC Crea 1.3 0.6 - 1.3 POC [facility] mg/dL Comment: Medications, especially hydroxyurea or s upplements, such as ascorbate, can interfere with test results causing a falsely and significantly higher result than expected. If a problem is suspected with a patient's result, a sample should be sent to the laboratory for confirmatory testing. Method description: The i-STAT is an bridgette lyzer used for in vitro quantification of various analytes in whole blood. The device uses a single disposable cartridge which contains microfabricated sensors, a calibration solution, fluidics system, and a waste chamber. Each test cartridge contains ch emically sensitive biosensors on a silicon chip that are configured to perform specific tests. The microfabricated sensors measure analyte concentration by an electrochemical assay. POC eGFR-AA 45 (L) >=60 mL/min/1.73 m2 POC [facility] OR Comment: Normal eGFR >= 60 mL/min/1.73 m2 The eGFR is calculated using the CKD-EPI equation. The eGFR declines with age. eGFR <60 mL/min/1.73 m2 is considered as "decreased" This equation should only be used for patients 18 and older. According to the National Kidney Found[employer] ion's Kidney Disease Outcome Quality Initiative (KDOQI) classification and 2012 Kidney Disease Improving Global Outcomes (KDIGO) Clinical Practice Guideline, the stage of CKD should be categorized based on estimated GFR. Stage Description GFR mL/min/1.73 m2 1 Kidney damage with normal or high GFR >=90 2 Kidney damage with mild decrease in GF R 60-89 3a Mild to moderate decrease in GFR 45-59 3b Moderate to severe decrease in GFR 30-44 4 Severe decrease in GFR 15-29 5 Kidney failure <15 (or dialysis) POC eGFR-ALONSO 39 (L) >=60 mL/min/1.73 m2 POC [facility] Comment: Normal eGFR >= 60 mL/min/1.73 m2 The eGFR is calculated using the CKD-EPI equation. The eGFR declines with age. eGFR <60 mL/min/1.73 m2 is considered as "decreased" This equation should only be used for patients 18 and older. According to the National Kidney Foundat ion's Kidney Disease Outcome Quality Initiative (KDOQI) classification and 2012 Kidney Disease Improving Global Outcomes (KDIGO) Clinical Practice Guideline, the stage of CKD should be categorized based on estimated GFR. Stage Description GFR mL/min/1.73 m2 1 Kidney damage with normal or high GFR >=90 2 Kidney damage with mild decrease in GF R 60-89 3a Mild to moderate decrease in GFR 45-59 3b Moderate to severe decrease in GFR 30-44 4 Severe decrease in GFR 15-29 5 Kidney failure <15 (or dialysis) POC Clean Dev Yes POC [facility] Performing Lab [facility] POC TELCO R Comment: [facility] Clinical Lab, [address] [place] [id number]; Lab Direct or: Jessica Peña MD Specimen Anatomical Collection Method Collection Time Receive d Time (Source) Location / / Volume Laterality Blood 04/20/2021 12:42 04/20/2021 PM [employer] 12:42 PM [employer] Ady CHINO POCT ORDERABLES - DEVICE Performing Organization Address City/State/ZIP Code Phon e Number POC [facility] NGS Blood Control (04/11/2021 10:45 AM [employer]) athologist Signature Molecular Yes [facility] CANCER [place] ([facility]) Specimen Anatomical Collection Method Collection Time Receive d Time (Source) Location / / Volume Laterality Blood 04/11/2021 10:45 04/11/2021 4:01 AM [employer] PM [employer] Ady CHINO MDA IP HP MOLECULAR DIAG IF ORDERABLES Performing Organization Address City/State/ZIP Code Phon e Number [facility] CANCER Unless otherwise noted, [place] [address] CENTER all lab tests performed by: Division of Pathology and Laboratory Medicine [address] [facility] [address] TMP HCV Ab Path Interp (04/11/2021 10:45 AM [employer]) [facility] Time Signature HCV Ab Path There is NO [facility] serologic DONOR CENTER evidence of Hepatitis C virus antibody. Comment: MD Hernan HDEZ [id number] Dictated by: MD Hernan HDEZ Dictated Date/Time: 04.12.2021 9:[address] Transcribed Date/Time: 04.12.2021 9:36 AM [employer] Electronically Signed By: MD Hernan HDEZ [id number] on 04.12.2021 9:36 AM C Specimen Anatomical Collection Method Collection Time Receive d Time (Source) Location / / Volume Laterality Blood 04/11/2021 10:45 04/11/2021 5:43 AM [employer] PM [employer] Ady CHINO LAB BLOOD ORDERABLES Performing Organization Address City/State/ZIP Code Phon e Number [facility] [address] [address] Hepatitis C Virus Ab (04/11/2021 10:45 AM [employer]) [facility] Signature HCVAb. Non Reactive Non Reactive [facility] Comment: Antibody detection in the immunocompromi sed and immunosuppressed population may be delayed or absent entirely. Therefore serial testing, correlation with other clinical findings, and supplemental testin g (if available) should be taken into co nsideration when interpreting the results. Performed at: [facility] [address] [place] [id number] Specimen Anatomical Collection Method Collection Time Receive d Time (Source) Location / / Volume Laterality Blood 04/11/2021 10:45 04/11/2021 5:43 AM [employer] PM [employer] Ady CHINO LAB BLOOD ORDERABLES Performing Organization Address City/State/ZIP Code Phon e Number [facility] [address] [place] [address] CEA (04/11/2021 10:45 AM [employer]) athologist Signature CEA 1.2 <=3.8 ng/mL [facility] Comment: Reference Ranges: Smoker: 0.0-5.5 Non-Smoker: 0.0-3.8 This test is measured by electrochemilum inescence immunoassay on Angelo Ean immunoassay analyzers. Results obtained in different methods are not interchangeable. Testing performed at [facility], [address] [place] [address] Specimen Anatomical Collection Method Collection Time Receive d Time (Source) Location / / Volume Laterality Blood 04/11/2021 10:45 04/11/2021 AM [employer] 11:01 AM [employer] Ady CHINO LAB BLOOD ORDERABLES Performing Organization Address City/State/ZIP Code Phon e Number [address] IHC PD-L1 Material Request (04/11/2021 10:28 AM [employer]) Specimen Anatomical Collection Method Collection Time Receive d Time (Source) Location / / Volume Laterality Tissue 04/11/2021 10:28 04/11/2021 AM [employer] 10:28 AM [employer] Ady CHINO MDA IP AP BIOMARKERS Performing Organization Address City/State/ZIP Code Phon e Number MDA [facility] LABS [facility] [place] [address] [address] IHC MSI (MLH1, MSH2, MSH6, PMS2) Material Request (04/11/2021 10:28 AM [employer]) Specimen Anatomical Collection Method Collection Time Receive d Time (Source) Location / / Volume Laterality Tissue 04/11/2021 10:28 04/11/2021 AM [employer] 10:28 AM [employer] Ady CHINO MDA IP AP BIOMARKERS Performing Organization Address City/State/ZIP Code [place] [address] [address] MD FGFR3 Fusion Analysis Material Request (04/11/2021 10:19 AM [employer]) [facility] Method Time Signature Archived Previously 04/26/2021 [facility] Material diagnosed 10:52 AM [employer] tissues from [id number] were selected for molecular analysis. Results will be reported separately. Specimen Anatomical Collection Method Collection Time Receive d Time (Source) Location / / Volume Laterality Tissue 04/11/2021 10:19 04/11/2021 AM [employer] 10:19 AM [employer] Ady CHINO MDA IP AP BIOMARKERS Performing Organization Address City/[facility]/ZIP Code [place]on [place] [address] [address] MD FGFR2 Fusion Analysis Material Request (04/11/2021 10:19 AM [employer]) [facility] Method Time [facility] Archived Previously 04/26/2021 [facility] Material diagnosed 10:52 AM [employer] tissues from [id number] were selected for molecular analysis. Results will be reported separately. Specimen Anatomical Collection Method Collection Time Receive d Time (Source) Location / / Volume Laterality Tissue 04/11/2021 10:19 04/11/2021 AM [employer] 10:19 AM [employer] Ady CHINO MDA IP AP BIOMARKERS Performing Organization Address City/[facility]/ZIP Code Phon [place] [address] [address] IHC MTAP Material Request (04/11/2021 10:19 AM [employer]) Specimen Anatomical Collection Method Collection Time Receive d Time (Source) Location / / Volume Laterality Tissue 04/11/2021 10:19 04/11/2021 AM [employer] 10:19 AM [employer] Ady CHINO MDA IP AP BIOMARKERS Performing Organization Address City/State/ZIP Code [place] [address] [address] MD TP53 Mutation Material Request (04/11/2021 10:19 AM [employer]) Patholo gist Method Time Signature Archived Previously 04/26/2021 [facility] Material diagnosed 10:52 AM [employer] tissues from [id number] were selected for molecular analysis. Results will be reported separately. Specimen Anatomical Collection Method Collection Time Receive d Time (Source) Location / / Volume Laterality Tissue 04/11/2021 10:19 04/11/2021 AM [employer] 10:19 AM [employer] Ady CHINO MDA IP AP BIOMARKERS Performing Organization Address City/State/ZIP Code [place] [address] [address] MD RB1 Mutation Material Request (04/11/2021 10:19 AM [employer]) [facility] gist Method Time Signature Archived Previously 04/26/2021 [facility] Material diagnosed 10:52 AM [employer] tissues from [place] [address] were selected for molecular analysis. Results will be reported separately. Specimen Anatomical Collection Method Collection Time Receive d Time (Source) Location / / Volume Laterality Tissue 04/11/2021 10:19 04/11/2021 AM [employer] 10:19 AM [employer] Ady CHINO MDA IP AP BIOMARKERS Performing Organization Address City/[facility]/ZIP Code [place] [address] [address] MD PTEN Mutation Material Request (04/11/2021 10:19 AM [employer]) [facility] gist Method Time Signature Archived Previously 04/26/2021 [facility] Material diagnosed 10:52 AM [employer] tissues from [place] [address] were selected for molecular analysis. Results will be reported separately. Specimen Anatomical Collection Method Collection Time Receive d Time (Source) Location / / Volume Laterality Tissue 04/11/2021 10:19 04/11/2021 AM [employer] 10:19 AM [employer] Ady CHINO MDA IP AP BIOMARKERS Performing Organization Address City/State/ZIP Code [place] [address] Claire Miller MD [id number] Mutation Analysis Material Request (04/11/2021 10:19 AM [employer]) [facility] gist Method Time Signature Archived Previously 04/26/2021 [facility] Material diagnosed 10:52 AM [employer] tissues from [id number] were selected for molecular analysis. Results will be reported separately. Specimen Anatomical Collection Method Collection Time Receive d Time (Source) Location / / Volume Laterality Tissue 04/11/2021 10:19 04/11/2021 AM [employer] 10:19 AM [employer] Ady CHINO [facility] IP AP BIOMARKERS Performing Organization Address [facility]/ZIP Code Phon e Number [facility] [address] [address] [facility] [address] IHC HER2/edward Material Request (04/11/2021 10:19 AM [employer]) Specimen Anatomical Collection Method Collection Time Receive d Time (Source) Location / / Volume Laterality Tissue 04/11/2021 10:19 04/11/2021 AM [employer] 10:19 AM [employer] Ady CHINO MDA IP AP BIOMARKERS Performing Organization Address City/[facility]/ZIP Code Phon e Number [facility] [place] [address] [address] [facility] [address] Pathology Outside Interpretation (04/04/2021)Only the most recent of2 results within the time period is included. Component Value Ref Test Analysis Performed Pathologis t Range Method Time At [facility] Materials Accession#, Stained, Block, Unstained Collected Received 04/26/2021 [facility] Received A. 22:IS234, 15 SS, 2 BLOCKS, 0 USS 04/04/2021 04/25/2021 12:17 PM [employer] Diagnosis Outside (22:IS234, 15 SS, 2 BLOCKS, 0 USS, collected on 04/04/2021), designated as follows: 04/26/2021 [facility] Elect ronically 12:17 PM signed by Right thigh mass/lymph node, excision (TP x2, L1-2, L2 1-2, FX 8, IHC x9): [employer] Raysa Donnelly MD on 04/26 METASTATIC UROTHELIAL CARCINOMA IN ONE OF ONE LY MPH NODE (02/16). (SEE COMMENT) at 12:17 PM LARGEST METASTATIC FOCUS: 1 CM. No extranodal extension present. KS/FVN Comment Submitted 04/26/2021 [facility] immunohistochemical 12:17 PM stains show that the [employer] tumor cells are positive for CK7, CK20, p63, GATA3, uroplakin 3 (patchy) and high molecular weight cytokeratin (patchy) and negative for p16, SOX10 and S100. Biomarker Metastatic tumor: 04/26/2021 [facility] Block(s) [id number], FX8 12:17 PM [employer] Disclaimer "Some tests reported 04/26/2021 [facility] here may have been 12:17 PM developed and [employer] performance characteristics determined by [facility] Pathology and Laboratory Medicine. These tests have not been specifically cleared or approved by the U.S. Food and Drug Administration. If applicable, controls were reviewed and showed appropriate reactivity." Specimen (Source) Anatomical Collection Method Collection Time Re ceived Time Location / / Volume Laterality Tissue 04/04/2021 04/25/2021 3:02 PM [employer] Geena Cuello MD LAB PATHOLOGY ORDERABLES Performing Organization Address City/State/ZIP Code Phon e Number [facility] [place] [address] [address] [facility] US Pelvic (04/02/2021 8:07 PM [employer]) Specimen (Source) Anatomical Location Collection Method / Collectio n Time Received Time / Laterality Volume Narrative Systemgenerated, Documentation - 022 8:08 PM [employer] Study acquired at another institution. For comparison only. No [facility] originated interpretation requested or a vailable. Burt Tobin MD IMG OUTSIDE IMAGE ORDERAB LES OSI MRI SPINE THORACIC (03/27/2021 12:29 PM [employer]) Anatomical Region Laterality Modality Spine, T-spine Other Specimen (Source) Anatomical Collection Method Collection Time Re ceived Time Location / / Volume Laterality 04/11/2021 3:23 PM [employer] Impressions 04/11/2021 4:40 PM [employer] 1. The submitted imaging is suboptimal for interpretation for the reasons listed above. 2. Multiple T1 hypointense lesions wit h T2 hyperintense peripherally visualized including, but not limited to, T6, T7, T10, T11, L1 and L3 vertebral bodies. These foci are indeterminate given the mult iple limitations of the examination. How ever, they're suspicious for osseous metastases. Recommend obtaining magnetic resonance imaging examination using our standard protocols. 3. No evidence of compression fracture. I personally reviewed these image(s) rhea ng with the resident's/fellow's interpretations, certify that if a procedure was performed I was physically present, and agree with the final report. Narrative 04/11/2021 4:40 PM [employer] FULL RESULT: Examination: OSI MRI SPINE THORACIC, 03/27 12:29 PM. Clinical History: 81-year-old female wit h pathology proven high-grade urothelial carcinoma diagnosed in 12/2020 status post TURBT. 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 Comparison: None. Technique: OSI MRI SPINE THORACIC withou t intravenous contrast were submitted for interpretation. Findings: The submitted imaging is suboptimal due to low Jeanette 0.3 Jeanette scan parameters, large [id number]-[id number], motion artifact and lack of intravenous contrast. Alignment: 1. Maintained thoracic alignment. Intradural findings: 1. Spinal cord: Limited evaluation of cord involvement due to lack of IV contrast. 2. Leptomeningeal disease: See above. Extradural findings: 1. There are multiple T1 hypointense l esions with T2 hyperintense peripherally visualized including, but not limited to, T6, T7, T10, T11 and L1 vertebral bodies (series 7 images 16, 23, 25, 32). Dread tional T1 hypointense focus may also be present within L3 vertebral bodies seen on sagittal imaging (series 4 image 6). These foci are indeterminate given the lack of IV contrast. However, they're suspicious for osseous metastases. 2. No vertebral compression fracture. Spondylosis: Multilevel degenerative dis c disease with decrease disc height and signal and associated disc bulging at T6-T7, T7-T8, and T11-12 levels. These are associated with multilevel mild spinal ca nal narrowing, most severe at T7-T8 (ser ies 6 image 8). Paraspinal soft tissues: 1. Unremarkable visualized portions of the posterior cranial fossa. 2. No cervical adenopathy visualized a lthough the quality significantly degraded by motion artifact. 3. Unremarkable visualized portions of the solid organs. 4. No suspicious subcutaneous or intra muscular lesion. Procedure Note Mark Olmedo Jr., MD - 04/11/2021F ormatting of this note might be different from the original. FULL RESULT: Examination: OSI MRI SPINE THORACIC, 03/27 12:29 PM. Clinical History: 81-year-old female wit h pathology proven high-grade urothelial carcinoma diagnosed in 12/2020 status post TURBT. 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 Comparison: None. Technique: OSI MRI SPINE THORACIC withou t intravenous contrast were submitted for interpretation. Findings: The submitted imaging is suboptimal due to low Jeanette 0.3 Jeanette scan parameters, large [id number]-qw-[id number], motion artifact and lack of intravenous contrast. Alignment: 1. Maintained thoracic alignment. Intradural findings: 1. Spinal cord: Limited evaluation of co rd involvement due to lack of IV contrast. 2. Leptomeningeal disease: See above. Extradural findings: 1. There are multiple T1 hypointense les ions with T2 hyperintense peripherally visualized including, but not limited to, T6, T7, T10, T11 and L1 vertebral bodies (series 7 images 16, 23, 25, 32). Additional T1 hypointense focus may also be present wi thin L3 vertebral bodies seen on sagittal imaging (series 4 image 6). These foci are indeterminate given the lack of IV contrast. However, they're suspicious for osseous metastases. 2. No vertebral compression fracture. Spondylosis: Multilevel degenerative dis c disease with decrease disc height and signal and associated disc bulging at T6-T7, T7-T8, and T11-12 levels. These are associated with multilevel mild spinal canal narrowing, most severe at T7-T8 (series 6 image 8). Paraspinal soft tissues: 1. Unremarkable visualized portions of t he posterior cranial fossa. 2. No cervical adenopathy visualized alt maddy the quality significantly degraded by motion artifact. 3. Unremarkable visualized portions of t he solid organs. 4. No suspicious subcutaneous or intramu scular lesion. IMPRESSION: 1. The submitted imaging is suboptimal f or interpretation for the reasons listed above. 2. Multiple T1 hypointense lesions with T2 hyperintense peripherally visualized including, but not limited to, T6, T7, T10, T11, L1 and L3 vertebral bodies. These foci are indeterminate given the multiple limitations of the examination. However, they're suspicious for osseous metastases. Recommend obtaining magnetic resonance imaging examination using our standard protocols. 3. No evidence of compression fracture. I personally reviewed these image(s) rhea ng with the resident's/fellow's interpretations, certify that if a procedure was performed I was physically present, and agree with the final report. Saneese K Luan PA IMG OUTSIDE IMAGE ORDERABLES after 01/01/2021 Insurance Payer Benefit Plan / Subscriber ID Effective Dates Phone Addre ss Type Group MEDICARE MEDICARE PART [id number] 2006-Brennan [phone] [facility] Medicare A AND B nt [address] SOLUTIONS [address] [place] [phone] [facility] [id number] 2021-Presen [id number] [place] [address] Advance Directives Type Date Recorded Patient Dispatcher Motor Vehicle Explanati on Advance Directives: 06/24/2021 Advance Dire ctives Medical Power of Education - Eng [facility] Keyboarding Clerk Advance Directives: 06/24/2021 Medical Power of Keyboarding Clerk Code Status Date Activated Date Inactivated Comments Full Code 10/30/2021 11:00 PM 11/09/2021 3:06 PM Code Status Date Activated Date Inactivated Comments Full Code 09/27/2021 3:33 PM 09/28/2021 7:31 PM Full Code 08/01/2021 5:57 PM 08/04/2021 4:55 PM Full Code 07/16/2021 4:10 PM 07/19/2021 5:35 PM Full Code 06/24/2021 3:13 PM 06/27/2021 2:37 PM Care Teams Print Manager Relationship Specialty Start Date End Date Mayi Gómez PCP - External Follow Urology 04/04/2104/10 MD Maikol Valderrama A Cheri Mcintyre MD PCP - General Genitourinary Oncology 04/04/21 08/11/21 [facility] [place] [address] Mayi Gómez PCP - External Follow Urology 04/11/21 [place] A [id number] [address] Libby Shukla MD PCP - General Genitourinary Oncology 08/12/21 [facility] [place] [address]
--- OUTSIDE RECORDS SUMMARY | 2022-01-01 10:04 | XMS REPORT | Continuity of Care Document ---
:1940 Author Organization [facility] t Address [address] [place] [address] Care Team Providers Name Role Phone Unavailable Unavailable Unavailable Problems Condition Condition Condition Status Onset Resolution Last Treating Co mments Source Name Details Category Date Date Treatment Clinician Date DX: GROSS DX: GROSS Diagnosis Active 2020-022021-02-20 Memoria HEMATURIA HEMATURIA 09:03:00 l Active 00:00: Bobby 02/15/2021 00 [facility] UNK UNK Diagnosis Active 2020-022021-02-27 Mem oria Active 04-15 10:14:00 l 02/12/2021 00:00: Jefferson n [address] CYSTOSCOPY CYSTOSCOP Diagnosis Active 2020-022021-03-01 Memoria 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 00:00: Jennings RESECTION RESECTION 00 Active 02/12/2021 [facility] Diabetes Diabetes Problem Resolve 2021-03-18 Memoria mellitus mellitus d 01:39:24 l (disorder) (disorder) He rmann Resolved [facility] Hyperchole Hyperchol Problem Resolve 2021-03-18 Memoria sterolemia esterolemi d 01:39:24 l (disorder) a Jefferson n (disorder) Resolved Problem 03/18/20[facility] Hypertensi Hypertens Problem Resolve 2021-03-18 Memoria ve bisi d 01:39:24 l disorder, disorder, Herm polly systemic systemic arterial arterial (disorder) (disorder) Resolved Problem [facility]/20[facility] 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 01:39:24 l (disorder) (disorder) He rmann Active Problem 03/18/2021 [facility] 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 (disorder) Active Problem 03/18/2021 [facility] GROSS GROSS Diagnosis Active 2021-02-20 Mem oria HEMATURIA HEMATURIA 09:03:00 l Active Bobby [facility] History of Past Illness Condition Condition Condition Status Onset Resolution Last Treating Co mments Source Name Details Category Date Date Treatment Clinician Date Neoplasm Neoplasm Problem 2021-03-04 2021-03-04 Memoria of of 12 09:15:10 09:15:10 l unspecifie unspecifie 20:44: He rmann d behavior d behavior 00 of bladder of bladder 02/27/2021 03/04/2021 [place] Allergies, Adverse Reactions, Alerts Allergy Allergy Status Severity Reaction(s) Onset Inactive Treating Comm ents Source Name Type Date Date Clinician codeine codeine Active Mariajose Rosales Social History Social Habit Start Date Stop Date Quantity Comments Source Social History 2021-02-20 2021-02-20 [facility] lester 21:29:11 21:29:11 Medications Ordered Filled Start Stop Current Ordering Indication Dosage Frequency Signature Comments Components Source Medication Medication Date Date Medication? Clinician (SIG) Name Name Ondansetron Yes 4 mg = 1 Me moria 4 MG Oral 1-12 tab, PO, l Tablet 20:47: BID, X 5 Jennings [Zofran] 00 day, # 10 tab, 0 Refill(s), Pharmacy: [facility] [id number], 154.94, cm, 02/27/21 10:48:00 [facility], Height, 76.545, kg, 02/27/21 10:48:00 [facility], Weight Ondansetron Yes 4 mg = 1 Me moria 4 MG Oral 1-12 tab, PO, l Tablet 20:47: BID, X 5 Jennings [Zofran] 00 day, # 10 tab, 0 Refill(s), Pharmacy: [facility] [id number], 154.94, cm, 02/27/21 10:48:00 [facility], Height, 76.545, kg, 02/27/21 10:48:00 [facility], Weight Ondansetron 2022-0 Yes 4 mg = 1 Me moria 4 MG Oral 1-12 tab, PO, l Tablet 20:47: BID, X 5 Bobby [Zofran] day, # 10 tab, 0 Refill(s), Pharmacy: [facility] [id number], 154.94, cm, 02/27/21 10:48:00 [facility], Height, 76.545, kg, 02/27/21 10:48:00 [facility], Weight Ondansetron 2-0 Yes 4 mg = 1 Me moria 4 MG Oral 1-12 tab, PO, l Tablet 20:47: BID, X 5 Jennings [Zofran] day, # 10 tab, 0 Refill(s), Pharmacy: [facility] [id number], 154.94, cm, 02/27/21 10:48:00 [facility], Height, 76.545, kg, 02/27/21 10:48:00 [facility], Weight Ondansetron 2-0 Yes 4 mg = 1 Me moria 4 MG Oral 1-12 tab, PO, l Tablet 20:47: BID, X 5 Jennings [Zofran] day, # 10 tab, 0 Refill(s), Pharmacy: [facility] [id number], 154.94, cm, 02/27/21 10:48:00 [facility], Height, 76.545, kg, 02/27/21 10:48:00 [facility], Weight Phenazopyri 2-0 Yes 200 mg = 1 Memoria dine 1-12 tab, PO, l hydrochlori 20:46: ONCE, # 1 H ermann de 200 MG 00 tab, 0 Oral Tablet Refill(s), [Pyridium] Pharmacy: [facility] [id number], 154.94, cm, 02/27/21 10:48:00 [facility], Height, 76.545, kg, 02/27/21 10:48:00 [facility], Weight Phenazopyri 2-0 Yes 200 mg = 1 Memoria dine 1-12 tab, PO, l hydrochlori 20:46: ONCE, # 1 H ermann de 200 MG 00 tab, 0 Oral Tablet Refill(s), [Pyridium] Pharmacy: [facility] [id number], 154.94, cm, 02/27/21 10:48:00 [facility], Height, 76.545, kg, 02/27/21 10:48:00 [facility], Weight Phenazopyri 0 Yes 200 mg = 1 Memoria dine 1-12 tab, PO, l hydrochlori 20:46: ONCE, # 1 H ermann de 200 MG 00 tab, 0 Oral Tablet Refill(s), [Pyridium] Pharmacy: [facility] [id number], 154.94, cm, 02/27/21 10:48:00 [facility], Height, 76.545, kg, 02/27/21 10:48:00 [facility], Weight Phenazopyri 0 Yes 200 mg = 1 Memoria dine 1-12 tab, PO, l hydrochlori 20:46: ONCE, # 1 H ermann de 200 MG 00 tab, 0 Oral Tablet Refill(s), [Pyridium] Pharmacy: [facility] [id number], 154.94, cm, 02/27/21 10:48:00 [facility], Height, 76.545, kg, 02/27/21 10:48:00 [facility], Weight Phenazopyri 0 Yes 200 mg = 1 Memoria dine 1-12 tab, PO, l hydrochlori 20:46: ONCE, # 1 H ermann de 200 MG 00 tab, 0 Oral Tablet Refill(s), [Pyridium] Pharmacy: [facility] [id number], 154.94, cm, 02/27/21 10:48:00 [facility], Height, 76.545, kg, 02/27/21 10:48:00 [facility], Weight tramadol 0 No See Memoria hydrochlori 1-12 Instructio l de 50 MG 20:45: ns, PRN Jefferson n Oral Tablet 00 Pain, 1-2 tab PO Q8H as needed for severe pain. not to exceed 400 mg/day, # 30 tab, 0 Refill(s), Pharmacy: [facility] [id number], 154.94, cm, 02/27/21 10:48:00 [facility], Height, 76.545, kg, 02/27/21 10:48:00 [facility], Weight tramadol 0 No See Memoria hydrochlori 1-12 Instructio l de 50 MG 20:45: ns, PRN Jefferson n Oral Tablet 00 Pain, 1-2 tab PO Q8H as needed for severe pain. not to exceed 400 mg/day, # 30 tab, 0 Refill(s), Pharmacy: [facility] [id number], 154.94, cm, 02/27/21 10:48:00 [facility], Height, 76.545, kg, 02/27/21 10:48:00 [facility], Weight tramadol 0 No See Memoria hydrochlori -12 Instructio l de 50 MG 20:45: ns, PRN Jefferson n Oral Tablet 00 Pain, 1-2 tab PO Q8H as needed for severe pain. not to exceed 400 mg/day, # 30 tab, 0 Refill(s), Pharmacy: [facility] [id number], 154.94, cm, 02/27/21 10:48:00 [facility], Height, 76.545, kg, 02/27/21 10:48:00 [facility], Weight tramadol No See Memoria hydrochlori 12 Instructio l de 50 MG 20:45: ns, PRN Jefferson n Oral Tablet 00 Pain, 1-2 tab PO Q8H as needed for severe pain. not to exceed 400 mg/day, # 30 tab, 0 Refill(s), Pharmacy: [facility] [id number], 154.94, cm, 02/27/21 10:48:00 [facility], Height, 76.545, kg, 02/27/21 10:48:00 [facility], Weight tramadol 0 No See Memoria hydrochlori -12 Instructio l de 50 MG 20:45: ns, PRN Jefferson n Oral Tablet 00 Pain, 1-2 tab PO Q8H as needed for severe pain. not to exceed 400 mg/day, # 30 tab, 0 Refill(s), Pharmacy: [facility] [id number], 154.94, cm, 02/27/21 10:48:00 [facility], Height, 76.545, kg, 02/27/21 10:48:00 [facility], Weight Acetaminoph 0 No 1,000 mg, M emoria en 02-27 Route: PO, l 20:40: Drug form: Jennings 00 TAB, ONCE, Dosing Weight 76.545, kg, PRN Pain Score 1-3, Start date: 02/27/21 14:40:00 [facility] Oxycodone 2-0 No 5 mg, Memoria Hydrochlori 1-12 Route: PO, l de 5 MG 20:40: Drug form: Herm polly Oral Tablet 00 TAB, Q4H, Dosing Weight 76.545, kg, PRN Pain Score 4-6, Start date: 02/27/21 14:40:00 [facility], Duration: 30 day, Stop date: 03/29/21 14:39:00 [facility] Fentanyl 2021-0 No 25 Memoria 1-12 microgram, l 20:40: Route: Bobby 00 IVP, Q5Min, Dosing Weight 76.545, kg, PRN Pain Score 4-6, Priority: Routine, Start date: 02/27/21 14:40:00 [facility], Duration: 4 doses or times, Stop date: Limited # of times Hydromorpho 2021-0 No 0.5 mg, Mem oria ne 02-27 Route: l 20:40: IVP, Jennings 00 Q5Min, Dosing Weight 76.545, kg, PRN Pain Score 7-10, Start date: 02/27/21 14:40:00 [facility], Duration: 4 doses or times, Stop date: Limited # of times Flumazenil 2021-0 No 0.2 mg, Yuriy gena 02-27 Route: l 20:40: IVP, PRN, Jennings Dosing Weight 76.545, kg, PRN Benzodiaze pine Reversal, Initial dose, Start date: 02/27/21 14:40:00 [facility], Duration: 30 day, Stop date: 03/29/21 14:39:00 [facility] Naloxone 2-0 No 0.4 mg, Memori a 02-27 Route: l 20:40: IVP, Jennings 00 Q2MIN, Dosing Weight 76.545, kg, PRN Narcotic Reversal, Start date: 02/27/21 14:40:00 [facility], Duration: 8 doses or times, Stop date: Limited # of times Ondansetron 2-0 No 4 mg, Memor ia 02-27 Route: l 20:40: IVP, ONCE, Jennings Dosing Weight 76.545, kg, PRN Nausea & Vomiting, Start date: 02/27/21 14:40:00 [facility] Acetaminoph 2021-0 No 1,000 mg, M emoria en 02-27 Route: PO, l 20:40: Drug form: Bobby 00 TAB, ONCE, Dosing Weight 76.545, kg, PRN Pain Score 1-3, Start date: 02/27/21 14:40:00 [facility] Oxycodone 2021-0 No 5 mg, Memoria Hydrochlori 12 Route: PO, l de 5 MG 20:40: Drug form: Herm polly Oral Tablet 00 TAB, Q4H, Dosing Weight 76.545, kg, PRN Pain Score 4-6, Start date: 02/27/21 14:40:00 [facility], Duration: 30 day, Stop date: 03/29/21 14:39:00 [facility] Fentanyl 2021-0 No 25 Memoria 12 microgram, l 20:40: Route: Bobby 00 IVP, Q5Min, Dosing Weight 76.545, kg, PRN Pain Score 4-6, Priority: Routine, Start date: 02/27/21 14:40:00 [facility], Duration: 4 doses or times, Stop date: Limited # of times Hydromorpho 2021-0 No 0.5 mg, Mem oria ne 02-27 Route: l 20:40: IVP, Bobby 00 Q5Min, Dosing Weight 76.545, kg, PRN Pain Score 7-10, Start date: 02/27/21 14:40:00 [facility], Duration: 4 doses or times, Stop date: Limited # of times Flumazenil 2021-0 No 0.2 mg, Yuriy gena 02-27 Route: l 20:40: IVP, PRN, Bobby 00 Dosing Weight 76.545, kg, PRN Benzodiaze pine Reversal, Initial dose, Start date: 02/27/21 14:40:00 [facility], Duration: 30 day, Stop date: 03/29/21 14:39:00 [facility] Naloxone 2021-0 No 0.4 mg, Memori a 02-27 Route: l 20:40: IVP, Jennings 00 Q2MIN, Dosing Weight 76.545, kg, PRN Narcotic Reversal, Start date: 02/27/21 14:40:00 [facility], Duration: 8 doses or times, Stop date: Limited # of times Ondansetron 2-0 No 4 mg, Memor ia -12 Route: l 20:40: IVP, ONCE, Jennings Dosing Weight 76.545, kg, PRN Nausea & Vomiting, Start date: 02/27/21 14:40:00 [facility] Acetaminoph 2-0 No 1,000 mg, M emoria en 12 Route: PO, l 20:40: Drug form: Bobby 00 TAB, ONCE, Dosing Weight 76.545, kg, PRN Pain Score 1-3, Start date: 02/27/21 14:40:00 [facility] Oxycodone 2-0 No 5 mg, Memoria Hydrochlori 12 Route: PO, l de 5 MG 20:40: Drug form: Herm polly Oral Tablet 00 TAB, Q4H, Dosing Weight 76.545, kg, PRN Pain Score 4-6, Start date: 02/27/21 14:40:00 [facility], Duration: 30 day, Stop date: 03/29/21 14:39:00 [facility] Fentanyl 2021-0 No 25 Memoria 1-12 microgram, l 20:40: Route: Bobby IVP, Q5Min, Dosing Weight 76.545, kg, PRN Pain Score 4-6, Priority: Routine, Start date: 02/27/21 14:40:00 [facility], Duration: 4 doses or times, Stop date: Limited # of times Hydromorpho 2021-0 No 0.5 mg, Mem oria ne 02-27 Route: l 20:40: IVP, Q5Min, Dosing Weight 76.545, kg, PRN Pain Score 7-10, Start date: 02/27/21 14:40:00 [facility], Duration: 4 doses or times, Stop date: Limited # of times Flumazenil 2021-0 No 0.2 mg, Yuriy gena 12 Route: l 20:40: IVP, PRN, Dosing Weight 76.545, kg, PRN Benzodiaze pine Reversal, Initial dose, Start date: 02/27/21 14:40:00 [facility], Duration: 30 day, Stop date: 03/29/21 14:39:00 [facility] Naloxone 2-0 No 0.4 mg, Memori a 02-27 Route: l 20:40: IVP, Jennings 00 Q2MIN, Dosing Weight 76.545, kg, PRN Narcotic Reversal, Start date: 02/27/21 14:40:00 [facility], Duration: 8 doses or times, Stop date: Limited # of times Ondansetron 2-0 No 4 mg, Memor ia 02-27 Route: l 20:40: IVP, ONCE, Bobby 00 Dosing Weight 76.545, kg, PRN Nausea & Vomiting, Start date: 02/27/21 14:40:00 [facility] Acetaminoph 2-0 No 1,000 mg, M emoria en 02-27 Route: PO, l 20:40: Drug form: Jennings 00 TAB, ONCE, Dosing Weight 76.545, kg, PRN Pain Score 1-3, Start date: 02/27/21 14:40:00 [facility] Oxycodone 2-0 No 5 mg, Memoria Hydrochlori 02-27 Route: PO, l de 5 MG 20:40: Drug form: Herm polly Oral Tablet 00 TAB, Q4H, Dosing Weight 76.545, kg, PRN Pain Score 4-6, Start date: 02/27/21 14:40:00 [facility], Duration: 30 day, Stop date: 03/29/21 14:39:00 [facility] Fentanyl 2021-0 No 25 Memoria 1-12 microgram, l 20:40: Route: Bobby 00 IVP, Q5Min, Dosing Weight 76.545, kg, PRN Pain Score 4-6, Priority: Routine, Start date: 02/27/21 14:40:00 [facility], Duration: 4 doses or times, Stop date: Limited # of times Hydromorpho 2021-0 No 0.5 mg, Mem oria ne 02-27 Route: l 20:40: IVP, Jennings 00 Q5Min, Dosing Weight 76.545, kg, PRN Pain Score 7-10, Start date: 02/27/21 14:40:00 [facility], Duration: 4 doses or times, Stop date: Limited # of times Flumazenil 2021-0 No 0.2 mg, Yuriy gena 02-27 Route: l 20:40: IVP, PRN, Bobby 00 Dosing Weight 76.545, kg, PRN Benzodiaze pine Reversal, Initial dose, Start date: 02/27/21 14:40:00 [facility], Duration: 30 day, Stop date: 03/29/21 14:39:00 [facility] Naloxone 2-0 No 0.4 mg, Memori a 02-27 Route: l 20:40: IVP, Bobby 00 Q2MIN, Dosing Weight 76.545, kg, PRN Narcotic Reversal, Start date: 02/27/21 14:40:00 [facility], Duration: 8 doses or times, Stop date: Limited # of times Ondansetron 2-0 No 4 mg, Memor ia 02-27 Route: l 20:40: IVP, ONCE, Jennings Dosing Weight 76.545, kg, PRN Nausea & Vomiting, Start date: 02/27/21 14:40:00 [facility] Acetaminoph 2-0 No 1,000 mg, M emoria en 02-27 Route: PO, l 20:40: Drug form: Bobby 00 TAB, ONCE, Dosing Weight 76.545, kg, PRN Pain Score 1-3, Start date: 02/27/21 14:40:00 [facility] Oxycodone 2-0 No 5 mg, Memoria Hydrochlori 12 Route: PO, l de 5 MG 20:40: Drug form: Herm polly Oral Tablet 00 TAB, Q4H, Dosing Weight 76.545, kg, PRN Pain Score 4-6, Start date: 02/27/21 14:40:00 [facility], Duration: 30 day, Stop date: 03/29/21 14:39:00 [facility] Fentanyl 2-0 No 25 Memoria 1-12 microgram, l 20:40: Route: Bobby 00 IVP, Q5Min, Dosing Weight 76.545, kg, PRN Pain Score 4-6, Priority: Routine, Start date: 02/27/21 14:40:00 [facility], Duration: 4 doses or times, Stop date: Limited # of times Hydromorpho 2-0 No 0.5 mg, Mem oria ne -12 Route: l 20:40: IVP, Jennings 00 Q5Min, Dosing Weight 76.545, kg, PRN Pain Score 7-10, Start date: 02/27/21 14:40:00 [facility], Duration: 4 doses or times, Stop date: Limited # of times Flumazenil 2021-0 No 0.2 mg, Yuriy gena 1-12 Route: l 20:40: IVP, PRN, Dosing Weight 76.545, kg, PRN Benzodiaze pine Reversal, Initial dose, Start date: 02/27/21 14:40:00 [facility], Duration: 30 day, Stop date: 03/29/21 14:39:00 [facility] Naloxone 2021-0 No 0.4 mg, Memori a 112 Route: l 20:40: IVP, Q2MIN, Dosing Weight 76.545, kg, PRN Narcotic Reversal, Start date: 02/27/21 14:40:00 [facility], Duration: 8 doses or times, Stop date: Limited # of times Ondansetron 2021-0 No 4 mg, Memor ia 1-12 Route: l 20:40: IVP, ONCE, Dosing Weight 76.545, kg, PRN Nausea & Vomiting, Start date: 02/27/21 14:40:00 [facility] Pyridium 2021- No Notes: Memoria 1-12 Give with l 20:31: meals. (Same as: Pyridium) oxybutynin 2021-0 No Notes: Memor ia 1-12 Same as: l 20:31: Ditropan) Pyridium 0 No Notes: Memoria 1-12 Give with l 20:31: meals. Bobby 00 (Same as: Pyridium) oxybutynin 2021-0 No Notes: Memor ia 1-12 Same as: l 20:31: Ditropan) Pyridium 2021-0 No Notes: Memoria 1-12 Give with l 20:31: meals. (Same as: Pyridium) oxybutynin 2021-0 No Notes: Memor ia 1-12 Same as: l 20:31: Ditropan) Pyridium 2021-0 No Notes: Memoria 1-12 Give with l 20:31: meals. (Same as: Pyridium) oxybutynin 2021-0 No Notes: Memor ia 1-12 Same as: l 20:31: Ditropan) Pyridium No Notes: Memoria 1-12 Give with l 20:31: meals. (Same as: Pyridium) oxybutynin No Notes: Memor ia 02-27 Same as: l 20:31: Ditropan) lidocaine No Route: IV, Me moria (ANES) 02-27 Drug form: l 19:53: INJ, ONCE, Stop date: 02/27/21 13:53:00 [facility] propofol 2021-0 No Route: IV, Mem oria (ANES) 02-27 Drug form: l 19:53: INJ, ONCE, Stop date: 02/27/21 13:53:00 [facility] dexamethaso 2021-0 No Route: IV, Memoria ne (ANES) 02-27 Drug form: l 19:53: INJ, ONCE, Stop date: 02/27/21 13:53:00 [facility] lidocaine 2021-0 No Route: IV, Me moria (ANES) 02-27 Drug form: l 19:53: INJ, ONCE, Stop date: 02/27/21 13:53:00 [facility] propofol 2021-0 No Route: IV, Mem oria (ANES) 02-27 Drug form: l 19:53: INJ, ONCE, Stop date: 02/27/21 13:53:00 [facility] dexamethaso 2021-0 No Route: IV, Memoria ne (ANES) 02-27 Drug form: l 19:53: INJ, ONCE, Stop date: 02/27/21 13:53:00 [facility] lidocaine 2021-0 No Route: IV, Me moria (ANES) 02-27 Drug form: l 19:53: INJ, ONCE, Stop date: 02/27/21 13:53:00 [facility] propofol 2021-0 No Route: IV, Mem oria (ANES) 02-27 Drug form: l 19:53: INJ, ONCE, Stop date: 02/27/21 13:53:00 [facility] dexamethaso 2021-0 No Route: IV, Memoria ne (ANES) 02-27 Drug form: l 19:53: INJ, ONCE, Stop date: 02/27/21 13:53:00 [facility] lidocaine 2021-0 No Route: IV, Me moria (ANES) 02-27 Drug form: l 19:53: INJ, ONCE, Stop date: 02/27/21 13:53:00 [facility] propofol 2021-0 No Route: IV, Mem oria (ANES) 02-27 Drug form: l 19:53: INJ, ONCE, Stop date: 02/27/21 13:53:00 [facility] dexamethaso 2021-0 No Route: IV, Memoria ne (ANES) 02-27 Drug form: l 19:53: INJ, ONCE, Stop date: 02/27/21 13:53:00 [facility] lidocaine 2021-0 No Route: IV, Me moria (ANES) 02-27 Drug form: l 19:53: INJ, ONCE, Stop date: 02/27/21 13:53:00 [facility] propofol 2021-0 No Route: IV, Mem oria (ANES) 02-27 Drug form: l 19:53: INJ, ONCE, Stop date: 02/27/21 13:53:00 [facility] dexamethaso 2021-0 No Route: IV, Memoria ne (ANES) 02-27 Drug form: l 19:53: INJ, ONCE, Stop date: 02/27/21 13:53:00 [facility] fentaNYL 2021-0 No Route: IV, Mem oria (ANES) 02-27 Drug form: l 19:48: INJ, ONCE, Stop date: 02/27/21 13:48:00 [facility] famotidine 2021-0 No Route: IV, M emoria (ANES) 02-27 Drug form: l 19:48: INJ, ONCE, Stop date: 02/27/21 13:48:00 [facility] ondansetron 2021-0 No Route: IV, Memoria (ANES) 02-27 Drug form: l 19:48: INJ, ONCE, Stop date: 02/27/21 13:48:00 [facility] fentaNYL 2021-0 No Route: IV, Mem oria (ANES) 1- Drug form: l 19:48: INJ, ONCE, Stop date: 02/27/21 13:48:00 [facility] famotidine 2021-0 No Route: IV, M emoria (ANES) - Drug form: l 19:48: INJ, ONCE, Stop date: 02/27/21 13:48:00 [facility] ondansetron 2021-0 No Route: IV, Memoria (ANES) 02-27 Drug form: l 19:48: INJ, ONCE, Stop date: 02/27/21 13:48:00 [facility] fentaNYL 2021-0 No Route: IV, Mem oria (ANES) 02-27 Drug form: l 19:48: INJ, ONCE, Stop date: 02/27/21 13:48:00 [facility] famotidine 2021-0 No Route: IV, M emoria (ANES) 02-27 Drug form: l 19:48: INJ, ONCE, Stop date: 02/27/21 13:48:00 [facility] ondansetron 2021-0 No Route: IV, Memoria (ANES) 02-27 Drug form: l 19:48: INJ, ONCE, Stop date: 02/27/21 13:48:00 [facility] fentaNYL 2021-0 No Route: IV, Mem oria (ANES) 02-27 Drug form: l 19:48: INJ, ONCE, Stop date: 02/27/21 13:48:00 [facility] famotidine 2021-0 No Route: IV, M emoria (ANES) - Drug form: l 19:48: INJ, ONCE, Stop date: 02/27/21 13:48:00 [facility] ondansetron 2021-0 No Route: IV, Memoria (ANES) 02-27 Drug form: l 19:48: INJ, ONCE, Stop date: 02/27/21 13:48:00 [facility] fentaNYL 2-0 No Route: IV, Mem oria (ANES) 02-27 Drug form: l 19:48: INJ, ONCE, Stop date: 02/27/21 13:48:00 [facility] famotidine 2022-0 No Route: IV, M emoria (ANES) 02-27 Drug form: l 19:48: INJ, ONCE, Stop date: 02/27/21 13:48:00 [facility] ondansetron No Route: IV, Memoria (ANES) 02-27 Drug form: l 19:48: INJ, ONCE, Stop date: 02/27/21 13:48:00 [facility] ciprofloxac No Route: IV, Memoria in (ANES) 2 02-27 Drug form: l mg 18:52: INJ, Start date: 02/27/21 12:52:00 [facility], Stop date: 02/27/21 13:52:00 [facility] Lactated No Route: IV, Mem oria Ringers - Total l Injection 18:52: Volume: Joyce nn IV (ANES) 00 1,000, 1000 mL Start date: 02/27/21 12:52:00 [facility], Stop date: 02/27/21 13:52:00 [facility] ciprofloxac No Route: IV, Memoria in (ANES) 2 02-27 Drug form: l mg 18:52: INJ, Start date: 02/27/21 12:52:00 [facility], Stop date: 02/27/21 13:52:00 [facility] Lactated No Route: IV, Mem oria Ringers - Total l Injection 18:52: Volume: Joyce nn IV (ANES) 00 1,000, 1000 mL Start date: 02/27/21 12:52:00 [facility], Stop date: 02/27/21 13:52:00 [facility] ciprofloxac No Route: IV, Memoria in (ANES) 2 02-27 Drug form: l mg 18:52: INJ, Start date: 02/27/21 12:52:00 [facility], Stop date: 02/27/21 13:52:00 [facility] Lactated No Route: IV, Mem oria Ringers -12 Total l Injection 18:52: Volume: Joyce nn IV (ANES) 00 1,000, 1000 mL Start date: 02/27/21 12:52:00 [facility], Stop date: 02/27/21 13:52:00 [facility] ciprofloxac 2021-0 No Route: IV, Memoria in (ANES) 2 02-27 Drug form: l mg 18:52: INJ, Start Bobby 00 date: 02/27/21 12:52:00 [facility], Stop date: 02/27/21 13:52:00 [facility] Lactated 2021-0 No Route: IV, Mem oria Ringers -12 Total l Injection 18:52: Volume: Joyce nn IV (ANES) 00 1,000, 1000 mL Start date: 02/27/21 12:52:00 [facility], Stop date: 02/27/21 13:52:00 [facility] ciprofloxac 2021-0 No Route: IV, Memoria in (ANES) 2 02-27 Drug form: l mg 18:52: INJ, Start Jennings 00 date: 02/27/21 12:52:00 [facility], Stop date: 02/27/21 13:52:00 [facility] Lactated 0 No Route: IV, Mem oria Ringers -12 Total l Injection 18:52: Volume: Joyce nn IV (ANES) 00 1,000, 1000 mL Start date: 02/27/21 12:52:00 [facility], Stop date: 02/27/21 13:52:00 [facility] Calcium 2021-0 No 1,000 mL, Memor ia Chloride 02-27 Rate: 75 l 0.0014 17:30: ml/hr, Jennings MEQ/ML / 00 Infuse Potassium over: 13.3 Chloride hr, Route: 0.004 IV, Dosing MEQ/ML / Weight Sodium 76.545 kg, Chloride Total 0.103 Volume: MEQ/ML / 1,000, Sodium Start Lactate date: 0.028 02/27/21 MEQ/ML 11:30:00 Injectable [facility], Solution Duration: 30 day, Stop date: 03/29/21 11:29:00 [facility], BSA: 1.84 m2, 0 Calcium 2021-0 No 1,000 mL, Memor ia Chloride 02-27 Rate: 75 l 0.0014 17:30: ml/hr, Bobby MEQ/ML / 00 Infuse Potassium over: 13.3 Chloride hr, Route: 0.004 IV, Dosing MEQ/ML / Weight Sodium 76.545 kg, Chloride Total 0.103 Volume: MEQ/ML / 1,000, Sodium Start Lactate date: 0.028 02/27/21 MEQ/ML 11:30:00 Injectable G[facility]ING [facility]MENT [facility], Solution Duration: 30 day, Stop date: 03/29/21 11:29:00 G[facility]ING [facility]MENT [facility], BSA: 1.84 m2, 0 Calcium 2022-0 No 1,000 mL, Memor ia Chloride 1-12 Rate: 75 l 0.0014 17:30: ml/hr, Jennings MEQ/ML / 00 Infuse Potassium over: 13.3 Chloride hr, Route: 0.004 IV, Dosing MEQ/ML / Weight Sodium 76.545 kg, Chloride Total 0.103 Volume: MEQ/ML / 1,000, Sodium Start Lactate date: 0.028 02/27/21 MEQ/ML 11:30:00 Injectable G[facility]ING [facility]PARTMENT HEAD, Solution Duration: 30 day, Stop date: 03/29/21 11:29:00 GAMING [facility]PARTMENT HEAD, BSA: 1.84 m2, 0 Calcium 2022-0 No 1,000 mL, Memor ia Chloride 1-12 Rate: 75 l 0.0014 17:30: ml/hr, Bobby MEQ/ML / 00 Infuse Potassium over: 13.3 Chloride hr, Route: 0.004 IV, Dosing MEQ/ML / Weight Sodium 76.545 kg, Chloride Total 0.103 Volume: MEQ/ML / 1,000, Sodium Start Lactate date: 0.028 02/27/21 MEQ/ML 11:30:00 Injectable G[facility]ING [facility]PARTMENT HEAD, Solution Duration: 30 day, Stop date: 03/29/21 11:29:00 GAMING DEPARTMENT HEAD, BSA: 1.84 m2, 0 Calcium 2022-0 No 1,000 mL, Memor ia Chloride 1-12 Rate: 75 l 0.0014 17:30: ml/hr, Bobby MEQ/ML / 00 Infuse Potassium over: 13.3 Chloride hr, Route: 0.004 IV, Dosing MEQ/ML / Weight Sodium 76.545 kg, Chloride Total 0.103 Volume: MEQ/ML / 1,000, Sodium Start Lactate date: 0.028 02/27/21 MEQ/ML 11:30:00 Injectable G[facility]ING [facility]PARTMENT HEAD, Solution Duration: 30 day, Stop date: 03/29/21 11:29:00 G[facility]ING [facility]MENT [facility], BSA: 1.84 m2, 0 gemcitabine 2022-0 No Notes: Yuriy gena 02-26 Same as: l 21:00: Hazardous Drug Group 1:Antineop lastic Hazardous Drug -- Refer to safe handling procedure PPE Matrix WASTE: F/P - Black; E Yellow MEDICATION WASTE Product Size: 1000 mg Product Wasted: ___ mg gemcitabine 2021-0 No Notes: Yuriy gena 02-26 Same as: l 21:00: Hazardous Drug Group 1:Antineop lastic Hazardous Drug -- Refer to safe handling procedure PPE Matrix WASTE: F/P - Black; E Yellow MEDICATION WASTE Product Size: 1000 mg Product Wasted: ___ mg gemcitabine 2021-0 No Notes: Yuriy gena 02-26 Same as: l 21:00: Hazardous Drug Group 1:Antineop lastic Hazardous Drug -- Refer to safe handling procedure PPE Matrix WASTE: F/P - Black; E Yellow MEDICATION WASTE Product Size: 1000 mg Product Wasted: ___ mg gemcitabine 2021-0 No Notes: Yuriy gena 02-26 Same as: l 21:00: Hazardous Drug Group 1:Antineop lastic Hazardous Drug -- Refer to safe handling procedure PPE Matrix WASTE: F/P - Black; E Yellow MEDICATION WASTE Product Size: 1000 mg Product Wasted: ___ mg gemcitabine 2021-0 No Notes: Yuriy gena 02-26 Same as: l 21:00: Hazardous Drug Group 1:Antineop lastic Hazardous Drug -- Refer to safe handling procedure PPE Matrix WASTE: F/P - Black; E Yellow MEDICATION WASTE Product Size: 1000 mg Product Wasted: ___ mg Ciprofloxac 2021-0 Yes 500 mg = 1 Memoria in 500 MG 1-08 tab, PO, l Oral Tablet 03:25: Q12H, X 7 H ermann [Cipro] 00 day, # 14 tab, 0 Refill(s), Pharmacy: [facility] #[id number], 154.94, cm, 02/20/21 14:11:00 [facility]ING [facility], Height, 77.273, kg, 02/20/21 14:11:00 GAMING DEPARTMENT [facility], Weight Ciprofloxac 2021-0 Yes 500 mg = 1 Memoria in 500 MG 1-08 tab, PO, l Oral Tablet 03:25: Q12H, X 7 H ermann [Cipro] 00 day, # 14 tab, 0 Refill(s), [id number], 154.94, cm, 02/20/21 14:11:00 GAMING DEPARTMENT HEAD, Height, 77.273, kg, 02/20/21 14:11:00 GAMING DEPARTMENT HEAD, Weight Ciprofloxac 2021-0 Yes 500 mg = 1 Memoria in 500 MG 1-08 tab, PO, l Oral Tablet 03:25: Q12H, X 7 H ermann [Cipro] 00 day, # 14 tab, 0 Refill(s), [id number], 154.94, cm, 02/20/21 14:11:00 GAMING DEPARTMENT HEAD, Height, 77.273, kg, 02/20/21 14:11:00 GAMING DEPARTMENT HEAD, Weight Ciprofloxac 2021-0 Yes 500 mg = 1 Memoria in 500 MG 1-08 tab, PO, l Oral Tablet 03:25: Q12H, X 7 H ermann [Cipro] 00 day, # 14 tab, 0 Refill(s), [id number], 154.94, cm, 02/20/21 14:11:00 GAMING DEPARTMENT HEAD, Height, 77.273, kg, 02/20/21 14:11:00 GAMING DEPARTMENT HEAD, Weight Ciprofloxac 2021-0 Yes 500 mg = 1 Memoria in 500 MG 1-08 tab, PO, l Oral Tablet 03:25: Q12H, X 7 H ermann [Cipro] day, # 14 tab, 0 Refill(s), Pharmacy: [facility] #[id number], 154.94, cm, 02/20/21 14:11:00 GAMING DEPARTMENT HEAD, Height, 77.273, kg, 02/20/21 14:11:00 GAMING DEPARTMENT HEAD, Weight Docusate 2021-0 Yes 100 mg = 1 Mem oria Sodium 100 1-07 cap, PO, l MG Oral 20:30: BID, # 60 Joyce nn Capsule 00 cap, 11 [Colace] Refill(s), Pharmacy: [facility] [id number], 154.94, cm, 02/20/21 14:11:00 GAMING DEPARTMENT HEAD, Height, 77.273, kg, 02/20/21 14:11:00 GAMING DEPARTMENT HEAD, Weight Docusate 0 Yes 100 mg = 1 Mem oria Sodium 100 1-07 cap, PO, l MG Oral 20:30: BID, # 60 Joyce nn Capsule 00 cap, 11 [Colace] Refill(s), Pharmacy: [facility] [id number], 154.94, cm, 02/20/21 14:11:00 GAMING DEPARTMENT HEAD, Height, 77.273, kg, 02/20/21 14:11:00 GAMING DEPARTMENT HEAD, Weight Docusate 0 Yes 100 mg = 1 Mem oria Sodium 100 1-07 cap, PO, l MG Oral 20:30: BID, # 60 Joyce nn Capsule 00 cap, 11 [Colace] Refill(s), Pharmacy: [facility] [id number], 154.94, cm, 02/20/21 14:11:00 GAMING DEPARTMENT HEAD, Height, 77.273, kg, 02/20/21 14:11:00 GAMING DEPARTMENT HEAD, Weight Docusate 0 Yes 100 mg = 1 Mem oria Sodium 100 1-07 cap, PO, l MG Oral 20:30: BID, # 60 Joyce nn Capsule 00 cap, 11 [Colace] Refill(s), Pharmacy: [facility] [id number], 154.94, cm, 02/20/21 14:11:00 GAMING DEPARTMENT HEAD, Height, 77.273, kg, 02/20/21 14:11:00 GAMING DEPARTMENT HEAD, Weight Docusate 0 Yes 100 mg = 1 Mem oria Sodium 100 1-07 cap, PO, l MG Oral 20:30: BID, # 60 Joyce nn Capsule 00 cap, 11 [Colace] Refill(s), Pharmacy: [facility] [id number], 154.94, cm, 02/20/21 14:11:00 GAMING DEPARTMENT HEAD, Height, 77.273, kg, 02/20/21 14:11:00 GAMING DEPARTMENT HEAD, Weight Ciprofloxac 2021-0 No 500 mg = 1 Memoria in 500 MG 1-07 tab, PO, l Oral Tablet 20:27: Q12H, X 7 H ermann [Cipro] 00 day, # 14 tab, 0 Refill(s), Pharmacy: [facility] [id number], 154.94, cm, 02/20/21 14:11:00 GAMING DEPARTMENT HEAD, Height, 77.273, kg, 02/20/21 14:11:00 GAMING DEPARTMENT HEAD, Weight Ciprofloxac 2021-0 No 500 mg = 1 Memoria in 500 MG 1-07 tab, PO, l Oral Tablet 20:27: Q12H, X 7 H ermann [Cipro] day, # 14 tab, 0 Refill(s), Pharmacy: [facility] [id number], 154.94, cm, 02/20/21 14:11:00 GAMING DEPARTMENT HEAD, Height, 77.273, kg, 02/20/21 14:11:00 GAMING DEPARTMENT HEAD, Weight Ciprofloxac 2021-0 No 500 mg = 1 Memoria in 500 MG 1-07 tab, PO, l Oral Tablet 20:27: Q12H, X 7 H ermann [Cipro] day, # 14 tab, 0 Refill(s), Pharmacy: [facility] [id number], 154.94, cm, 02/20/21 14:11:00 GAMING DEPARTMENT HEAD, Height, 77.273, kg, 02/20/21 14:11:00 GAMING DEPARTMENT HEAD, Weight Ciprofloxac 2021-0 No 500 mg = 1 Memoria in 500 MG 1-07 tab, PO, l Oral Tablet 20:27: Q12H, X 7 H ermann [Cipro] day, # 14 tab, 0 Refill(s), Pharmacy: [facility] [id number], 154.94, cm, 02/20/21 14:11:00 GAMING DEPARTMENT HEAD, Height, 77.273, kg, 02/20/21 14:11:00 GAMING DEPARTMENT HEAD, Weight Ciprofloxac 2021-0 No 500 mg = 1 Memoria in 500 MG 1-07 tab, PO, l Oral Tablet 20:27: Q12H, X 7 H ermann [Cipro] day, # 14 tab, 0 Refill(s), Pharmacy: [facility] [id number], 154.94, cm, 02/20/21 14:11:00 GAMING DEPARTMENT HEAD, Height, 77.273, kg, 02/20/21 14:11:00 GAMING DEPARTMENT HEAD, Weight Docusate 2021-1 Yes 100 mg = 1 Mem oria Sodium 100 2-08 cap, PO, l MG Oral 22:44: BID, # 60 Joyce nn Capsule 00 cap, 0 [Colace] Refill(s), Pharmacy: [facility] [id number], 154.94, cm, 01/21/21 10:57:00 GAMING DEPARTMENT HEAD, Height, 77.364, kg, 01/21/21 10:57:00 GAMING DEPARTMENT HEAD, Weight tramadol 2020-02 Yes See Memoria hydrochlori 2-08 Instructio l de 50 MG 22:44: ns, PRN Jefferson n Oral Tablet 00 Pain, 1-2 tab PO Q8H as needed for severe pain. not to exceed 400 mg/day, # 30 tab, 0 Refill(s), Pharmacy: [facility] [id number], 154.94, cm, 01/21/21 10:57:00 GAMING DEPARTMENT HEAD, Height, 77.364, kg, 01/21/21 10:57:00 GAMING DEPARTMENT HEAD, Weight Phenazopyri 2020-02 Yes See Memori a dine 2-08 Instructio l hydrochlori 22:44: ns, PRN Her street de 200 MG 00 Dysuria, 1 Oral Tablet tab PO TID [Pyridium] PRN bladder cramps with food, # 12 tab, 0 Refill(s), Pharmacy: [facility] [id number], 154.94, cm, 01/21/21 10:57:00 GAMING DEPARTMENT HEAD, Height, 77.364, kg, 01/21/21 10:57:00 GAMING DEPARTMENT HEAD, Weight Docusate 2020-02 Yes 100 mg = 1 Mem oria Sodium 100 2-08 cap, PO, l MG Oral 22:44: BID, # 60 Joyce nn Capsule 00 cap, 0 [Colace] Refill(s), Pharmacy: [facility] [id number], 154.94, cm, 01/21/21 10:57:00 GAMING DEPARTMENT HEAD, Height, 77.364, kg, 01/21/21 10:57:00 GAMING DEPARTMENT HEAD, Weight tramadol 2020-02 Yes See Memoria hydrochlori 2-08 Instructio l de 50 MG 22:44: ns, PRN Jefferson n Oral Tablet 00 Pain, 1-2 tab PO Q8H as needed for severe pain. not to exceed 400 mg/day, # 30 tab, 0 Refill(s), Pharmacy: [facility] [id number], 154.94, cm, 01/21/21 10:57:00 GAMING DEPARTMENT HEAD, Height, 77.364, kg, 01/21/21 10:57:00 GAMING DEPARTMENT HEAD, Weight Phenazopyri 2020-02 Yes See Memori a dine 2-08 Instructio l hydrochlori 22:44: ns, PRN Her street de 200 MG 00 Dysuria, 1 Oral Tablet tab PO TID [Pyridium] PRN bladder cramps with food, # 12 tab, 0 Refill(s), Pharmacy: [facility] [id number], 154.94, cm, 01/21/21 10:57:00 GAMING DEPARTMENT HEAD, Height, 77.364, kg, 01/21/21 10:57:00 GAMING DEPARTMENT HEAD, Weight Docusate 2020-02 Yes 100 mg = 1 Mem oria Sodium 100 2-08 cap, PO, l MG Oral 22:44: BID, # 60 Joyce nn Capsule 00 cap, 0 [Colace] Refill(s), Pharmacy: [facility] [id number], 154.94, cm, 01/21/21 10:57:00 GAMING DEPARTMENT HEAD, Height, 77.364, kg, 01/21/21 10:57:00 GAMING DEPARTMENT HEAD, Weight tramadol 2020-02 Yes See Memoria hydrochlori 2-08 Instructio l de 50 MG 22:44: ns, PRN Jefferson n Oral Tablet 00 Pain, 1-2 tab PO Q8H as needed for severe pain. not to exceed 400 mg/day, # 30 tab, 0 Refill(s), Pharmacy: [facility] [id number], 154.94, cm, 01/21/21 10:57:00 GAMING DEPARTMENT HEAD, Height, 77.364, kg, 01/21/21 10:57:00 GAMING DEPARTMENT HEAD, Weight Phenazopyri 2020-02 Yes See Memori a dine 2-08 Instructio l hydrochlori 22:44: ns, PRN Her street de 200 MG 00 Dysuria, 1 Oral Tablet tab PO TID [Pyridium] PRN bladder cramps with food, # 12 tab, 0 Refill(s), Pharmacy: [facility] [id number], 154.94, cm, 01/21/21 10:57:00 GAMING DEPARTMENT HEAD, Height, 77.364, kg, 01/21/21 10:57:00 GAMING DEPARTMENT HEAD, Weight Docusate 2020-02 Yes 100 mg = 1 Mem oria Sodium 100 2-08 cap, PO, l MG Oral 22:44: BID, # 60 Joyce nn Capsule 00 cap, 0 [Colace] Refill(s), Pharmacy: [facility] [id number], 154.94, cm, 01/21/21 10:57:00 GAMING DEPARTMENT HEAD, Height, 77.364, kg, 01/21/21 10:57:00 GAMING DEPARTMENT HEAD, Weight tramadol 2020-02 Yes See Memoria hydrochlori 2-08 Instructio l de 50 MG 22:44: ns, PRN Jefferson n Oral Tablet 00 Pain, 1-2 tab PO Q8H as needed for severe pain. not to exceed 400 mg/day, # 30 tab, 0 Refill(s), Pharmacy: [facility] [id number], 154.94, cm, 01/21/21 10:57:00 GAMING DEPARTMENT HEAD, Height, 77.364, kg, 01/21/21 10:57:00 GAMING DEPARTMENT HEAD, Weight Phenazopyri 2020-02 Yes See Memori a dine 2-08 Instructio l hydrochlori 22:44: ns, PRN Her street de 200 MG 00 Dysuria, 1 Oral Tablet tab PO TID [Pyridium] PRN bladder cramps with food, # 12 tab, 0 Refill(s), Pharmacy: [facility] [id number], 154.94, cm, 01/21/21 10:57:00 GAMING DEPARTMENT HEAD, Height, 77.364, kg, 01/21/21 10:57:00 GAMING DEPARTMENT HEAD, Weight Docusate 2020-02 Yes 100 mg = 1 Mem oria Sodium 100 2-08 cap, PO, l MG Oral 22:44: BID, # 60 Joyce nn Capsule 00 cap, 0 [Colace] Refill(s), Pharmacy: [facility] [id number], 154.94, cm, 01/21/21 10:57:00 GAMING DEPARTMENT HEAD, Height, 77.364, kg, 01/21/21 10:57:00 GAMING DEPARTMENT HEAD, Weight tramadol 2020-02 Yes See Memoria hydrochlori 2-08 Instructio l de 50 MG 22:44: ns, PRN Jefferson n Oral Tablet 00 Pain, 1-2 tab PO Q8H as needed for severe pain. not to exceed 400 mg/day, # 30 tab, 0 Refill(s), Pharmacy: [facility] [id number], 154.94, cm, 01/21/21 10:57:00 GAMING DEPARTMENT HEAD, Height, 77.364, kg, 01/21/21 10:57:00 GAMING DEPARTMENT HEAD, Weight Phenazopyri 2020-02 Yes See [place]ay[place]i a dine 2-08 Instructio l hydrochlori 22:44: ns, PRN Her street de 200 MG 00 Dysuria, 1 Oral Tablet tab PO TID [Pyridium] PRN bladder cramps with food, # 12 tab, 0 Refill(s), Pharmacy: [facility] [id number], 154.94, cm, 01/21/21 10:57:00 GAMING DEPARTMENT HEAD, Height, 77.364, kg, 01/21/21 10:57:00 GAMING DEPARTMENT [facility], Weight Probiotic 2020-02 Yes 1 cap, PO, Me moria Formula 2-08 Daily, # l oral 22:43: 30 cap, 0 Bobby capsule 00 Refill(s), Pharmacy: [facility] [id number], 154.94, cm, 01/21/21 10:57:00 GAMING DEPARTMENT HEAD, Height, 77.364, kg, 01/21/21 10:57:00 GAMING DEPARTMENT HEAD, Weight acetaminoph 2020-02 No 1,000 mg = Memoria en 500 mg 208 2 tab, PO, l oral 22:43: TID, not Jennings tablet. 00 to exceed 3000 mg/day Take 3 times a day for 3 days, then take three times a day as needed for pain., X 3 day, # 18 tab, 0 Refill(s), Pharmacy: [facility] [id number], 154.94, cm, 01/21/21 10:57:00 GAMING DEPARTMENT HEAD, Height, 77.364... Probiotic 2020-02 Yes 1 cap, PO, Me moria Formula 2-08 Daily, # l oral 22:43: 30 cap, 0 Jennings capsule 00 Refill(s), Pharmacy: [facility] [id number], 154.94, cm, 01/21/21 10:57:00 GAMING DEPARTMENT HEAD, Height, 77.364, kg, 01/21/21 10:57:00 GAMING DEPARTMENT HEAD, Weight acetaminoph 2020-02 No 1,000 mg = Memoria en 500 mg 2-08 2 tab, PO, l oral 22:43: TID, not Jennings tablet. 00 to exceed 3000 mg/day Take 3 times a day for 3 days, then take three times a day as needed for pain., X 3 day, # 18 tab, 0 Refill(s), Pharmacy: [facility] [id number], 154.94, cm, 01/21/21 10:57:00 GAMING DEPARTMENT HEAD, Height, 77.364... Probiotic 2020-02 Yes 1 cap, PO, Me moria Formula 2-08 Daily, # l oral 22:43: 30 cap, 0 Bobby capsule 00 Refill(s), Pharmacy: [facility] [id number], 154.94, cm, 01/21/21 10:57:00 GAMING DEPARTMENT HEAD, Height, 77.364, kg, 01/21/21 10:57:00 GAMING DEPARTMENT HEAD, Weight acetaminoph 2020-02 No 1,000 mg = Memoria en 500 mg 2-08 2 tab, PO, l oral 22:43: TID, not Bobby tablet. 00 to exceed 3000 mg/day Take 3 times a day for 3 days, then take three times a day as needed for pain., X 3 day, # 18 tab, 0 Refill(s), Pharmacy: [facility] [id number], 154.94, cm, 01/21/21 10:57:00 GAMING DEPARTMENT HEAD, Height, 77.364... Probiotic 2020-02 Yes 1 cap, PO, Me moria Formula 2-08 Daily, # l oral 22:43: 30 cap, 0 Jennings capsule 00 Refill(s), Pharmacy: [facility] [id number], 154.94, cm, 01/21/21 10:57:00 GAMING DEPARTMENT HEAD, Height, 77.364, kg, 01/21/21 10:57:00 GAMING DEPARTMENT HEAD, Weight acetaminoph 2020-02 No 1,000 mg = Memoria en 500 mg 2-08 2 tab, PO, l oral 22:43: TID, not Jennings tablet. 00 to exceed 3000 mg/day Take 3 times a day for 3 days, then take three times a day as needed for pain., X 3 day, # 18 tab, 0 Refill(s), Pharmacy: [facility] [id number], 154.94, cm, 01/21/21 10:57:00 GAMING DEPARTMENT HEAD, Height, 77.364... Probiotic 2020-02 Yes 1 cap, PO, Me moria Formula 2-08 Daily, # l oral 22:43: 30 cap, 0 Jennings capsule 00 Refill(s), Pharmacy: [facility] [id number], 154.94, cm, 01/21/21 10:57:00 GAMING DEPARTMENT HEAD, Height, 77.364, kg, 01/21/21 10:57:00 GAMING DEPARTMENT HEAD, Weight acetaminoph 2020-02 No 1,000 mg = Memoria en 500 mg 2-08 2 tab, PO, l oral 22:43: TID, not Jennings tablet. 00 to exceed 3000 mg/day Take 3 times a day for 3 days, then take three times a day as needed for pain., X 3 day, # 18 tab, 0 Refill(s), Pharmacy: [facility] [id number], 154.94, cm, 01/21/21 10:57:00 GAMING DEPARTMENT HEAD, Height, 77.364... 24 HR 2020-02 Yes 50 mg = 1 Memoria mirabegron 2-08 tab, PO, l 50 MG 22:42: Daily, # Bobby Extended 00 30 tab, 0 Release Refill(s), Tablet Pharmacy: [facility] [id number], 154.94, cm, 01/21/21 10:57:00 GAMING DEPARTMENT HEAD, Height, 77.364, kg, 01/21/21 10:57:00 GAMING DEPARTMENT HEAD, Weight 24 HR 2020-02 Yes 50 mg = 1 Memoria mirabegron 2-08 tab, PO, l 50 MG 22:42: Daily, # Bobby Extended 00 30 tab, 0 Release Refill(s), Tablet Pharmacy: [facility] [id number], 154.94, cm, 01/21/21 10:57:00 GAMING DEPARTMENT HEAD, Height, 77.364, kg, 01/21/21 10:57:00 GAMING DEPARTMENT HEAD, Weight 24 HR 2020-02 Yes 50 mg = 1 Memoria mirabegron 2-08 tab, PO, l 50 MG 22:42: Daily, # Bobby Extended 00 30 tab, 0 Release Refill(s), Tablet Pharmacy: [facility] [id number], 154.94, cm, 01/21/21 10:57:00 GAMING DEPARTMENT HEAD, Height, 77.364, kg, 01/21/21 10:57:00 GAMING DEPARTMENT HEAD, Weight 24 HR 2020-02 Yes 50 mg = 1 Memoria mirabegron 2-08 tab, PO, l 50 MG 22:42: Daily, # Bobby Extended 00 30 tab, 0 Release Refill(s), Tablet Pharmacy: [facility] [id number], 154.94, cm, 01/21/21 10:57:00 GAMING DEPARTMENT HEAD, Height, 77.364, kg, 01/21/21 10:57:00 GAMING DEPARTMENT HEAD, Weight 24 HR 2020-02 Yes 50 mg = 1 Memoria mirabegron 2-08 tab, PO, l 50 MG 22:42: Daily, # Bobby Extended 00 30 tab, 0 Release Refill(s), Tablet Pharmacy: [facility] [id number], 154.94, cm, 01/21/21 10:57:00 GAMING DEPARTMENT HEAD, Height, 77.364, kg, 01/21/21 10:57:00 GAMING DEPARTMENT HEAD, Weight Ketorolac 2020-02 Yes 4 days Memor ia 2-08 l 22:32: MEDICATION WASTE Product Size: 30 mg Product Wasted: ___ mg Acetaminoph 2020-02 No Notes: Max Memoria en 2-08 acetaminop l 22:32: hen 4000 Jennings 00 mg/day (4 gm/day). (Same as: Tylenol Extra Strength) Morphine 2020-02 No Notes: Memoria 2-08 (Same l 22:32: as:MORPhin Jennings 00 e Sulfate) Flumazenil 2020-02 No Notes: Memor ia 2-08 (Same as: l 22:32: Romazicon) Bobby 00 Naloxone 2020-02 No Notes: Memoria 2-08 Same as l 22:32: Narcan Bobby 00 Diphenhydra 2020-02 No Notes: Yuriy gena mine 2-08 (Same as: l 22:32: Benadryl) Meperidine 2020-02 No Notes: Memor ia 2-08 (Same as: l 22:32: Demerol) Bobby 00 "Use Precaution in Elderly, Seizure disorders, and Renal impairment " Ondansetron 2020-02 No Notes: Yuriy gena 2-08 (Same as: l 22:32: Zofran) MEDICATION WASTE Product Size: 4 mg Product Wasted: ___ mg Dexamethaso 2020-02 No 4 mg, 1 Mem oria ne 2-08 mL, Route: l 22:32: IVP, Drug Jennings 00 form: INJ, ONCE, Dosing Weight 77.364, kg, PRN Nausea & Vomiting, Start date: 01/23/21 16:32:00 GAMING DEPARTMENT HEAD, 0 Promethazin 2020-02 No 6.25 mg, Me moria e 2-08 12.5 mL, l 22:32: Route: 00 IVPB, Drug form: SOLN, ONCE, Dosing Weight 77.364, kg, PRN Nausea & Vomiting, Start date: 01/23/21 16:32:00 GAMING DEPARTMENT HEAD, Infuse over: 15, 0 Midazolam 2020-02 No Notes: Memori a 2-08 (Same as: l 22:32: Versed) MEDICATION WASTE Product Size: 2 mg Product Wasted: ___ mg Ketorolac 2020-02 Yes 4 days Memor ia 2-08 l 22:32: MEDICATION WASTE Product Size: 30 mg Product Wasted: ___ mg Acetaminoph 2020-02 No Notes: Max Memoria en 2-08 acetaminop l 22:32: hen 4000 Bobby 00 mg/day (4 gm/day). (Same as: Tylenol Extra Strength) Morphine 2020-02 No Notes: Memoria 2-08 (Same l 22:32: as:MORPhin Bobby 00 e Sulfate) Flumazenil 2020-02 No Notes: Memor ia 2-08 (Same as: l 22:32: Romazicon) Naloxone 2020-02 No Notes: Memoria 2-08 Same as l 22:32: Narcan Diphenhydra 2020-02 No Notes: Yuriy gena mine 2-08 (Same as: l 22:32: Benadryl) Meperidine 2020-02 No Notes: Memor ia 2-08 (Same as: l 22:32: Demerol) "Use Precaution in Elderly, Seizure disorders, and Renal impairment " Ondansetron 2020-02 No Notes: Yuriy gena 2-08 (Same as: l 22:32: Zofran) MEDICATION WASTE Product Size: 4 mg Product Wasted: ___ mg Dexamethaso 2020-02 No 4 mg, 1 Mem oria ne 2-08 mL, Route: l 22:32: IVP, Drug form: INJ, ONCE, Dosing Weight 77.364, kg, PRN Nausea & Vomiting, Start date: 01/23/21 16:32:00 GAMING DEPARTMENT HEAD, 0 Promethazin 2020-02 No 6.25 mg, Me moria e 2-08 12.5 mL, l 22:32: Route: IVPB, Drug form: SOLN, ONCE, Dosing Weight 77.364, kg, PRN Nausea & Vomiting, Start date: 01/23/21 16:32:00 GAMING DEPARTMENT HEAD, Infuse over: 15, 0 Midazolam 2020-02 No Notes: Memori a 2-08 (Same as: l 22:32: Versed) MEDICATION WASTE Product Size: 2 mg Product Wasted: ___ mg Ketorolac 2020-02 Yes 4 days Memor ia 2-08 l 22:32: MEDICATION WASTE Product Size: 30 mg Product Wasted: ___ mg Acetaminoph 2020-02 No Notes: Max Memoria en 2-08 acetaminop l 22:32: hen 4000 Jennings 00 mg/day (4 gm/day). (Same as: Tylenol Extra Strength) Morphine 2020-02 No Notes: Memoria 2-08 (Same l 22:32: as:MORPhin e Sulfate) Flumazenil 2020-02 No Notes: Memor ia 2-08 (Same as: l 22:32: Romazicon) Naloxone 2020-02 No Notes: Memoria 2-08 Same as l 22:32: Narcan Diphenhydra 2020-02 No Notes: Yuriy gena mine 2-08 (Same as: l 22:32: Benadryl) Meperidine 2020-02 No Notes: Memor ia 2-08 (Same as: l 22:32: Demerol) "Use Precaution in Elderly, Seizure disorders, and Renal impairment " Ondansetron 2020-02 No Notes: Yuriy gena 2-08 (Same as: l 22:32: Zofran) MEDICATION WASTE Product Size: 4 mg Product Wasted: ___ mg Dexamethaso 2020-02 No 4 mg, 1 Mem oria ne 2-08 mL, Route: l 22:32: IVP, Drug form: INJ, ONCE, Dosing Weight 77.364, kg, PRN Nausea & Vomiting, Start date: 01/23/21 16:32:00 GAMING DEPARTMENT HEAD, 0 Promethazin 2020-02 No 6.25 mg, Me moria e 2-08 12.5 mL, l 22:32: Route: IVPB, Drug form: SOLN, ONCE, Dosing Weight 77.364, kg, PRN Nausea & Vomiting, Start date: 01/23/21 16:32:00 GAMING DEPARTMENT HEAD, Infuse over: 15, 0 Midazolam 2020-02 No Notes: Memori a 2-08 (Same as: l 22:32: Versed) MEDICATION WASTE Product Size: 2 mg Product Wasted: ___ mg Ketorolac 2020-02 Yes 4 days Memor ia 2-08 l 22:32: MEDICATION WASTE Product Size: 30 mg Product Wasted: ___ mg Acetaminoph 2020-02 No Notes: Max Memoria en 2-08 acetaminop l 22:32: hen 4000 mg/day (4 gm/day). (Same as: Tylenol Extra Strength) Morphine 2020-02 No Notes: Memoria 2-08 (Same l 22:32: as:MORPhin e Sulfate) Flumazenil 2020-02 No Notes: Memor ia 2-08 (Same as: l 22:32: Romazicon) Naloxone 2020-02 No Notes: Memoria 2-08 Same as l 22:32: Narcan Diphenhydra 2021-1 No Notes: Yuriy gena mine 2-08 (Same as: l 22:32: Benadryl) Meperidine 2020-02 No Notes: Memor ia 2-08 (Same as: l 22:32: Demerol) "Use Precaution in Elderly, Seizure disorders, and Renal impairment " Ondansetron 2020-02 No Notes: Yuriy gena 2-08 (Same as: l 22:32: Zofran) MEDICATION WASTE Product Size: 4 mg Product Wasted: ___ mg Dexamethaso 2020-02 No 4 mg, 1 Mem oria ne 2-08 mL, Route: l 22:32: IVP, Drug form: INJ, ONCE, Dosing Weight 77.364, kg, PRN Nausea & Vomiting, Start date: 01/23/21 16:32:00 GAMING DEPARTMENT HEAD, 0 Promethazin 2020-02 No 6.25 mg, Me moria e 2-08 12.5 mL, l 22:32: Route: IVPB, Drug form: SOLN, ONCE, Dosing Weight 77.364, kg, PRN Nausea & Vomiting, Start date: 01/23/21 16:32:00 GAMING DEPARTMENT HEAD, Infuse over: 15, 0 Midazolam 2020-02 No Notes: Memori a 2-08 (Same as: l 22:32: Versed) MEDICATION WASTE Product Size: 2 mg Product Wasted: ___ mg Ketorolac 2020-02 Yes 4 days Memor ia 2-08 l 22:32: MEDICATION WASTE Product Size: 30 mg Product Wasted: ___ mg Acetaminoph 2020-02 No Notes: Max Memoria en 2-08 acetaminop l 22:32: hen 4000 mg/day (4 gm/day). (Same as: Tylenol Extra Strength) Morphine 2020-02 No Notes: Memoria 2-08 (Same l 22:32: as:MORPhin e Sulfate) Flumazenil 2020-02 No Notes: Memor ia 2-08 (Same as: l 22:32: Romazicon) Naloxone 2020-02 No Notes: Memoria 2-08 Same as l 22:32: Narcan Diphenhydra 2020-02 No Notes: Yuriy gena mine 2-08 (Same as: l 22:32: Benadryl) Meperidine 2020-02 No Notes: Memor ia 2-08 (Same as: l 22:32: Demerol) "Use Precaution in Elderly, Seizure disorders, and Renal impairment " Ondansetron 2020-02 No Notes: Yuriy gena 2-08 (Same as: l 22:32: Zofran) MEDICATION WASTE Product Size: 4 mg Product Wasted: ___ mg Dexamethaso 2020-02 No 4 mg, 1 Mem oria ne 2-08 mL, Route: l 22:32: IVP, Drug form: INJ, ONCE, Dosing Weight 77.364, kg, PRN Nausea & Vomiting, Start date: 01/23/21 16:32:00 [facility], 0 Promethazin 2020-02 No 6.25 mg, Me moria e 2-08 12.5 mL, l 22:32: Route: IVPB, Drug form: SOLN, ONCE, Dosing Weight 77.364, kg, PRN Nausea & Vomiting, Start date: 01/23/21 16:32:00 [facility], Infuse over: 15, 0 Midazolam 2020-02 No Notes: Memori a 2-08 (Same as: l 22:32: Versed) MEDICATION WASTE Product Size: 2 mg Product Wasted: ___ mg glycopyrrol 2020-02 No Route: IV, Memoria ate (ANES) 2-08 Drug form: l 22:23: INJ, ONCE, Stop date: 01/23/21 16:23:00 [facility] neostigmine 2020-02 No Route: IV, Memoria (ANES) 2-08 Drug form: l 22:23: INJ, ONCE, Stop date: 01/23/21 16:23:00 [facility] glycopyrrol 2020-02 No Route: IV, Memoria ate (ANES) 2 Drug form: l 22:23: INJ, ONCE, Stop date: 01/23/21 16:23:00 [facility] neostigmine 2020-02 No Route: IV, Memoria (ANES) 2- Drug form: l 22:23: INJ, ONCE, Stop date: 01/23/21 16:23:00 [facility] glycopyrrol 2020-02 No Route: IV, Memoria ate (ANES) 2- Drug form: l 22:23: INJ, ONCE, Stop date: 01/23/21 16:23:00 [facility] HEAD neostigmine 2020-02 No Route: IV, Memoria (ANES) 2- Drug form: l 22:23: INJ, ONCE, Stop date: 01/23/21 16:23:00 [facility] HEAD glycopyrrol 2020-02 No Route: IV, Memoria ate (ANES) 2- Drug form: l 22:23: INJ, ONCE, Stop date: 01/23/21 16:23:00 [facility] HEAD neostigmine 2020-02 No Route: IV, Memoria (ANES) 2- Drug form: l 22:23: INJ, ONCE, Stop date: 01/23/21 16:23:00 [facility] HEAD glycopyrrol 2020-02 No Route: IV, Memoria ate (ANES) 2- Drug form: l 22:23: INJ, ONCE, Stop date: 01/23/21 16:23:00 [facility] HEAD neostigmine 2020-02 No Route: IV, Memoria (ANES) 2- Drug form: l 22:23: INJ, ONCE, Stop date: 01/23/21 16:23:00 [facility] HEAD esmolol 2020-02 No Route: IV, Yuriy gena (ANES) 2-08 Drug form: l 21:20: INJ, ONCE, Stop date: 01/23/21 15:20:00 [facility] HEAD esmolol 2020-02 No Route: IV, Yuriy gena (ANES) 2-08 Drug form: l 21:20: INJ, ONCE, Stop date: 01/23/21 15:20:00 GAMING [facility]PART[facility] HEAD esmolol 2020-02 No Route: IV, Yuriy gena (ANES) 2- Drug form: l 21:20: INJ, ONCE, Stop date: 01/23/21 15:20:00 G[facility]ING [facility] HEAD esmolol 2020-02 No Route: IV, Yuriy gena (ANES) 2- Drug form: l 21:20: INJ, ONCE, Stop date: 01/23/21 15:20:00 GAMING DEPARTMENT HEAD esmolol 2020-02 No Route: IV, Yuriy gena (ANES) 2- Drug form: l 21:20: INJ, ONCE, Stop date: 01/23/21 15:20:00 [facility] HEAD rocuronium 2020-02 No Route: IV, M emoria (ANES) 2- Drug form: l 21:04: INJ, ONCE, Stop date: 01/23/21 15:04:00 G[facility]ING [facility]PART[facility] HEAD rocuronium 2020-02 No Route: IV, M emoria (ANES) 2- Drug form: l 21:04: INJ, ONCE, Stop date: 01/23/21 15:04:00 GAMING DEPARTMENT HEAD rocuronium 2020-02 No Route: IV, M emoria (ANES) 2- Drug form: l 21:04: INJ, ONCE, Stop date: 01/23/21 15:04:00 GAMING DEPARTMENT HEAD rocuronium 2020-02 No Route: IV, M emoria (ANES) 2- Drug form: l 21:04: INJ, ONCE, Stop date: 01/23/21 15:04:00 GAMING DEPARTMENT HEAD rocuronium 2020-02 No Route: IV, M emoria (ANES) 2- Drug form: l 21:04: INJ, ONCE, Stop date: 01/23/21 15:04:00 [facility] HEAD metoclopram 2020-02 No Route: IV, Memoria rosette (ANES) 2- Drug form: l 20:39: INJ, ONCE, Stop date: 01/23/21 14:39:00 [facility]ING [facility] HEAD ondansetron 2020-02 No Route: IV, Memoria (ANES) 2- Drug form: l 20:39: INJ, ONCE, Stop date: 01/23/21 14:39:00 [facility] lidocaine 2020-02 No Route: IV, Me moria (ANES) 2- Drug form: l 20:39: INJ, ONCE, Stop date: 01/23/21 14:39:00 [facility]ING [facility] HEAD propofol 2020-02 No Route: IV, Mem oria (ANES) 2-08 Drug form: l 20:39: INJ, ONCE, Stop date: 01/23/21 14:39:00 [facility] HEAD metoclopram 2020-02 No Route: IV, Memoria rosette (ANES) 2- Drug form: l 20:39: INJ, ONCE, Stop date: 01/23/21 14:39:00 [facility]ING [facility]PART[facility] HEAD ondansetron 2020-02 No Route: IV, Memoria (ANES) 2- Drug form: l 20:39: INJ, ONCE, Stop date: 01/23/21 14:39:00 [facility]ING [facility] HEAD lidocaine 2020-02 No Route: IV, Me moria (ANES) 2- Drug form: l 20:39: INJ, ONCE, Stop date: 01/23/21 14:39:00 [facility] HEAD propofol 2020-02 No Route: IV, Mem oria (ANES) 2- Drug form: l 20:39: INJ, ONCE, Stop date: 01/23/21 14:39:00 [facility]ING [facility]PART[facility] HEAD metoclopram 2020-02 No Route: IV, Memoria rosette (ANES) 2-08 Drug form: l 20:39: INJ, ONCE, Stop date: 01/23/21 14:39:00 [facility]ING [facility]PART[facility] HEAD ondansetron 2020-02 No Route: IV, Memoria (ANES) 2-08 Drug form: l 20:39: INJ, ONCE, Stop date: 01/23/21 14:39:00 [facility] HEAD lidocaine 2020-02 No Route: IV, Me moria (ANES) 2-08 Drug form: l 20:39: INJ, ONCE, Stop date: 01/23/21 14:39:00 [facility]ING [facility]PART[facility] HEAD propofol 2020-02 No Route: IV, Mem oria (ANES) 2-08 Drug form: l 20:39: INJ, ONCE, Stop date: 01/23/21 14:39:00 [facility]ING [facility] HEAD metoclopram 2020-02 No Route: IV, Memoria rosette (ANES) 2-08 Drug form: l 20:39: INJ, ONCE, Stop date: 01/23/21 14:39:00 G[facility]ING [facility]PART[facility] HEAD ondansetron 2020-02 No Route: IV, Memoria (ANES) 2-08 Drug form: l 20:39: INJ, ONCE, Stop date: 01/23/21 14:39:00 [facility]ING [facility] HEAD lidocaine 2020-02 No Route: IV, Me moria (ANES) 2-08 Drug form: l 20:39: INJ, ONCE, Stop date: 01/23/21 14:39:00 [facility]ING [facility] HEAD propofol 2020-02 No Route: IV, Mem oria (ANES) 2-08 Drug form: l 20:39: INJ, ONCE, Stop date: 01/23/21 14:39:00 [facility]ING [facility] HEAD metoclopram 2020-02 No Route: IV, Memoria rosette (ANES) 2- Drug form: l 20:39: INJ, ONCE, Stop date: 01/23/21 14:39:00 [facility]ING [facility] HEAD ondansetron 2020-02 No Route: IV, Memoria (ANES) 2-08 Drug form: l 20:39: INJ, ONCE, Stop date: 01/23/21 14:39:00 [facility]ING [facility] HEAD lidocaine 2020-02 No Route: IV, Me moria (ANES) 2-08 Drug form: l 20:39: INJ, ONCE, Stop date: 01/23/21 14:39:00 [facility]ING [facility]PART[facility] HEAD propofol 2020-02 No Route: IV, Mem oria (ANES) 2-08 Drug form: l 20:39: INJ, ONCE, Stop date: 01/23/21 14:39:00 [facility]ING [facility] HEAD fentaNYL 2020-02 No Route: IV, Mem oria (ANES) 2-08 Drug form: l 20:33: INJ, ONCE, Stop date: 01/23/21 14:33:00 GAMING DEPARTMENT HEAD fentaNYL 2020-02 No Route: IV, Mem oria (ANES) 2-08 Drug form: l 20:33: INJ, ONCE, Stop date: 01/23/21 14:33:00 GAMING DEPARTMENT HEAD fentaNYL 2020-02 No Route: IV, Mem oria (ANES) 2-08 Drug form: l 20:33: INJ, ONCE, Stop date: 01/23/21 14:33:00 GAMING DEPARTMENT HEAD fentaNYL 2020-02 No Route: IV, Mem oria (ANES) 2 Drug form: l 20:33: INJ, ONCE, Stop date: 01/23/21 14:33:00 GAMING DEPARTMENT HEAD fentaNYL 2020-02 No Route: IV, Mem oria (ANES) 2 Drug form: l 20:33: INJ, ONCE, Stop date: 01/23/21 14:33:00 [facility] ciprofloxac 2020-02 No Route: IV, Memoria in (ANES) 2 03-26 Drug form: l mg 19:50: INJ, Start date: 01/23/21 13:50:00 [facility]ING [facility] HEAD, Stop date: 01/23/21 14:50:00 [facility] HEAD ciprofloxac 2020-02 No Route: IV, Memoria in (ANES) 2 03-26 Drug form: l mg 19:50: INJ, Start date: 01/23/21 13:50:00 [facility]ING [facility] HEAD, Stop date: 01/23/21 14:50:00 [facility]ING [facility]PART[facility] HEAD ciprofloxac 2020-02 No Route: IV, Memoria in (ANES) 2 03-26 Drug form: l mg 19:50: INJ, Start date: 01/23/21 13:50:00 [facility]AMING DEPARTMENT HEAD, Stop date: 01/23/21 14:50:00 G[facility]ING [facility]PART[facility] HEAD ciprofloxac 2020-02 No Route: IV, Memoria in (ANES) 2 03-26 Drug form: l mg 19:50: INJ, Start date: 01/23/21 13:50:00 [facility]ING [facility] HEAD, Stop date: 01/23/21 14:50:00 GAMING [facility]PART[facility] HEAD ciprofloxac 2020-02 No Route: IV, Memoria in (ANES) 2 03-26 Drug form: l mg 19:50: INJ, Start date: 01/23/21 13:50:00 [facility]ING [facility] HEAD, Stop date: 01/23/21 14:50:00 [facility] HEAD Lactated 2020-02 No Route: IV, Mem oria Ringers 2- Total l Injection 18:44: Volume: Joyce nn IV (ANES) 00 1,000, 1000 mL Start date: 01/23/21 12:44:00 [facility]ING [facility] HEAD, Stop date: 01/23/21 13:44:00 [facility]ING [facility] HEAD Lactated 2020-02 No Route: IV, Mem oria Ringers 2-08 Total l Injection 18:44: Volume: Joyce nn IV (ANES) 00 1,000, 1000 mL Start date: 01/23/21 12:44:00 [facility]ING [facility]PART[facility] HEAD, Stop date: 01/23/21 13:44:00 GAMING [facility] HEAD Lactated 2020-02 No Route: IV, Mem oria Ringers 2-08 Total l Injection 18:44: Volume: Joyce nn IV (ANES) 00 1,000, 1000 mL Start date: 01/23/21 12:44:00 GAMING DEPARTMENT HEAD, Stop date: 01/23/21 13:44:00 GAMING [facility]PARTMENT HEAD Lactated 2020-02 No Route: IV, Mem oria Ringers 2-08 Total l Injection 18:44: Volume: Joyce nn IV (ANES) 00 1,000, 1000 mL Start date: 01/23/21 12:44:00 GAMING DEPARTMENT HEAD, Stop date: 01/23/21 13:44:00 GAMING [facility]PARTMENT HEAD Lactated 2020-02 No Route: IV, Mem oria Ringers 2-08 Total l Injection 18:44: Volume: Joyce nn IV (ANES) 00 1,000, 1000 mL Start date: 01/23/21 12:44:00 G[facility]ING [facility]PARTMENT HEAD, Stop date: 01/23/21 13:44:00 [facility]ING [facility] HEAD Lactated 2020-02 No 1,000 mL, Yuriy gena Ringers IV 2-08 Rate: 75 l 1,000 mL 18:42: ml/hr, Bobby 00 Infuse over: 13.3 hr, Route: IV, Dosing Weight 77.364 kg, Total Volume: 1,000, Start date: 01/23/21 12:42:00 [facility] HEAD, Duration: 30 day, Stop date: 02/22/21 12:41:00 GAMING [facility]PARTMENT HEAD, BSA: 1.85 m2, 0 Lactated 2020-02 No 1,000 mL, Yuriy gena Ringers IV 2-08 Rate: 75 l 1,000 mL 18:42: ml/hr, Jennings 00 Infuse over: 13.3 hr, Route: IV, Dosing Weight 77.364 kg, Total Volume: 1,000, Start date: 01/23/21 12:42:00 GAMING DEPARTMENT HEAD, Duration: 30 day, Stop date: 02/22/21 12:41:00 GAMING DEPARTMENT HEAD, BSA: 1.85 m2, 0 Lactated 2020-02 No 1,000 mL, Yuriy gena Ringers IV 2-08 Rate: 75 l 1,000 mL 18:42: ml/hr, Jennings 00 Infuse over: 13.3 hr, Route: IV, Dosing Weight 77.364 kg, Total Volume: 1,000, Start date: 01/23/21 12:42:00 GAMING DEPARTMENT HEAD, Duration: 30 day, Stop date: 02/22/21 12:41:00 GAMING DEPARTMENT HEAD, BSA: 1.85 m2, 0 Lactated 2020-02 No 1,000 mL, Yuriy gena Ringers IV 2-08 Rate: 75 l 1,000 mL 18:42: ml/hr, Jennings 00 Infuse over: 13.3 hr, Route: IV, Dosing Weight 77.364 kg, Total Volume: 1,000, Start date: 01/23/21 12:42:00 GAMING DEPARTMENT HEAD, Duration: 30 day, Stop date: 02/22/21 12:41:00 GAMING DEPARTMENT HEAD, BSA: 1.85 m2, 0 Lactated 2020-02 No 1,000 mL, Yuriy gena Ringers IV 2-08 Rate: 75 l 1,000 mL 18:42: ml/hr, Bobby 00 Infuse over: 13.3 hr, Route: IV, Dosing Weight 77.364 kg, Total Volume: 1,000, Start date: 01/23/21 12:42:00 GAMING DEPARTMENT HEAD, Duration: 30 day, Stop date: 02/22/21 12:41:00 GAMING DEPARTMENT HEAD, BSA: 1.85 m2, 0 multivitami 2020-02 Yes PO, Daily, Memoria n 1-22 0 l 21:40: Refill(s) Jennings multivitami 2020-02 Yes PO, Daily, Memoria n 1-22 0 l 21:40: Refill(s) Bobby multivitami 2020-02 Yes PO, Daily, Memoria n 1-22 0 l 21:40: Refill(s) [place] multivitami 2020-02 Yes PO, Daily, Memoria n 1-22 0 l 21:40: Refill(s) Bobby multivitami 2021-1 Yes PO, Daily, Memoria n 1-22 0 l 21:40: Refill(s) Bobby 00 cranberry 2020-02 Yes PO, Daily, Me moria oral 1-22 0 l capsule 21:39: Refill(s) Joyce nn 00 cranberry 2020-02 Yes PO, Daily, Me moria oral 1-22 0 l capsule 21:39: Refill(s) Joyce nn 00 cranberry 2020-02 Yes PO, Daily, Me moria oral 1-22 0 l capsule 21:39: Refill(s) Joyce nn 00 cranberry 2020-02 Yes PO, Daily, Me moria oral 1-22 0 l capsule 21:39: Refill(s) Joyce nn 00 cranberry 2020-02 Yes PO, Daily, Me moria oral 1-22 0 l capsule 21:39: Refill(s) Joyce nn 00 Vital Signs Vital Name Observation Time Observation Value Comments Source Height 2021-03-15 20:20:00 154.94 cm [facility] Weight 2021-03-15 20:20:00 [facility] BMI Calculated 2021-03-15 20:20:00 Memori al [place] Respitory Rate 2021-02-27 22:00:00 Memori al [place] Systolic (mm Hg) 2021-02-27 22:00:00 Yuriy rial Bobby Diastolic (mm Hg) 2021-02-27 22:00:00 Mem orial Bobby Respitory Rate 2021-02-27 21:30:00 Memori al [place] Systolic (mm Hg) 2021-02-27 21:30:00 Yuriy rial Jennings Diastolic (mm Hg) 2021-02-27 21:30:00 Mem orial Bobby Respitory Rate 2021-02-27 21:15:00 Memori al Bobby Systolic (mm Hg) 2021-02-27 21:15:00 Yuriy rial Bobby Diastolic (mm Hg) 2021-02-27 21:15:00 Mem orial Bobby Heart Rate 2021-02-27 18:13:00 [facility] Height 2021-02-27 16:48:00 [facility] 2021-02-27 16:48:00 [facility] BMI Calculated 2021-02-27 16:48:00 Memori al Bobby Height 2021-02-20 20:11:00 154.94 cm [facility] Weight 2021-02-20 20:11:00 [facility] BMI Calculated 2021-02-20 20:11:00 Memori al [place] Height 2021-02-12 20:09:00 154.94 cm [facility] Weight 2021-02-12 20:09:00 [facility] BMI Calculated 2021-02-12 20:09:00 Memori al [place] Respitory Rate 2021-01-23 23:45:00 Memori al Bobby Systolic (mm Hg) 2021-01-23 23:45:00 Yuriy rial Jennings Diastolic (mm Hg) 2021-01-23 23:45:00 Mem orial Bobby Respitory Rate 2021-01-23 23:15:00 Memori al [place] Systolic (mm Hg) 2021-01-23 23:15:00 Yuriy rial Bobby Diastolic (mm Hg) 2021-01-23 23:15:00 Mem orial [place] Respitory Rate 2021-01-23 23:00:00 Memori al [place] Systolic (mm Hg) 2021-01-23 23:00:00 Yuriy rial Bobby Diastolic (mm Hg) 2021-01-23 23:00:00 Mem orial Bobby Height 2021-01-21 16:57:00 154.94 cm [facility] Weight 2021-01-21 16:57:00 [facility] BMI Calculated 2021-01-21 16:57:00 Memori al [place] Height 2021-01-07 21:33:00 154.94 cm [facility] Weight 2021-01-07 21:33:00 [facility] BMI Calculated 2021-01-07 21:33:00 Memori al Bobby Height 2020-12-28 19:18:00 152.4 [facility] Procedures Procedure Date / Time Performing Clinician Source Performed Cystourethroscopy, with 2021-03-15 23:36:00 Yuriy rial Bobby removal of foreign body, calculus, or ureteral stent from urethra or bladder (separate procedure); simple Cystourethroscopy (separate 2020-12-28 20:38:00 [facility] procedure) Knee joint operation [facility] Cystoscopy [facility] Hysterectomy<sup>1</sup> Memoria l Bobby Carpal tunnel release [facility] ermann Cholecystectomy [facility] Encounters Start End Encounter Admission Attending Care Care Encounter Source Date/Time Date/Time Type Type Clinicians Facility Department ID 2021-03-15 2021-03-16 [place] [id number] Memoria 20:15:00 05:59:59 r [facility] Time Share 2021-03-15 2021-03-16 [place] [id number] Memoria 20:15:00 05:59:59 r Urology 08 [facility] Joyce nn Time Share 2021-02-27 2021-02-27 Day [facility]Flavo [facility] [id number] Memoria 16:16:00 22:38:00 Surgery r Jennings 02 [facility] 2021-02-22 2021-02-23 Between nullFlavo [facility] [id number] Memoria 19:59:25 19:59:25 Visit r Specialty 05 [facility] 2021-02-22 2021-02-23 Between nullFlavo [facility] [id number] Memoria 19:59:03 19:59:03 Visit r Urology 04 [facility] aundrea [place] 2021-02-12 2021-02-13 [place] [id number] Memoria 20:00:00 05:59:59 r Urology 06 l [facility] Joyce nn Time Share 2021-01-28 2021-01-28 Outpatient MHIE [facility] [id number] Memoria 08:30:00 08:30:00 05 namita Jennings 2021-01-23 2021-01-23 Day nullFlavo [facility] [id number] Memoria 17:51:00 23:55:00 Surgery r Jennings [facility] 2021-01-07 2021-01-08 [place] [id number] Memoria 20:30:00 05:59:59 r Urology 04 l [facility] Joyce nn Time Share 2020-12-28 2020-12-29 [place] [id number] Memoria 21:00:00 05:59:59 r Urology 03 l [facility] Joyce nn Time Share 2020-12-28 2020-12-29 Outpatient nullFlavo [facility] [id number] Memoria 21:00:00 05:59:59 r Urology 02 l [facility] Joyce aundrea Time Share 2020-12-24 2020-12-25 Outpatient nullFlavo [facility] Multi 55 [id number] Memoria 16:20:00 05:59:59 r Specialty 01 l Clinic [facility] 2020-12-06 2020-12-07 Between nullFlavo [facility] [id number] Memoria 18:10:47 18:10:47 Visit r Urology 00 l [facility] [place] Results Test Description Test Time Test Comments Results Result Comments Source IMMUNOLOGY 2021-02-27 16:48:00 Test Item Value Reference Range Interpretation Comme nts Coronavirus (COVID-19) ALONSO (test code = Not Detected (02/27/21 10:48 AM) Coronavirus (COVID-19) ALONSO) [id number] 16:48:00 Test Item Value Reference Range Interpretation Comments Coronavirus (COVID-19) Not Detected (02/27/21 ALONSO (test code = 10:48 AM) Coronavirus (COVID-19) ALONSO) [id number] 16:48:00 Test Item Value Reference Range Interpretation Comments Coronavirus (COVID-19) Not Detected (02/27/21 ALONSO (test code = 10:48 AM) Coronavirus (COVID-19) ALONSO) [id number] 16:48:00 Test Item Value Reference Range Interpretation Comments Coronavirus (COVID-19) Not Detected (02/27/21 ALONSO (test code = 10:48 AM) Coronavirus (COVID-19) ALONSO) [id number] 16:48:00 Test Item Value Reference Range Interpretation Comments Coronavirus (COVID-19) Not Detected (02/27/21 ALONSO (test code = 10:48 AM) Coronavirus (COVID-19) ALONSO) [id number] 16:44:00 Test Item Value Reference Range Interpretation Comments Coronavirus (COVID-19) Not Detected ALONSO (test code = *NA*(01/21/21 10:44 Coronavirus (COVID-19) AM) ALONSO) [facility]2021-12-06 16:44:00 Test Item Value Reference Range Interpretation Comments Hgb A1C (test code = Hgb A1C) 5.8 [id number] 16:44:00 Test Item Value Reference Range Interpretation Comments Coronavirus (COVID-19) Not Detected ALONSO (test code = *NA*(01/21/21 10:44 Coronavirus (COVID-19) AM) ALONSO) [facility]2021-12-06 16:44:00 Test Item Value Reference Range Interpretation Comments Hgb A1C (test code = Hgb A1C) 5.8 [facility] [id number] 16:44:00 Test Item Value Reference Range Interpretation Comments Coronavirus (COVID-19) Not Detected ALONSO (test code = *NA*(01/21/21 10:44 Coronavirus (COVID-19) AM) ALONSO) [facility]2021-12-06 16:44:00 Test Item Value Reference Range Interpretation Comments Hgb A1C (test code = Hgb A1C) 5.8 [facility] [id number] 16:44:00 Test Item Value Reference Range Interpretation Comments Coronavirus (COVID-19) Not Detected ALONSO (test code = *NA*(01/21/21 10:44 Coronavirus (COVID-19) AM) ALONSO) [facility]2021-12-06 16:44:00 Test Item Value Reference Range Interpretation Comments Hgb A1C (test code = Hgb A1C) 5.8 [facility] [id number] 16:44:00 Test Item Value Reference Range Interpretation Comments Coronavirus (COVID-19) Not Detected ALONSO (test code = *NA*(01/21/21 10:44 Coronavirus (COVID-19) AM) ALONSO) [facility]2021-12-06 16:44:00 Test Item Value Reference Range Interpretation Comments Hgb A1C (test code = Hgb A1C) 5.8 [facility] [id number] 20:31:00 Test Item Value Reference Range Interpretation Comments B/C Ratio (test code = B/C Ratio) 08-07 [facility] [id number] 20:31:00 Test Item Value Reference Range Interpretation Comments Sodium Lvl (test code = Sodium Lvl) 147 135-146 [place] [id number] 20:31:00 Test Item Value Reference Range Interpretation Comments Potassium Lvl (test code = Potassium 4.6 3.5-5.3 Lvl) [place] [id number] 20:31:00 Test Item Value Reference Range Interpretation Comments Chloride Lvl (test code = Chloride Lvl) 110 98-110 [place] [id number] 20:31:00 Test Item Value Reference Range Interpretation Comments CO2 (test code = CO2) 27 20-32 [place] [id number] 20:31:00 Test Item Value Reference Range Interpretation Comments Calcium Lvl (test code = Calcium Lvl) 9.2 8.6-10.4 [place] [id number] 20:31:00 Test Item Value Reference Range Interpretation Comments WBC X 10x3 (test code = WBC X 10x3) 8.5 3.8-10.8 [place] [id number] 20:31:00 Test Item Value Reference Range Interpretation Comments RBC X 10x6 (test code = RBC X 10x6) 3.68 3.80-5.10 [place] [id number] 20:31:00 Test Item Value Reference Range Interpretation Comments Hgb (test code = Hgb) 10.6 11.7-15.5 [place] [id number] 20:31:00 Test Item Value Reference Range Interpretation Comments Hct (test code = Hct) 33.4 35.0-45.0 [place] [id number] 20:31:00 Test Item Value Reference Range Interpretation Comments MCV (test code = MCV) 90.8 80.0-100.0 [place] [id number] 20:31:00 Test Item Value Reference Range Interpretation Comments MCH (test code = MCH) 28.8 pg 27.0-33.0 [place] [id number] 20:31:00 Test Item Value Reference Range Interpretation Comments MCHC (test code = MCHC) 31.7 32.0-36.0 [place] [id number] 20:31:00 Test Item Value Reference Range Interpretation Comments RDW (test code = RDW) 12.8 11.0-15.0 [id number] 20:31:00 Test Item Value Reference Range Interpretation Comments Platelet (test code = Platelet) 232 140-400 [id number] 20:31:00 Test Item Value Reference Range Interpretation Comments MPV (test code = MPV) 10.0 7.5-12.5 [facility] H[id number] 20:31:00 Test Item Value Reference Range Interpretation Comments Neutrophils # (test code = Neutrophils 6596 3399-8864 #) [facility] H[id number] 20:31:00 Test Item Value Reference Range Interpretation Comments Lymphocytes # (test code = Lymphocytes [phone] #) [facility] HospitalYludfsbVJVNNSGRNX7728-03-90 20:31:00 Test Item Value Reference Range Interpretation Comments Monocytes # (test code = Monocytes #) 612 200-950 [facility] H[id number] 20:31:00 Test Item Value Reference Range Interpretation Comments Eosinophils # (test code = Eosinophils 94 15-500 #) [facility] H[id number] 20:31:00 Test Item Value Reference Range Interpretation Comments Basophils # (test code 17 See_Comment [Aut omated message] The = Basophils #) system which generated this result tra nsmitted reference range : <=200. The reference r ewelina was not used to int erpret this result as normal/abnormal . [facility]UCK[facility]ZZO6882-[facility] 20:31:00 Test Item Value Reference Range Interpretation Comments Segs (test code = Segs) 77.6 [facility] HospitalLnjrwfhNYYUWQRMVD9961-81-03 20:31:00 Test Item Value Reference Range Interpretation Comments Lymphocytes (test code = Lymphocytes) 13.9 [facility] HospitalCdummycFFTDHLTUSX6023-03-98 20:31:00 Test Item Value Reference Range Interpretation Comments Monocytes (test code = Monocytes) 7.2 [facility] HospitalTicbbqjRQWVEJJNIH5708-32-60 20:31:00 Test Item Value Reference Range Interpretation Comments Eosinophils (test code = Eosinophils) 1.1 [facility] HospitalOedxoxaJCMWSFUZTU2277-86-21 20:31:00 Test Item Value Reference Range Interpretation Comments Basophils (test code = Basophils) 0.2 [facility] [id number] 20:31:00 Test Item Value Reference Range Interpretation Comments Result 2 (Urine Culture) See Result Comment (test code = Result 2 (Urine Culture)) [place]17421-11-22 20:31:00 Test Item Value Reference Range Interpretation Comments Glucose Lvl (test code = Glucose Lvl) 100 65-139 [place] 917421-11-22 20:31:00 Test Item Value Reference Range Interpretation Comments BUN (test code = BUN) 27 7- [place] 917421-11-22 20:31:00 Test Item Value Reference Range Interpretation Comments Creatinine Lvl (test code = Creatinine 1.39 0.60-0.93 Lvl) [place] 917421-11-22 20:31:00 Test Item Value Reference Range Interpretation Comments eGFR NON-AFR. FRENCH (test code = 36 eGFR NON-AFR. FRENCH) [facility]2021-11-22 20:31:00 Test Item Value Reference Range Interpretation Comments eGFR (test code = eGFR 42 ) [place] 917421-11-22 20:31:00 Test Item Value Reference Range Interpretation Comments B/C Ratio (test code = B/C Ratio) 19 6-22 [place] 917421-11-22 20:31:00 Test Item Value Reference Range Interpretation Comments Sodium Lvl (test code = Sodium Lvl) 147 135-146 [facility]2021-11-22 20:31:00 Test Item Value Reference Range Interpretation Comments Potassium Lvl (test code = Potassium 4.6 3.5-5.3 Lvl) [facility]2021-11-22 20:31:00 Test Item Value Reference Range Interpretation Comments Chloride Lvl (test code = Chloride Lvl) 110 98-110 [place] 917421-11-22 20:31:00 Test Item Value Reference Range Interpretation Comments CO2 (test code = CO2) 27 -32 [facility]2021-11-22 20:31:00 Test Item Value Reference Range Interpretation Comments Calcium Lvl (test code = Calcium Lvl) 9.2 8.6-10.4 [facility]mv[facility]oAJIQZPRURZ9614-53-04 20:31:00 Test Item Value Reference Range Interpretation Comments WBC X 10x3 (test code = WBC X 10x3) 8.5 3.8-10.8 [facility] HospitalHbwzysaIOQNUXGNWS8217-32-19 20:31:00 Test Item Value Reference Range Interpretation Comments RBC X 10x6 (test code = RBC X 10x6) 3.68 3.80-5.10 [facility] HospitalFxyrwyzMFGZUEUAIE4900-57-92 20:31:00 Test Item Value Reference Range Interpretation Comments Hgb (test code = Hgb) 10.6 11.7-15.5 [facility] HospitalOcbldzfEXQBETWQCG9092-21-74 20:31:00 Test Item Value Reference Range Interpretation Comments Hct (test code = Hct) 33.4 35.0-45.0 [facility] HospitalWukoxcpARZGOSZKPL5513-03-01 20:31:00 Test Item Value Reference Range Interpretation Comments MCV (test code = MCV) 90.8 80.0-100.0 [facility] HospitalAairrpgIZSJYCGQHA1739-86-14 20:31:00 Test Item Value Reference Range Interpretation Comments MCH (test code = MCH) 28.8 pg 27.0-33.0 [facility] HospitalKesmwjhMJJKDHTRMH4176-62-19 20:31:00 Test Item Value Reference Range Interpretation Comments MCHC (test code = MCHC) 31.7 32.0-36.0 [facility] HospitalPxyxajpGMRFSPBWTL7060-86-79 20:31:00 Test Item Value Reference Range Interpretation Comments RDW (test code = RDW) 12.8 11.0-15.0 [facility] HospitalXwcdbbePMRVSGIKYO8155-77-96 20:31:00 Test Item Value Reference Range Interpretation Comments Platelet (test code = Platelet) 232 140-400 [facility] HospitalOtdncilXKOVSHTBLE1104-61-32 20:31:00 Test Item Value Reference Range Interpretation Comments MPV (test code = MPV) 10.0 7.5-12.5 [facility] HospitalGgzufgoURKNBLQPMP1103-91-99 20:31:00 Test Item Value Reference Range Interpretation Comments Neutrophils # (test code = Neutrophils 6596 4466-8855 #) [facility] HospitalFwbhkjcXYUBCZQUYN6650-40-00 20:31:00 Test Item Value Reference Range Interpretation Comments Lymphocytes # (test code = Lymphocytes 9204 269-1015 #) [facility] HospitalWxpkdiqMBXMPWCLFG7870-28-81 20:31:00 Test Item Value Reference Range Interpretation Comments Monocytes # (test code = Monocytes #) 612 200-950 [facility] HospitalNujabgpGTKXNXFEGG0979-31-61 20:31:00 Test Item Value Reference Range Interpretation Comments Eosinophils # (test code = Eosinophils 94 15-500 #) [facility] HospitalXgfvtfyODHJDMVQBA2391-85-81 20:31:00 Test Item Value Reference Range Interpretation Comments Basophils # (test code 17 See_Comment [Aut omated message] The = Basophils #) system which generated this result tra nsmitted reference range : <=200. The reference r ewelina was not used to int erpret this result as normal/abnormal . [facility] HospitalHjcwmbqNASXZQIOAW8758-30-96 20:31:00 Test Item Value Reference Range Interpretation Comments Segs (test code = Segs) 77.6 [facility] HospitalQeptzqpBUWHXQUEKM0708-82-25 20:31:00 Test Item Value Reference Range Interpretation Comments Lymphocytes (test code = Lymphocytes) 13.9 [facility] HospitalCbzraqqRITAXUKRFP3852-52-34 20:31:00 Test Item Value Reference Range Interpretation Comments Monocytes (test code = Monocytes) 7.2 [facility] HospitalAlcynrhECLEGYIUEB0257-32-09 20:31:00 Test Item Value Reference Range Interpretation Comments Eosinophils (test code = Eosinophils) 1.1 [facility] HospitalFgyofydANNRVFSHMT7504-64-88 20:31:00 Test Item Value Reference Range Interpretation Comments Basophils (test code = Basophils) 0.2 [facility] HTJTZGY1091-24-81 20:31:00 Test Item Value Reference Range Interpretation Comments Result 2 (Urine Culture) See Result Comment (test code = Result 2 (Urine Culture)) [facility] [id number] 20:31:00 Test Item Value Reference Range Interpretation Comments Glucose Lvl (test code = Glucose Lvl) 100 65-139 [facility] WABJS5761-52-09 20:31:00 Test Item Value Reference Range Interpretation Comments BUN (test code = BUN) 27 7-25 [facility] [id number] 20:31:00 Test Item Value Reference Range Interpretation Comments Creatinine Lvl (test code = Creatinine 1.39 0.60-0.93 Lvl) [facility] BCOHJ5271-42-04 20:31:00 Test Item Value Reference Range Interpretation Comments eGFR NON-AFR. FRENCH (test code = 36 eGFR NON-AFR. FRENCH) [facility] [id number] 20:31:00 Test Item Value Reference Range Interpretation Comments eGFR (test code = eGFR 42 ) [facility]2021-11-22 20:31:00 Test Item Value Reference Range Interpretation Comments B/C Ratio (test code = B/C Ratio) 19 08-07 [place] 917421-11-22 20:31:00 Test Item Value Reference Range Interpretation Comments Sodium Lvl (test code = Sodium Lvl) 147 135-146 [place] 917421-11-22 20:31:00 Test Item Value Reference Range Interpretation Comments Potassium Lvl (test code = Potassium 4.6 3.5-5.3 Lvl) [facility]2021-11-22 20:31:00 Test Item Value Reference Range Interpretation Comments Chloride Lvl (test code = Chloride Lvl) 110 98-110 [place] 917421-11-22 20:31:00 Test Item Value Reference Range Interpretation Comments CO2 (test code = CO2) 27 [place] 917421-11-22 20:31:00 Test Item Value Reference Range Interpretation Comments Calcium Lvl (test code = Calcium Lvl) 9.2 8.6-10.4 [place] 894731-11-22 20:31:00 Test Item Value Reference Range Interpretation Comments WBC X 10x3 (test code = WBC X 10x3) 8.5 3.8-10.8 [place] 894731-11-22 20:31:00 Test Item Value Reference Range Interpretation Comments RBC X 10x6 (test code = RBC X 10x6) 3.68 3.80-5.10 [place] 894731-11-22 20:31:00 Test Item Value Reference Range Interpretation Comments Hgb (test code = Hgb) 10.6 11.7-15.5 [place] 894731-11-22 20:31:00 Test Item Value Reference Range Interpretation Comments Hct (test code = Hct) 33.4 35.0-45.0 [place] 894731-11-22 20:31:00 Test Item Value Reference Range Interpretation Comments MCV (test code = MCV) 90.8 80.0-100.0 [place] 894731-11-22 20:31:00 Test Item Value Reference Range Interpretation Comments MCH (test code = MCH) 28.8 pg 27.0-33.0 [facility] HospitalWmerqseUDOMEEOLIO3716-55-57 20:31:00 Test Item Value Reference Range Interpretation Comments MCHC (test code = MCHC) 31.7 32.0-36.0 [facility] HospitalGpnxzsxEHTPYSXLEM5475-05-21 20:31:00 Test Item Value Reference Range Interpretation Comments RDW (test code = RDW) 12.8 11.0-15.0 [place] 894731-11-22 20:31:00 Test Item Value Reference Range Interpretation Comments Platelet (test code = Platelet) 232 140-400 [facility] HospitalKbsicgsQDQNTGURIX5846-02-55 20:31:00 Test Item Value Reference Range Interpretation Comments MPV (test code = MPV) 10.0 7.5-12.5 [facility] HospitalEfevxwmGJBOESTSGU2739-37-21 20:31:00 Test Item Value Reference Range Interpretation Comments Neutrophils # (test code = Neutrophils 6596 4733-7256 #) [facility] HospitalWluytxkGEIJZCSTBE2305-46-82 20:31:00 Test Item Value Reference Range Interpretation Comments Lymphocytes # (test code = Lymphocytes 3269 549-6075 #) [facility] HospitalQnvbjjxTXRKATBOZA7106-26-39 20:31:00 Test Item Value Reference Range Interpretation Comments Monocytes # (test code = Monocytes #) 612 200-950 [facility] HospitalHcmdvctUMAPKZTYWA5611-08-82 20:31:00 Test Item Value Reference Range Interpretation Comments Eosinophils # (test code = Eosinophils 94 15-500 #) [facility] HospitalOlgxpgkWOVQCUFIIN5142-63-28 20:31:00 Test Item Value Reference Range Interpretation Comments Basophils # (test code 17 See_Comment [Aut omated message] The = Basophils #) system which generated this result tra nsmitted reference range : <=200. The reference r ewelina was not used to int erpret this result as normal/abnormal . [facility] HospitalHctgissBITIQELGJQ0256-51-28 20:31:00 Test Item Value Reference Range Interpretation Comments Segs (test code = Segs) 77.6 [place] 894731-11-22 20:31:00 Test Item Value Reference Range Interpretation Comments Lymphocytes (test code = Lymphocytes) 13.9 [place] 894731-11-22 20:31:00 Test Item Value Reference Range Interpretation Comments Monocytes (test code = Monocytes) 7.2 [place] 894731-11-22 20:31:00 Test Item Value Reference Range Interpretation Comments Eosinophils (test code = Eosinophils) 1.1 [facility] HospitalPtgsmmlFRMKUEVCFN9973-41-02 20:31:00 Test Item Value Reference Range Interpretation Comments Basophils (test code = Basophils) 0.2 [facility] [id number] 20:31:00 Test Item Value Reference Range Interpretation Comments Result 2 (Urine Culture) See Result Comment (test code = Result 2 (Urine Culture)) [facility]2021-11-22 20:31:00 Test Item Value Reference Range Interpretation Comments Glucose Lvl (test code = Glucose Lvl) 100 65-139 [facility]2021-11-22 20:31:00 Test Item Value Reference Range Interpretation Comments BUN (test code = BUN) 27 7- [facility]2021-11-22 20:31:00 Test Item Value Reference Range Interpretation Comments Creatinine Lvl (test code = Creatinine 1.39 0.60-0.93 Lvl) [facility]2021-11-22 20:31:00 Test Item Value Reference Range Interpretation Comments eGFR NON-AFR. FRENCH (test code = 36 eGFR NON-AFR. FRENCH) [facility]2021-11-22 20:31:00 Test Item Value Reference Range Interpretation Comments eGFR (test code = eGFR 42 ) [facility]2021-11-22 20:31:00 Test Item Value Reference Range Interpretation Comments B/C Ratio (test code = B/C Ratio) 19 6-22 [facility]2021-11-22 20:31:00 Test Item Value Reference Range Interpretation Comments Sodium Lvl (test code = Sodium Lvl) 147 135-146 [facility]2021-11-22 20:31:00 Test Item Value Reference Range Interpretation Comments Potassium Lvl (test code = Potassium 4.6 3.5-5.3 Lvl) [facility]2021-11-22 20:31:00 Test Item Value Reference Range Interpretation Comments Chloride Lvl (test code = Chloride Lvl) 110 98-110 [facility]2021-11-22 20:31:00 Test Item Value Reference Range Interpretation Comments CO2 (test code = CO2) 27 20-32 [place]17421-11-22 20:31:00 Test Item Value Reference Range Interpretation Comments Calcium Lvl (test code = Calcium Lvl) 9.2 8.6-10.4 [facility] HospitalThbivriQBCTKRBTML6569-65-87 20:31:00 Test Item Value Reference Range Interpretation Comments WBC X 10x3 (test code = WBC X 10x3) 8.5 3.8-10.8 [facility] HospitalIbagkapTQCGUQHDHL4962-20-58 20:31:00 Test Item Value Reference Range Interpretation Comments RBC X 10x6 (test code = RBC X 10x6) 3.68 3.80-5.10 [facility] HospitalSqlcbjlAURUEZEBKS0366-49-62 20:31:00 Test Item Value Reference Range Interpretation Comments Hgb (test code = Hgb) 10.6 11.7-15.5 [facility] HospitalGiqzfnuMUMYEWWZMH0790-19-58 20:31:00 Test Item Value Reference Range Interpretation Comments Hct (test code = Hct) 33.4 35.0-45.0 [facility] HospitalKdtgygdVCMTIDZRLG4092-62-43 20:31:00 Test Item Value Reference Range Interpretation Comments MCV (test code = MCV) 90.8 80.0-100.0 [facility] HospitalHienjrwNCRXBAMESG9492-03-21 20:31:00 Test Item Value Reference Range Interpretation Comments MCH (test code = MCH) 28.8 pg 27.0-33.0 [facility] HospitalTcehcnqCKQSDUKERQ8866-34-00 20:31:00 Test Item Value Reference Range Interpretation Comments MCHC (test code = MCHC) 31.7 32.0-36.0 [facility] HospitalDxnqhbhSTIDFSNXVA2015-32-46 20:31:00 Test Item Value Reference Range Interpretation Comments RDW (test code = RDW) 12.8 11.0-15.0 [facility] HospitalXlzqliuFVCFSGWROR7539-99-60 20:31:00 Test Item Value Reference Range Interpretation Comments Platelet (test code = Platelet) 232 140-400 [facility] HospitalDxhmzciNFKJRBBNTP5352-05-28 20:31:00 Test Item Value Reference Range Interpretation Comments MPV (test code = MPV) 10.0 7.5-12.5 [facility] HospitalInjxbowKHONIDUNLI2821-09-96 20:31:00 Test Item Value Reference Range Interpretation Comments Neutrophils # (test code = Neutrophils 6596 5164-3836 #) [facility] HospitalOnxdpxbVCXABHMVEK1159-93-12 20:31:00 Test Item Value Reference Range Interpretation Comments Lymphocytes # (test code = Lymphocytes 2440 877-5518 #) [facility] HospitalSvtbeobWAZRTAKYVK5042-24-66 20:31:00 Test Item Value Reference Range Interpretation Comments Monocytes # (test code = Monocytes #) 612 200-950 [facility] HospitalBasdcaeNGIZGNRRWZ8678-07-76 20:31:00 Test Item Value Reference Range Interpretation Comments Eosinophils # (test code = Eosinophils 94 15-500 #) [facility] HospitalBbgwlmnPKZZGLNKKV1848-26-30 20:31:00 Test Item Value Reference Range Interpretation Comments Basophils # (test code 17 See_Comment [Aut omated message] The = Basophils #) system which generated this result tra nsmitted reference range : <=200. The reference r ewelina was not used to int erpret this result as normal/abnormal . [facility] HospitalAvrxdehSMDBGTJPKN5645-88-94 20:31:00 Test Item Value Reference Range Interpretation Comments Segs (test code = Segs) 77.6 [facility] HospitalZiekbalAMROXMUPJF4498-84-78 20:31:00 Test Item Value Reference Range Interpretation Comments Lymphocytes (test code = Lymphocytes) 13.9 [facility] HospitalIkvfcvfFXVXQROYQY2243-48-52 20:31:00 Test Item Value Reference Range Interpretation Comments Monocytes (test code = Monocytes) 7.2 [facility] HospitalJarclzoJFTTWLTDAV0877-33-31 20:31:00 Test Item Value Reference Range Interpretation Comments Eosinophils (test code = Eosinophils) 1.1 [facility] HospitalMqwreoiLUAMFYUOEB7971-51-61 20:31:00 Test Item Value Reference Range Interpretation Comments Basophils (test code = Basophils) 0.2 [facility] FXGRKZH4737-56-80 20:31:00 Test Item Value Reference Range Interpretation Comments Result 2 (Urine Culture) See Result Comment (test code = Result 2 (Urine Culture)) [facility] [id number] 20:31:00 Test Item Value Reference Range Interpretation Comments Glucose Lvl (test code = Glucose Lvl) 100 65-139 [facility]2021-11-22 20:31:00 Test Item Value Reference Range Interpretation Comments BUN (test code = BUN) 27 7-25 [facility]2021-11-22 20:31:00 Test Item Value Reference Range Interpretation Comments Creatinine Lvl (test code = Creatinine 1.39 0.60-0.93 Lvl) [facility]2021-11-22 20:31:00 Test Item Value Reference Range Interpretation Comments eGFR NON-AFR. FRENCH (test code = 36 eGFR NON-AFR. FRENCH) [facility]2021-11-22 20:31:00 Test Item Value Reference Range Interpretation Comments eGFR (test code = eGFR 42 ) [place] 917421-11-22 20:31:00 Test Item Value Reference Range Interpretation Comments B/C Ratio (test code = B/C Ratio) 19 6-22 [place] 917421-11-22 20:31:00 Test Item Value Reference Range Interpretation Comments Sodium Lvl (test code = Sodium Lvl) 147 135-146 [place] 917421-11-22 20:31:00 Test Item Value Reference Range Interpretation Comments Potassium Lvl (test code = Potassium 4.6 3.5-5.3 Lvl) [place] 917421-11-22 20:31:00 Test Item Value Reference Range Interpretation Comments Chloride Lvl (test code = Chloride Lvl) 110 98-110 [place] 917421-11-22 20:31:00 Test Item Value Reference Range Interpretation Comments CO2 (test code = CO2) 27 -32 [place] 917421-11-22 20:31:00 Test Item Value Reference Range Interpretation Comments Calcium Lvl (test code = Calcium Lvl) 9.2 8.6-10.4 [place] 894731-11-22 20:31:00 Test Item Value Reference Range Interpretation Comments WBC X 10x3 (test code = WBC X 10x3) 8.5 3.8-10.8 [place] 894731-11-22 20:31:00 Test Item Value Reference Range Interpretation Comments RBC X 10x6 (test code = RBC X 10x6) 3.68 3.80-5.10 [place] 894731-11-22 20:31:00 Test Item Value Reference Range Interpretation Comments Hgb (test code = Hgb) 10.6 11.7-15.5 [place] 894731-11-22 20:31:00 Test Item Value Reference Range Interpretation Comments Hct (test code = Hct) 33.4 35.0-45.0 [place] [address]-11-22 20:31:00 Test Item Value Reference Range Interpretation Comments MCV (test code = MCV) 90.8 80.0-100.0 [facility] HospitalPltiknhEUGCRSUGZC1513-73-68 20:31:00 Test Item Value Reference Range Interpretation Comments MCH (test code = MCH) 28.8 pg 27.0-33.0 [facility] HospitalMsrxyvpRIYXDXRJCW4748-11-91 20:31:00 Test Item Value Reference Range Interpretation Comments MCHC (test code = MCHC) 31.7 32.0-36.0 [facility] HospitalOeaivlhCLUJYCXYGA1248-77-79 20:31:00 Test Item Value Reference Range Interpretation Comments RDW (test code = RDW) 12.8 11.0-15.0 [facility] HospitalTfbcwfdMKXHCFEMXA6419-84-47 20:31:00 Test Item Value Reference Range Interpretation Comments Platelet (test code = Platelet) 232 140-400 [facility] HospitalXstvccmRTHHWXZNHU2128-35-32 20:31:00 Test Item Value Reference Range Interpretation Comments MPV (test code = MPV) 10.0 7.5-12.5 [facility] HospitalQulmuxyNXSBNANYBU8334-63-66 20:31:00 Test Item Value Reference Range Interpretation Comments Neutrophils # (test code = Neutrophils 6596 8467-8632 #) [facility] HospitalXfnqhtwNURBZUDJYA8821-62-03 20:31:00 Test Item Value Reference Range Interpretation Comments Lymphocytes # (test code = Lymphocytes 4189 161-8499 #) [facility] HospitalEygnxlzRIATDANCWP5746-33-05 20:31:00 Test Item Value Reference Range Interpretation Comments Monocytes # (test code = Monocytes #) 612 200-950 [facility] HospitalUdmswgzUGKLPNXLIA6314-25-76 20:31:00 Test Item Value Reference Range Interpretation Comments Eosinophils # (test code = Eosinophils 94 15-500 #) [facility] HospitalJulgjpzKVJZCUKEJF2612-59-59 20:31:00 Test Item Value Reference Range Interpretation Comments Basophils # (test code 17 See_Comment [Aut omated message] The = Basophils #) system which generated this result tra nsmitted reference range : <=200. The reference r ewelina was not used to int erpret this result as normal/abnormal . [facility] HospitalTawaldmPQPCWHHETP7585-28-81 20:31:00 Test Item Value Reference Range Interpretation Comments Segs (test code = Segs) 77.6 [facility] HospitalXpjzuflFUMSFBMKZR3118-92-13 20:31:00 Test Item Value Reference Range Interpretation Comments Lymphocytes (test code = Lymphocytes) 13.9 [facility] HospitalBamzonhMZYRKQJHGA9223-40-25 20:31:00 Test Item Value Reference Range Interpretation Comments Monocytes (test code = Monocytes) 7.2 [facility] HospitalGhcemqzUHZGZDWEYC3934-14-34 20:31:00 Test Item Value Reference Range Interpretation Comments Eosinophils (test code = Eosinophils) 1.1 [facility]qnqilJPDMSJQURU2081-54-82 20:31:00 Test Item Value Reference Range Interpretation Comments Basophils (test code = Basophils) 0.2 [facility] CenterBrick[facility] BiotechM[facility] [id number] 20:31:00 Test Item Value Reference Range Interpretation Comments Result 2 (Urine Culture) See Result Comment (test code = Result 2 (Urine Culture)) [facility] [id number] 20:31:00 Test Item Value Reference Range Interpretation Comments Glucose Lvl (test code = Glucose Lvl) 100 65-139 [facility] CenterFervent PharmaceuticalsE[facility] IRQCQ2440-49-31 20:31:00 Test Item Value Reference Range Interpretation Comments BUN (test code = BUN) 27 7-25 [facility]2021-11-22 20:31:00 Test Item Value Reference Range Interpretation Comments Creatinine Lvl (test code = Creatinine 1.39 0.60-0.93 Lvl) [facility]2021-11-22 20:31:00 Test Item Value Reference Range Interpretation Comments eGFR NON-AFR. FRENCH (test code = 36 eGFR NON-AFR. FRENCH) [facility] CenterTeliApp [id number] 20:31:00 Test Item Value Reference Range Interpretation Comments eGFR (test code = eGFR 42 ) [facility] CenterBit Stew SystemsUNC [facility] [id number] 23:16:00 Test Item Value Reference Range Interpretation Comments Result 2 (Urine Culture) See Result Comment (test code = Result 2 (Urine Culture)) [facility] CenterBit Stew SystemsUNC [facility]ALTH [facility] [id number] 23:16:00 Test Item Value Reference Range Interpretation Comments Result 2 (Urine Culture) See Result Comment (test code = Result 2 (Urine Culture)) [facility] CenterBit Stew SystemsUNC [facility]ALTH [facility] [id number] 23:16:00 Test Item Value Reference Range Interpretation Comments Result 2 (Urine Culture) See Result Comment (test code = Result 2 (Urine Culture)) [facility] CenterannREFERENCE LAB [id number] 23:16:00 Test Item Value Reference Range Interpretation Comments Result 2 (Urine Culture) See Result Comment (test code = Result 2 (Urine Culture)) [facility]annREFER[facility] LAB [id number] 23:16:00 Test Item Value Reference Range Interpretation Comments Result 2 (Urine Culture) See Result Comment (test code = Result 2 (Urine Culture)) [facility] [id number] 19:29:00 Test Item Value Reference Range Interpretation Comments POC UA Color (test code Denisse *ABN*(12/28/20 = POC UA Color) 1:29 PM) [facility] [id number] 19:29:00 Test Item Value Reference Range Interpretation Comments POC UA Turbidity (test Clear *NA*(12/28/20 code = POC UA Turbidity) 1:29 PM) [facility] [id number] 19:29:00 Test Item Value Reference Range Interpretation Comments POC UA SG (test code = POC UA SG) 1.020 1 [facility] [id number] 19:29:00 Test Item Value Reference Range Interpretation Comments POC UA pH (test code = POC UA pH) 6.5 1 5.0-8.0 [facility] [id number] 19:29:00 Test Item Value Reference Range Interpretation Comments POC UA Prot (test code = POC UA 100 mg/dL Prot) [facility] [id number] 19:29:00 Test Item Value Reference Range Interpretation Comments POC UA Glu (test code = POC UA Negative mg/dL Glu) [facility] [id number] 19:29:00 Test Item Value Reference Range Interpretation Comments POC UA Ket (test code = POC UA Negative mg/dL Ket) [facility] [id number] 19:29:00 Test Item Value Reference Range Interpretation Comments POC UA Bili (test Negative *NA*(12/28/20 code = POC UA Bili) 1:29 PM) [facility] [id number] 19:29:00 Test Item Value Reference Range Interpretation Comments POC UA Bld (test code Large *ABN*(12/28/20 = POC UA Bld) 1:29 PM) [id number] 19:29:00 Test Item Value Reference Range Interpretation Comments POC UA Uro (test code = POC UA Uro) 0.2 0.1-1.0 [facility] [id number] 19:29:00 Test Item Value Reference Range Interpretation Comments POC UA Nit (test code Negative *NA*(12/28/20 = POC UA Nit) 1:29 PM) [facility] [id number] 19:29:00 Test Item Value Reference Range Interpretation Comments POC UA LeukEst (test Trace *ABN*(12/28/20 code = POC UA LeukEst) 1:29 PM) [facility] [id number] 19:29:00 Test Item Value Reference Range Interpretation Comments POC UA Color (test code Denisse *ABN*(12/28/20 = POC UA Color) 1:29 PM) [facility] [id number] 19:29:00 Test Item Value Reference Range Interpretation Comments POC UA Turbidity (test Clear *NA*(12/28/20 code = POC UA Turbidity) 1:29 PM) [facility] [id number] 19:29:00 Test Item Value Reference Range Interpretation Comments POC UA SG (test code = POC UA SG) 1.020 1 [facility] [id number] 19:29:00 Test Item Value Reference Range Interpretation Comments POC UA pH (test code = POC UA pH) 6.5 1 5.0-8.0 [facility] [id number] 19:29:00 Test Item Value Reference Range Interpretation Comments POC UA Prot (test code = POC UA 100 mg/dL Prot) [facility] [id number] 19:29:00 Test Item Value Reference Range Interpretation Comments POC UA Glu (test code = POC UA Negative mg/dL Glu) [facility] [id number] 19:29:00 Test Item Value Reference Range Interpretation Comments POC UA Ket (test code = POC UA Negative mg/dL Ket) [facility] [id number] 19:29:00 Test Item Value Reference Range Interpretation Comments POC UA Bili (test Negative *NA*(12/28/20 code = POC UA Bili) 1:29 PM) [facility] [id number] 19:29:00 Test Item Value Reference Range Interpretation Comments POC UA Bld (test code Large *ABN*(12/28/20 = POC UA Bld) 1:29 PM) [facility] [id number] 19:29:00 Test Item Value Reference Range Interpretation Comments POC UA Uro (test code = POC UA Uro) 0.2 0.1-1.0 [facility] [id number] 19:29:00 Test Item Value Reference Range Interpretation Comments POC UA Nit (test code Negative *NA*(12/28/20 = POC UA Nit) 1:29 PM) [facility] [id number] 19:29:00 Test Item Value Reference Range Interpretation Comments POC UA LeukEst (test Trace *ABN*(12/28/20 code = POC UA LeukEst) 1:29 PM) [facility] [id number] 19:29:00 Test Item Value Reference Range Interpretation Comments POC UA Color (test code Denisse *ABN*(12/28/20 = POC UA Color) 1:29 PM) [facility] [id number] 19:29:00 Test Item Value Reference Range Interpretation Comments POC UA Turbidity (test Clear *NA*(12/28/20 code = POC UA Turbidity) 1:29 PM) [facility] [id number] 19:29:00 Test Item Value Reference Range Interpretation Comments POC UA SG (test code = POC UA SG) 1.020 1 [facility] [id number] 19:29:00 Test Item Value Reference Range Interpretation Comments POC UA pH (test code = POC UA pH) 6.5 1 5.0-8.0 [facility] [id number] 19:29:00 Test Item Value Reference Range Interpretation Comments POC UA Prot (test code = POC UA 100 mg/dL Prot) [facility] [id number] 19:29:00 Test Item Value Reference Range Interpretation Comments POC UA Glu (test code = POC UA Negative mg/dL Glu) [facility] [id number] 19:29:00 Test Item Value Reference Range Interpretation Comments POC UA Ket (test code = POC UA Negative mg/dL Ket) [facility] [id number] 19:29:00 Test Item Value Reference Range Interpretation Comments POC UA Bili (test Negative *NA*(12/28/20 code = POC UA Bili) 1:29 PM) [facility] [id number] 19:29:00 Test Item Value Reference Range Interpretation Comments POC UA Bld (test code Large *ABN*(12/28/20 = POC UA Bld) 1:29 PM) [facility] [id number] 19:29:00 Test Item Value Reference Range Interpretation Comments POC UA Uro (test code = POC UA Uro) 0.2 0.1-1.0 [facility] [id number] 19:29:00 Test Item Value Reference Range Interpretation Comments POC UA Nit (test code Negative *NA*(12/28/20 = POC UA Nit) 1:29 PM) [facility] [id number] 19:29:00 Test Item Value Reference Range Interpretation Comments POC UA LeukEst (test Trace *ABN*(12/28/20 code = POC UA LeukEst) 1:29 PM) [facility] [id number] 19:29:00 Test Item Value Reference Range Interpretation Comments POC UA Color (test code Denisse *ABN*(12/28/20 = POC UA Color) 1:29 PM) [facility] [id number] 19:29:00 Test Item Value Reference Range Interpretation Comments POC UA Turbidity (test Clear *NA*(12/28/20 code = POC UA Turbidity) 1:29 PM) [facility] [id number] 19:29:00 Test Item Value Reference Range Interpretation Comments POC UA SG (test code = POC UA SG) 1.020 1 [facility] [id number] 19:29:00 Test Item Value Reference Range Interpretation Comments POC UA pH (test code = POC UA pH) 6.5 1 5.0-8.0 [facility] [id number] 19:29:00 Test Item Value Reference Range Interpretation Comments POC UA Prot (test code = POC UA 100 mg/dL Prot) [facility] [id number] 19:29:00 Test Item Value Reference Range Interpretation Comments POC UA Glu (test code = POC UA Negative mg/dL Glu) [facility] [id number] 19:29:00 Test Item Value Reference Range Interpretation Comments POC UA Ket (test code = POC UA Negative mg/dL Ket) [facility] [id number] 19:29:00 Test Item Value Reference Range Interpretation Comments POC UA Bili (test Negative *NA*(12/28/20 code = POC UA Bili) 1:29 PM) [facility] [id number] 19:29:00 Test Item Value Reference Range Interpretation Comments POC UA Bld (test code Large *ABN*(12/28/20 = POC UA Bld) 1:29 PM) [facility] [id number] 19:29:00 Test Item Value Reference Range Interpretation Comments POC UA Uro (test code = POC UA Uro) 0.2 0.1-1.0 [facility] [id number] 19:29:00 Test Item Value Reference Range Interpretation Comments POC UA Nit (test code Negative *NA*(12/28/20 = POC UA Nit) 1:29 PM) [facility] [id number] 19:29:00 Test Item Value Reference Range Interpretation Comments POC UA LeukEst (test Trace *ABN*(12/28/20 code = POC UA LeukEst) 1:29 PM) [facility] [id number] 19:29:00 Test Item Value Reference Range Interpretation Comments POC UA Color (test code Denisse *ABN*(12/28/20 = POC UA Color) 1:29 PM) [facility] [id number] 19:29:00 Test Item Value Reference Range Interpretation Comments POC UA Turbidity (test Clear *NA*(12/28/20 code = POC UA Turbidity) 1:29 PM) [facility] [id number] 19:29:00 Test Item Value Reference Range Interpretation Comments POC UA SG (test code = POC UA SG) 1.020 1 [facility] [id number] 19:29:00 Test Item Value Reference Range Interpretation Comments POC UA pH (test code = POC UA pH) 6.5 1 5.0-8.0 [facility] [id number] 19:29:00 Test Item Value Reference Range Interpretation Comments POC UA Prot (test code = POC UA 100 mg/dL Prot) [facility] [id number] 19:29:00 Test Item Value Reference Range Interpretation Comments POC UA Glu (test code = POC UA Negative mg/dL Glu) [facility] [id number] 19:29:00 Test Item Value Reference Range Interpretation Comments POC UA Ket (test code = POC UA Negative mg/dL Ket) [facility] [id number] 19:29:00 Test Item Value Reference Range Interpretation Comments POC UA Bili (test Negative *NA*(12/28/20 code = POC UA Bili) 1:29 PM) [facility] [id number] 19:29:00 Test Item Value Reference Range Interpretation Comments POC UA Bld (test code Large *ABN*(12/28/20 = POC UA Bld) 1:29 PM) [facility] [id number] 19:29:00 Test Item Value Reference Range Interpretation Comments POC UA Uro (test code = POC UA Uro) 0.2 0.1-1.0 [facility] [id number] 19:29:00 Test Item Value Reference Range Interpretation Comments POC UA Nit (test code Negative *NA*(12/28/20 = POC UA Nit) 1:29 PM) [facility] [id number] 19:29:00 Test Item Value Reference Range Interpretation Comments POC UA LeukEst (test Trace *ABN*(12/28/20 code = POC UA LeukEst) 1:29 PM) [facility]
[2022-01-01] MEDS ORDERED: FENTANYL CITR 100 MCG/2 ML ONE (10:50)
[2022-01-01] MEDS ORDERED: ASPIRIN EC 81 MG TAB PO ONE (10:51)
[2022-01-01] MEDS ORDERED: NA CHLORIDE 0.9% 1,000 ML ONE (10:52)
--- NOTE | 2022-01-01 10:59 | RAD REPORT ---
EXAM DESCRIPTION: Buddy Single View01/01/2022 10:48 am CLINICAL HISTORY: Shortness of breath COMPARISON: March 2021 FINDINGS: The lungs appear clear of acute infiltrate. The heart is normal size Central venous catheter has its tip in the superior vena cava 4 centimeter lucency mid right humerus contains a curvilinear lucency. This represents a pathologic m etastatic fracture. Small sclerotic densities within the humeri may represent metastases.
[2022-01-01 11:25] LABS: Absolute Lymphocytes (CBC) 0.2 K/uL (0.7-4.9); Hematocrit 26.6 % (36.0-45.0); Lymphocytes % 1.5 % (15.3-44.8); MCV 93.8 fL (80-100); Protime INR 1.17; RBC Red Blood Cell Count 2.84 M/uL (3.86-4.86)
[2022-01-01 11:42] LABS: Albumin 2.3 g/dL (3.4-5.0); Bilirubin Direct 0.2 mg/dL (0-0.2); Bilirubin Total 0.5 mg/dL (0.2-1.0); Magnesium 2.6 mg/dL (1.8-2.4); Potassium 4.3 mmol/L (3.5-5.1); Protein, Total 6.6 g/dL (6.4-8.2); Troponin High Sensitivity 31.9 pg/mL (<58.9)
[2022-01-01] MEDS ORDERED: METOPROLOL TARTRATE 5 MG/5 ML INJ IV ONE (11:59)
[2022-01-01] MEDS ORDERED: METOPROLOL TAR 50 MG TAB ONE (11:59)
[2022-01-01 12:00] LABS: SARS-COV-2 RT PCR NEGATIVE (NEGATIVE)
--- NOTE | 2022-01-01 13:56 | ER ---
Nurse's Notes [facility] Name: Roslyn Tovar Age: 81 yrs Sex: Female : 1940 Arrival Date: 01/01/2022 Time: 10:09 Bed 26 Private MD: Diagnosis: Unspecified atrial fibrillation Presentation: 01/01 10:11 Chief complaint: EMS states: they were called to the patients house for increased ap3 shortness of breath. Patient states her symptoms have since improved. 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 patient is concerned about appointments she has today at [facility] regarding her cancer treatment. Coronavirus screen: At this time, the client does not indicate any symptoms associated with coronavirus-19. Ebola Screen: No symptoms or risks identified at this time. Initial Sepsis Screen: Does the patient meet any 2 criteria? HR > 90 bpm. Does the patient have a suspected source of infection? No. Patient's initial sepsis screen is negative. 10:11 Method Of Arrival: EMS: [facility] ap3 10:14 Risk Assessment: Do you want to hurt yourself or someone else? Patient reports no ap3 desire to harm self or others. Onset of symptoms was January 01, 2022. Care prior to arrival: IV initiated. 20 GA, in the left antecubital area. 10:14 Acuity: DAVID 3 ap3 Triage Assessment: 10:15 General: Appears uncomfortable, Behavior is anxious. Pain: Complains of pain in right ap3 arm Pain began over the last few weeks. Neuro: Level of Consciousness is awake, alert, obeys commands, Oriented to person, place, time, situation, Speech is normal. Cardiovascular: Patient's skin is warm and dry. Respiratory: Airway is patent Respiratory effort is even, unlabored, Respiratory pattern is regular, symmetrical. Historical: - Allergies: 10:15 Codeine; ap3 - PMHx: 10:15 bladder cancer; ap3 - Immunization history:: Client reports receiving the 2nd dose of the Covid vaccine, Flu vaccine is up to date. - Social history:: Smoking status: Patient/guardian denies using tobacco, the patient reports quitting approximately 30 years ago. Screenin:16 Abuse screen: Denies threats or abuse. Nutritional screening: Tuberculosis screening: ap3 No symptoms or risk factors identified. 12:00 Fall Risk Fall in past 12 months (25 points). Secondary diagnosis (15 points) impaired kb3 mobility, IV access (20 points). Ambulatory Aid- None/Bed Rest/Nurse Assist (0 pts). Gait- Normal/Bed Rest/Wheelchair (0 pts) Mental Status- Oriented to own ability (0 pts). Total Reynolds Fall Scale indicates High Risk Score (45 or more points). Fall prevention measures have been instituted. Side Rails Up X 2 Placed Close to Nursing Station Frequent Obs/Assessments Occuring Family Present and informed to notify staff if the need to leave the bedside As available patient and family educated on Fall Prevention Program and Strategies. Assessment: 11:55 Reassessment: patients brief and bedding changed. patient had wet brief which soaked ap3 into bedding. after bedding change, patients HR was noted to be in the 150's. nurse did repeat EKG, which showed AFIB RVR, provider at bedside. 12:00 General: Received care of pt from off-going RN. Pt noted to be in atrial fibrillation, kb3 HR 140's on monitor with no history of afib. MD aware. Medications to be administered. Pt reports she frequently feels palpitations but has never been tod she has afib. Son is at bedside and confirms. Pt denies CP, SOB. Pt reporting pain in right arm x1 month. Reports she is supposed to restart chemo for bladder CA and that it has been on hold due to arm pain. 12:00 Cardiovascular: Rhythm is atrial fibrillation with rapid ventricular response. kb3 Respiratory: Breath sounds are clear bilaterally. 15:30 General: Pt incontinent of urine. Cleaned, linens changed. PureWick placed. 4x4 kb3 dressing applied to macerated skin tear on coccyx. . 15:55 General: Pt noted to be in SR. MD notified. EKG completed. kb3 Vital Signs: 10:11 BP 140 / 65; Pulse 107; Resp 19; Temp 98.8; Pulse Ox 100% on 2 lpm NC; Weight 65.77 kg; ap3 Height 5 ft. 1 in. (154.94 cm); 12:01 BP 155 / 58; Pulse 160; ap3 12:06 BP 130 / 66; Pulse 137; ap3 12:11 BP 129 / 68; Pulse 120; ap3 12:30 BP 130 / 61; Pulse 90; Pulse Ox 100% on 2 lpm NC; ap3 14:00 BP 136 / 57; Pulse 87; Resp 20; Pulse Ox 100% ; kb3 16:00 BP 141 / 57; Pulse 89; Resp 20; Pulse Ox 95% ; kb3 10:11 Body Mass Index 27.40 (65.77 kg, 154.94 cm) ap3 10:11 patient wears 2liters nasal canula at home ap3 ED Course: 10:09 Patient arrived in ED. ap3 10:10 Peggy Goldstein, CARROLL is Primary Nurse. ap3 10:10 Rodrigo Mejia MD is Attending Physician. jayshree 10:15 Triage completed. ap3 10:17 Rodrigo Hicks PA is PHCP. cp 10:17 Arm band placed on left wrist. ap3 10:17 Patient has correct armband on for positive identification. Bed in low position. Call ap3 light in reach. Side rails up X2. Adult w/ patient. case monitor on. Pulse ox on. NIBP on. Door closed. Noise minimized. 10:49 XRAY Chest (1 view) In Process Unspecified. EDMS 11:03 Initial lab(s) drawn, by ED staff, sent to lab. COVID swab sent to lab. em1 12:00 No provider procedures requiring assistance completed. Inserted saline lock: 20 gauge kb3 in left antecubital area, using aseptic technique. 13:[address] kb3 13:47 CT Chest For PE Angio In Process Unspecified. EDMS 16:47 Patient transferred, IV remains in place. kb3 Administered Medications: 10:52 Not Given (pt c/o abd painn): Aspirin 81 mg PO once ap3 11:11 Drug: fentaNYL (PF) 25 mcg Route: IVP; Site: left antecubital; ap3 12:00 Follow up: Response: No adverse reaction; Pain is decreased kb3 11:12 Drug: NS 0.9% 1000 ml Route: IV; Rate: 125 ml/hr; Site: left antecubital; ap3 15:56 Follow up: Response: No adverse reaction; IV Status: Infusion continued upon transfer; kb3 IV Intake: 500ml 12:00 Drug: Metoprolol 50 mg Route: PO; ap3 13:00 Follow up: Response: No adverse reaction kb3 12:01 Drug: Metoprolol 5 mg Route: IVP; Site: left antecubital; ap3 12:06 Drug: Metoprolol 5 mg Route: IVP; Site: left antecubital; ap3 12:11 Drug: Metoprolol 5 mg Route: IVP; Site: left antecubital; ap3 13:00 Follow up: Response: No adverse reaction kb3 14:50 Drug: Lovenox (enoxaparin) 1 mg/kg Route: Sub-Q; Site: abdomen; kb3 15:30 Follow up: Response: No adverse reaction kb3 14:50 Drug: morphine 4 mg Route: IVP; Infused Over: 4 mins; Site: left antecubital; kb3 15:30 Follow up: Response: No adverse reaction; Pain is decreased kb3 Medication: 11:01 VIS not applicable for this client. ap3 Intake: 15:56 IV: 500ml; Total: 500ml. kb3 Outcome: 13:55 ER care complete, transfer ordered by MD. bond 16:47 Transferred by ground EMS to [facility], Transfer form completed. X-rays sent kb3 w/ patient. 16:47 Condition: stable 16:47 Instructed on the need for transfer. 16:47 Patient left the ED. kb3 Signatures: Dispatcher [employer] EDRodrigo Velasco MD MD cha Martinez, Eric em1 Rodrigo Hicks PA PA cp Prokisch, Amanda, RN RN ap3 Katharina Fung RN RN kb3
--- NOTE | 2022-01-01 13:56 | EDPHYS ---
Physician Documentation [facility] Name: Roslyn Tovar Age: 81 yrs Sex: Female : 1940 Arrival Date: 01/01/2022 Time: 10:09 Bed 26 Private MD: ED Physician Rodrigo Mejia HPI: 01/01 10:20 This 81 yrs old Female presents to ER via EMS with complaints of Shortness of Breath. cp 10:20 The patient has shortness of breath at rest. Onset: The symptoms/episode began/occurred cp this morning. Duration: The symptoms are continuous, but are steadily getting better. 10:20 Associated signs and symptoms: Pertinent positives: chest pain, Pertinent negatives: cp productive cough, diaphoresis, dizziness, fever, vomiting. Historical: - Allergies: 10:15 Codeine; ap3 - PMHx: 10:15 bladder cancer; ap3 - Immunization history:: Client reports receiving the 2nd dose of the Covid vaccine, Flu vaccine is up to date. - Social history:: Smoking status: Patient/guardian denies using tobacco, the patient reports quitting approximately 30 years ago. ROS: 10:30 Constitutional: Negative for body aches, chills, fever, poor PO intake. cp 10:30 Eyes: Negative for injury, pain, redness, and discharge. cp 10:30 ENT: Negative for drainage from ear(s), ear pain, sore throat, difficulty swallowing, difficulty handling secretions. 10:30 Cardiovascular: Positive for chest pain, Negative for edema, palpitations. 10:30 Respiratory: Positive for shortness of breath, at rest. Negative for cough, wheezing. 10:30 Abdomen/GI: Negative for nausea, vomiting, and diarrhea, constipation, anorexia. 10:30 Back: Negative for pain at rest, pain with movement. 10:30 : Negative for urinary symptoms. 10:30 Neuro: Negative for altered mental status, dizziness, headache, syncope, weakness. 10:30 All other systems are negative. Exam: 10:33 Constitutional: The patient appears in no acute distress, alert, awake, cp non-diaphoretic, non-toxic, well developed, well nourished, anxious. 10:33 Head/Face: Normocephalic, atraumatic. cp 10:33 Eyes: Periorbital structures: appear normal, Conjunctiva: normal, no exudate, no injection, Sclera: no appreciated abnormality, Lids and lashes: appear normal, bilaterally. 10:33 ENT: External ear(s): are unremarkable, Nose: is normal, Mouth: Lips: moist, Oral mucosa: pink and intact, moist, Posterior pharynx: Airway: no evidence of obstruction, patent. 10:33 Neck: ROM/movement: is normal, is supple, without pain, no range of motions limitations. 10:33 Chest/axilla: Inspection: normal, Palpation: is normal, no crepitus, no tenderness. 10:33 Cardiovascular: Rate: tachycardic, Rhythm: regular, Edema: is not appreciated, JVD: is not appreciated. 10:33 Respiratory: the patient does not display signs of respiratory distress, Respirations: normal, no use of accessory muscles, no retractions, labored breathing, is not present, Breath sounds: are clear throughout, no decreased breath sounds, no stridor, no wheezing. 10:33 Abdomen/GI: Inspection: abdomen appears normal, Bowel sounds: active, all quadrants, Palpation: soft, in all quadrants, mild abdominal tenderness, in all quadrants. 10:33 Skin: no rash present. 10:33 Neuro: Orientation: to person, place \T\ time. Mentation: is normal, Motor: moves all fours, strength is normal, Sensation: no obvious gross deficits. Vital Signs: 10:11 BP 140 / 65; Pulse 107; Resp 19; Temp 98.8; Pulse Ox 100% on 2 lpm NC; Weight 65.77 kg; ap3 Height 5 ft. 1 in. (154.94 cm); 12:01 BP 155 / 58; Pulse 160; ap3 12:06 BP 130 / 66; Pulse 137; ap3 12:11 BP 129 / 68; Pulse 120; ap3 12:30 BP 130 / 61; Pulse 90; Pulse Ox 100% on 2 lpm NC; ap3 14:00 BP 136 / 57; Pulse 87; Resp 20; Pulse Ox 100% ; kb3 16:00 BP 141 / 57; Pulse 89; Resp 20; Pulse Ox 95% ; kb3 10:11 Body Mass Index 27.40 (65.77 kg, 154.94 cm) ap3 10:11 patient wears 2liters nasal canula at home ap3 MDM: 10:10 Patient medically screened. [facility] 14:20 Data reviewed: vital signs, nurses notes, lab test result(s), EKG, radiologic studies, cp CT scan, plain films. 14:20 Test interpretation: by ED physician or midlevel provider: ECG, plain radiologic cp studies. 14:25 Counseling: I had a detailed discussion with the patient and/or guardian regarding: the cp historical points, exam findings, and any diagnostic results supporting the discharge/admit diagnosis, lab results, radiology results. 15:15 Response to treatment: the patient's symptoms have markedly improved after treatment. ED course: Patient accepted to [facility] with no doc to doc consult after initiation of transfer as requested by patient and family. 01/01 10:14 Order name: Basic Metabolic Panel; Complete Time: 11:50 [facility] 01/01 11:51 Interpretation: Normal except: GLUC 174; BUN 42; GFR 45; CA 7.5. 01/01 10:14 Order name: CBC with Diff; Complete Time: 11:50 [facility] 01/01 11:51 Interpretation: Normal except: RBC 2.84; HGB 8.6; HCT 26.6; RDW 19.1; MPV 7.0; BIRD% cp 88.4; LYM% 1.5; NEUT A 9.1; LYMA 0.2. 01/01 10:14 Order name: LFT's; Complete Time: 11:50 [facility] 01/01 12:12 Interpretation: Normal except: ALK 288; ALB 2.3; GLOB 4.3; A/G 0.5. 01/01 10:14 Order name: Magnesium; Complete Time: 11:50 [facility] 01/01 12:13 Interpretation: Abnormal: MG 2.6. 01/01 10:14 Order name: NT PRO-BNP; Complete Time: 11:50 [facility] 01/01 11:51 Interpretation: Abnormal: NT PRO-BNP 1532. 01/01 10:14 Order name: PT-INR; Complete Time: 11:50 [facility] 01/01 10:14 Order name: Troponin HS; Complete Time: 11:50 [facility] 01/01 10:14 Order name: XRAY Chest (1 view); Complete Time: 11:50 [facility] 01/01 10:14 Order name: Lipase; Complete Time: 11:50 [facility] 01/01 10:14 Order name: COVID-19/FLU A+B; Complete Time: 12:12 [facility] 01/01 10:14 Order name: Lactate w/ 2H reflex if indic.; Complete Time: 11:50 [facility] 01/01 10:14 Order name: D-Dimer; Complete Time: 11:50 [facility] 01/01 10:14 Order name: EKG; Complete Time: 10:14 [facility] 01/01 10:14 Order name: Cardiac monitoring; Complete Time: 10:34 [facility] 01/01 10:14 Order name: EKG - Nurse/Tech; Complete Time: 11:15 [facility] 01/01 10:14 Order name: IV Saline Lock; Complete Time: 10:34 [facility] 01/01 10:14 Order name: Labs collected and sent; Complete Time: 11:03 [facility] 01/01 10:14 Order name: O2 Per Protocol; Complete Time: 10:34 [facility] 01/01 10:14 Order name: O2 Sat Monitoring; Complete Time: 10:34 [facility] 01/01 13:15 Order name: CT Chest For PE Angio; Complete Time: 14:14 cp 01/01 14:15 Interpretation: Report reviewed. cp Administered Medications: 10:52 Not Given (pt c/o abd painn): Aspirin 81 mg PO once ap3 11:11 Drug: fentaNYL (PF) 25 mcg Route: IVP; Site: left antecubital; ap3 12:00 Follow up: Response: No adverse reaction; Pain is decreased kb3 11:12 Drug: NS 0.9% 1000 ml Route: IV; Rate: 125 ml/hr; Site: left antecubital; ap3 15:56 Follow up: Response: No adverse reaction; IV Status: Infusion continued upon transfer; kb3 IV Intake: 500ml 12:00 Drug: Metoprolol 50 mg Route: PO; ap3 13:00 Follow up: Response: No adverse reaction kb3 12:01 Drug: Metoprolol 5 mg Route: IVP; Site: left antecubital; ap3 12:06 Drug: Metoprolol 5 mg Route: IVP; Site: left antecubital; ap3 12:11 Drug: Metoprolol 5 mg Route: IVP; Site: left antecubital; ap3 13:00 Follow up: Response: No adverse reaction kb3 14:50 Drug: Lovenox (enoxaparin) 1 mg/kg Route: Sub-Q; Site: abdomen; kb3 15:30 Follow up: Response: No adverse reaction kb3 14:50 Drug: morphine 4 mg Route: IVP; Infused Over: 4 mins; Site: left antecubital; kb3 15:30 Follow up: Response: No adverse reaction; Pain is decreased kb3 Disposition: 01/02 09:31 Co-signature as Attending Physician, Rodrigo Mejia MD I agree with the assessment and jayshree plan of care. Disposition Summary: 01/01/22 13:55 Transfer Ordered Transfer Location: Other Acute Care Facility cp Reason: Higher level of care cp Condition: Stable cp Problem: new cp Symptoms: have improved cp Accepting Physician: DR Wright(01/01/22 16:47) kb3 Diagnosis - Unspecified atrial fibrillation cp Forms: - Medication Reconciliation Form cp - SBAR form cp Signatures: Dispatcher [employer] EDRodrigo Velasco MD MD cha Page, Corey, PA PA cp Peggy Goldstein RN RN ap3 Katharina Fung RN RN kb3 Corrections: (The following items were deleted from the chart) 01/01 11:51 11:51 Normal except: GLUC 174; BUN 42; GFR 45. cp cp 16:47 13:55 DR Wright cp kb3
--- NOTE | 2022-01-01 14:13 | RAD REPORT ---
EXAM DESCRIPTION: CT - Chest For Pe Angio - 01/01/2022 1:45 pm CLINICAL HISTORY: Chest pain. shortness of breath COMPARISON: No comparisons TECHNIQUE: CT angiogram of the pulmonary arteries was performed with MIP. All CT scans are performed using dose optimization technique as appropriate and may include automated exposure control or mA/KV adjustment according to patient size. FINDINGS: No evidence of pulmonary thromboembolism. No acute aortic finding demonstrated. Mild subsegmental atelectasis in both lung bases. Small right pleural effusion. Multiple bone metastases seen involving several ribs as well as the spine and both shoulders. The mid thoracic bony metastatic lesions may result in moderate narrowing of the central canal. IMPRESSION: No evidence of pulmonary thromboembolism. No acute lung findings. Small right pleural effusion. Extensive bony metastatic disease is seen. Central canal narrowing is likely present at the midthorac ic levels due to metastatic disease.
[2022-01-01] MEDS ORDERED: MORPHINE 4 MG/ML SYR ONE (14:46)
[2022-01-01] MEDS ORDERED: ENOXAPARIN 60 MG/0.6 ML SQ ONE (14:48)
[2022-01-01 17:09] VITALS: TEMP 98.8
[2022-01-01 17:15] VITALS: BP 141/57; O2SAT 95
--- NOTE | 2022-01-04 19:21 | EKG ---
Test Date: 2022-01-01 Test Time: 12:43:19 Vocational Rehabilitation Teacher: ALP MEASUREMENT RESULTS: Intervals: Rate: 88 AR: 146 QRSD: 72 QT: 386 QTc: 467 [place]: P: 51 AR: 146 QRS: 28 T: 35 INTERPRETIVE STATEMENTS: Normal sinus rhythm with sinus arrhythmia Normal ECG Compared to ECG 01/01/2022 11:53:16 Atrial fibrillation no longer present T-wave abnormality no longer present Electronically Signed On 01-04-22 19:11:24 [employer]IANS [employer] by Phu Webb
--- NOTE | 2022-01-04 19:21 | EKG ---
Test Date: 2022-01-01 Test Time: 11:05:50 Block Breaker Operator: ALP MEASUREMENT RESULTS: Intervals: Rate: 100 MN: 130 QRSD: 70 QT: 370 QTc: 477 [place]: P: 53 MN: 130 QRS: 40 T: 46 INTERPRETIVE STATEMENTS: Normal sinus rhythm Nonspecific ST abnormality Abnormal ECG Compared to ECG 04/04/2021 06:51:42 ST (T wave) deviation now present Electronically Signed On 01-04-22 19:11:27 CLIENT RENEWAL SPECIALIST by Phu Webb
--- NOTE | 2022-01-04 19:21 | EKG ---
Test Date: 2022-01-01 Test Time: 11:53:16 Alarm Security Or Surveillance Monitor: ALP MEASUREMENT RESULTS: Intervals: Rate: 162 CT: QRSD: 78 QT: 298 QTc: 489 [place]: P: CT: QRS: 42 T: 19 INTERPRETIVE STATEMENTS: Atrial fibrillation with rapid ventricular response Nonspecific T wave abnormality Abnormal ECG Compared to ECG 01/01/2022 11:05:50 T-wave abnormality now present Sinus rhythm no longer present ST (T wave) deviation no longer present Electronically Signed On 01-04-22 19:11:25 [employer]ING W[employer]ER by Phu Webb
== END 2022-01-01 16:47 ==
LOC: ER 09:48
DX: I48.91 Unspecified atrial fibrillation (principal); Z20.822 Contact with and (suspected) exposure to COVID-19; Z88.5 Allergy status to narcotic agent
CPT/HCPCS: 96361; 93005 ×3; 85025; 80048; 36415; 83735; 85610; 85379; 80076; 83605; 84484; 83690; 83880; 0240U; 71275; 71045; 96375; 96372; 96374; 99285; Q9967; J3010; J1650; J7030